=== PATIENT | female | born 1955 | race Caucasian/White ===

== ENCOUNTER 2023-01-20 08:21 | Outpatient (OUT) | payer BC, SELFPAY ==
[2023-01-20 08:48] LABS: Basophils Absolute Auto 0.1 10^3/uL (0.0-0.1); Basophils Percent Auto 0.9 % (0.2-2.0); Eosinophils Absolute Auto 0.3 10^3/uL (0.0-0.7); Eosinophils Percent Auto 3.5 % (0.9-7.0); Hematocrit 35.4 % (36.0-48.0); Hemoglobin 11.2 g/dL (12.0-16.0); Immature Granulocytes Abs Auto 0.05 10^3/uL (0.00-0.03); Immature Granulocytes Pct Auto 0.6 % (0.0-0.5); Lymphocytes Absolute Auto 3.1 10^3/uL (1.2-3.8); Lymphocytes Percent Auto 36.3 % (20.5-60.0); Mean Corpuscular HGB Conc 31.6 g/dL (29.9-35.2); Mean Corpuscular Hemoglobin 28.6 pg (26.7-34.0); Mean Corpuscular Volume 90.3 fL (81.0-99.0); Monocytes Absolute Auto 0.7 10^3/uL (0.3-0.8); Monocytes Percent Auto 8.5 % (1.7-12.0); Neutrophils Absolute Auto 4.3 10^3/uL (1.4-6.5); Neutrophils Percent Auto 50.2 % (43.0-75.0); Platelet Count 411 10^3/uL (150-450); Red Blood Count 3.92 10^6/uL (4.20-5.40); Red Cell Distribution Width 14.7 % (11.0-15.0); White Blood Count 8.6 10^3/uL (4.0-11.0)
[2023-01-20 09:03] LABS: Alanine Aminotransferase 27 U/L (14-59); Albumin Globulin Ratio 0.9; Albumin Level 3.4 g/dL (3.4-5.0); Alkaline Phosphatase 76 U/L (46-116); Anion Gap 11.5; Aspartate Amino Transferase 21 U/L (15-37); BUN Creatinine Ratio 16.3; Bilirubin Total 0.2 mg/dL (0.2-1.0); Calcium 8.7 mg/dL (8.5-10.1); Carbon Dioxide 29.7 mmol/L (21.0-32.0); Chloride 105 mmol/L (98-107); Chol HDL Ratio 3.4; Cholesterol 217 mg/dL (<=200); Estimated GFR (African America >60 (>=60); Estimated GFR (Non-African Ame >60 (>=60); Globulin 3.8 g/dL; Glucose 99 mg/dL (74-106); HDL Cholesterol 63 mg/dL (40-60); Potassium 4.2 mmol/L (3.5-5.1); Sodium 142 mmol/L (136-145); Total Protein 7.2 g/dL (6.4-8.2); Triglycerides 102 mg/dL (<=150); VLDL CHOLESTEROL 20.4 mg/dL
[2023-01-20 09:20] LABS: Estimated Average Glucose 114 mg/dL; Glycohemoglobin A1C 5.6 % (4.5-6.2)
== END 2023-01-20 08:22 ==
LOC: LAB 08:21
PROVIDERS: PCP Family Medicine; Visit Provider Family Medicine
DX: Z00.00 Encounter for general adult medical examination without abnormal findings (principal)
CPT/HCPCS: 36415; 80053; 80061; 83036; 84443; 85025

== ENCOUNTER 2023-06-17 07:01 | Outpatient (OUT) | payer BC, SELFPAY ==
--- NOTE | 2023-06-17 | MM_ITS ---
Patient: MIRYAM PATEL Exam Date: 06/17/2023 : 1955 Gender:F Ordering : DR Jermaine Russo . Admission #: [id number] Family : DR Tanvi Rocha M.D. Order #: [id number] CLICK HERE TO VIEW EXAM RADIOLOGY REPORT PROCEDURE: MM TOMOSYNTHESIS SCREENING BI COMPARISON: MG MAMM SCREEN 3D YOU CAD, 05/17/2021. MG MAMM SCREEN 3D YOU CAD, 06/11/2022. INDICATIONS: Screening Mammogram Calculator Name NCI Breast Cancer Risk Assessment Tool 5 Year Breast Cancer Risk 1.20% Lifetime Breast Cancer Risk 4.60% Personal Breast Cancer No Personal Ovarian Cancer No Treatments None Family Cancers Niece with larynx cancer at age ~70; Grandfather-maternal with skin cancer at age 63. LOCATION: [facility] BREAST COMPOSITION: Scattered areas fibroglandular density. FINDINGS: DIAGNOSTIC CATEGORY 1--NEGATIVE. NO CHANGE FROM COMPARISON ASSESSMENT. Scattered benign-appearing calcifications are present. Scattered benign-appearing lymph nodes are present. RIGHT BREAST: No significant suspicious finding. LEFT BREAST: No significant suspicious finding. RECOMMENDATIONS: ROUTINE MAMMOGRAM AND CLINICAL EVALUATION IN 12 MONTHS. PLEASE NOTE: A NORMAL MAMMOGRAM DOES NOT EXCLUDE THE POSSIBILITY OF BREAST CANCER. A CLINICALLY SUSPICIOUS PALPABLE LUMP SHOULD BE BIOPSIED. Dictated by: Rory Ford MD on 06/17/2023 at 09:55 Approved by: Rory Ford MD on 06/17/2023 at 09:57
== END 2023-06-17 07:02 | disposition home or self-care (01) ==
LOC: MAMMO 07:01
PROVIDERS: PCP Family Medicine; Visit Provider Obstetrics & Gynecology
DX: Z12.31 Encounter for screening mammogram for malignant neoplasm of breast (principal)
CPT/HCPCS: 77063; 77067

== ENCOUNTER 2023-07-02 19:09 | Outpatient (REF) | payer BC, SELFPAY ==
[2023-07-08 10:10] LABS: Age Gdln ACOG Testing Note (.); HPV Aptima Negative (Negative); IGP, Aptima HPV, rfx 16/18,45 Note (.)
== END 2023-07-02 19:10 | disposition home or self-care (01) ==
LOC: LAB 19:09
PROVIDERS: PCP Family Medicine; Visit Provider Obstetrics & Gynecology
DX: Z01.419 Encounter for gynecological examination (general) (routine) without abnormal findings (principal)
CPT/HCPCS: G0145

== ENCOUNTER 2023-09-10 13:58 | Outpatient (OUT) | payer BC, SELFPAY ==
--- OUTSIDE RECORDS SUMMARY | 2023-09-10 14:01 | XMS_ITS | CCD ---
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 Role Phone ALVINO, DR TANVI Perez Primary Care Unavailable MONIQUE, DR WILCOX Admitting Unavailable MONIQUE, DR WILCOX Attending Unavailable WEST, DR KATHIE Gaona Consulting Unavailable MONIQUE, DR WILCOX Consulting Unavailable MONIQUE, DR WILCOX Admitting Unavailable MONIQUE, DR WILCOX Attending Unavailable ROCHA, DR TANVI Perez Primary Care Unavailable WEST, DR KATHIE Gaona Consulting Unavailable MONIQUE, DR WILCOX Consulting Unavailable MONIQUE, DR WILCOX Admitting Unavailable MONIQUE, DR WILCOX Attending Unavailable ROCHA, DR TANIV Perez Primary Care Unavailable MONIQUE, DR WILCOX Consulting Unavailable ROCHA, DR TANVI Perez Primary Care Unavailable TOMI PANIAGUA Admitting Unavailable TOMI PANIAGUA Attending Unavailable TOMI PANIAGUA Consulting Unavailable KATHIE HOPKINS Consulting Unavailable JOHN JOHNSON Admitting Unavailable JOHN JOHNSON Attending Unavailable ALVINO, DR TANVI Perez Primary Care Unavailable ALVINO, DR TANVI Perez Consulting Unavailable ALVINO, DR TANVI Perez Admitting Unavailable ALVINO, DR TANVI Perez Attending Unavailable ALVINO, DR TANVI Perez Primary Care Unavailable ALVINO, DR TANVI Perez Consulting Unavailable Tanvi Rocha Unavailable JERI AMAYA Attending Unavailable Allergies Allergy Classification Reported Allergen(s) Allergy Type Date of Onset Reaction(s) Facility (1 source) Shellfish Drug allergy (disorder) 12-23-2013 [facility] (1 source) kiwi Drug allergy (disorder) 08-17-2001 [facility] Medications Current Medications Medication Drug Class(es) Dates Sig (Normalized) Sig (Original) alendronic acid 70 mg oral tablet (1 source) Bisphosphonate take 1 tablet by mouth once daily Fosamax 70 MG 1 tablet 30 minutes before the first food, beverage or medicine of the day with plain water Orally Active 24 hr buPROPion hydrochloride 150 mg extended release oral tablet (1 source) Aminoketone take 1 tablet by mouth every twenty-four hours Wellbutrin XL 150 MG 1 tablet in the morning Orally Once a day for 90 days Active cycloSPORINE 0.5 mg/ml ophthalmic suspension (1 source) Calcineurin Inhibitor Immunosuppressant take 1 drop(s) into the eye(s) twice daily Restasis 0.05 % 1 drop into affected eye Ophthalmic Twice a day Active levothyroxine sodium 0.1 mg oral tablet (1 source) l-Thyroxine take 1 tablet by mouth once daily in the morning Levothyroxine Sodium 100 MCG 1 tablet in the morning on an empty stomach Orally Once a day for 90 days Active Problems Active Problems Problem Classification Problem Date Documented Da te Episodic/Chronic Genitourinary symptoms and ill-defined conditions (1 source) Urinary tract infectious disease; Translations: [Unspecified symptoms and signs involving the genitourinary system] Episodic Headache; including migraine (1 source) Chronic tension-type headache; Translations: [Chronic tension-type headache, not intractable] Chronic Immunizations and screening for infectious disease (1 source) Encounter for screening for human papillomavirus (HPV); Translations: [ENC SCREENING HUMAN PAPILLOMAVIRUS] Onset: 07-04-2022 Episodic Influenza (1 source) Influenza due to other identified influenza virus with other respiratory manifestations; Translations: [FLU D/T OTH ID FLU VIR OTH RSP MANF] Onset: 07-17-2022 Episodic Menopausal disorders (1 source) Vaginal dryness; Translations: [Menopausal and female climacteric states] Chronic Mood disorders (1 source) Major depression, single episode; Translations: [Major depressive disorder, single episode, unspecified] Chronic Osteoarthritis (1 source) Localized, primary osteoarthritis of the pelvic region and thigh; Translations: [Unilateral primary osteoarthritis, right hip] Chronic Other aftercare (1 source) Other detention (current) drug therapy; Translations: [OT USP CURRENT DRUG THERAPY] Onset: 07-17-2022 Episodic Other bone disease and musculoskeletal deformities (1 source) Other specified disorders of bone density and structure, unspecified site; Translations: [OTH D/O BONE DEN STRUCT UNS SITE] Onset: 06-15-2022 Episodic Other bone disease and musculoskeletal deformities (1 source) Osteopenia; Translations: [Other specified disorders of bone density and structure, unspecified site] Episodic Other connective tissue disease (1 source) Trochanteric bursitis of right hip; Translations: [Trochanteric bursitis, right hip] Episodic Other non-traumatic joint disorders (1 source) Pain in right hip joint; Translations: [Pain in right hip] Episodic Other screening for suspected conditions (not mental disorders or infectious disease) (8 sources) Encounter for screening for malignant neoplasm of cervix; Translations: [Encounter for screening mammogram for malignant neoplasm of breast] Onset: 06-11-2022 Episodic Residual codes; unclassified (1 source) Family history of malignant neoplasm of other organs or systems; Translations: [FAM HX MALIG NEOPLASM OTH ORGN/SYS] Onset: 06-15-2022 Episodic Residual codes; unclassified (4 sources) Asymptomatic menopausal state; Translations: [ASYMPTOMATIC MENOPAUSAL STATE] Onset: 06-10-2022 Episodic Residual codes; unclassified (1 source) Postmenopausal state; Translations: [Asymptomatic menopausal state] Episodic Spondylosis; intervertebral disc disorders; other back problems (1 source) Lumbar radiculopathy; Translations: [Radiculopathy, lumbar region] Episodic Thyroid disorders (2 sources) Hypothyroidism, unspecified; Translations: [Hypothyroidism] Onset: 07-17-2022 Chronic Unclassified (2 sources) COUGH, UNSPECIFIED; Translations: [COUGH, UNSPECIFIED] Onset: 07-17-2022 Unclassified (3 sources) CONTACT W/AND (SUSP) EXPOS COVID-19; Translations: [CONTACT W/AND (SUSP) EXPOS COVID-19] Onset: 07-17-2022 Past or Other Problems Problem Classification Problem Date Documented Da te Episodic/Chronic Unclassified (1 source) COUGH, UNSPECIFIED; Translations: [COUGH, UNSPECIFIED] Onset: 07-14-2022 Unclassified (1 source) CONTACT W/AND (SUSP) EXPOS COVID-19; Translations: [CONTACT W/AND (SUSP) EXPOS COVID-19] Onset: 07-14-2022 Results Test Name Value Interpretation Reference Range [facility] SARS-CoV-2 (COVID-19) RNA LARA+probe Ql (Unsp spec) Not detected Normal NOT DETECTED [facility] Comment on above: Result Comment: When diagnostic testing is negative, the possibility of a false negative should be considered in the context of a patient's recent exposures and the presence of clinical signs and symptoms consistent with SARS-CoV-2. This test is not yet approved or cleared by the [place] FDA. When there are no FDA-approved or cleared tests available, and other criteria are met, FDA can make tests available under an emergency access mechanism called an Emergency Use Authorization (EUA). The EUA for this test is supported by the [place] of Health and Human Service's declaration that circumstances exist to justify the emergency use of in vitro diagnostics for the detection and/or diagnosis of the virus that causes COVID-19. This EUA will remain in effect for the duration of the COVID-19 declaration justifying emergency of IVDs, unless it is terminated or revoked by the FDA (after which the test may no longer be used). Performed By: #### C VDTB #### [facility] [address] [place] [address] Dr. Heather Aguirre INFLUENZA A AND B AGon 07-14 INFLUENZA A AG Positive Abnormal NEGATIVE SEE COMMENT [facility] Comment on above: Performed By: #### I NFLUAB #### [facility] [address] [place] [address] Dr. Heather Aguirre INFLUENZA B AG Negative Normal NEGATIVE SEE COMMENT [facility] Comment on above: Performed By: #### I NFLUAB #### [facility] [address] [place] [address] Dr. Heather Aguirre INTERNAL CONTROLS Within Normal Limits Normal Wi thin Normal Limits [facility] Comment on above: Performed By: #### I NFLUAB #### [facility] [address] [place] [address] Dr. Heather Aguirre XR CHEST 2 Von 07-14-2022 XR CHEST 2 V EXAM: XR CHEST 2 V HISTORY: Chills, fever and bodyaches COMPARISON: None. TECHNIQUE: PA and lateral chest x-rays FINDINGS: The lung parenchyma is free of consolidation or infiltrate. No pneumothorax or pleural effusion. The cardiac, mediastinal and hilar contours are normal. The visualized osseous structures exhibit no gross abnormality. IMPRESSION: No acute cardiopulmonary abnormality. Electronically authenticated by: KATHIE HOPKINS Date: 2022-07-14 21:21 Normal [facility] PAP ACOG PANEL 2: 30 to 65on 07-09-2022 . . Normal [facility] Comment on above: Result Comment: Perf ormed at: WB Performed By: #### [id number] #### [facility] [address] [address] [address] Heather Aguirre Age Gdln ACOG Testing 30-65 Normal [facility] Comment on above: Performed By: #### [id number] #### [facility] [address] [address] [address] Heather Aguirre DIAGNOSIS: Comment Normal [facility] Comment on above: Result Comment: NEGA TIVE FOR INTRAEPITHELIAL LESION OR MALIGNANCY. CELLULAR CHANGES ASSOCIATED WITH ATROPHY ARE PRESENT. Performed at: WB Performed By: #### [id number] #### [facility] [address] [address] [address] Heather Aguirre HPV Aptima Negative Normal Negative [facility] Comment on above: Result Comment: This nucleic acid amplification test detects fourteen high-risk HPV types (16,18,31,33,35,39,45,51,52,56,58,59,66,68) without differentiation. Performed at: =G Performed By: #### [id number] #### [facility] [address] [address] [address] Heather Aguirre HPV Genotype Reflex Comment Normal [facility] Comment on above: Result Comment: Crit eria not met, HPV Genotype not performed. Performed at: WB Performed By: #### [id number] #### [facility] [address] [address] [address] Heather Aguirre Methodology: CTIM [facility] Comment on above: Result Comment: The Thin Prep(R) Front Attendant was unable to read this specimen. Therefore a manual review was performed. Performed at: WB Performed By: #### [id number] #### [facility] [address] [place] [address] Dr. Heather Aguirre Note: Comment Normal [facility] Comment on above: Result Comment: The Pap smear is a screening test designed to aid in the detection of premalignant and malignant conditions of the uterine cervix. It is not a diagnostic procedure and should not be used as the sole means of detecting cervical cancer. Both false-positive and false-negative reports do occur. . Performed at: WB Performed By: #### [id number] #### [facility] [address] [address] [address] Heather Aguirre Performed by: Comment Normal [facility] Comment on above: Result Comment: Supriya Amador, Youth Probation Officer (ASCP) Performed at: WB Performed By: #### [id number] #### [facility] [address] [place], [place] [address] Dr. Heather Aguirre Specimen adequacy: Comment Normal [facility] Comment on above: Result Comment: Sati sfactory for evaluation. Endocervical component may not be distinguished in cases of atrophy. Performed at: WB Performed By: #### [id number] #### [facility] [address] [address] [address] Heather Aguirre MG MAMM SCREEN 3D YOU CADon 06-11-2022 MG MAMM SCREEN 3D YOU CAD Patient: MIRYAM PATEL Exam Date: 06/11/2022 : 1955 Gender:F Ordering : DR JERI AMAYA . Admission #: [id number] Family : Order #: [id number] CLICK HERE TO VIEW EXAM RADIOLOGY REPORT PROCEDURE: MAMMOGRAM SCREENING 3D BILATERAL CAD COMPARISON: MG MAMM SCREEN YOU W CAD, 05/16/2020. MG MAMM SCREEN 3D YOU CAD, 05/17/2021. INDICATIONS: Screening mammography Calculator Name NCI Breast Cancer Risk Assessment Tool 5 Year Breast Cancer Risk 1.20% Lifetime Breast Cancer Risk 4.70% Personal Breast Cancer No Personal Ovarian Cancer No Treatments None Family Cancers Niece with larynx cancer at age 70; Grandfather-maternal with skin cancer at age 63. LOCATION: [facility] BREAST COMPOSITION: Scattered areas fibroglandular density. FINDINGS: DIAGNOSTIC CATEGORY 1--NEGATIVE. NO CHANGE FROM COMPARISON ASSESSMENT. Scattered benign-appearing calcifications are present. Scattered benign-appearing lymph nodes are present. RIGHT BREAST: No significant suspicious finding. LEFT BREAST: No significant suspicious finding. RECOMMENDATIONS: ROUTINE MAMMOGRAM AND CLINICAL EVALUATION IN 12 MONTHS. PLEASE NOTE: A NORMAL MAMMOGRAM DOES NOT EXCLUDE THE POSSIBILITY OF BREAST CANCER. A CLINICALLY SUSPICIOUS PALPABLE LUMP SHOULD BE BIOPSIED. Dictated by: Kathie Olvera MD on 06/11/2022 at 08:03 Approved by: Kathie Olvera MD on 06/11/2022 at 08:04 Normal [facility] XR DEXA BONE DENSITYon 06-10 XR DEXA BONE DENSITY EXAMINATION: XR DEX A BONE DENSITY, 06/10/2022 7:59 AM EDT HISTORY: Screening mammography COMPARISON: 2019, 2017, 2009 TECHNIQUE: Dual-energy X-ray absorptiometry (DEXA) bone density study performed for the axial skeleton. FINDINGS: Bone mineral density of the AP spine L2-L4 measures 1.127 g/sq cm. T score -0.6. WHO classification: Normal Lowest bone mineral density is in the right femoral neck measuring 0.73 g/sq cm. T score -1.8. WHO classification: Osteopenia IMPRESSION: Osteopenia, moderate fracture risk Electronically authenticated by: KATHIE OLVERA Date: 2022-06-10 12:16 Normal [facility] CBC AUTO DIFFon 02-12-2022 BASO # 0.1 103/ul Normal 0.0-0.1 [facility] Comment on above: Performed By: #### L IPID, TSH, CMP #### [facility] [address] [place] [address] Dr. Heather Aguirre Basophils/100 WBC (Bld) 0.8 % Normal 0.2-2.0 [facility] Comment on above: Performed By: #### L IPID, TSH, CMP #### [facility] [address] [place] [address] Dr. Heather Aguirre EO # 0.3 103/ul Normal 0.0-0.7 [facility] Comment on above: Performed By: #### L IPID, TSH, CMP #### [facility] [address] [place] [address] Dr. Heather Aguirre Eosinophils/100 WBC (Bld) 2.9 % Normal 0.9-7.0 [facility] Comment on above: Performed By: #### L IPID, TSH, CMP #### [facility] [address] [place] [address] Dr. Heather Aguirre Erythrocyte distribution width (RBC) [Ratio] 13.2 % Normal 11.0-15.0 [facility] Comment on above: Performed By: #### L IPID, TSH, CMP #### [facility] [address] [place] [address] Dr. Heather Aguirre Hematocrit (Bld) [Volume fraction] 37.6 % Normal 36.0-48.0 [facility] Comment on above: Performed By: #### L IPID, TSH, CMP #### [facility] [address] [place] [address] Dr. Heather Aguirre Hemoglobin (Bld) [Mass/Vol] 12.1 g/dL Normal 12.0-16.0 [facility] Comment on above: Performed By: #### L IPID, TSH, CMP #### [facility] [address] [place] [address] Dr. Heather Aguirre IG # 0.03 10e3/ul Normal 0.00-0.03 [facility] Comment on above: Performed By: #### L IPID, TSH, CMP #### [facility] [address] [place] [address] Dr. Heather Aguirre IG % 0.3 % Normal 0.0-0.5 [facility] Comment on above: Performed By: #### L IPID, TSH, CMP #### [facility] [address] [place] [address] Dr. Heather Aguirre LYMPH # 2.9 103/ul Normal 1.2-3.8 [facility] Comment on above: Performed By: #### L IPID, TSH, CMP #### [facility] [address] [place] [address] Dr. Heather Aguirre Lymphocytes/100 WBC (Bld) 33.6 % Normal 20.5-60.0 [facility] Comment on above: Performed By: #### L IPID, TSH, CMP #### [facility] [address] [place] [address] Dr. Heather Aguirre MANUAL DIFF REQ NO Normal [facility] Comment on above: Performed By: #### L IPID, TSH, CMP #### [facility] [address] [place] [address] Dr. Heather Aguirre MCH (RBC) [Entitic mass] 30.0 pg Normal 26.7-34.0 [facility] Comment on above: Performed By: #### L IPID, TSH, CMP #### [facility] [address] [place] [address] Dr. Heather Aguirre MCHC (RBC) [Mass/Vol] 32.2 g/dL Normal 29.9-35.2 [facility] Comment on above: Performed By: #### L IPID, TSH, CMP #### [facility] [address] [place] [address] Dr. Heather Aguirre MCV (RBC) [Entitic vol] 93.1 fL Normal 81.0-99.0 [facility] Comment on above: Performed By: #### L IPID, TSH, CMP #### [facility] [address] [place] [address] Dr. Heather Aguirre MONO # 0.6 103/ul Normal 0.3-0.8 [facility] Comment on above: Performed By: #### L IPID, TSH, CMP #### [facility] [address] [place] [address] Dr. Heather Aguirre Monocytes/100 WBC (Bld) 7.1 % Normal 1.7-12.0 [facility] Comment on above: Performed By: #### L IPID, TSH, CMP #### [facility] [address] [place] [address] Dr. Heather Aguirre NEUT # 4.8 103/ul Normal 1.4-6.5 [facility] Comment on above: Performed By: #### L IPID, TSH, CMP #### [facility] [address] [place] [address] Dr. Heather Aguirre Neutrophils/100 WBC (Bld) 55.3 % Normal 43.0-75.0 [facility] Comment on above: Performed By: #### L IPID, TSH, CMP #### [facility] [address] [place] [address] Dr. Heather Aguirre Platelet mean volume (Bld) [Entitic vol] 10.2 fL Normal 9.5-13.5 [facility] Comment on above: Performed By: #### L IPID TSH, CMP #### [facility] [address] [address] [address] Heather Aguirre PLT 329 103/ul Normal 150-450 [facility] Comment on above: Performed By: #### L IPID, TSH, CMP #### [facility] [address] [address] [address] Heather Aguirre RBC 4.04 106/ul Critically low 4.20-5.40 [facility] Comment on above: Performed By: #### L IPID TSH, CMP #### [facility] [address] [address] [address] Heather Aguirre WBC 8.7 103/ul Normal 4.0-11.0 [facility] Comment on above: Performed By: #### L IPID TSH, CMP #### [facility] [address] [address] [address] Heather Aguirre GLYCOHEMOGLOBIN A1Con 2021 ADA RECOMMENDATION SEE BELOW Normal [facility] Comment on above: Result Comment: ADA RECOMMENDED LIMIT 4.0 - 6.0 ADA THERAPEUTIC TARGET < 7.0 ACTION SUGGESTED > 7.0 Performed By: #### A 1C #### [facility] [address] [place] [address] Dr. Heather Aguirre Glucose [Mass/Vol] 108 mg/dL Normal [facility] Comment on above: Performed By: #### A 1C #### [facility] [address] [address] [address] Heather Aguirre HbA1c (Bld) [Mass fraction] 5.4 % Normal 4.5-6.2 [facility] Comment on above: Performed By: #### A 1C #### [facility] [address] [place] [address] Dr. Heather Aguirre LIPID PROFILEon 02-12-2022 CHOL-HDL RATIO NORM SEE BELOW Normal [facility] Comment on above: Result Comment: 3.3 - 4.4 LOW RISK 4.4 - 7.1 AVERAGE RISK 7.1 - 11.0 MODERATE RISK >11.0 HIGH RISK Performed By: #### L IPID, TSH, CMP #### [facility] [address] [address] [address] Heather Aguirre Cholesterol [Mass/Vol] 215 mg/dL Critically high <=200 [facility] Comment on above: Performed By: #### L IPID, TSH, CMP #### [facility] [address] [address] [address] Heather Aguirre Cholesterol in HDL [Mass/Vol] 59 mg/dL Normal 40-60 [facility] Comment on above: Performed By: #### L IPID, TSH, CMP #### [facility] [address] [address] [address] Heather Aguirre Cholesterol in LDL [Mass/Vol] 133.0 mg/dL Normal [facility] Comment on above: Performed By: #### L IPID, TSH, CMP #### [facility] [address] [address] [address] Heather Aguirre Cholesterol.total/Cho lesterol in HDL [Mass ratio] 3.6 {ratio} Normal [facility] Comment on above: Performed By: #### L IPID, TSH, CMP #### [facility] [address] [place] [address] Dr. Heather Aguirre HDL NORMAL > or = 60 mg/dl - LO W CARDIOVASCULAR RISK <40 mg/dl - HIGH CARDIOVASCULAR RISK Normal [facility] Comment on above: Performed By: #### L IPID, TSH, CMP #### [facility] [address] [place] [address] Dr. Heather Aguirre LDL CALC NORMAL SEE BELOW Normal [facility] Comment on above: Result Comment: <100 mg/dl OPTIMAL 100 - 129 mg/dl NEAR OR ABOVE OPTIMAL 130 - 159 mg/dl BORDERLINE HIGH 160 - 189 mg/dl HIGH >190 mg/dl VERY HIGH Performed By: #### L IPID, TSH, CMP #### [facility] [address] [address] [address] Heather Aguirre Triglyceride [Mass/Vol] 115 mg/dL Normal <=150 [facility] Comment on above: Performed By: #### L IPID, TSH, CMP #### [facility] [address] [address] [address] Heather Aguirre VLDL CALC 23.0 mg/dL Normal [facility] Comment on above: Performed By: #### L IPID, TSH, CMP #### [facility] [address] [address] [address] Heather Aguirre PROF 14(COMP METB)on 022 Albumin [Mass/Vol] 3.5 g/dL Normal 3.4-5.0 [facility] Comment on above: Performed By: #### L IPID, TSH, CMP #### [facility] [address] [place] [address] Dr. Heather Aguirre Albumin/Globulin [Mass ratio] 1.1 {ratio} Normal [facility] Comment on above: Performed By: #### L IPID, TSH, CMP #### [facility] [address] [place] [address] Dr. Heather Aguirre ALP [Catalytic activity/Vol] 56 U/L Normal 46-116 [facility] Comment on above: Performed By: #### L IPID, TSH, CMP #### [facility] [address] [place] [address] Dr. Heather Aguirre ALT [Catalytic activity/Vol] 25 U/L Normal 14-59 [facility] Comment on above: Performed By: #### L IPID, TSH, CMP #### [facility] [address] [address] [address] Heather Aguirre Anion gap [Moles/Vol] 1 mmol/L Normal [facility] Comment on above: Performed By: #### L IPID, TSH, CMP #### [facility] [address] [place] [address] Dr. Heather Aguirre AST [Catalytic activity/Vol] 10 U/L Critically low 15-37 [facility] Comment on above: Performed By: #### L IPID, TSH, CMP #### [facility] [address] [place] [address] Dr. Heather Aguirre Bilirubin [Mass/Vol] 0.5 mg/dL Normal 0.2-1.0 [facility] Comment on above: Performed By: #### L IPID, TSH, CMP #### [facility] [address] [address] [address] Heather Aguirre Calcium [Mass/Vol] 8.5 mg/dL Normal 8.5-10.1 [facility] Comment on above: Performed By: #### L IPID, TSH, CMP #### [facility] [address] [place] [address] Dr. Heather Aguirre Chloride [Moles/Vol] 102 mmol/L Normal 98-107 [facility] Comment on above: Performed By: #### L IPID, TSH, CMP #### [facility] [facility] [address] [place] [address] Dr. Heather Aguirre CO2 [Moles/Vol] 30.0 mmol/L Normal 21.0-32.0 [facility] Comment on above: Performed By: #### L IPID, TSH, CMP #### [facility] [address] [address] [address] Heather Aguirre Creatinine [Mass/Vol] 1.07 mg/dL Critically high 0.55-1.02 [facility] Comment on above: Performed By: #### L IPID, TSH, CMP #### [facility] [address] [place] [address] Dr. Heather Aguirre EGFR-AF MOZAMBICAN >60 Normal >=60 [facility] Comment on above: Performed By: #### L IPID, TSH, CMP #### [facility] [address] [place] [address] Dr. Heather Aguirre EGFR-NON AF MOZAMBICAN 52 mL/min/1.73m2 Critically low >=60 [facility] Comment on above: Performed By: #### L IPID, TSH, CMP #### [facility] [address] [place] [address] Dr. Heather Aguirre Globulin (S) [Mass/Vol] 3.2 g/dL Normal [facility] Comment on above: Performed By: #### L IPID, TSH, CMP #### [facility] [address] [place] [address] Dr. Heather Aguirre Glucose [Mass/Vol] 96 mg/dL Normal 74-106 [facility] Comment on above: Performed By: #### L IPID, TSH, CMP #### [facility] [address] [place] [address] Dr. Heather Aguirre Potassium [Moles/Vol] 4.0 mmol/L Normal 3.5-5.1 [facility] Comment on above: Performed By: #### L IPID, TSH, CMP #### [facility] [address] [place] [address] Dr. Heather Aguirre Protein [Mass/Vol] 6.7 g/dL Normal 6.4-8.2 [facility] Comment on above: Performed By: #### L IPID, TSH, CMP #### [facility] [address] [place] [address] Dr. Heather Aguirre Sodium [Moles/Vol] 127 mmol/L Critically low 136-145 [facility] Comment on above: Performed By: #### L IPID, TSH, CMP #### [facility] [address] [place] [address] Dr. Heather Aguirre Urea nitrogen [Mass/Vol] 20.0 mg/dL Critically high 7.0-18.0 [facility] Comment on above: Performed By: #### L IPID, TSH, CMP #### [facility] [address] [place] [address] Dr. Heather Aguirre Urea nitrogen/Creatinine [Mass ratio] 18.7 mg/mg Normal [facility] Comment on above: Performed By: #### L IPID, TSH, CMP #### [facility] [address] [place] [address] Dr. Heather Aguirre TSHon 02-12-2022 TSH 1.693 uIU/mL Normal 0.358-3.740 [facility] Comment on above: Performed By: #### L IPID, TSH, CMP #### [facility] [address] [place] [address] Dr. Heather Aguirre Vital Signs Date Time Vital Sign Value Performing Clinician Facility 02-26-2023 08:30-0400 Body height 152.4 cm Tanvi Rocha Other [facility] Other 02-26-2023 08:30-0400 Body mass index (BMI) [Ratio] 35.93 kg/m2 Tanvi Rocha Other [facility] Other 02-26-2023 08:30-0400 Body weight 83.46 kg Tanvi Rocha Other [facility] Other 02-26-2023 08:30-0400 Diastolic blood pressure 84 mm[Hg] Tanvi Rocha Other [facility] Other 02-26-2023 08:30-0400 Systolic blood pressure 145 mm[Hg] Tanvi Rocha Other [facility] Other Encounters Encounter Date Encounter Type Care Provider Facility Start: 07-02-2023 End: 07-02-2023 ambulatory JERI AMAYA Not Available Start: 02-26-2023 End: 02-26-2023 ambulatory Tanvi Rocha Other [facility] Other Start: 02-26-2023 Encounter for genera l adult medical examination without abnormal findings Tanvi Rocha [facility] Start: 02-26-2023 Periodic preventive med est patient 65yrs& older Tanvi Rocha [facility] Start: 07-14-2022 End: 07-15-[address] TANVI ROCHA Facility:[facility] Start: 07-01-2022 End: 07-01-[address] JERI AMAYA Facility:[facility] Start: 06-11-2022 End: 06-12-[address] TANVI ROCHA Facility:[facility] Start: 06-10-2022 End: 06-11-[address] JERI AMAYA Facility:[facility] Start: 02-14-2022 Encounter for genera l adult medical examination without abnormal findings DR TANVI ROCHA [facility] Start: 02-12-2022 End: 02-13-[address] TANIV ROCHA Facility:[facility] Start: 02-12-2022 End: 02-13-2022 Encounter for general adult medical examination without abnormal findings DR TANVI ROCHA Facility:[facility] Payers Date Payer Category Payer [facility] [id number] 2019 Unknown [id number] 1955 Unknown [id number] 2.16.84 [id number] 1955 Unknown [id number] 2.16.84 [id number] 1957 Unknown [id number] 2.16.84 [id number] 1957 Unknown [id number] 2.16.84 [id number] 1957 Unknown [id number] 2.16.84 [id number] 1957 Unknown [id number] 2.16.84 [id number] 1957 Unknown [id number] Social History Date Type Detail Facility Sex Assigned At [facility] Other Evaluation note 02-26-2023 Note Date & Type Note Facility 02-26-2023 Evaluation note Encounter Date Diagnosis Assessment Notes Feb, Well adult exam (ICD-10 - Z00.00) We have discussed the necessity of following up with PCP regularly as well as specialists, as needed. Discussed F/U with dentistry and optometry at least yearly. Discussed all preventative measures/ cancer screenings as applicable to this patient. Emphasized the importance of a reduced fat, low carb diet to promote heart health and controlled blood sugars. Reviewed social history and ensured patient is safe within the home today. Pt denies any abuse of alcohol, nicotine, caffeine or recreational drugs. I have ensured patient is of stable mental and physical health today. We have discussed appropriate F/U schedule as well as blood work and vaccinations that apply. All questions answered and patient is sent home pleased, without concerns. Normal colonscopy in 2013 - repeat next year. [facility] Other History general Narrative - Reported Note Date & Type Note Facility History general Narrative - Reported Type Medical History Post-menopausal Medical History Hypothyroidism Medical History Chronic tension-type headache, not intractable Medical History Trochanteric bursitis of right h ip Medical History Osteoarthritis of right hip Medical History Osteopenia, unspecified location Medical History Lumbar radiculopathy, right Medical History Vaginal dryness, menopausal Medical History Right hip pain Medical History Depression, major Medical History UTI symptoms Surgical History CHOLECYSTECTOMY 1999 Surgical History HYSTERECTOMY, TOTAL 07/1998 Surgical History LAITH WITH BSO AND APPENDECTOMY 1 09/1997 Surgical History TONSILLECTOMY 1961 Surgical History HERNIA REPAIR 1970 Surgical History ENDOMETRIOSIS R CARPEL TUNNEL 0 01/2017 Surgical History CATARACTS 06/2018 Surgical History colonoscopy - 2013 - normal Dr. Mejia Hospitalization History SEE SURGICAL HX [facility] Other Summary Purpose Family History No Family History Records FoundNo Family History Records Found Advance Directives No Advanced Directives Records FoundNo Advanced Directives Records Found Additional Source Comments INFORMATION SOURCE (unrecogn ized section and content) DATE CREATED AUTHOR 07/17/2022 [facility] DATE CREATED AUTHOR AUTHOR'S ORGANIZ ATION 07/04/2023 [facility] EPIC REASON FOR VISIT (unrecogniz ed section and content) Wellness FOR RECORDS PERTAINING TO PATIENTS WHO ARE OR HAVE BEEN ENROLLED IN A CHEMICAL DEPENDENCY/SUBSTANCEABUSE PROGRAM, SOME INFORMATION MAY BE OMITTED. This clinical summary was aggregated from multiple sources. Caution should be exercised in using it in the provision of clinical care. This summary normalizes information from multiple sources, and as a consequence, information in this document may materially change the coding, format and clinical context of patient data. In addition, data may be omitted in some cases. CLINICAL DECISIONS SHOULD BE BASED ON THE PRIMARY CLINICAL RECORDS. [employer] provides no warranty or guarantee of the accuracy or completeness of information in this document.
[2023-09-10] MEDS: PNEUMOCOCCAL 23 VACCINE 25 MCG/0.5 ML SYRINGE IM (15:38)
== END 2023-09-10 16:24 | disposition home or self-care (01) ==
LOC: VACCLI 13:58
PROVIDERS: PCP Family Medicine
DX: Z23 Encounter for immunization (principal)
CPT/HCPCS: 90732

== ENCOUNTER 2023-10-13 08:31 | Outpatient (OUT) | payer BC, SELFPAY ==
--- NOTE | 2023-10-13 | ECG_ITS ---
[facility] Test Date: 2023-10-13 Pat Name: MIRYAM PATEL Department: Room: - Gender: Female Prime Minister: : 1955 Requested By: DANIEL DE OLIVEIRA Order Number: [id number] [place] MD: RAJ RAM Measurements Intervals [place] Rate: 78 P: 63 [place]: 185 QRS: 105 QRSD: 110 T: 75 QT: 394 QTc: 449 Interpretive Statements SINUS RHYTHM MARKED RIGHT AXIS DEVIATION [QRS AXIS > 100] MODERATE T-WAVE ABNORMALITY, CONSIDER ANTERIOLATERAL ISCHEMIA [-0.1+ mV T WAVE IN V3/V4] Electronically Signed On 10-13-2023 22:53:46 EST by RAJ RAM
--- OUTSIDE RECORDS SUMMARY | 2023-10-13 08:34 | XMS_ITS | CCD ---
Author Name Unknown Address [address] [facility] [address] [place] [id number] Organization [facility] Care Team Providers Care Geophysics Professor Name Role Phone ALVINO, DR TANVI Perez Primary Care Unavailable MONIQUE, DR WILCOX Admitting Unavailable MONIQUE, DR WILCOX Attending Unavailable WEST, DR KATHIE Gaona Consulting Unavailable MONIQUE, DR WILCOX Consulting Unavailable MONIQUE, DR WILCOX Admitting Unavailable MONIQUE, DR WILCOX Attending Unavailable ROCHA, DR TANVI Perez Primary Care Unavailable WADE, DR KATHIE Gaona Consulting Unavailable MONIQUE, DR WILCOX Consulting Unavailable MONIQUE, DR WILCOX Admitting Unavailable MONIQUE, DR WILCOX Attending Unavailable ROCHA, DR TANVI Perez Primary Care Unavailable MONIQUE, DR WILCOX Consulting Unavailable ALVINO, DR TANVI Perez Primary Care Unavailable TOMI [...] source) Shellfish Drug allergy (disorder) 12-23-2013 [facility] (1 source) kiwi Drug allergy (disorder) 08-17-2001 [facility] Medications Current Medications Medication Drug Class(es) [...] hip] Chronic Other aftercare (1 source) Other usp (current) drug therapy; Translations: [OT [facility] CURRENT DRUG THERAPY] Onset: 07-17-2022 Episodic Other [...] Value Interpretation Reference Range Facility Covid-19 PCR (CVDTB)on 06-18 SARS-CoV-2 (COVID-19) RNA LARA+probe Ql (Unsp spec) Not detected Normal NOT DETECTED [facility] Comment on above: Result Comment: When diagnostic [...] for this test is supported by the [place] of Health and Human Service's declaration that [...] used). Performed By: #### C VDTB #### [facility] [address] [place] [address] Dr. Heather Aguirre INFLUENZA A AND B AGon 07-14 INFLUENZA A AG Positive Abnormal NEGATIVE SEE COMMENT [facility] Comment on above: Performed By: #### I NFLUAB #### [facility] [address] [place] [address] Dr. Heather Aguirre INFLUENZA B AG Negative Normal NEGATIVE SEE COMMENT [facility] Comment on above: Performed By: #### I NFLUAB #### [facility] [address] [place] [address] Dr. Heather Aguirre INTERNAL CONTROLS Within Normal Limits Normal Wi thin Normal Limits [facility] Comment on above: Performed By: #### I NFLUAB #### [facility] [address] [place] [address] Dr. Heather Aguirre XR CHEST 2 Von [...] by: KATHIE HOPKINS Date: 2022-07-14 21:21 Normal [place] PAP ACOG PANEL 2: 30 to 65on 07-09-2022 . . Normal [facility] Comment on above: Result Comment: Perf ormed at: WB Performed By: #### [id number] #### [facility] [address] [address] [address] Heather Aguirre Age Gdln ACOG Testing 30-65 Normal [place] Comment on above: Performed By: #### [id number] #### [facility] [address] [address] [address] Heather Aguirre DIAGNOSIS: Comment Normal [place] Comment on above: Result Comment: NEGA TIVE FOR INTRAEPITHELIAL LESION OR MALIGNANCY. CELLULAR CHANGES ASSOCIATED WITH ATROPHY ARE PRESENT. Performed at: WB Performed By: #### [id number] #### [facility] [address] [place] [address] Dr. Heather Aguirre HPV Aptima Negative Normal Negative [place] Comment on above: Result Comment: This nucleic acid amplification test detects fourteen high-risk HPV types (16,18,31,33,35,39,45,51,52,56,58,59,66,68) without differentiation. Performed at: =G Performed By: #### [id number] #### [facility] [address] [address] [address] Heather Aguirre HPV Genotype Reflex Comment Normal [facility] Comment on above: Result Comment: Crit eria not met, HPV Genotype not performed. Performed at: WB Performed By: #### [id number] #### [facility] [address] [address] [address] Heather Aguirre Methodology: CTIM Normal [place] Comment on above: Result Comment: The Thin Prep(R) Supervisor Of Way was unable to read this specimen. Therefore a manual review was performed. Performed at: WB Performed By: #### [id number] #### [facility] [address] [place] [address] Dr. Heather Aguirre Note: Comment Normal [place] Comment on above: Result Comment: The Pap smear is a screening test designed to aid in the detection of premalignant and malignant conditions of the uterine cervix. It is not a diagnostic procedure and should not be used as the sole means of detecting cervical cancer. Both false-positive and false-negative reports do occur. . Performed at: WB Performed By: #### [id number] #### [facility] [address] [address] [address] Heather Aguirre Performed by: Comment Normal [facility] Comment on above: Result Comment: Supriya Amador, Subway Conductor (ASCP) Performed at: WB Performed By: #### [id number] #### [facility] [address] [address] [address] Heather Aguirre Specimen adequacy: Comment Normal [facility] Comment on above: Result Comment: Sati sfactory for evaluation. Endocervical component may not be distinguished in cases of atrophy. Performed at: WB Performed By: #### [id number] #### [facility] [address] [address] [address] Heather Aguirre MG MAMM SCREEN 3D YOU CADon 06-11-2022 MG MAMM SCREEN 3D YOU CAD Patient: MIRYAM PATEL Exam Date: 06/11/2022 : 1955 Gender:F Ordering : DR JERI AMAYA . Admission #: [id number] Family : Order #: [id number] CLICK HERE TO VIEW EXAM RADIOLOGY REPORT [...] skin cancer at age 65. LOCATION: [facility] BREAST COMPOSITION: Scattered areas fibroglandular density. FINDINGS: [...] Olvera MD on 06/11/2022 at 08:04 Normal [place] XR DEXA BONE DENSITYon 06-10 XR DEXA [...] by: KATHIE OLVERA Date: 2022-06-10 12:16 Normal [place] CBC AUTO DIFFon 02-12-2022 BASO # 0.1 103/ul Normal 0.0-0.1 [place] Comment on above: Performed By: #### L IPID, TSH, CMP #### [facility] [address] [place] [address] Dr. Heather Aguirre Basophils/100 WBC (Bld) 0.8 % Normal 0.2-2.0 [place] Comment on above: Performed By: #### L IPID, TSH, CMP #### [facility] [address] [place] [address] Dr. Heather Aguirre EO # 0.3 103/ul Normal 0.0-0.7 [place] Comment on above: Performed By: #### L IPID, TSH, CMP #### [facility] [address] [place] [address] Dr. Heather Aguirre Eosinophils/100 WBC (Bld) 2.9 % Normal 0.9-7.0 [place] Comment on above: Performed By: #### L IPID, TSH, CMP #### [facility] [address] [place] [address] Dr. Heather Aguirre Erythrocyte distribution width (RBC) [Ratio] 13.2 % Normal 11.0-15.0 [place] Comment on above: Performed By: #### L IPID, TSH, CMP #### [facility] [address] [place] [address] Dr. Heather Aguirre Hematocrit (Bld) [Volume fraction] 37.6 % Normal 36.0-48.0 [place] Comment on above: Performed By: #### L IPID, TSH, CMP #### [facility] [address] [place] [address] Dr. Heather Aguirre Hemoglobin (Bld) [Mass/Vol] 12.1 g/dL Normal 12.0-16.0 [place] Comment on above: Performed By: #### L IPID, TSH, CMP #### [facility] [address] [place] [address] Dr. Heather Aguirre IG # 0.03 10e3/ul Normal 0.00-0.03 [place] Comment on above: Performed By: #### L IPID, TSH, CMP #### [facility] [address] [place] [address] Dr. Heather Aguirre IG % 0.3 % Normal 0.0-0.5 [place] Comment on above: Performed By: #### L IPID, TSH, CMP #### [facility] [address] [place] [address] Dr. Heather Aguirre LYMPH # 2.9 103/ul Normal 1.2-3.8 [facility] Comment on above: Performed By: #### L IPID, TSH, CMP #### [facility] [address] [place] [address] Dr. Heather Aguirre Lymphocytes/100 WBC (Bld) 33.6 % Normal 20.5-60.0 [place] Comment on above: Performed By: #### L IPID, TSH, CMP #### [facility] [address] [place] [address] Dr. Heather Aguirre MANUAL DIFF REQ NO Normal [facility] Comment on above: Performed By: #### L IPID, TSH, CMP #### [facility] [address] [place] [address] Dr. Heather Aguirre MCH (RBC) [Entitic mass] 30.0 pg Normal 26.7-34.0 [place] Comment on above: Performed By: #### L IPID, TSH, CMP #### [facility] [address] [place] [address] Dr. Heather Aguirre MCHC (RBC) [Mass/Vol] 32.2 g/dL Normal 29.9-35.2 [place] Comment on above: Performed By: #### L IPID, TSH, CMP #### [facility] [address] [place] [address] Dr. Heather Aguirre MCV (RBC) [Entitic vol] 93.1 fL Normal 81.0-99.0 [place] Comment on above: Performed By: #### L IPID, TSH, CMP #### [facility] [address] [place] [address] Dr. Heather Aguirre MONO # 0.6 103/ul Normal 0.3-0.8 [facility] Comment on above: Performed By: #### L IPID, TSH, CMP #### [facility] [address] [place] [address] Dr. Heather Aguirre Monocytes/100 WBC (Bld) 7.1 % Normal 1.7-12.0 [place] Comment on above: Performed By: #### L IPID, TSH, CMP #### [facility] [address] [place] [address] Dr. Heather Aguirre NEUT # 4.8 103/ul Normal 1.4-6.5 [facility] Comment on above: Performed By: #### L IPID, TSH, CMP #### [facility] [address] [place] [address] Dr. Heather Aguirre Neutrophils/100 WBC (Bld) 55.3 % Normal 43.0-75.0 [place] Comment on above: Performed By: #### L IPID, TSH, CMP #### [facility] [address] [address] [address] Heather Aguirre Platelet mean volume (Bld) [Entitic vol] 10.2 fL Normal 9.5-13.5 [place] Comment on above: Performed By: #### L IPID TSH, CMP #### [facility] [address] [address] [address] Heather Aguirre PLT 329 103/ul Normal 150-450 [facility] Comment on above: Performed By: #### L IPID, TSH, CMP #### [facility] [address] [address] [address] Heather Aguirre RBC 4.04 106/ul Critically low 4.20-5.40 [facility] Comment on above: Performed By: #### L IPID TSH, CMP #### [facility] [address] [address] [address] Heather Aguirre WBC 8.7 103/ul Normal 4.0-11.0 [place] Comment on above: Performed By: #### L IPID TSH, CMP #### [facility] [address] [address] [address] Heather Aguirre GLYCOHEMOGLOBIN A1Con 2021 ADA RECOMMENDATION SEE BELOW Normal [facility] Comment on above: Result Comment: ADA RECOMMENDED LIMIT 4.0 - 6.0 ADA THERAPEUTIC TARGET < 7.0 ACTION SUGGESTED > 7.0 Performed By: #### A 1C #### [facility] [address] [place] [address] Dr. Heather Aguirre Glucose [Mass/Vol] 108 mg/dL Normal [facility] Comment on above: Performed By: #### A 1C #### [facility] [address] [address] [address] Heather Aguirre HbA1c (Bld) [Mass fraction] 5.4 % Normal 4.5-6.2 [place] Comment on above: Performed By: #### A 1C #### [facility] [address] [place] [address] Dr. Heather Aguirre LIPID PROFILEon 02-12-2022 CHOL-HDL RATIO NORM SEE BELOW Normal [facility] Comment on above: Result Comment: 3.3 - 4.4 LOW RISK 4.4 - 7.1 AVERAGE RISK 7.1 - 11.0 MODERATE RISK >11.0 HIGH RISK Performed By: #### L IPID, TSH, CMP #### [facility] [address] [address] [address] Heather Aguirre Cholesterol [Mass/Vol] 215 mg/dL Critically high <=200 [facility] Comment on above: Performed By: #### L IPID, TSH, CMP #### [facility] [address] [address] [address] Heather Aguirre Cholesterol in HDL [Mass/Vol] 59 mg/dL Normal 40-60 [place] Comment on above: Performed By: #### L IPID, TSH, CMP #### [facility] [address] [address] [address] Heather Aguirre Cholesterol in LDL [Mass/Vol] 133.0 mg/dL Normal [facility] Comment on above: Performed By: #### L IPID, TSH, CMP #### [facility] [address] [address] [address] Heather Aguirre Cholesterol.total/Cho lesterol in HDL [Mass ratio] 3.6 {ratio} Normal [place] Comment on above: Performed By: #### L IPID, TSH, CMP #### [facility] [address] [address] [address] Heather Aguirre HDL NORMAL > or = 60 mg/dl - LO W CARDIOVASCULAR RISK <40 mg/dl - HIGH CARDIOVASCULAR RISK Normal [place] Comment on above: Performed By: #### L IPID, TSH, CMP #### [facility] [address] [address] [address] Heather Aguirre LDL CALC NORMAL SEE BELOW Normal [facility] Comment on above: Result Comment: <100 mg/dl OPTIMAL 100 - 129 mg/dl NEAR OR ABOVE OPTIMAL 130 - 159 mg/dl BORDERLINE HIGH 160 - 189 mg/dl HIGH >190 mg/dl VERY HIGH Performed By: #### L IPID, TSH, CMP #### [facility] [address] [address] [address] Heather Aguirre Triglyceride [Mass/Vol] 115 mg/dL Normal <=150 [facility] Comment on above: Performed By: #### L IPID, TSH, CMP #### [facility] [address] [address] [address] Heather Aguirre VLDL CALC 23.0 mg/dL Normal [place] Comment on above: Performed By: #### L IPID, TSH, CMP #### [facility] [address] [address] [address] Heather Aguirre PROF 14(COMP METB)on 022 Albumin [Mass/Vol] 3.5 g/dL Normal 3.4-5.0 [facility] Comment on above: Performed By: #### L IPID, TSH, CMP #### [facility] [address] [address] [address] Heather Aguirre Albumin/Globulin [Mass ratio] 1.1 {ratio} Normal [place] Comment on above: Performed By: #### L IPID, TSH, CMP #### [facility] [address] [address] [address] Heather Aguirre ALP [Catalytic activity/Vol] 56 U/L Normal 46-116 [place] Comment on above: Performed By: #### L IPID, TSH, CMP #### [facility] [address] [address] [address] Heather Aguirre ALT [Catalytic activity/Vol] 25 U/L Normal 14-59 [facility] Comment on above: Performed By: #### L IPID, TSH, CMP #### [facility] [address] [address] [address] Heather Aguirre Anion gap [Moles/Vol] 1 mmol/L Normal [place] Comment on above: Performed By: #### L IPID, TSH, CMP #### [facility] [address] [place] [address] Dr. Heather Aguirre AST [Catalytic activity/Vol] 10 U/L Critically low 15-37 [place] Comment on above: Performed By: #### L IPID, TSH, CMP #### [facility] [address] [address] [address] Heather Aguirre Bilirubin [Mass/Vol] 0.5 mg/dL Normal 0.2-1.0 [place] Comment on above: Performed By: #### L IPID, TSH, CMP #### [facility] [address] [address] [address] Heather Agiurre Calcium [Mass/Vol] 8.5 mg/dL Normal 8.5-10.1 [facility] Comment on above: Performed By: #### L IPID, TSH, CMP #### [facility] [address] [address] [address] Heather Aguirre Chloride [Moles/Vol] 102 mmol/L Normal 98-107 [place] Comment on above: Performed By: #### L IPID, TSH, CMP #### [facility] [address] [place] [address] Dr. Heather Aguirre CO2 [Moles/Vol] 30.0 mmol/L Normal 21.0-32.0 [facility] Comment on above: Performed By: #### L IPID, TSH, CMP #### [facility] [address] [address] [address] Heather Aguirre Creatinine [Mass/Vol] 1.07 mg/dL Critically high 0.55-1.02 [place] Comment on above: Performed By: #### L IPID, TSH, CMP #### [facility] [address] [address] [address] Heather Aguirre EGFR-AF BENINESE >60 Normal >=60 [facility] Comment on above: Performed By: #### L IPID, TSH, CMP #### [facility] [address] [address] [address] Heather Aguirre EGFR-NON AF BENINESE 52 mL/min/1.73m2 Critically low >=60 [place] Comment on above: Performed By: #### L IPID, TSH, CMP #### [facility] [address] [address] [address] Heather Aguirre Globulin (S) [Mass/Vol] 3.2 g/dL Normal [place] Comment on above: Performed By: #### L IPID, TSH, CMP #### [facility] [address] [address] [address] Heather Aguirre Glucose [Mass/Vol] 96 mg/dL Normal 74-106 [facility] Comment on above: Performed By: #### L IPID, TSH, CMP #### [facility] [address] [place] [address] Dr. Heather Aguirre Potassium [Moles/Vol] 4.0 mmol/L Normal 3.5-5.1 [place] Comment on above: Performed By: #### L IPID, TSH, CMP #### [facility] [address] [place] [address] Dr. Heather Aguirre Protein [Mass/Vol] 6.7 g/dL Normal 6.4-8.2 [facility] Comment on above: Performed By: #### L IPID, TSH, CMP #### [facility] [address] [place] [address] Dr. Heather Aguirre Sodium [Moles/Vol] 127 mmol/L Critically low 136-145 [facility] Comment on above: Performed By: #### L IPID, TSH, CMP #### [facility] [address] [place] [address] Dr. Heather Aguirre Urea nitrogen [Mass/Vol] 20.0 mg/dL Critically high 7.0-18.0 [place] Comment on above: Performed By: #### L IPID, TSH, CMP #### [facility] [address] [place] [address] Dr. Heather Aguirre Urea nitrogen/Creatinine [Mass ratio] 18.7 mg/mg Normal [place] Comment on above: Performed By: #### L IPID, TSH, CMP #### [facility] [address] [place] [address] Dr. Heather Aguirre TSHon 02-12-2022 TSH 1.693 uIU/mL Normal 0.358-3.740 [facility] Comment on above: Performed By: #### L IPID, TSH, CMP #### [facility] [address] [address] [address] Heather Aguirre Vital Signs Date Time Vital Sign Value Performing Clinician Facility 02-26-2023 08:30-0400 Body height 152.4 cm Tanvi Rocha Other [facility] Other 02-26-2023 08:30-0400 Body mass index (BMI) [Ratio] 35.93 kg/m2 Tanvi Rocha Other [facility] Other 02-26-2023 08:30-0400 Body weight 83.46 kg Tanvi Rocha Other [facility] Other 02-26-2023 08:30-0400 Diastolic blood pressure 84 mm[Hg] Tanvi Rocha Other [facility] Other 02-26-2023 08:30-0400 Systolic blood pressure 145 mm[Hg] Tanvi Rocha Other [facility] Other Encounters Encounter Date Encounter Type Care Provider Facility Start: 07-02-2023 End: 07-02-2023 ambulatory JERI AMAYA Not Available Start: 02-26-2023 End: 02-26-2023 ambulatory Tanvi Rocha Other [facility] Other Start: 02-26-2023 Encounter for genera l adult medical examination without abnormal findings Tanvi Rocha [facility] Start: 02-26-2023 Periodic preventive med est patient 65yrs& older Tanvi Rocha [facility] Start: 07-14-2022 End: 07-15-[address] TANVI ROCHA Facility:[facility] Start: 07-01-2022 End: 07-01-[address] JERI AMAYA Facility:[facility] Start: 06-11-2022 End: 06-12-[address] TANVI ROCHA Facility:[facility] Start: 06-10-2022 End: 06-11-[address] JERI AMAYA Facility:[facility] Start: 02-14-2022 Encounter for genera l adult medical examination without abnormal findings DR TANVI ROCHA [place] Start: 02-12-2022 End: 02-13-[address] TANVI ROCHA Facility:[facility] Start: 02-12-2022 End: 02-13-2022 Encounter for general adult medical examination without abnormal findings DR TANVI ROCHA Facility:[facility] Payers Date Payer Category Payer [facility] [id number] 2019 Unknown [id number] 1955 Unknown [id number] 2.16.84 [id number] 1955 Unknown [id number] 2.16.84 [id number] 1955 Unknown [id number] 2.16.84 [id number] 1955 Unknown [id number] 2.16.84 [id number] 1955 Unknown [id number] 2.16.84 [id number] 1955 Unknown [id number] 2.16.84 [id number] 1955 Unknown [id number] Social History Date Type Detail Facility Sex Assigned At [facility] Other Evaluation note 02-26-2023 Note Date & [...] colonscopy in 2013 - repeat next year. [facility] Other History general Narrative - Reported Note [...] History CATARACTS 06/2018 Surgical History colonoscopy - 2014 - normal Dr. Mejia Hospitalization History SEE SURGICAL HX [facility] Other Summary Purpose Family History No Family History Records FoundNo Family History Records Found Advance Directives No Advanced Directives Records FoundNo Advanced Directives Records Found Additional Source Comments INFORMATION SOURCE (unrecogn ized section and content) DATE CREATED AUTHOR [facility]/17/2022 [facility] DATE CREATED AUTHOR AUTHOR'S ORGANIZ ATION 07/04/2023 [facility] EPIC REASON FOR VISIT (unrecogniz [...] BE BASED ON THE PRIMARY CLINICAL RECORDS. [employer] provides no warranty or guarantee of the accuracy or completeness of information in this document.
== END 2023-10-13 08:32 | disposition home or self-care (01) ==
LOC: CARD 08:31
PROVIDERS: PCP Family Medicine; Visit Provider Family Medicine
DX: R07.89 Other chest pain (principal)
CPT/HCPCS: 93005

== ENCOUNTER 2023-10-28 08:41 | Outpatient (OUT) | payer BC, SELFPAY ==
--- NOTE | 2023-10-28 07:45 | NM_ITS ---
Patient Name: MIRYAM PATEL MR#: [id number] : 1955 Exam Date: 10/28/2023 Ordering Doctor: DR Tanvi Rocha M.D. RADIOLOGY REPORT PROCEDURE: NM KARL PERF SPECT REST STR COMPARISON: None. INDICATIONS: CHEST PAIN TECHNIQUE: Exam Description: Stress/Rest one day protocol gated SPECT Rest Imagin.9 mCi Tc-99m Cardiolite IV on 10/28/2023 Stress Imaging 29.2 mCi Tc-99m Cardiolite IV on 10/28/2023 Exercise Protocol: 0.4 mg Lexiscan given IV Heart Rate (bpm): Rest: 90 Max: 101 PMHR: 65 Blood Pressure: Rest: 154/86 Max: 162/92 Symptoms: Rest and peak stress ECG findings were abnormal and the exercise portion of the study was abnormal per attending physician Dr. Henderson due to EKG changes. For more details please see separate cardiac stress test report. FINDINGS: QUALITY OF STUDY: Excellent. PERFUSION DEFECT: LOCATION: Inferior lateral wall at apex. SIZE: Small (1-2 segments). SEVERITY: TYPE: Persistent. WALL MOTION: Normal. LV SIZE: Normal. 77 mL. TID / TCD: None; 0.7 LVEF: Normal. Calculated EF 69%. SUMMARY: Myocardial perfusion imaging study has ABNORMAL findings. CONCLUSION: 1. No acute or reversible ischemia. 2. Small fixed defect involving inferior lateral wall at the apex versus attenuation artifact. 3. Normal wall motion, left ventricle volume, and ejection fraction. Dictated by: Zaid Wolfe M.D. on 10/29/2023 at 09:22 Approved by: Zaid Wolfe M.D. on 10/29/2023 at 09:28
--- OUTSIDE RECORDS SUMMARY | 2023-10-28 09:02 | XMS_ITS | CCD ---
Author Name Unknown Address [address] [place] [address] Organization [facility] Care Team Providers Care Scientologist Name Role Phone ALVINO, DR TANVI Perez Primary Care Unavailable MONIQUE, DR WILCOX Admitting Unavailable MONIQUE, DR WILCOX Attending Unavailable WEST, DR KATHIE Gaona Consulting Unavailable MONIQUE, DR WILOCX Consulting Unavailable MONIQUE, DR WILCOX Admitting Unavailable MONIQUE, DR WILCOX Attending Unavailable DE OLIVEIRA, DR TANVI Perez Primary Care Unavailable WEST, DR KATHIE Gaona Consulting Unavailable MONIQUE, DR WILCOX Consulting Unavailable MONIQUE, DR WILCOX Admitting Unavailable MONIQUE, DR WILCOX Attending Unavailable DE OLIVEIRA, DR TANVI Perez Primary Care Unavailable MONIQUE, DR WILCOX Consulting Unavailable DE OLIVEIRA, DR TANVI Perez Primary Care Unavailable TOMI PANIAGUA Admitting Unavailable TOMI PANIAGUA Attending Unavailable TOMI PANIAGUA Consulting Unavailable KATHIE HOPKINS Consulting Unavailable JOHN JOHNSON Admitting Unavailable JOHN JOHNSON Attending Unavailable ALVINO, DR TANVI Perez Primary Care Unavailable ALVINO, DR TANVI Perez Consulting Unavailable ALVINO, DR TANVI Perez Admitting Unavailable DE OLIVEIRA, DR TANVI Perez Attending Unavailable ALVINO, DR TANVI Perez Primary Care Unavailable ALVINO, DR TANVI Perez Consulting Unavailable Tanvi De Oliveira Unavailable JERI AMAYA Attending Unavailable JAS OLEARY Attending Unavailable Allergies Allergy Classification Reported Allergen(s) Allergy Type Date of Onset Reaction(s) Facility (1 source) Shellfish Drug allergy (disorder) 4 [facility] Repository (1 source) kiwi Drug allergy (disorder) 2 [facility] (1 source) Shellfish; Translations: [SHELLFISH DERIVED] Propensity to adverse reactions to drug (disorder) 4 [facility] Repository Medications Current Medications Medication Drug Class(es) Dates Sig (Normalized) Sig (Original) alendronic acid 70 mg oral tablet (2 sources) Bisphosphonate Start: 10-07-2023 take 1 tablet by mouth once daily Alendronate Active 1 TAB PO Daily October 07, 2023 12:00am FreeTextSi tablet 30 minutes before the first food, beverage or medicine of the day with plain water Orally; Note: Source Status: Taking; Provider: Alvino Tinajero ( ) take 1 tablet by mouth once jonh y Fosamax 70 MG 1 tablet 30 minutes before the first food, beverage or medicine of the day with plain water Orally Active 24 hr buPROPion hydrochloride 150 mg extended release oral tablet (2 sources) Aminoketone Start: 10-07-2023 take 1 tablet by mouth once daily in the morning Bupropion Hcl (Wellbutrin Xl) 150 mg tablet extended release 24 hr Active 1 TAB PO Daily October 07, 2023 12:00am FreeTextSi tablet in the morning Orally Once a day; Note: Source Status: Taking; Refills: 3; Qty: 90 Tablet; Provider: Alvino Perez take 1 tablet by rayo th every twenty-four hours Wellbutrin XL 150 MG 1 tablet in the morning Orally Once a day for 90 days Active cycloSPORINE 0.5 mg/ml ophthalmic suspension (1 source) Calcineurin Inhibitor Immunosuppressant take 1 drop(s) into the eye(s) twice daily Restasis 0.05 % 1 drop into affected eye Ophthalmic Twice a day Active Cyclosporine (Restasis) 0.05 % dropperette (1 source) Start: take 1 drop(s) into the eye(s) every twelve hours Cyclosporine (Restasis) 0.05 % dropperette Active 1 DROPS EYE-BOTH Every 12 hours October 07, 2023 12:00am levothyroxine sodium 0.1 mg oral tablet (2 sources) l-Thyroxine Start: take 100 ug by mouth once daily Levothyroxine Active 100 MCG PO Daily October 07, 2023 12:00am take 1 tablet by rayo th once daily in the morning Levothyroxine Sodium 100 MCG 1 tablet in the morning on an empty stomach Orally Once a day for 90 days Active omeprazole 40 mg delayed release oral capsule (1 source) Proton Pump Inhibitor Start: 02-22-2024 take 40 mg by mouth once daily Omeprazole Active 40 MG PO Daily October 08, 2023 12:00am Problems Active Problems Problem Classification Problem Date Documented Da te Episodic/Chronic Abdominal pain (2 sources) Epigastric pain; Translations: [Epigastric pain] 10-08-2023 Episodic Genitourinary symptoms and ill-defined conditions (1 source) Urinary tract infectious disease; Translations: [Unspecified symptoms and signs involving the genitourinary system] Episodic Headache; including migraine (2 sources) Chronic tension-type headache; Translations: [Chronic tension-type headache, not intractable] 10-07-2023 Chronic Immunizations and screening for infectious disease [...] and female climacteric states] Chronic Mood disorders (2 sources) Major depression, single episode; Translations: [Major depressive disorder, single episode, unspecified] 10-07-2023 Chronic Nonspecific chest pain (2 sources) Chest wall pain; Translations: [Other chest pain] 10-08-2023 Episodic Osteoarthritis (2 sources) Localized, primary osteoarthritis of the pelvic region and thigh; Translations: [Unilateral primary osteoarthritis, right hip] 10-07-2023 Chronic Other aftercare (1 source) Other retirement (current) drug therapy; Translations: [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] Onset: 07-17-2022 Episodic Other bone disease and musculoskeletal deformities (1 source) Other specified disorders of bone density and structure, unspecified site; Translations: [OTH D/O BONE DEN STRUCT UNS SITE] Onset: 06-15-2022 Episodic Other bone disease and musculoskeletal deformities (2 sources) Osteopenia; Translations: [Other specified disorders of bone density and structure, unspecified site] 10-07-2023 Episodic Other connective tissue disease (1 source) Trochanteric bursitis of right hip; Translations: [Trochanteric bursitis, right hip] Episodic Other lower respiratory disease (1 source) Dyspnea on exertion; Translations: [Other forms of dyspnea] 10-08-2023 Episodic Other lower respiratory disease (1 source) Other forms of dyspnea; Translations: [Other respiratory abnormalities] 10-08-2023 Episodic Other non-traumatic joint disorders (1 source) [...] STATE] Onset: 06-10-2022 Episodic Residual codes; unclassified (2 sources) Postmenopausal state; Translations: [Asymptomatic menopausal state] 10-07-2023 Episodic Spondylosis; intervertebral disc disorders; other back problems (2 sources) Lumbar radiculopathy; Translations: [Radiculopathy, lumbar region] 10-07-2023 Episodic Thyroid disorders (3 sources) Hypothyroidism, unspecified; Translations: [Hypothyroidism] Onset: 07-17-2022 10-07-2023 Chronic Unclassified (2 sources) COUGH, UNSPECIFIED; Translations: [...] Test Name Value Interpretation Reference Range Facility Office Visiton 10-23-2023 Follow-up visit [id number] Mackenzie Patel 1955 F Date Provider Department Center 10/23/2023 384MELANIA ZHENGD CARD [facility] Family History Problem Relation Age of Onset Coronary artery disease Mother Other Mother Heart attack Father 90 Family Status - Relation Status Age at Mother Father Level of Service:89785 MD OFFICE/OUTPATIENT NEW MODERATE MDM 45 MINUTES Normal [facility] SARS-CoV-2 (COVID-19) RNA LARA+probe Ql (Unsp spec) Not detected Normal NOT DETECTED [facility] Comment on above: Result Comment: When [...] for this test is supported by the Manager Export of Health and Human Service's declaration that [...] used). Performed By: #### C VDTB #### [facility] [address] [place] [address] Dr. Heather Aguirre INFLUENZA A AND B AGon 07-14 INFLUENZA A AG Positive Abnormal NEGATIVE SEE COMMENT [facility] Comment on above: Performed By: #### I NFLUAB #### [facility] [address] [place] [address] Dr. Heather Aguirre INFLUENZA B AG Negative Normal NEGATIVE SEE COMMENT [facility] Comment on above: Performed By: #### I NFLUAB #### [facility] [address] [place] [address] Dr. Heathre Aguirre INTERNAL CONTROLS Within Normal Limits Normal Wi thin Normal Limits [facility] Comment on above: Performed By: #### I NFLUAB #### [facility] [address] [address] [address] Heather Aguirre XR CHEST 2 Von [...] by: KATHIE HOPKINS Date: 2022-07-14 21:21 Normal [facility] PAP ACOG PANEL 2: 30 to 65on 07-09-2022 . . Normal [facility] Comment on above: Result Comment: Perf ormed at: WB Performed By: #### [id number] #### [facility] [address] [address] [address] Heather Aguirre Age Gdln ACOG Testing 30-65 Normal [facility] Comment on above: Performed By: #### [id number] #### [facility] [address] [address] [address] Heather Aguirre DIAGNOSIS: Comment Normal [facility] Comment on above: Result Comment: NEGA TIVE FOR INTRAEPITHELIAL LESION OR MALIGNANCY. CELLULAR CHANGES ASSOCIATED WITH ATROPHY ARE PRESENT. Performed at: WB Performed By: #### [id number] #### [facility] [address] [address] [address] Heather Aguirre HPV Aptima Negative Normal Negative [facility] Comment on above: Result Comment: This nucleic acid amplification test detects fourteen high-risk HPV types (16,18,31,33,35,39,45,51,52,56,58,59,66,68) without differentiation. Performed at: =G Performed By: #### [id number] #### [facility] [address] [address] [address] Heather Aguirre HPV Genotype Reflex Comment Normal [facility] Comment on above: Result Comment: Crit eria not met, HPV Genotype not performed. Performed at: WB Performed By: #### [id number] #### [facility] [address] [address] [address] Heather Aguirre Methodology: CTIM Normal [facility] Comment on above: Result Comment: The Thin Prep(R) Youth Leader was unable to read this specimen. Therefore a manual review was performed. Performed at: WB Performed By: #### [id number] #### [facility] [address] [place] [address] Dr. Heather Aguirre Note: Comment Normal [facility] Comment on above: Result Comment: The Pap smear is a screening test designed to aid in the detection of premalignant and malignant conditions of the uterine cervix. It is not a diagnostic procedure and should not be used as the sole means of detecting cervical cancer. Both false-positive and false-negative reports do occur. . Performed at: WB Performed By: #### [id number] #### [facility] [address] [place] [address] Dr. Heather Aguirre Performed by: Comment Normal [facility] Comment on above: Result Comment: Supriya Amador, Program Director Scouting (ASCP) Performed at: WB Performed By: #### [id number] #### [facility] [address] [place] [address] Dr. Heather Aguirre Specimen adequacy: Comment Normal [facility] Comment on above: Result Comment: Sati sfactory for evaluation. Endocervical component may not be distinguished in cases of atrophy. Performed at: WB Performed By: #### [id number] #### [facility] [address] [place] [address] Dr. Heather Aguirre MG MAMM SCREEN 3D YOU CADon 06-11-2022 MG MAMM SCREEN 3D YOU CAD Patient: MACKENZIE PATEL Exam Date: 06/11/2022 : 1955 Gender:F Ordering : DR JERI AMAYA . Admission #: [id number] Family : Order #: [id number] CLICK HERE TO VIEW EXAM RADIOLOGY REPORT [...] skin cancer at age 65. LOCATION: [facility] BREAST COMPOSITION: Scattered areas fibroglandular density. [...] Olvera MD on 06/11/2022 at 08:04 Normal [facility] XR DEXA BONE DENSITYon 06-10 XR DEXA [...] by: KATHIE OLVERA Date: 2022-06-10 12:16 Normal [facility] CBC AUTO DIFFon 02-12-2022 BASO # 0.1 103/ul Normal 0.0-0.1 [facility] Comment on above: Performed By: #### L IPID, TSH, CMP #### [facility] [address] [address] [address] Heather Aguirre Basophils/100 WBC (Bld) 0.8 % Normal 0.2-2.0 [facility] Comment on above: Performed By: #### L IPID, TSH, CMP #### [facility] [address] [address] [address] Heather Aguirre EO # 0.3 103/ul Normal 0.0-0.7 [facility] Comment on above: Performed By: #### L IPID, TSH, CMP #### [facility] [address] [place] [address] Dr. Heather Aguirre Eosinophils/100 WBC (Bld) 2.9 % Normal 0.9-7.0 [facility] Comment on above: Performed By: #### L IPID, TSH, CMP #### [facility] [address] [place] [address] Dr. Heather Aguirre Erythrocyte distribution width (RBC) [Ratio] 13.2 % Normal 11.0-15.0 [facility] Comment on above: Performed By: #### L IPID, TSH, CMP #### [facility] [address] [place] [address] Dr. Heather Aguirre Hematocrit (Bld) [Volume fraction] 37.6 % Normal 36.0-48.0 [facility] Comment on above: Performed By: #### L IPID, TSH, CMP #### [facility] [address] [place] [address] Dr. Heather Aguirre Hemoglobin (Bld) [Mass/Vol] 12.1 g/dL Normal 12.0-16.0 [facility] Comment on above: Performed By: #### L IPID, TSH, CMP #### [facility] [address] [place] [address] Dr. Heather Aguirre IG # 0.03 10e3/ul Normal 0.00-0.03 [facility] Comment on above: Performed By: #### L IPID, TSH, CMP #### [facility] [address] [place] [address] Dr. Heather Aguirre IG % 0.3 % Normal 0.0-0.5 [facility] Comment on above: Performed By: #### L IPID, TSH, CMP #### [facility] [address] [place] [address] Dr. Heather Aguirre LYMPH # 2.9 103/ul Normal 1.2-3.8 [facility] Comment on above: Performed By: #### L IPID, TSH, CMP #### [facility] [address] [place] [address] Dr. Heather Aguirre Lymphocytes/100 WBC (Bld) 33.6 % Normal 20.5-60.0 [facility] Comment on above: Performed By: #### L IPID, TSH, CMP #### [facility] [address] [place] [address] Dr. Heather Aguirre MANUAL DIFF REQ NO Normal [facility] Comment on above: Performed By: #### L IPID, TSH, CMP #### [facility] [address] [place] [address] Dr. Heather Aguirre MCH (RBC) [Entitic mass] 30.0 pg Normal 26.7-34.0 [facility] Comment on above: Performed By: #### L IPID, TSH, CMP #### [facility] [address] [place] [address] Dr. Heather Aguirre MCHC (RBC) [Mass/Vol] 32.2 g/dL Normal 29.9-35.2 [facility] Comment on above: Performed By: #### L IPID, TSH, CMP #### [facility] [address] [place] [address] Dr. Heather Aguirre MCV (RBC) [Entitic vol] 93.1 fL Normal 81.0-99.0 [facility] Comment on above: Performed By: #### L IPID, TSH, CMP #### [facility] [address] [place] [address] Dr. Heather Aguirre MONO # 0.6 103/ul Normal 0.3-0.8 [facility] Comment on above: Performed By: #### L IPID, TSH, CMP #### [facility] [address] [place] [address] Dr. Heather Aguirre Monocytes/100 WBC (Bld) 7.1 % Normal 1.7-12.0 [facility] Comment on above: Performed By: #### L IPID, TSH, CMP #### [facility] [address] [place] [address] Dr. Heather Aguirre NEUT # 4.8 103/ul Normal 1.4-6.5 [facility] Comment on above: Performed By: #### L IPID, TSH, CMP #### [facility] [address] [place] [address] Dr. Heather Aguirre Neutrophils/100 WBC (Bld) 55.3 % Normal 43.0-75.0 [facility] Comment on above: Performed By: #### L IPID, TSH, CMP #### [facility] [address] [place] [address] Dr. Heather Aguirre Platelet mean volume (Bld) [Entitic vol] 10.2 fL Normal 9.5-13.5 [facility] Comment on above: Performed By: #### L IPID, TSH, CMP #### [facility] [address] [place] [address] Dr. Heather Aguirre PLT 329 103/ul Normal 150-450 [facility] Comment on above: Performed By: #### L IPID, TSH, CMP #### [facility] [address] [place] [address] Dr. Heather Aguirre RBC 4.04 106/ul Critically low 4.20-5.40 [facility] Comment on above: Performed By: #### L IPID, TSH, CMP #### [facility] [address] [place] [address] Dr. Heather Aguirre WBC 8.7 103/ul Normal 4.0-11.0 [facility] Comment on above: Performed By: #### L IPID, TSH, CMP #### [facility] [address] [place] [address] Dr. Heather Aguirre GLYCOHEMOGLOBIN A1Con 2021 ADA RECOMMENDATION SEE BELOW Normal [facility] Comment on above: Result Comment: ADA RECOMMENDED LIMIT 4.0 - 6.0 ADA THERAPEUTIC TARGET < 7.0 ACTION SUGGESTED > 7.0 Performed By: #### A 1C #### [facility] [address] [place] [address] Dr. Heather Aguirre Glucose [Mass/Vol] 108 mg/dL Normal [facility] Comment on above: Performed By: #### A 1C #### [facility] [address] [address] [address] Heather Aguirre HbA1c (Bld) [Mass fraction] 5.4 % Normal 4.5-6.2 [facility] Comment on above: Performed By: #### A 1C #### [facility] [address] [address] [address] Heather Aguirre LIPID PROFILEon 02-12-2022 CHOL-HDL RATIO NORM SEE BELOW Normal [facility] Comment on above: Result Comment: 3.3 - 4.4 LOW RISK 4.4 - 7.1 AVERAGE RISK 7.1 - 11.0 MODERATE RISK >11.0 HIGH RISK Performed By: #### L IPID, TSH, CMP #### [facility] [address] [place] [address] Dr. Hetaher Aguirre Cholesterol [Mass/Vol] 215 mg/dL Critically high <=200 [facility] Comment on above: Performed By: #### L IPID, TSH, CMP #### [facility] [address] [address] [address] Heather Aguirre Cholesterol in HDL [Mass/Vol] 59 mg/dL Normal 40-60 [facility] Comment on above: Performed By: #### L IPID, TSH, CMP #### [facility] [address] [address] [address] Heather Aguirre Cholesterol in LDL [Mass/Vol] 133.0 mg/dL Normal [facility] Comment on above: Performed By: #### L IPID, TSH, CMP #### [facility] [address] [address] [address] Heather Aguirre Cholesterol.total/Ch olesterol in HDL [Mass ratio] 3.6 {ratio} Normal [facility] Comment on above: Performed By: #### L IPID, TSH, CMP #### [facility] [address] [place] [address] Dr. Heather Aguirre HDL NORMAL > or = 60 mg/dl - LO W CARDIOVASCULAR RISK <40 mg/dl - HIGH CARDIOVASCULAR RISK Normal [facility] Comment on above: Performed By: #### L IPID, TSH, CMP #### [facility] [address] [address] [address] Heather Aguirre LDL CALC NORMAL SEE BELOW Normal [facility] Comment on above: Result Comment: <100 mg/dl OPTIMAL 100 - 129 mg/dl NEAR OR ABOVE OPTIMAL 130 - 159 mg/dl BORDERLINE HIGH 160 - 189 mg/dl HIGH >190 mg/dl VERY HIGH Performed By: #### L IPID, TSH, CMP #### [facility] [address] [address] [address] Heather Aguirre Triglyceride [Mass/Vol] 115 mg/dL Normal <=150 [facility] Comment on above: Performed By: #### L IPID, TSH, CMP #### [facility] [address] [address] [address] Heather Aguirre VLDL CALC 23.0 mg/dL Normal [facility] Comment on above: Performed By: #### L IPID, TSH, CMP #### [facility] [address] [place] [address] Dr. Heather Aguirre PROF 14(COMP METB)on 022 Albumin [Mass/Vol] 3.5 g/dL Normal 3.4-5.0 [facility] Comment on above: Performed By: #### L IPID, TSH, CMP #### [facility] [address] [place] [address] Dr. Heather Aguirre Albumin/Globulin [Mass ratio] 1.1 {ratio} Normal [facility] Comment on above: Performed By: #### L IPID, TSH, CMP #### [facility] [address] [address] [address] Heather Aguirre ALP [Catalytic activity/Vol] 56 U/L Normal 46-116 [facility] Comment on above: Performed By: #### L IPID, TSH, CMP #### [facility] [address] [place] [address] Dr. Heather Aguirre ALT [Catalytic activity/Vol] 25 U/L Normal 14-59 [facility] Comment on above: Performed By: #### L IPID, TSH, CMP #### [facility] [address] [place] [address] Dr. Heather Aguirre Anion gap [Moles/Vol] 1 mmol/L Normal [facility] Comment on above: Performed By: #### L IPID, TSH, CMP #### [facility] [address] [address] [address] Heather Aguirre AST [Catalytic activity/Vol] 10 U/L Critically low 15-37 [facility] Comment on above: Performed By: #### L IPID, TSH, CMP #### [facility] [address] [address] [address] Heather Aguirer Bilirubin [Mass/Vol] 0.5 mg/dL Normal 0.2-1.0 [facility] Comment on above: Performed By: #### L IPID, TSH, CMP #### [facility] [address] [place] [address] Dr. Heather Aguirre Calcium [Mass/Vol] 8.5 mg/dL Normal 8.5-10.1 [facility] Comment on above: Performed By: #### L IPID, TSH, CMP #### [facility] [address] [place] [address] Dr. Heather Aguirre Chloride [Moles/Vol] 102 mmol/L Normal 98-107 [facility] Comment on above: Performed By: #### L IPID, TSH, CMP #### [facility] [address] [place] [address] Dr. Heather Aguirre CO2 [Moles/Vol] 30.0 mmol/L Normal 21.0-32.0 [facility] Comment on above: Performed By: #### L IPID, TSH, CMP #### [facility] [address] [place] [address] Dr. Heather Aguirre Creatinine [Mass/Vol] 1.07 mg/dL Critically high 0.55-1.02 [facility] Comment on above: Performed By: #### L IPID, TSH, CMP #### [facility] [address] [place] [address] Dr. Heather Aguirre EGFR-AF IRANIAN >60 Normal >=60 [facility] Comment on above: Performed By: #### L IPID, TSH, CMP #### [facility] [address] [address] [address] Heather Aguirre EGFR-NON AF IRANIAN 52 mL/min/1.73m2 Critically low >=60 [facility] Comment on above: Performed By: #### L IPID, TSH, CMP #### [facility] [address] [address] [address] Heather Aguirre Globulin (S) [Mass/Vol] 3.2 g/dL Normal [facility] Comment on above: Performed By: #### L IPID, TSH, CMP #### [facility] [address] [address] [address] Heather Aguirre Glucose [Mass/Vol] 96 mg/dL Normal 74-106 [facility] Comment on above: Performed By: #### L IPID, TSH, CMP #### [facility] [address] [place] [address] Dr. Heather Aguirre Potassium [Moles/Vol] 4.0 mmol/L Normal 3.5-5.1 [facility] Comment on above: Performed By: #### L IPID, TSH, CMP #### [facility] [address] [address] [address] Heather Aguirre Protein [Mass/Vol] 6.7 g/dL Normal 6.4-8.2 [facility] Comment on above: Performed By: #### L IPID, TSH, CMP #### [facility] [address] [address] [address] Heather Aguirre Sodium [Moles/Vol] 127 mmol/L Critically low 136-145 [facility] [place] Comment on above: Performed By: #### L IPID, TSH, CMP #### [facility] [address] [address] [address] Heather Aguirre Urea nitrogen [Mass/Vol] 20.0 mg/dL Critically high 7.0-18.0 [facility] Comment on above: Performed By: #### L IPID, TSH, CMP #### [facility] [address] [address] [address] Heather Aguirre Urea nitrogen/Creatinine [Mass ratio] 18.7 mg/mg Normal [facility] Comment on above: Performed By: #### L IPID, TSH, CMP #### [facility] [address] [place], [place] [address] Dr. Heather Aguirre TSHon 02-12-2022 TSH 1.693 uIU/mL Normal 0.358-3.740 [facility] Comment on above: Performed By: #### L IPID, TSH, CMP #### [facility] [address] [place], [place] [address] Dr. Heather Aguirre Vital Signs Date Time Vital Sign Value Performing Clinician Facility 10-08-2023 10:14-0500 Body height 152.4 cm [facility] 10-08-2023 10:14-0500 Body mass index (BMI) [Ratio] 35.8 kg/m2 [facility] 10-08-2023 10:14-0500 Body weight 83.12 kg [facility] 10-08-2023 10:14-0500 Diastolic blood pressure 80 mm[Hg] [facility] 10-08-2023 10:14-0500 Heart rate 83 /min [facility] 10-08-2023 10:14-0500 Systolic blood pressure 132 mm[Hg] [facility] 02-26-2023 08:30-0400 Body height 152.4 cm Tanvi De Oliveira Other [employer] Other 02-26-2023 08:30-0400 Body mass index (BMI) [Ratio] 35.93 kg/m2 Tanvi De Oliveira Other [employer] [facility] [employer] Other 02-26-2023 08:30-0400 Body weight 83.46 kg Tanvi De Oliveira Other [employer] Other 02-26-2023 08:30-0400 Diastolic blood pressure 84 mm[Hg] Tanvi De Oliveira Other [employer] Other 02-26-2023 08:30-0400 Systolic blood pressure 145 mm[Hg] Tanvi De Oliveira Other [employer] Other Encounters Encounter Date Encounter Type Care Provider Facility Start: 10-23-2023 End: 10-23-2023 ambulatory JAS PENNOSCAR [facility] Start: 10-08-2023 End: 10-08-2023 ambulatory [facility] Work Phone: Start: 10-08-2023 End: 10-08-2023 Patient encounter procedure [facility] Work Phone: Start: 07-02-2023 End: 07-02-2023 ambulatory JERI AMAYA Not Available Start: 02-26-2023 End: 02-26-2023 ambulatory Tanvi De Oliveira Other [employer] Other Start: 02-26-2023 Encounter for genera l adult medical examination without abnormal findings Tanvi De Oliveira [facility] Start: 02-26-2023 Periodic preventive med est patient 65yrs& older Tanvi De Oliveira [facility] Start: 07-14-2022 End: 07-15-[address] TANVI DE OLIVEIRA Facility:[facility] Start: 07-01-2022 End: 07-01-[address] JERI AMAYA Facility:[facility] Start: 06-11-2022 End: 06-12-[address] TANVI DE OLIVEIRA Facility:[facility] Start: 06-10-2022 End: 06-11-[address] JERI AMAYA Facility:[facility] Start: 02-14-2022 Encounter for genera l adult medical examination without abnormal findings DR TANVI DE OLIVEIRA [facility] Start: 02-12-2022 End: 02-13-[address] TANVI DE OLIVEIRA Facility:[facility] Start: 02-12-2022 End: 02-13-2022 Encounter for general adult medical examination without abnormal findings DR TANVI DE OLIVEIRA Facility:[facility] Plan of Treatment Date Care Activity Detail Author EKG 12 channel panel [facility] Payers Date Payer Category Payer [id number] 2019 Unknown [id number] 1955 Unknown [id number] 1955 Unknown [id number] 2.16.84 [id number] 1955 Unknown [id number] 2.16.84 [id number] 1955 Unknown [id number] 2.16.84 [id number] 1955 Unknown [id number] 2.16.84 [id number] 1955 Unknown [id number] 2.16.84 [id number] 1955 Unknown [id number] Social History Date Type Detail Facility Sex Assigned At [employer] Other Start: [facility]06-[facility]23 [facility] Start: 1955 Sex Assigned At Female [facility] Progress note 10-23-2023 Note Date & Type Note Facility 10-23-2023 Note New patient here to establish care. Ref from Dr. De Oliveira for chest pain. She says the pain sometimes goes through to her back, but not down her arm or up the jaw. She used to walk on her lunch break but hasn't recently due to stress. C/o SUTTON recently but never used to have it when she was walking regularly. Scheduled for stress test next week at [facility]. Review of Systems Cardiovascular: Positive for chest pain and dyspnea on exertion. Musculoskeletal: Positive for muscle cramps. All other systems reviewed and are negative. [facility] Progress note 10-23-2023 Note Date & Type Note Facility 10-23-2023 Note Cardiology Clinic No te Chief Complaint: Chest pain HPI: Mackenzie A Geovanna is a 68 y.o. female With a remote history of tobacco abuse who is referred to referred to Cardiology clinic for evaluation of Chest pain. Patient states that for the past several weeks, she has been experiencing left-sided chest pain. This occurs both at rest and with exertion, and does not always increase with exertion. She reports some dyspnea on exertion. She does not have any dyspnea at rest. She denies any nausea or vomiting. She denies any diaphoresis. She denies any lower extremity edema, orthopnea, or paroxysmal nocturnal dyspnea. 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 No family history of premature CAD. Stress test was ordered by patient's PCP. This has not been completed yet Cardiology ROS: GENERAL: Denies fever, chills, night sweats, weight loss. HEENT: Denies changes in vision, photophobia, changes in hearing, epistaxis, oral bleeding. CARDIOVASCULAR: As per HPI RESPIRATORY: Denies SOB, coughing, wheezing GI: Denies abdominal pain, nausea/vomiting, heartburn, melena/hematochezia. RENAL: Denies dysuria, hematuria, flank pain. MSK: Denies muscle weakness/pain, arthralgias/joint pain. NEUROLOGIC: Denies LOC, weakness, numbness, headaches. SKIN: Denies abnormal rashes or bleeding. PSYCH: Denies significant anxiety, depression, sleep disturbances. Past Medical History She has a past medical history of Abnormal ECG. Surgical History She has a past surgical history that includes Hysterectomy; Appendectomy; Cholecystectomy; and Cataract extraction. Social History She reports that she quit smoking about 34 years ago. Her smoking use included cigarettes. She has never used smokeless tobacco. She reports current alcohol use. No history on file for drug use. Family History Family History Problem Relation Name Age of Onset Coronary artery disease Mother Other (CABG) Mother Heart attack Father 90 Medications Current Outpatient Medications on File Prior to Visit Medication Sig Dispense Refill alendronate (Fosamax) 70 mg tablet Take 70 mg by mouth. buPROPion XL (Wellbutrin XL) 150 mg 24 hr tablet Take 150 mg by mouth in the morning. levothyroxine (Synthroid, Levoxyl) 100 mcg tablet TAKE ONE TABLET BY MOUTH EVERY MORNING ON an EMPTY stomach ONCE DAILY omeprazole (PriLOSEC) [address] capsule Take by mouth in the morning. No current facility-administered medications on file prior to visit. Allergies Shellfish derived Physical Exam VITAL SIGNS: BP (!) 150/100 (BP Location: Left arm, Patient Position: Sitting) Pulse 77 Ht 1.524 m (5') Wt 83 kg (183 lb) SpO2 99% BMI 35.74 kg/m??? Constitutional: Well developed, Well nourished, No acute distress, Non-toxic appearance. HENT: Normocephalic, Atraumatic, Bilateral external ears have normal appearance, Nose appears normal, nares are patent. Eyes: PERRLA, EOMI, Conjunctiva normal, No discharge. Neck: Normal range of motion, No tenderness, Supple, No stridor. No cervical lymphadenopathy noted. Cardiovascular: Normal heart rate, Normal rhythm, No murmurs, No rubs, No gallops. Thorax & Lungs: Normal breath sounds, No respiratory distress, No wheezing, No chest tenderness to palpation. Abdomen: Bowel sounds normal, Soft, Nontender, No masses, No pulsatile masses. Skin: Warm, Dry, No erythema, No rash. Back: No tenderness, No CVA tenderness. Extremities: Intact distal pulses, No edema, No tenderness, No cyanosis, No clubbing. Musculoskeletal: Grossly normal strength in extremities Neurologic: Alert & oriented x 3, no gross focal neurological deficits Psychiatric: Affect normal, Judgment normal, Mood normal. Impression: -Chest pain, atypical in nature -Dyspnea on exertion -Hypertension -Previous tobacco abuse -Abnormal EKG Plan: -Given patient's symptoms, agree with ischemic evaluation. Stress test has been ordered and will be completed in near future -Follow-up stress test result -Will obtain echocardiogram to assess LVEF, regional wall motion, and valvular function -Will start patient on Coreg 6.25 twice daily for hypertension and for presumed CAD -Will add Crestor 20 mg daily and aspirin 81 mg daily for presumed CAD -Optimize medical management -Aggressive risk factor modification -Plan of care discussed with patient. All questions were answered. Patient voices understanding and is agreeable with current plan. -Patient was educated on red flag symptoms. Strict return precautions were provided. Patient verbalizes understanding -Follow-up in cardiology clinic in 6 Weeks, or sooner as needed Thank you for allowing us to participate in the care of your patient. Please do not hesitate to contact cardiology with any questions or concerns. Patrick (more content not included)... [facility] Evaluation note 02-26-2023 Note Date & Type [...] colonscopy in 2013 - repeat next year. [employer] Other Evaluation note Note Date & Type Note Facility Evaluation note Diagnosis Onset Date Dyspnea on exertion acute Epigastric abdominal pain ac [place] Left-sided chest wall pain a [facility] [place] Work Phone: History general Narrative - Reported Note Date [...] Dr. Mejia Hospitalization History SEE SURGICAL HX [employer] Other Summary Purpose Family History No Family History Records Found Relationship Condition Age at Onset Recorded Date/T joaquin brother Hypertension Unknown Heart disease Unknown father Diabetes mellitus Unknown Hypertension Unknown Not Specified Hypertension Unknown Family history of mental disorder Unknown sister Hypertension Unknown Family history of thyroid disease Unknown Advance Directives No Advanced Directives Records Found Advance Directive Response Recorded Date/ Time Advance Directives No September 14, 2023 2:02pm Chief Complaint and Reason for Visit Chief Complaint Shoulder/ Headaches Reason for Visit Dyspnea on exertion Epigastric abdominal pain Left-sided chest wall pain Additional Source Comments INFORMATION SOURCE (unrecogn ized section and content) DATE CREATED AUTHOR 07/17/2022 [facility] DATE CREATED AUTHOR AUTHOR'S ORGANIZ ATION 07/04/2023 [facility] EPIC DATE CREATED AUTHOR AUTHOR'S ORGANIZ ATION 10/24/2023 [facility] REASON FOR VISIT (unrecogniz ed section and content) Wellness Care Teams (unrecognized sec tion and content) Team Status: Active Member Role Status Dates Tanvi De Oliveira MD Primary Care Provider Active Team Status: Inactive Member Role Status Dates Tanvi De Oliveira MD Primary Care Provide r, Attending Provider Active Start: October 08, 2023 End: October 08, 2023 Goals (unrecognized section and content) Goals may be documented in a n alternate section FOR RECORDS PERTAINING TO PATIENTS WHO ARE [...] BE BASED ON THE PRIMARY CLINICAL RECORDS. [employer] provides no warranty or guarantee of the accuracy or completeness of information in this document.
[2023-10-28] MEDS: REGADENOSON 0.4 MG/5 ML SYRINGE 0.400000000000000022 MG IV (09:56)
--- NOTE | 2023-10-29 06:54 | P.STRESS_ITS ---
Stress Test Stress Test Requesting physician: Tanvi Rocha Procedure: Lexiscan Cardiolite stress test General Information: Reason for Stress Test: Chest pain Cardiac History and Risk Factors: No personal history listed. Family history of HTN. Resting 12 - Lead Electrocardiogram: Rate & rhythm: Normal sinus at a rate of 65. [place]aman: Trend towards right axis deviation T-waves: Generally low voltage with flattening in I, avL, and V3-5 ST-segments: Normal orientation 1st degree AV block Stress Test: Protocol: Anthony protocol was initiated, but due to inability to ambulate, the exercise component was therefore canceled.? Testing was changed to Lexiscan protocol, with injection of 0.4mg Lexiscan IV push followed by Cardiolite. Blood pressure: Initial and maximum: 154/86 Rate & rhythm: Patient remained in sinus rhythm during the exercise and recovery portions of the study.? The maximum heart rate was 101, which was 65% of the maximum predicted heart rate of 154. PVCs were noted. ST-segments & T-waves: After injection of Lexiscan, ST segment downsloping with T-wave inversions were noted in leads II, III, & aVF, and V3-6, with T-wave inversions in I & aVL. Patient response/symptoms: There were no symptoms similar to the chief complaint. Interpretation: This is an abnormal Lexiscan test with ST-segment downsloping in the inferolateral leads and T-wave inversions in the anterior leads. No reproducible chest pain. Cardiolite imaging interpretation will be reported separately. Clini stephanie correlation required.?
== END 2023-10-28 08:42 | disposition home or self-care (01) ==
LOC: NM 08:42
PROVIDERS: PCP Family Medicine; Visit Provider Family Medicine
DX: R06.09 Other forms of dyspnea (principal); R07.89 Other chest pain; R10.13 Epigastric pain
CPT/HCPCS: 78452; 93017; A9500; J2785

== ENCOUNTER 2023-11-02 13:58 | Outpatient (OUT) | payer BC, SELFPAY ==
--- NOTE | 2023-11-02 14:00 | CA_ITS ---
Patient Name: IMRYAM PATEL MR#: [id number] : 1955 Exam Date: 11/02/2023 Ordering Doctor: JAS OLEARY M.D. ECHOCARDIOGRAM REPORT PROCEDURE: CA ECHO DOPPLER COMPLETE INDICATIONS: Dyspnea on exertion, hypertension COMPARISON: None. DESCRIPTION: COMPLETE ECHOCARDIOGRAM Real-time transthoracic echocardiography with 2D, M-mode, spectral and color flow Doppler performed. QUALITY: Technical quality was good. 60 , 182#, BSA 1.79 m2, BP 158/86 LEFT VENTRICLE: Normal chamber size. Moderate concentric left ventricular hypertrophy. LV EF: Global left ventricular systolic function is low normal limits; visually estimated ejection fraction is 50%. Unable to assess regional wall motion abnormalities. DIASTOLIC: Normal diastolic function. ATRIAL SEPTUM: Visually appears intact. LEFT ATRIUM: Normal chamber size. RIGHT ATRIUM: Normal chamber size. RIGHT VENTRICLE: Normal chamber size. Normal right ventricular systolic function. TRICUSPID VALVE: Normal mobility and thickness. No stenosis with trivial regurgitation. No evidence of pulmonary hypertension. RVSP 26 mmHg MITRAL VALVE: Normal mobility and thickness. No evidence of mitral valve stenosis. There is no mitral annular calcification. Trivial mitral regurgitation. AORTIC VALVE: Normal trileaflet appearance. No visible sclerosis. Normal leaflet mobility. No evidence of aortic valve stenosis. No aortic regurgitation. AORTIC ROOT: Normal diameter and appearance. PULMONIC VALVE: Normal thickness and mobility. No stenosis. Trivial regurgitation. PERICARDIUM: No evidence of pericardial effusion. IVC: Collapses with inspirations. IVC is normal in size. CONCLUSION: 1. Global left ventricular systolic function is lower normal limits; ejection fraction is estimated to be 50% 2. Normal right ventricular size and systolic function 3. Moderately increased left ventricular wall thickness 4. Normal diastolic function 5. No significant valvular abnormalities Adult Echocardiography Procedure Report Left Ventricle LVEDD (3.7 - 5.6 cm): 4.74 cm LVESD (2.2 - 4.0 cm): 3.46 cm LVIVS thickness (0.6 - 1.2 cm): 1.36 cm LVPW thickness (0.5 - 1.0 cm): 1.36 cm e': 0.07 m/s E - e': 6.36 LVOT Max Gradient: 2.38 mm[Hg] LVOT Area (cm2): 0.77 m/s Peak Velocity (LVOT): 0.77 m/s Mean Velocity (LVOT): 0.51 m/s LVOT Diameter 2.35 cm Left Ventricular Ejection Fraction: Left Atrium LA Volume Index (2D A2C): 28.68 ml/m2 Left Atrium Systolic Dimension: 4.13 cm Mitral Valve MV E to A Ratio: 0.68 MV Max Gradient: MV Mean Gradient: Mitral Valve A-Wave Peak Velocity: 0.67 m/s Mitral Valve E-Wave Peak Velocity: 0.46 m/s Cardiovascular Orifice Area: Right Ventricle RV Internal Diastolic Dimension: Aorta AO Root Diam: 3.25 cm Ascending Ao Diam: 3.26 cm Aortic Valve AoV Area (Peak Max): 3.30 cm2, 3.30 cm2 AoV Area (VTI): 3.74 cm2, 3.74 cm2 Deceleration [place]: Pressure Half-Time: Peak Velocity(Antegrade Flow): 1.02 m/s Peak Gradient(Antegrade Flow): 4.13 mm[Hg] Mean Velocity(Antegrade Flow): 0.66 m/s Mean Gradient(Antegrade Flow): 2.02 mm[Hg] Velocity Time Integral: 20.29 cm Tricuspid Valve Peak Velocity (Regurgitant Flow): 2.40 m/s Peak Velocity: Pulmonic Valve Mean Gradient: Mean Velocity: Peak Velocity: 0.75 m/s Peak Gradient: 2.44 mm[Hg], 2.11 mm[Hg] Right Atrium Right Atrium Systolic Pressure: Dictated by: Tomy Lemus M.D. on 11/03/2023 at 12:24 Approved by: Tomy Lemus M.D. on 11/03/2023 at 12:28
--- OUTSIDE RECORDS SUMMARY | 2023-11-02 14:19 | XMS_ITS | CCD ---
Author Name Unknown Address [address] [place] [address] Organization [facility] Care Team Providers Care Parts And Service Manager Name Role Phone ALVINO, DR TANVI Perez [...] source) Shellfish Drug allergy (disorder) 4 [facility] Repository (1 source) kiwi Drug allergy (disorder) 2 [facility] Repository (1 source) Shellfish; Translations: [SHELLFISH DERIVED] Propensity to adverse reactions to drug (disorder) 4 [facility] Repository Medications Current Medications Medication Drug Class(es) [...] 10-07-2023 Chronic Other aftercare (1 source) Other chcf (current) drug therapy; Translations: [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] Onset: 07-17-2022 Episodic Other [...] Range Facility Office Visiton 10-23-2023 Follow-up visit [id number] Mackenzie Patel 1955 F Date Provider Department Center 10/23/2023 384MELANIA ZHENGD CARD [facility] Family History Problem Relation Age of Onset Coronary artery disease Mother Other Mother Heart attack Father 90 Family Status - Relation Status Age at Mother Father Level of Service:72685 DE OFFICE/OUTPATIENT NEW MODERATE MDM 45 MINUTES Normal [facility]18 SARS-CoV-2 (COVID-19) RNA LARA+probe Ql (Unsp spec) Not detected Normal NOT DETECTED [facility] Comment on above: Result Comment: When diagnostic [...] for this test is supported by the Shotgun Shell Loading Machine Operator of Health and Human Service's declaration that [...] used). Performed By: #### C VDTB #### [facility] [address] [place] [address] Dr. Heather Aguirre INFLUENZA A AND B AGon 07-14 INFLUENZA A AG Positive Abnormal NEGATIVE SEE COMMENT [facility] Comment on above: Performed By: #### I NFLUAB #### [facility] [address] [place] [address] Dr. Heather Aguirre INFLUENZA B AG Negative Normal NEGATIVE SEE COMMENT [facility] Comment on above: Performed By: #### I NFLUAB #### [facility] [address] [place] [address] Dr. Heather Aguirre INTERNAL CONTROLS Within Normal Limits Normal Wi thin Normal Limits [facility] Comment on above: Performed By: #### I NFLUAB #### [facility] [address] [address] [address] Heather Aguirre XR CHEST 2 Von [...] by: KATHIE HOPKINS Date: 2022-07-14 21:21 Normal [facility] PAP ACOG PANEL 2: 30 to 65on 07-09-2022 . . Normal [facility] Comment on above: Result Comment: Perf ormed at: WB Performed By: #### [id number] #### [facility] [address] [address] [address] Heather Aguirre Age Gdln ACOG Testing 30-65 Normal [facility] Comment on above: Performed By: #### [id number] #### [facility] [address] [address] [address] Heather Aguirre DIAGNOSIS: Comment Normal [facility] Comment on above: Result Comment: NEGA TIVE FOR INTRAEPITHELIAL LESION OR MALIGNANCY. CELLULAR CHANGES ASSOCIATED WITH ATROPHY ARE PRESENT. Performed at: WB Performed By: #### [id number] #### [facility] [address] [address] [address] Heather Aguirre HPV Aptima Negative Normal Negative [facility] Comment on above: Result Comment: This nucleic acid amplification test detects fourteen high-risk HPV types (16,18,31,33,35,39,45,51,52,56,58,59,66,68) without differentiation. Performed at: =G Performed By: #### [id number] #### [facility] [address] [address] [address] Heather Aguirre HPV Genotype Reflex Comment Normal [facility] Comment on above: Result Comment: Crit eria not met, HPV Genotype not performed. Performed at: WB Performed By: #### 4 [id number] #### [facility] [address] [address] [address] Heather Aguirre Methodology: CTIM Normal [facility] Comment on above: Result Comment: The Thin Prep(R) [employer] was unable to read this specimen. Therefore a manual review was performed. Performed at: WB Performed By: #### [id number] #### [facility] [address] [place] [address] Dr. Heather Aguirre Note: Comment Normal [facility] Comment on above: Result Comment: The Pap smear is a screening test designed to aid in the detection of premalignant and malignant conditions of the uterine cervix. It is not a diagnostic procedure and should not be used as the sole means of detecting cervical cancer. Both false-positive and false-negative reports do occur. . Performed at: WB Performed By: #### [id number] #### [facility] [address] [place] [address] Dr. Heather Aguirre Performed by: Comment Normal [facility] Comment on above: Result Comment: Supriya Amador, Medical Record Retrieval Specialist (ASCP) Performed at: WB Performed By: #### [id number] #### [facility] [address] [place] [address] Dr. Heather Aguirre Specimen adequacy: Comment Normal [facility] Comment on above: Result Comment: Sati sfactory for evaluation. Endocervical component may not be distinguished in cases of atrophy. Performed at: WB Performed By: #### [id number] #### [facility] [address] [place] [address] Dr. Heather Aguirre MG MAMM SCREEN 3D YOU CADon 06-11-2022 MG MAMM SCREEN 3D YOU CAD Patient: MACKENZIE PATEL Exam Date: 06/11/2022 : 1955 Gender:F Ordering : DR JERI AMAYA . Admission #: [id number] Family : Order #: [id number] CLICK HERE TO VIEW EXAM RADIOLOGY REPORT [...] skin cancer at age 65. LOCATION: [facility] BREAST COMPOSITION: Scattered areas fibroglandular density. FINDINGS: [...] Olvera MD on 06/11/2022 at 08:04 Normal [facility] XR DEXA BONE DENSITYon 06-10 XR DEXA [...] by: KATHIE OLVERA Date: 2022-06-10 12:16 Normal [facility] CBC AUTO DIFFon 02-12-2022 BASO # 0.1 103/ul Normal 0.0-0.1 [facility] Comment on above: Performed By: #### L IPID, TSH, CMP #### [facility] [address] [address] [address] Heather Aguirre Basophils/100 WBC (Bld) 0.8 % Normal 0.2-2.0 [facility] Comment on above: Performed By: #### L IPID, TSH, CMP #### [facility] [address] [address] [address] Heather Aguirre EO # 0.3 103/ul Normal 0.0-0.7 [facility] Comment on above: Performed By: #### L IPID, TSH, CMP #### [facility] [address] [place] [address] Dr. Heather Aguirre Eosinophils/100 WBC (Bld) 2.9 % Normal 0.9-7.0 [facility] Comment on above: Performed By: #### L IPID, TSH, CMP #### [facility] [address] [place] [address] Dr. Heather Aguirre Erythrocyte distribution width (RBC) [Ratio] 13.2 % Normal 11.0-15.0 [facility] Comment on above: Performed By: #### L IPID, TSH, CMP #### [facility] [address] [place] [address] Dr. Heather Aguirre Hematocrit (Bld) [Volume fraction] 37.6 % Normal 36.0-48.0 [facility] Comment on above: Performed By: #### L IPID, TSH, CMP #### [facility] [address] [place] [address] Dr. Heather Aguirre Hemoglobin (Bld) [Mass/Vol] 12.1 g/dL Normal 12.0-16.0 [facility] Comment on above: Performed By: #### L IPID, TSH, CMP #### [facility] [address] [place] [address] Dr. Heather Aguirre IG # 0.03 10e3/ul Normal 0.00-0.03 [facility] Comment on above: Performed By: #### L IPID, TSH, CMP #### [facility] [address] [place] [address] Dr. Heather Aguirre IG % 0.3 % Normal 0.0-0.5 [facility] Comment on above: Performed By: #### L IPID, TSH, CMP #### [facility] [address] [place] [address] Dr. Heather Aguirre LYMPH # 2.9 103/ul Normal 1.2-3.8 [facility] Comment on above: Performed By: #### L IPID, TSH, CMP #### [facility] [address] [place] [address] Dr. Heather Aguirre Lymphocytes/100 WBC (Bld) 33.6 % Normal 20.5-60.0 [facility] Comment on above: Performed By: #### L IPID, TSH, CMP #### [facility] [address] [place] [address] Dr. Heather Aguirre MANUAL DIFF REQ NO Normal [facility] Comment on above: Performed By: #### L IPID, TSH, CMP #### [facility] [address] [place] [address] Dr. Heather Aguirre MCH (RBC) [Entitic mass] 30.0 pg Normal 26.7-34.0 [facility] Comment on above: Performed By: #### L IPID, TSH, CMP #### [facility] [address] [place] [address] Dr. Heather Aguirre MCHC (RBC) [Mass/Vol] 32.2 g/dL Normal 29.9-35.2 [facility] Comment on above: Performed By: #### L IPID, TSH, CMP #### [facility] [address] [place] [address] Dr. Heather Aguirre MCV (RBC) [Entitic vol] 93.1 fL Normal 81.0-99.0 [facility] Comment on above: Performed By: #### L IPID, TSH, CMP #### [facility] [address] [place] [address] Dr. Heather Aguirre MONO # 0.6 103/ul Normal 0.3-0.8 [facility] Comment on above: Performed By: #### L IPID, TSH, CMP #### [facility] [address] [place] [address] Dr. Heather Aguirre Monocytes/100 WBC (Bld) 7.1 % Normal 1.7-12.0 [facility] Comment on above: Performed By: #### L IPID, TSH, CMP #### [facility] [address] [place] [address] Dr. Heather Aguirre NEUT # 4.8 103/ul Normal 1.4-6.5 [facility] Comment on above: Performed By: #### L IPID, TSH, CMP #### [facility] [address] [place] [address] Dr. Heather Aguirre Neutrophils/100 WBC (Bld) 55.3 % Normal 43.0-75.0 [facility] Comment on above: Performed By: #### L IPID, TSH, CMP #### [facility] [address] [place] [address] Dr. Heather Aguirre Platelet mean volume (Bld) [Entitic vol] 10.2 fL Normal 9.5-13.5 [facility] Comment on above: Performed By: #### L IPID, TSH, CMP #### [facility] [address] [place] [address] Dr. Heather Aguirre PLT 329 103/ul Normal 150-450 [facility] Comment on above: Performed By: #### L IPID, TSH, CMP #### [facility] [address] [place] [address] Dr. Heather Aguirre RBC 4.04 106/ul Critically low 4.20-5.40 [facility] Comment on above: Performed By: #### L IPID, TSH, CMP #### [facility] [address] [place] [address] Dr. Heather Aguirre WBC 8.7 103/ul Normal 4.0-11.0 [facility] Comment on above: Performed By: #### L IPID, TSH, CMP #### [facility] [address] [place] [address] Dr. Heather Aguirre GLYCOHEMOGLOBIN A1Con 2021 ADA RECOMMENDATION SEE BELOW Normal [facility] Comment on above: Result Comment: ADA RECOMMENDED LIMIT 4.0 - 6.0 ADA THERAPEUTIC TARGET < 7.0 ACTION SUGGESTED > 7.0 Performed By: #### A 1C #### [facility] [address] [place] [address] Dr. Heather Aguirre Glucose [Mass/Vol] 108 mg/dL Normal [facility] Comment on above: Performed By: #### A 1C #### [facility] [address] [address] [address] Heather Aguirre HbA1c (Bld) [Mass fraction] 5.4 % Normal 4.5-6.2 [facility] Comment on above: Performed By: #### A 1C #### [facility] [address] [address] [address] Heather Aguirre LIPID PROFILEon 02-12-2022 CHOL-HDL RATIO NORM SEE BELOW Normal [facility] Comment on above: Result Comment: 3.3 - 4.4 LOW RISK 4.4 - 7.1 AVERAGE RISK 7.1 - 11.0 MODERATE RISK >11.0 HIGH RISK Performed By: #### L IPID, TSH, CMP #### [facility] [address] [place] [address] Dr. Heather Aguirre Cholesterol [Mass/Vol] 215 mg/dL Critically high <=200 [facility] Comment on above: Performed By: #### L IPID, TSH, CMP #### [facility] [address] [address] [address] Heather Aguirre Cholesterol in HDL [Mass/Vol] 59 mg/dL Normal 40-60 [facility] Comment on above: Performed By: #### L IPID, TSH, CMP #### [facility] [address] [address] [address] Heather Aguirre Cholesterol in LDL [Mass/Vol] 133.0 mg/dL Normal [facility] Comment on above: Performed By: #### L IPID, TSH, CMP #### [facility] [address] [address] [address] Heather Aguirre Cholesterol.total/Ch olesterol in HDL [Mass ratio] 3.6 {ratio} Normal [facility] Comment on above: Performed By: #### L IPID, TSH, CMP #### [facility] [address] [place] [address] Dr. Heather Aguirre HDL NORMAL > or = 60 mg/dl - LO W CARDIOVASCULAR RISK <40 mg/dl - HIGH CARDIOVASCULAR RISK Normal [facility] Comment on above: Performed By: #### L IPID, TSH, CMP #### [facility] [address] [address] [address] Heather Aguirre LDL CALC NORMAL SEE BELOW Normal [facility] Comment on above: Result Comment: <100 mg/dl OPTIMAL 100 - 129 mg/dl NEAR OR ABOVE OPTIMAL 130 - 159 mg/dl BORDERLINE HIGH 160 - 189 mg/dl HIGH >190 mg/dl VERY HIGH Performed By: #### L IPID, TSH, CMP #### [facility] [address] [address] [address] Heather Aguirre Triglyceride [Mass/Vol] 115 mg/dL Normal <=150 [facility] Comment on above: Performed By: #### L IPID, TSH, CMP #### [facility] [address] [address] [address] Heather Aguirre VLDL CALC 23.0 mg/dL Normal [facility] Comment on above: Performed By: #### L IPID, TSH, CMP #### [facility] [address] [place] [address] Dr. Heather Aguirre PROF 14(COMP METB)on 022 Albumin [Mass/Vol] 3.5 g/dL Normal 3.4-5.0 [facility] Comment on above: Performed By: #### L IPID, TSH, CMP #### [facility] [address] [place] [address] Dr. Heather Aguirre Albumin/Globulin [Mass ratio] 1.1 {ratio} Normal [facility] Comment on above: Performed By: #### L IPID, TSH, CMP #### [facility] [address] [address] [address] Heather Aguirre ALP [Catalytic activity/Vol] 56 U/L Normal 46-116 [facility] Comment on above: Performed By: #### L IPID, TSH, CMP #### [facility] [address] [place] [address] Dr. Heather Aguirre ALT [Catalytic activity/Vol] 25 U/L Normal 14-59 [facility] Comment on above: Performed By: #### L IPID, TSH, CMP #### [facility] [address] [place] [address] Dr. Heather Aguirre Anion gap [Moles/Vol] 1 mmol/L Normal [facility] Comment on above: Performed By: #### L IPID, TSH, CMP #### [facility] [address] [address] [address] Heather Aguirre AST [Catalytic activity/Vol] 10 U/L Critically low 15-37 [facility] Comment on above: Performed By: #### L IPID, TSH, CMP #### [facility] [address] [address] [address] Heather Aguirre Bilirubin [Mass/Vol] 0.5 mg/dL Normal 0.2-1.0 [facility] Comment on above: Performed By: #### L IPID, TSH, CMP #### [facility] [address] [place] [address] Dr. Heather Aguirre Calcium [Mass/Vol] 8.5 mg/dL Normal 8.5-10.1 [facility] Comment on above: Performed By: #### L IPID, TSH, CMP #### [facility] [address] [place] [address] Dr. Heather Aguirre Chloride [Moles/Vol] 102 mmol/L Normal 98-107 [facility] Comment on above: Performed By: #### L IPID, TSH, CMP #### [facility] [address] [place] [address] Dr. Heather Aguirre CO2 [Moles/Vol] 30.0 mmol/L Normal 21.0-32.0 [facility] Comment on above: Performed By: #### L IPID, TSH, CMP #### [facility] [address] [place] [address] Dr. Heather Aguirre Creatinine [Mass/Vol] 1.07 mg/dL Critically high 0.55-1.02 [facility] Comment on above: Performed By: #### L IPID, TSH, CMP #### [facility] [address] [place] [address] Dr. Heather Aguirre EGFR-AF NIGERIAN >60 Normal >=60 [facility] Comment on above: Performed By: #### L IPID, TSH, CMP #### [facility] [address] [address] [address] Heather Aguirre EGFR-NON AF NIGERIAN 52 mL/min/1.73m2 Critically low >=60 [facility] Comment on above: Performed By: #### L IPID, TSH, CMP #### [facility] [address] [address] [address] Heather Aguirre Globulin (S) [Mass/Vol] 3.2 g/dL Normal [facility] Comment on above: Performed By: #### L IPID, TSH, CMP #### [facility] [address] [address] [address] Heather Aguirre Glucose [Mass/Vol] 96 mg/dL Normal 74-106 [facility] Comment on above: Performed By: #### L IPID, TSH, CMP #### [facility] [address] [place] [address] Dr. Heather Aguirre Potassium [Moles/Vol] 4.0 mmol/L Normal 3.5-5.1 [facility] Comment on above: Performed By: #### L IPID, TSH, CMP #### [facility] [address] [address] [address] Heather Aguirre Protein [Mass/Vol] 6.7 g/dL Normal 6.4-8.2 [facility] Comment on above: Performed By: #### L IPID, TSH, CMP #### [facility] [address] [address] [address] Heather Aguirre Sodium [Moles/Vol] 127 mmol/L Critically low 136-145 [facility] Comment on above: Performed By: #### L IPID, TSH, CMP #### [facility] [address] [address] [address] Heather Aguirre Urea nitrogen [Mass/Vol] 20.0 mg/dL Critically high 7.0-18.0 [facility] Comment on above: Performed By: #### L IPID, TSH, CMP #### [facility] [address] [address] [address] Heather Aguirre Urea nitrogen/Creatinine [Mass ratio] 18.7 mg/mg Normal [facility] Comment on above: Performed By: #### L IPID, TSH, CMP #### [facility] [address] [place], [place] [address] Dr. Heather Aguirre TSHon 02-12-2022 TSH 1.693 uIU/mL Normal 0.358-3.740 [facility] Comment on above: Performed By: #### L IPID, TSH, CMP #### [facility] [address] [place], [place] [address] Dr. Heather Aguirre Vital Signs Date Time Vital Sign Value Performing Clinician Facility 10-08-2023 10:14-0500 Body height 152.[address] [facility] 10-08-2023 10:14-0500 Body mass index (BMI) [Ratio] 35.8 kg/m2 [facility] 10-08-2023 10:14-0500 Body weight 83.[address] [facility] 10-08-2023 10:14-0500 Diastolic blood pressure 80 mm[Hg] [facility] 10-08-2023 10:14-0500 Heart rate 83 /min [facility] 10-08-2023 10:14-0500 Systolic blood pressure 132 mm[Hg] [facility] 02-26-2023 08:30-0400 Body height 152.4 cm Tanvi De Oliveira Other [facility] Other 02-26-2023 08:30-0400 Body mass index (BMI) [Ratio] 35.93 kg/m2 Tanvi De Oliveira Other [facility] [employer] Other 02-26-2023 08:30-0400 Body weight 83.46 kg Tanvi De Oliveira Other [facility] Other 02-26-2023 08:30-0400 Diastolic blood pressure 84 mm[Hg] Tanvi De Oliveira Other [facility] Other 02-26-2023 08:30-0400 Systolic blood pressure 145 mm[Hg] Tanvi De Oliveira Other [facility] Other Encounters Encounter Date Encounter Type Care Provider Facility Start: 10-23-2023 End: 10-23-2023 ambulatory JAS PENNOSCAR [facility] Start: 10-08-2023 End: 10-08-2023 ambulatory [facility] Work Phone: Start: 10-08-2023 End: 10-08-2023 Patient encounter procedure [facility] Work Phone: Start: 07-02-2023 End: 07-02-2023 ambulatory JERI AMAYA Not Available Start: 02-26-2023 End: 02-26-2023 ambulatory Tanvi De Oliveira Other [facility] Other Start: 02-26-2023 Encounter for genera l adult medical examination without abnormal findings Tanvi De Oliveira [facility] Start: 02-26-2023 Periodic preventive med est patient 65yrs& older Tanvi De Oliveira [facility] Start: 07-14-2022 End: 07-15-[address] TANVI DE OLIVEIRA Facility:[facility] Start: 07-01-2022 End: 07-01-[address] JERI AMAYA Facility:[facility] Start: 06-11-2022 End: 06-12-[address] TANVI DE OLIVEIRA Facility:[facility] Start: 06-10-2022 End: 06-11-[address] JERI AMAYA Facility:[facility] Start: 02-14-2022 Encounter for genera l adult medical examination without abnormal findings DR TANVI DE OLIVEIRA [facility] Start: 02-12-2022 End: 02-13-[address] TANVI DE OLIVEIRA Facility:[facility] Start: 02-12-2022 End: 02-13-2022 Encounter for general adult medical examination without abnormal findings DR TANVI DE OLIVEIRA Facility:[facility] Plan of Treatment Date Care Activity Detail Author EKG 12 channel panel [facility] Payers Date Payer Category [id number] 2019 Unknown [id number] 1955 Unknown [id number] 2.16.84 [id number] 1955 Unknown [id number] 2.16.84 [id number] 1955 Unknown [id number] 2.16.84 [id number] 1955 Unknown [id number] 2.16.84 [id number] 1955 Unknown [id number] 2.16.84 [id number] 1955 Unknown [id number] 2.16.84 [id number] 1955 Unknown [id number] Social History Date Type Detail Facility Sex Assigned At [facility] Other [facility]: [facility] Start: 1955 Sex Assigned At Female F [facility] Progress note 10-23-2023 Note Date & [...] Scheduled for stress test next week at [facility]. Review of Systems Cardiovascular: Positive for chest pain and dyspnea on exertion. Musculoskeletal: Positive for muscle cramps. All other systems reviewed and are negative. [facility] Progress note 10-23-2023 Note Date & Type [...] or concerns. Patrick (more content not included)... [facility] Evaluation note 02-26-2023 Note Date & Type [...] colonscopy in 2013 - repeat next year. [facility] Other Evaluation note Note Date & Type Note Facility Evaluation note Diagnosis Onset Date Dyspnea on exertion acute Epigastric abdominal pain ac minto Left-sided chest wall pain a [facility] Work Phone: History general Narrative - Reported [...] Dr. Mejia Hospitalization History SEE SURGICAL HX Hopela Other Summary Purpose Family History No Family [...] DATE CREATED AUTHOR AUTHOR'S ORGANIZ ATION 07/04/2023 [facility] EPIC DATE CREATED AUTHOR AUTHOR'S ORGANIZ ATION 10/24/2023 [facility] REASON FOR VISIT (unrecogniz ed section [...] BE BASED ON THE PRIMARY CLINICAL RECORDS. [employer] provides no warranty or guarantee of the accuracy or completeness of information in this document.
== END 2023-11-02 13:59 | disposition home or self-care (01) ==
LOC: CARD 13:58
PROVIDERS: PCP Family Medicine; Visit Provider Internal Medicine Cardiovascular Disease
DX: R06.09 Other forms of dyspnea (principal)
CPT/HCPCS: 93306; 93356

== ENCOUNTER 2023-11-12 08:48 | Outpatient (OUT) | payer BC, SELFPAY ==
--- OUTSIDE RECORDS SUMMARY | 2023-11-12 09:07 | XMS_ITS | CCD ---
Author Organization [facility] Care Team Providers Care Entertainment Lawyer Name Role Phone ALVINO, DR TANVI Perez [...] Primary Care Unavailable TOMI PANIAGUA Admitting Unavailable SIVA, TOMI Attending Unavailable TOMI PANIAGUA Consulting Unavailable KATHIE HOPKINS Consulting Unavailable ELIZABETH, JOHN Admitting Unavailable JOHN JOHNSON Attending Unavailable ALVINO, DR TANVI Perez Primary Care Unavailable ALVINO, DR TANVI Perez Consulting Unavailable ALVINO, DR TANVI Perez Admitting Unavailable DE OLIVEIRA, DR TANVI Perez Attending Unavailable DE OLIVEIRA, DR TANVI Perez Primary Care Unavailable ALVINO, DR TANVI Perez Consulting Unavailable Tanvi De Oliveira Unavailable JERI AMAYA Attending Unavailable JAS OLEARY Attending Unavailable JAS OLEARY Attending Unavailable Allergies Allergy Classification Reported Allergen(s) Allergy Type Date of Onset Reaction(s) Facility (1 source) Shellfish Drug allergy (disorder) 4 [facility] (1 source) kiwi Drug allergy (disorder) 2 [facility] (1 source) Shellfish; Translations: [SHELLFISH DERIVED] Propensity to adverse reactions to drug (disorder) 4 [facility] Medications Current Medications Medication Drug [...] capsule (1 source) Proton Pump Inhibitor Start: 10-08-2023 take 40 mg by mouth once daily [...] 10-07-2023 Chronic Other aftercare (1 source) Other snf (current) drug therapy; Translations: [[facility] CURRENT DRUG THERAPY] Onset: 07-17-2022 Episodic Other [...] Value Interpretation Reference Range Facility Office Visiton 11-06-2023 Follow-up visit [id number] Mackenzie Patel 1955 F Date Provider Department Center 11/06/2023 [id number], MOHAMAD BH CARD [facility] Family History Problem Relation Age of Onset Coronary artery disease Mother Other Mother Heart attack Father 90 Family Status - Relation Status Age at Mother Father Level of Service:[id number] MD OFFICE/OUTPATIENT ESTABLISHED LOW MDM 20 MIN Normal [facility] Orders Onlyon 11-06-2023 Orders Only [id number] Saad Patelly A 1955 F Date Provider Department Center 11/06/2023 [id number] LEONG JEY [facility] Family History Problem Relation Age of Onset Coronary artery disease Mother Other Mother Heart attack Father 90 Family Status - Relation Status Age at Mother Father Normal [facility] Office Visiton 10-23-2023 Follow-up visit [id number] Mackenzie Patel A 1955 F Date Provider Department Center 10/23/2023 SamanthaKaley-JAS OLEARY JEY [facility] Family History Problem Relation Age of Onset Coronary artery disease Mother Other Mother Heart attack Father 90 Family Status - Relation Status Age at Mother Father Level of Service:[id number] MD OFFICE/OUTPATIENT NEW MODERATE MDM 45 MINUTES Normal [facility] Covid-19 PCR ([facility])on 06-18 SARS-CoV-2 (COVID-19) RNA LARA+probe Ql (Unsp spec) Not detected Normal NOT DETECTED [facility] Comment on above: Result Comment: When [...] for this test is supported by the Central of Health and Human Service's declaration that [...] longer be used). Performed By: #### C [facility] #### [facility] [address] [address] [address] Heather Aguirre INFLUENZA A AND B AGon 07-14 INFLUENZA A AG Positive Abnormal NEGATIVE SEE COMMENT [facility] Comment on above: Performed By: #### I NFLUAB #### [facility] [address] [address] [address] Heather Aguirre INFLUENZA B AG Negative Normal NEGATIVE SEE COMMENT [facility] Comment on above: Performed By: #### I NFLUAB #### [facility] [address] [place] [address] Dr. Heather Aguirre INTERNAL CONTROLS Within Normal Limits Normal Wi thin Normal Limits [facility] Comment on above: Performed By: #### I NFLUAB #### [facility] [address] [place] [address] Dr. Heather Aguirre XR CHEST 2 Von [...] by: KATHIE HOPKINS Date: 2022-07-14 21:21 Normal [facility] PAP ACOG PANEL 2: 30 to 65on 07-09-2022 . . Normal [facility] Comment on above: Result Comment: Perf ormed at: WB Performed By: #### [id number] #### [facility] [address] [place] [address] Dr. Heather Aguirre Age Gdln ACOG Testing 30-65 Normal [facility] Comment on above: Performed By: #### [id number] #### [facility] [address] [place] [address] Dr. Heather Aguirre DIAGNOSIS: Comment Normal [facility] Comment on above: Result Comment: NEGA TIVE FOR INTRAEPITHELIAL LESION OR MALIGNANCY. CELLULAR CHANGES ASSOCIATED WITH ATROPHY ARE PRESENT. Performed at: WB Performed By: #### [id number] #### [facility] [address] [place] [address] Dr. Heather Aguirre HPV Aptima Negative Normal Negative [facility] Comment on above: Result Comment: This nucleic acid amplification test detects fourteen high-risk HPV types (16,18,31,33,35,39,45,51,52,56,58,59,66,68) without differentiation. Performed at: =G Performed By: #### [id number] #### [facility] [address] [place] [address] Dr. Heather Aguirre HPV Genotype Reflex Comment Normal [facility] Comment on above: Result Comment: Crit eria not met, HPV Genotype not performed. Performed at: WB Performed By: #### [id number] #### [facility] [address] [place] [address] Dr. Heather Aguirre Methodology: CTIM Normal [facility] Comment on above: Result Comment: The [employer] Commerce Developer was unable to read this specimen. Therefore a manual review was performed. Performed at: WB Performed By: #### [id number] #### [facility] [address] [place] [address] Dr. Heather Aguirre Note: Comment Normal [facility] Comment on above: Result Comment: The Pap smear is a screening test designed to aid in the detection of premalignant and malignant conditions of the uterine cervix. It is not a diagnostic procedure and should not be used as the sole means of detecting cervical cancer. Both false-positive and false-negative reports do occur. . Performed at: WB Performed By: #### [id number] #### [facility] [address] [place] [address] Dr. Heather Aguirre Performed by: Comment Normal [facility] Comment on above: Result Comment: Supriya Amador, Manager Home Healthcare (ASCP) Performed at: WB Performed By: #### [id number] #### [facility] [address] [place] [address] Dr. Heather Aguirre Specimen adequacy: Comment Normal [facility] Comment on above: Result Comment: Sati sfactory for evaluation. Endocervical component may not be distinguished in cases of atrophy. Performed at: WB Performed By: #### [id number] #### [facility] [address] [address] [address] Heather Aguirre MG MAMM SCREEN 3D YUO CADon 06-11-2022 MG MAMM SCREEN 3D YOU CAD Patient: MACKENZIE PATEL Exam Date: 06/11/2022 : 1955 Gender:F Ordering : DR JERI AMAYA . Admission #: [id number] Family : Order #: [id number] CLICK HERE TO VIEW EXAM RADIOLOGY REPORT [...] skin cancer at age 65. LOCATION: [facility] BREAST COMPOSITION: Scattered areas fibroglandular density. [...] Olvera MD on 06/11/2022 at 08:04 Normal [facility] XR DEXA BONE DENSITYon 06-10 XR DEXA BONE DENSITY EXAMINATION: XR DEX A BONE DENSITY, 06/10/2022 7:59 AM EDT HISTORY: Screening mammography COMPARISON: 2017, 2009 TECHNIQUE: Dual-energy X-ray absorptiometry (DEXA) [...] by: KATHIE OLVERA Date: 2022-06-10 12:16 Normal [facility] CBC AUTO DIFFon 02-12-2022 BASO # 0.1 103/ul Normal 0.0-0.1 [facility] Comment on above: Performed By: #### L IPID, TSH, CMP #### [facility] [address] [place] [address] Dr. Heather Aguirre Basophils/100 WBC (Bld) 0.8 % Normal 0.2-2.0 [facility] Comment on above: Performed By: #### L IPID, TSH, CMP #### [facility] [address] [place] [address] Dr. Heather Aguirre EO # 0.3 103/ul Normal 0.0-0.7 [facility] Comment on above: Performed By: #### L IPID, TSH, CMP #### [facility] [address] [place] [address] Dr. Heather Aguirre Eosinophils/100 WBC (Bld) 2.9 % Normal 0.9-7.0 [facility] Comment on above: Performed By: #### L IPID, TSH, CMP #### [facility] [address] [place] [address] Dr. Heather Aguirre Erythrocyte distribution width (RBC) [Ratio] 13.2 % Normal 11.0-15.0 [facility] Comment on above: Performed By: #### L IPID, TSH, CMP #### [facility] [address] [place] [address] Dr. Heather Aguirre Hematocrit (Bld) [Volume fraction] 37.6 % Normal 36.0-48.0 [facility] Comment on above: Performed By: #### L IPID, TSH, CMP #### [facility] [address] [place] [address] Dr. Heather Aguirre Hemoglobin (Bld) [Mass/Vol] 12.1 g/dL Normal 12.0-16.0 [facility] Comment on above: Performed By: #### L IPID, TSH, CMP #### [facility] [address] [place] [address] Dr. Heather Aguirre IG # 0.03 10e3/ul Normal 0.00-0.03 [facility] Comment on above: Performed By: #### L IPID, TSH, CMP #### [facility] [address] [place] [address] Dr. Heather Aguirre IG % 0.3 % Normal 0.0-0.5 [facility] Comment on above: Performed By: #### L IPID, TSH, CMP #### [facility] [address] [place] [address] Dr. Heather Aguirre LYMPH # 2.9 103/ul Normal 1.2-3.8 [facility] Comment on above: Performed By: #### L IPID, TSH, CMP #### [facility] [address] [place] [address] Dr. Heather Aguirre Lymphocytes/100 WBC (Bld) 33.6 % Normal 20.5-60.0 [facility] Comment on above: Performed By: #### L IPID, TSH, CMP #### [facility] [address] [place] [address] Dr. Heather Aguirre MANUAL DIFF REQ NO Normal [facility] Comment on above: Performed By: #### L IPID, TSH, CMP #### [facility] [address] [place] [address] Dr. Heather Aguirre MCH (RBC) [Entitic mass] 30.0 pg Normal 26.7-34.0 [facility] Comment on above: Performed By: #### L IPID, TSH, CMP #### [facility] [address] [place] [address] Dr. Heather Aguirre MCHC (RBC) [Mass/Vol] 32.2 g/dL Normal 29.9-35.2 [facility] Comment on above: Performed By: #### L IPID, TSH, CMP #### [facility] [address] [place] [address] Dr. Heather Aguirre MCV (RBC) [Entitic vol] 93.1 fL Normal 81.0-99.0 [facility] Comment on above: Performed By: #### L IPID, TSH, CMP #### [facility] [address] [place] [address] Dr. Heather Aguirre MONO # 0.6 103/ul Normal 0.3-0.8 [facility] Comment on above: Performed By: #### L IPID, TSH, CMP #### [facility] [address] [place] [address] Dr. Heather Aguirre Monocytes/100 WBC (Bld) 7.1 % Normal 1.7-12.0 [facility] Comment on above: Performed By: #### L IPID, TSH, CMP #### [facility] [address] [place] [address] Dr. Heather Aguirre NEUT # 4.8 103/ul Normal 1.4-6.5 [facility] Comment on above: Performed By: #### L IPID, TSH, CMP #### [facility] [address] [place] [address] Dr. Heather Aguirre Neutrophils/100 WBC (Bld) 55.3 % Normal 43.0-75.0 [facility] Comment on above: Performed By: #### L IPID, TSH, CMP #### [facility] [address] [place] [address] Dr. Heather Aguirre Platelet mean volume (Bld) [Entitic vol] 10.2 fL Normal 9.5-13.5 [facility] Comment on above: Performed By: #### L IPID, TSH, CMP #### [facility] [address] [place] [address] Dr. Heather Aguirre PLT 329 103/ul Normal 150-450 [facility] Comment on above: Performed By: #### L IPID, TSH, CMP #### [facility] [address] [place] [address] Dr. Heather Aguirre RBC 4.04 106/ul Critically low 4.20-5.40 [facility] Comment on above: Performed By: #### L IPID, TSH, CMP #### [facility] [address] [place] [address] Dr. Heather Aguirre WBC 8.7 103/ul Normal 4.0-11.0 [facility] Comment on above: Performed By: #### L IPID, TSH, CMP #### [facility] [address] [address] [address] Heather Aguirre GLYCOHEMOGLOBIN A1Con 2021 ADA RECOMMENDATION SEE BELOW Normal [facility] Comment on above: Result Comment: ADA RECOMMENDED LIMIT 4.0 - 6.0 ADA THERAPEUTIC TARGET < 7.0 ACTION SUGGESTED > 7.0 Performed By: #### A 1C #### [facility] [address] [address] [address] Heather Aguirre Glucose [Mass/Vol] 108 mg/dL Normal [facility] Comment on above: Performed By: #### A 1C #### [facility] [address] [place] [address] Dr. Heather Aguirre HbA1c (Bld) [Mass fraction] 5.4 % Normal 4.5-6.2 [facility] Comment on above: Performed By: #### A 1C #### [facility] [address] [place] [address] Dr. Heather Aguirre LIPID PROFILEon 02-12-2022 CHOL-HDL RATIO NORM SEE BELOW Normal [facility] Comment on above: Result Comment: 3.3 - 4.4 LOW RISK 4.4 - 7.1 AVERAGE RISK 7.1 - 11.0 MODERATE RISK >11.0 HIGH RISK Performed By: #### L IPID, TSH, CMP #### [facility] [address] [place] [address] Dr. Heather Aguirre Cholesterol [Mass/Vol] 215 mg/dL Critically high <=200 [facility] Comment on above: Performed By: #### L IPID, TSH, CMP #### [facility] [address] [place] [address] Dr. Heather Aguirre Cholesterol in HDL [Mass/Vol] 59 mg/dL Normal 40-60 [facility] Comment on above: Performed By: #### L IPID, TSH, CMP #### [facility] [address] [address] [address] Heather Aguirre Cholesterol in LDL [Mass/Vol] 133.0 mg/dL Normal [facility] Comment on above: Performed By: #### L IPID, TSH, CMP #### [facility] [address] [address] [address] eHather Aguirre Cholesterol.total/Ch olesterol in HDL [Mass ratio] 3.6 {ratio} Normal [facility] Comment on above: Performed By: #### L IPID, TSH, CMP #### [facility] [address] [address] [address] Heather Aguirre HDL NORMAL > or = 60 mg/dl - LO W CARDIOVASCULAR RISK <40 mg/dl - HIGH CARDIOVASCULAR RISK Normal [facility] Comment on above: Performed By: #### L IPID, TSH, CMP #### [facility] [address] [place] [address] Dr. Heather Aguirre LDL CALC NORMAL SEE BELOW Normal [facility] Comment on above: Result Comment: <100 mg/dl OPTIMAL 100 - 129 mg/dl NEAR OR ABOVE OPTIMAL 130 - 159 mg/dl BORDERLINE HIGH 160 - 189 mg/dl HIGH >190 mg/dl VERY HIGH Performed By: #### L IPID, TSH, CMP #### [facility] [address] [address] [address] Heather Aguirre Triglyceride [Mass/Vol] 115 mg/dL Normal <=150 [facility] Comment on above: Performed By: #### L IPID, TSH, CMP #### [facility] [address] [place] [address] Dr. Heather Aguirre VLDL CALC 23.0 mg/dL Normal [facility] Comment on above: Performed By: #### L IPID, TSH, CMP #### [facility] [address] [address] [address] Heather Aguirre PROF 14(COMP METB)on 022 Albumin [Mass/Vol] 3.5 g/dL Normal 3.4-5.0 [facility] Comment on above: Performed By: #### L IPID, TSH, CMP #### [facility] [address] [place] [address] Dr. Heather Aguirre Albumin/Globulin [Mass ratio] 1.1 {ratio} Normal [facility] Comment on above: Performed By: #### L IPID, TSH, CMP #### [facility] [address] [address] [address] Heather Aguirre ALP [Catalytic activity/Vol] 56 U/L Normal 46-116 [facility] Comment on above: Performed By: #### L IPID, TSH, CMP #### [facility] [address] [address] [address] Heather Aguirre ALT [Catalytic activity/Vol] 25 U/L Normal 14-59 [facility] Comment on above: Performed By: #### L IPID, TSH, CMP #### [facility] [address] [place] [address] Dr. Heather Aguirre Anion gap [Moles/Vol] 1 mmol/L Normal [facility] Comment on above: Performed By: #### L IPID, TSH, CMP #### [facility] [address] [place] [address] Dr. Heather Aguirre AST [Catalytic activity/Vol] 10 U/L Critically low 15-37 [facility] Comment on above: Performed By: #### L IPID, TSH, CMP #### [facility] [address] [place] [address] Dr. Heather Aguirre Bilirubin [Mass/Vol] 0.5 mg/dL Normal 0.2-1.0 [facility] Comment on above: Performed By: #### L IPID, TSH, CMP #### [facility] [address] [address] [address] Heather Aguirre Calcium [Mass/Vol] 8.5 mg/dL Normal 8.5-10.1 [facility] Comment on above: Performed By: #### L IPID, TSH, CMP #### [facility] [address] [place] [address] Dr. Heather Aguirre Chloride [Moles/Vol] 102 mmol/L Normal 98-107 [facility] Comment on above: Performed By: #### L IPID, TSH, CMP #### [facility] [address] [place] [address] Dr. Heather Aguirre CO2 [Moles/Vol] 30.0 mmol/L Normal 21.0-32.0 [facility] Comment on above: Performed By: #### L IPID, TSH, CMP #### [facility] [address] [address] [address] Heather Aguirre Creatinine [Mass/Vol] 1.07 mg/dL Critically high 0.55-1.02 [facility] Comment on above: Performed By: #### L IPID, TSH, CMP #### [facility] [address] [address] [address] Heather Aguirre EGFR-AF [facility] LUCIAN >60 Normal >=60 [facility] Comment on above: Performed By: #### L IPID, TSH, CMP #### [facility] [address] [place] [address] Dr. Heather Aguirre EGFR-NON AF [facility] LUCI[facility] 52 mL/min/1.73m2 Critically low >=60 [facility] Comment on above: Performed By: #### L IPID, TSH, CMP #### [facility] [address] [address] [address] Heather Aguirre Globulin (S) [Mass/Vol] 3.2 g/dL Normal [facility] Comment on above: Performed By: #### L IPID, TSH, CMP #### [facility] [address] [address] [address] Heather Aguirre Glucose [Mass/Vol] 96 mg/dL Normal 74-106 [facility] Comment on above: Performed By: #### L IPID, TSH, CMP #### [facility] [address] [address] [address] Heather Aguirre Potassium [Moles/Vol] 4.0 mmol/L Normal 3.5-5.1 [facility] Comment on above: Performed By: #### L IPID, TSH, CMP #### [facility] [address] [address] [address] Heather Aguirre Protein [Mass/Vol] 6.7 g/dL Normal 6.4-8.2 [facility] Comment on above: Performed By: #### L IPID, TSH, CMP #### [facility] [address] [address] [address] Heather Aguirre Sodium [Moles/Vol] 127 mmol/L Critically low 136-145 [facility] Comment on above: Performed By: #### L IPID, TSH, CMP #### [facility] [address] [place] [address] Dr. Heather Aguirre Urea nitrogen [Mass/Vol] 20.0 mg/dL Critically high 7.0-18.0 [facility] Comment on above: Performed By: #### L IPID, TSH, CMP #### [facility] [address] [place] [address] Dr. Heather Aguirre Urea nitrogen/Creatinine [Mass ratio] 18.7 mg/mg Normal [facility] Comment on above: Performed By: #### L IPID, TSH, CMP #### [facility] [address] [place] [address] Dr. Heather Aguirre TSHon 02-12-2022 TSH 1.693 uIU/mL Normal 0.358-3.740 [facility] Comment on above: Performed By: #### L IPID, TSH, CMP #### [facility] [address] [place] [address] Dr. Heather Aguirre Vital Signs Date Time Vital Sign Value Performing Clinician Facility 10-08-2023 10:140500 Body height 152.4 cm [facility] 10-08-2023 10:14-0500 Body mass index (BMI) [Ratio] 35.8 kg/m2 [facility] 10-08-2023 10:14-0500 Body weight 83.12 kg [facility] 10-08-2023 10:14-0500 Diastolic blood pressure 80 mm[Hg] [facility] 10-08-2023 10:14-0500 Heart rate 83 /min [facility] 10-08-2023 10:14-0500 Systolic blood pressure 132 mm[Hg] [facility] 02-26-2023 08:30-0400 Body height 152.4 cm Tanvi De Oliveira Other [facility] 02-26-2023 08:30-0400 Body mass index (BMI) [Ratio] 35.93 kg/m2 Tanvi De Oliveira Other [facility] 02-26-2023 08:30-0400 Body weight 83.46 kg Tanvi De Oliveira Other [facility] Other 02-26-2023 08:30-0400 Diastolic blood pressure 84 mm[Hg] Tanvi De Oliveira Other [facility] Other 02-26-2023 08:30-0400 Systolic blood pressure 145 mm[Hg] Tanvi De Oliveira Other [facility] Other Encounters Encounter Date Encounter Type Care Provider Facility Start: 11-06-2023 End: 11-06-2023 ambulatory [facility] Start: 10-23-2023 End: 10-23-2023 ambulatory [facility] Start: 10-08-2023 End: 10-08-2023 ambulatory [facility] Work Phone: Start: 10-08-2023 End: 10-08-2023 Patient encounter procedure [facility] Work Phone: Start: 07-02-2023 End: 07-02-2023 ambulatory JERI AMAYA Not Available Start: 02-26-2023 End: 02-26-2023 ambulatory Tanvi De Oliveira Other [facility] Other Start: 02-26-2023 Encounter for genera l adult medical examination without abnormal findings Tanvi De Oliveira [facility] Start: 02-26-2023 Periodic preventive med est patient 65yrs& older Tanvi De Oliveira [facility] Start: 07-14-2022 End: 07-15-[address] TANVI DE OLIVEIRA Facility:[facility] Start: 07-01-2022 End: 07-01-[address] JERI AMAYA Facility:[facility] Start: 06-11-2022 End: 06-12-[address] TANVI DE OLIVEIRA Facility:[facility] Start: 06-10-2022 End: 06-11-[address] JERI AMAYA Facility:[facility] Start: 02-14-2022 Encounter for genera l adult medical examination without abnormal findings DR TANVI DE OLIVEIRA [facility] Start: 02-12-2022 End: 02-13-[address] TANVI DE OLIVEIRA Facility:[facility] Start: 02-12-2022 End: 02-13-2022 Encounter for general adult medical examination without abnormal findings DR TANVI DE OLIVEIRA Facility:[facility] Plan of Treatment Date Care Activity Detail Author EKG 12 channel panel [facility] Payers Date Payer Category Payer [employer] [id number] 2019 Unknown [id number] 1955 Unknown [id number] 2.16.84 [id number] 1955 Unknown [id number] 2.16.84 [id number] 1955 Unknown [id number] 2.16.84 [id number] 1955 Unknown [id number] 2.16.84 [id number] 1955 Unknown [id number] 2.16.84 [id number] 1955 Unknown [id number] 2.16.84 [id number] 1955 Unknown [id number] Social History Date Type Detail Facility Sex Assigned At [facility] Start: [facility]06[facility]23 [facility] Start: 1955 Sex Assigned At Female F [facility] Progress note 11-06-2023 Note Date & Type Note Facility 11-06-2023 Note Patient here for fol low up echo and stress test. She was started on carvedilol and rosuvastatin at last apt, and is tolerating them well so far. Review of Systems Cardiovascular: Positive for chest pain and dyspnea on exertion. Musculoskeletal: Positive for muscle cramps. All other systems reviewed and are negative. [facility] Progress note 11-06-2023 Note Date & Type Note Facility 11-06-2023 Note [facility] No te Chief Complaint: Chest pain HPI: Mackenzie Patel is a 68 y.o. female With a remote history of tobacco abuse who is referred to referred to Cardiology clinic for evaluation of Chest pain. Patient stated that for the past several weeks, she has been experiencing left-sided chest pain. Echocardiogram were performed. Stress test does not demonstrate reversible ischemia. However, a small fixed defect is seen, attenuation artifact versus previous infarct. Additionally, patient had ST depression and T wave inversion with Lexiscan infusion. Echocardiogram without acute abnormalities Today, patient states that she continues to have chest pain. Her chest pain is worsening. It is substernal and left-sided, with some radiation into her back. Is becoming more frequent. Denies any additional complaints or concerns. Patient denies any shortness of breath. Patient denies any lower extremity edema, orthopnea, or proximal nocturnal dyspnea. No near-syncope or syncope. No dizziness or lightheadedness. Cardiology ROS: GENERAL: Denies fever, chills, night [...] 150 mg by mouth in the morning. carvedilol (Coreg) 6.25 mg tablet Take 1 tablet (6.25 mg) by mouth with breakfast and with evening meal. 180 tablet 3 levothyroxine (Synthroid, Levoxyl) 100 mcg tablet TAKE ONE TABLET BY MOUTH EVERY MORNING ON an EMPTY stomach ONCE DAILY omeprazole (PriLOSEC) [address] capsule Take by mouth in the morning. rosuvastatin (Crestor) 20 mg tablet Take 1 tablet (20 mg) by mouth in the morning. 90 tablet 3 No current facility-administered medications on file prior to visit. Allergies Shellfish derived Physical Exam VITAL SIGNS: BP 142/86 (BP Location: Left arm, Patient Position: Sitting) Pulse 62 Ht 1.524 m (5') Wt 83.5 kg (184 lb) SpO2 98% BMI 35.94 kg/m??? Constitutional: Well developed, Well nourished, No [...] Affect normal, Judgment normal, Mood normal. Impression: -Unstable angina -Dyspnea on exertion -Hypertension -Previous tobacco abuse -Abnormal EKG -Abnormal stress test Plan: -Given patient's symptoms, in addition to defect on myocardial perfusion imaging and ST/T wave changes with Lexiscan scan infusion, I dicussed different options with patient including invasive angiography with possible PCI -Procedure was explained to patient at length and in detail. Risks, benefits, and alternatives were discussed. -Patient is informed that risks of this invasive procedure include, but are not limited to, bleeding, hematoma, kidney injury, CVA, arrythmia requiring defibrillation, need for emergent open heart surgery, and . Patient understands these risks and wishes to proceed. -Continue Coreg 6.2 (more content not included)... [facility] Progress note 10-23-2023 Note Date & [...] Scheduled for stress test next week at [facility]. Review of Systems Cardiovascular: Positive for chest pain and dyspnea on exertion. Musculoskeletal: Positive for muscle cramps. All other systems reviewed and are negative. [facility] Progress note 10-23-2023 Note Date & Type Note Facility 10-23-2023 Note Cardiology Clinic No te Chief Complaint: Chest pain HPI: Mackenzie Patel is a 68 y.o. female With a [...] change in billing system. 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 Patrick (more content not included)... [facility] Evaluation note 02-26-2023 Note Date & [...] colonscopy in 2013 - repeat next year. [facility] Other Evaluation note Note Date & Type Note Facility Evaluation note Diagnosis Onset Date Dyspnea on exertion acute Epigastric abdominal pain [place] Left-sided chest wall pain a [facility] Work Phone: History general Narrative - [...] Dr. Mejia Hospitalization History SEE SURGICAL HX [facility] Other Summary Purpose Family History No Family [...] and content) DATE CREATED AUTHOR 07/17/2022 [facility] DATE CREATED AUTHOR AUTHOR'S ORGANIZ ATION 07/04/2023 [facility] EPIC DATE CREATED AUTHOR AUTHOR'S ORGANIZ ATION 11/07/2023 [facility] REASON FOR VISIT (unrecogniz ed section [...] BASED ON THE PRIMARY CLINICAL RECORDS. [facility]. provides no warranty or guarantee of the accuracy or completeness of information in this document.
[2023-11-12 09:11] LABS: Basophils Absolute Auto 0.1 10^3/uL (0.0-0.1); Basophils Percent Auto 1.2 % (0.2-2.0); Eosinophils Absolute Auto 0.4 10^3/uL (0.0-0.7); Eosinophils Percent Auto 4.2 % (0.9-7.0); Hematocrit 35.3 % (36.0-48.0); Hemoglobin 10.8 g/dL (12.0-16.0); Immature Granulocytes Abs Auto 0.04 10^3/uL (0.00-0.03); Immature Granulocytes Pct Auto 0.4 % (0.0-0.5); Lymphocytes Absolute Auto 2.5 10^3/uL (1.2-3.8); Lymphocytes Percent Auto 27.7 % (20.5-60.0); Mean Corpuscular HGB Conc 30.6 g/dL (29.9-35.2); Mean Corpuscular Hemoglobin 25.7 pg (26.7-34.0); Mean Platelet Volume 10.6 fL (9.5-13.5); Monocytes Absolute Auto 0.8 10^3/uL (0.3-0.8); Monocytes Percent Auto 8.5 % (1.7-12.0); Neutrophils Absolute Auto 5.2 10^3/uL (1.4-6.5); Platelet Count 360 10^3/uL (150-450); Red Cell Distribution Width 14.8 % (11.0-15.0); White Blood Count 9.1 10^3/uL (4.0-11.0)
[2023-11-12 10:16] LABS: BUN Creatinine Ratio 13.3; Calcium 8.8 mg/dL (8.5-10.1); Carbon Dioxide 29.4 mmol/L (21.0-32.0); Estimated GFR (African America >60 (>=60); Estimated GFR (Non-African Ame 57 (>=60); Glucose 92 mg/dL (74-106)
[2023-11-12 10:43] LABS: Anion Gap 12.1; Chloride 104 mmol/L (98-107); Potassium 4.5 mmol/L (3.5-5.1); Sodium 141 mmol/L (136-145)
== END 2023-11-12 08:49 | disposition home or self-care (01) ==
LOC: LAB 08:49
PROVIDERS: PCP Family Medicine; Visit Provider Internal Medicine Cardiovascular Disease
DX: R94.39 Abnormal result of other cardiovascular function study (principal)
CPT/HCPCS: 36415; 80048; 85025

== ENCOUNTER 2024-03-08 07:15 | Outpatient (OUT) | payer BC, SELFPAY ==
[2024-03-08 07:32] LABS: Basophils Absolute Auto 0.1 10^3/uL (0.0-0.1); Eosinophils Absolute Auto 0.2 10^3/uL (0.0-0.7); Eosinophils Percent Auto 2.3 % (0.9-7.0); Hematocrit 35.9 % (36.0-48.0); Immature Granulocytes Abs Auto 0.01 10^3/uL (0.00-0.03); Immature Granulocytes Pct Auto 0.1 % (0.0-0.5); Lymphocytes Absolute Auto 2.4 10^3/uL (1.2-3.8); Lymphocytes Percent Auto 29.7 % (20.5-60.0); Mean Corpuscular HGB Conc 30.6 g/dL (29.9-35.2); Mean Corpuscular Hemoglobin 25.3 pg (26.7-34.0); Mean Corpuscular Volume 82.7 fL (81.0-99.0); Mean Platelet Volume 10.3 fL (9.5-13.5); Monocytes Absolute Auto 0.5 10^3/uL (0.3-0.8); Monocytes Percent Auto 6.7 % (1.7-12.0); Neutrophils Absolute Auto 4.8 10^3/uL (1.4-6.5); Neutrophils Percent Auto 60.2 % (43.0-75.0); Platelet Count 306 10^3/uL (150-450); Red Blood Count 4.34 10^6/uL (4.20-5.40); Red Cell Distribution Width 16.7 % (11.0-15.0); White Blood Count 7.9 10^3/uL (4.0-11.0)
[2024-03-08 08:25] LABS: Alanine Aminotransferase 23 U/L (14-59); Albumin Level 3.4 g/dL (3.4-5.0); Alkaline Phosphatase 71 U/L (46-116); Anion Gap 8.3; Aspartate Amino Transferase 24 U/L (15-37); Bilirubin Total 0.6 mg/dL (0.2-1.0); Calcium 8.6 mg/dL (8.5-10.1); Carbon Dioxide 31.8 mmol/L (21.0-32.0); Chloride 104 mmol/L (98-107); Cholesterol 144 mg/dL (<=200); Estimated GFR (African America >60 (>=60); Estimated GFR (Non-African Ame >60 (>=60); Globulin 3.3 g/dL; Glucose 93 mg/dL (74-106); HDL Cholesterol 73 mg/dL (40-60); Potassium 4.1 mmol/L (3.5-5.1); Sodium 140 mmol/L (136-145); Thyroid Stimulating Hormone 3.661 uIU/mL (0.358-3.740); Total Protein 6.7 g/dL (6.4-8.2); Triglycerides 119 mg/dL (<=150); VLDL CHOLESTEROL 23.8 mg/dL
== END 2024-03-08 07:16 | disposition home or self-care (01) ==
LOC: LAB 07:15
PROVIDERS: PCP Family Medicine; Visit Provider Family Medicine
DX: Z00.00 Encounter for general adult medical examination without abnormal findings (principal)
CPT/HCPCS: 36415; 80053; 80061; 84443; 85025

== ENCOUNTER 2024-04-26 11:23 | Outpatient (OUT) | payer BC, SELFPAY ==
--- OUTSIDE RECORDS SUMMARY | 2024-04-26 11:32 | XMS_ITS | CCD ---
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 Name Role Phone DR TANVI DE OLIVEIRA Primary Care Unavailable MONIQUE, DR WILCOX Admitting [...] De Oliveira Unavailable JERI AMAYA Attending Unavailable DWAYNE RICHMOND Attending Unavailable ROMAHODWAYNE GUSTAFSON Attending Unavailable ROMAHOJANAY MOHAMAD Admitting Unavailable DWAYNE RICHMOND Attending Unavailable DWAYNE RICHMOND Referring Unavailable DWAYNE RICHMOND Attending Unavailable TANVI DE OLIVEIRA Primary Care Physician TANVI DE OLIVEIRA Referring Unavailable Price AVILA Attending Unavailable Allergies Allergy Classification Reported Allergen(s) Allergy Type Date of Onset Reaction(s) Facility (2 sources) Shellfish; Translations: [shellfish] Drug allergy (disorder) 4 Eruption of skin (disorder) [facility] (1 source) kiwi Drug allergy (disorder) 2 [facility] (1 source) Shellfish; Translations: [SHELLFISH DERIVED] Propensity to adverse reactions to drug (disorder) 4 [facility] Rep[facility] (1 source) No Known Medication Allergies; Translations: [No Known Medication Allergies] Propensity to adverse reactions (disorder) [facility] Repository NEGATED: Highlighted row has been ruled out! (1 source) Drug allergy [facility] Medications Current Medications Medication Drug Class(es) Dates Sig (Normalized) Sig (Original) alendronic acid 70 mg oral tablet (4 sources) Bisphosphonate Start: 03-09-2024 take 1 tablet by mouth every week Fosamax 70 mg Tab 70 mg = 1 tab(s), Oral, qWeek, Refills(s) 0 Start Date: 03/09/24 Status: Ordered Start: 10-07-2023 take 1 tablet by rayo th once daily Alendronate Active 1 TAB PO Daily October 07, 2023 1:00am FreeTextSi tablet 30 minutes before the first food, beverage or medicine of the day with plain water Orally; Note: Source Status: Taking; Provider: Alvino Tinajero ( ) take 1 tablet by rayo th once daily Fosamax 70 MG 1 tablet 30 minutes before the first food, beverage or medicine of the day with plain water Orally Active aspirin 81 mg delayed release oral tablet (1 source) Platelet Aggregation Inhibitor, Nonsteroidal Anti-inflammatory Drug Start: 03-09-2024 take 1 tablet by mouth once daily aspirin 81 mg Oral EC Tab 81 mg = 1 tab(s), Oral, Daily, Refills(s) 0 Start Date: 03/09/24 Status: Ordered buPROPion (4 sources) Aminoketone Start: 03-09-2024 Wellbutrin XL Refills(s) 0 Start Date: 03/09/24 Status: Ordered Start: 10-07-2023 take 1 tablet by rayo th once daily in the morning Bupropion Hcl (Wellbutrin Xl) 150 mg tablet extended release 24 hr Active 1 TAB PO Daily October 07, 2023 1:00am FreeTextSi tablet in the morning Orally Once a day; Note: Source Status: Taking; Refills: 3; Qty: 90 Tablet; Provider: Alvino Perez take 1 tablet by rayo th every twenty-four hours Wellbutrin XL 150 MG 1 tablet in the morning Orally Once a day for 90 days Active carvedilol 6.25 mg oral tablet (1 source) alpha-Adrenergic Sp, beta-Adrenergic Sp Start: 03-09-2024 take 1 tablet by mouth twice daily Coreg 6.25 mg Tab 6.25 mg = 1 tab(s), Oral, BID, Refills(s) 0 Start Date: 03/09/24 Status: Ordered Restasis (2 sources) Calcineurin Inhibitor Immunosuppressant Start: 03-09-2024 take 1 drop(s) into the eye(s) every twelve hours Restasis 1 drop(s), Eye-Both, q12hr, Refill(s) 0 Start Date: 03/09/24 Status: Ordered take 1 drop(s) into the eye(s) twice daily Restasis 0.05 % 1 drop into affected eye Ophthalmic Twice a day Active Cyclosporine (Restasis) 0.05 % dropperette (2 sources) Start: 10-07-2023 take 1 drop(s) into the eye(s) every twelve hours Cyclosporine (Restasis) 0.05 % dropperette Active 1 DROPS EYE-BOTH Every 12 hours October 07, 2023 1:00am Start: 10-07-2023 take 1 drop(s) into the eye(s) every twelve hours Cyclosporine (Restasis) 0.05 % dropperette Active 1 DROPS EYE-BOTH Every 12 hours October 07, 2023 12:00am levothyroxine sodium 0.1 mg oral tablet (4 sources) l-Thyroxine Start: 03-09-2024 take 1 tablet by mouth once daily levothyroxine 100 mcg (0.1 mg) Tab 100 mcg = 1 tab(s), Oral, Daily, Refills(s) 0 Start Date: 03/09/24 Status: Ordered Start: 10-07-2023 take 100 ug by mouth once jonh y Levothyroxine Active 100 MCG PO Daily October 07, 2023 1:00am take 1 tablet by rayo th once daily in the morning Levothyroxine Sodium 100 MCG 1 tablet in the morning on an empty stomach Orally Once a day for 90 days Active omeprazole 20 mg delayed release oral capsule (5 sources) Proton Pump Inhibitor Start: 03-09-2024 take 1 capsule by mouth once daily omeprazole 20 mg Cap-DR 20 mg = 1 cap(s), Oral, Daily, Refills(s) 0 Start Date: 03/09/24 Status: Ordered Start: 02-02-2024 take 1 capsule by mo uth once daily Omeprazole Active 0 .ROUTE .COMPLEX February 02, 2024 2:18pm TAKE 1 CAPSULE BY MOUTH EVERY DAY Start: 10-08-2023 End: 02-02-2024 take 40 mg by mouth once daily Omeprazole Discontinued 40 MG PO Daily November 03, 2023 3:39pm February 02, 2024 2:18pm rosuvastatin calcium 5 mg oral tablet (1 source) HMG-CoA Reductase Inhibitor Start: 03-09-2024 take 1 tablet by mouth once daily rosuvastatin 5 mg Tab 5 mg = 1 tab(s), Oral, Daily, Refills(s) 0 Start Date: 03/09/24 Status: Ordered Problems Active Problems Problem Classification Problem Date Documented Da te Episodic/Chronic Abdominal pain (3 sources) Epigastric pain; Translations: [Epigastric pain] 10-08-2023 Episodic Coronary atherosclerosis and other heart disease (3 sources) Unstable angina; Translations: [Coronary arteriosclerosis] Onset: 11-06-2023 Chronic Disorders of lipid metabolism (1 source) Hyperlipidemia 03-09-2024 Chronic Diverticulosis and diverticulitis (1 source) Diverticular disease 03-09-2024 Chronic Genitourinary symptoms and ill-defined conditions (1 source) Urinary tract infectious disease; Translations: [Unspecified symptoms and signs involving the genitourinary system] Episodic Headache; including migraine (4 sources) Chronic tension-type headache; Translations: [Chronic tension-type [...] and female climacteric states] Chronic Mood disorders (4 sources) Major depression, single episode; Translations: [Major depressive disorder, single episode, unspecified] 10-07-2023 Chronic Nonspecific chest pain (3 sources) Chest wall pain; Translations: [Other chest pain] 10-08-2023 Episodic Osteoarthritis (3 sources) Localized, primary osteoarthritis of the pelvic region and thigh; Translations: [Unilateral primary osteoarthritis, right hip] 10-07-2023 Chronic Other aftercare (1 source) Other care home (current) drug therapy; Translations: [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 CURRENT DRUG THERAPY] Onset: 07-17-2022 Episodic Other bone disease and musculoskeletal deformities (1 source) Other specified disorders of bone density and structure, unspecified site; Translations: [[facility] D/O BONE DEN STRUCT UNS SITE] Onset: 06-15-2022 Episodic Other bone disease and musculoskeletal deformities (4 sources) Osteopenia; Translations: [Other specified disorders of bone density and structure, unspecified site] 10-07-2023 Episodic Other connective tissue disease (1 source) Trochanteric bursitis of right hip; Translations: [Trochanteric bursitis, right hip] Episodic Other lower respiratory disease (2 sources) Dyspnea on exertion; Translations: [Other forms of dyspnea] 10-08-2023 Episodic Other lower respiratory disease (1 source) Other forms of dyspnea; Translations: [Other respiratory abnormalities] 10-08-2023 Episodic Other non-traumatic joint disorders (1 source) Pain in right hip joint; Translations: [Pain in right hip] Episodic Other nutritional; endocrine; and metabolic disorders (1 source) Body mass index 30+ - obesity 04-12-2024 Chronic Other nutritional; endocrine; and metabolic disorders (1 source) Obesity caused by energy imbalance 03-09-2024 Chronic Other screening for suspected conditions (not mental disorders or infectious disease) (12 sources) Encounter for screening for malignant neoplasm of cervix; Translations: [Encounter for screening mammogram for malignant neoplasm of breast] Onset: 06-11-2022 Episodic Residual codes; unclassified (1 source) Family history of malignant neoplasm of other organs or systems; Translations: [FAM HX MALIG NEOPLASM OT ORGN/SYS] Onset: 06-15-2022 Episodic Residual codes; unclassified (4 sources) Asymptomatic menopausal state; Translations: [ASYMPTOMATIC MENOPAUSAL STATE] Onset: 06-10-2022 Episodic Residual codes; unclassified (3 sources) Postmenopausal state; Translations: [Asymptomatic menopausal state] 10-07-2023 Episodic Spondylosis; intervertebral disc disorders; other back problems (4 sources) Lumbar radiculopathy; Translations: [Radiculopathy, lumbar region] 10-07-2023 Episodic Thyroid disorders (5 sources) Hypothyroidism, unspecified; Translations: [Hypothyroidism] Onset: 07-17-2022 10-07-2023 Chronic Unclassified (2 sources) COUGH, UNSPECIFIED; Translations: [COUGH, UNSPECIFIED] Onset: 07-17-2022 Unclassified (3 sources) CONTACT W/AND (SUSP) EXPOS COVID-19; Translations: [CONTACT W/AND (SUSP) EXPOS COVID-19] Onset: 07-17-2022 Unclassified (1 source) Patient encounter status 04-12-2024 Past or Other Problems Problem Classification Problem Date Documented Da te Episodic/Chronic Unclassified (1 source) COUGH, UNSPECIFIED; Translations: [COUGH, UNSPECIFIED] Onset: 07-14-2022 Unclassified (1 source) CONTACT W/AND (SUSP) EXPOS COVID-19; Translations: [CONTACT W/AND (SUSP) EXPOS COVID-19] Onset: 07-14-2022 Results Test Name Value Interpretation Reference Range Facility Ambulatory Visit Summaryon 0 04-12-2024 Ambulatory Visit Summary Ambulatory Visit Summary MACKENZIE PATEL :1955 Visit Date:04/12/2024 Ambulatory Visit Instructions Your Diagnosis Screening for malignant neoplasm of colon Your Care Team Attending Physician - AUSTIN RUBALCAVA, Price Rogers Primary Care Physician - TANVI DE OLIVEIRA MD Referring Physician - TANVI DE OLIVEIRA MD This Is Your Medications List Contact prescribing physician if questions or concerns alendronate (Fosamax 70 mg Tab) aspirin (aspirin 81 mg Oral EC Tab) buPROPion (Wellbutrin XL) carvedilol (Coreg 6.25 mg Tab) cycloSPORINE ophthalmic (Restasis) levothyroxine (levothyroxine 100 mcg (0.1 mg) Tab) omeprazole (omeprazole 20 mg Cap-DR) rosuvastatin (rosuvastatin 5 mg Tab) Procedures Performed Colonoscopy (12/09/2013), Appendectomy, Cardiac catheterization, Carpal tunnel release, Cataract extraction, Cholecystectomy, Repair of right inguinal hernia, LAITH BSO - Total abdominal hysterectomy and bilateral salpingo-oophorectomy , Tonsillectomy. Discharge Vitals Heart Rate (Peripheral) 76 Respiratory Rate 16 Blood Pressure 118/82 Height 152.4 cm Height 60 in Weight 84 kg Weight 184.8 lb BMI 36.17 Medications What How Much When Instructions Unchanged alendronate (Fosamax 70 mg Tab) 1 Tablets By Mouth Every week Contact prescribing physician if questions or concerns Unchanged aspirin (aspirin 81 mg Oral EC Tab) 1 Tablets By Mouth Every day Contact prescribing physician if questions or concerns Unchanged buPROPion (Wellbutrin XL) Contact prescribing physician if questions or concerns Unchanged carvedilol (Coreg 6.25 mg Tab) 1 Tablets By Mouth 2 times a day Contact prescribing physician if questions or concerns Unchanged cycloSPORINE ophthalmic (Restasis) 1 Drops Both eyes Every 12 hours Contact prescribing physician if questions or concerns Unchanged levothyroxine (levothyroxine 100 mcg (0.1 mg) Tab) 1 Tablets By Mouth Every day Contact prescribing physician if questions or concerns Unchanged omeprazole (omeprazole 20 mg Cap-DR) 1 Capsules By Mouth Every day Contact prescribing physician if questions or concerns Unchanged rosuvastatin (rosuvastatin 5 mg Tab) 1 Tablets By Mouth Every day Contact prescribing physician if questions or concerns Allergies No Known Medication Allergies shellfish (Rash) Problems Ongoing - Any problem that you are currently receiving treatment for. BMI 36.0-36.9,adult CAD (coronary artery disease) Chronic tension type headache Depression Diverticulosis Hyperlipidemia Hypothyroidism Lumbar radiculopathy Obesity due to excess calories Osteopenia Screening for malignant neoplasm of colon Patient Survey You may receive a survey via text or e-mail asking about your office visit. Please share your experience with us by completing your survey. We appreciate your feedback and thank you for choosing us for your care. Normal [facility] Office Visiton 01-01-2024 Follow-up visit [id number] Mackenzie Patel 1955 F Date Provider Department Center 01/01/2024 3848-DWAYNE RICHMOND [facility] Family History Problem Relation Age of Onset Coronary artery disease Mother Other Mother Heart attack Father 90 Family Status - Relation Status Age at Mother Father Level of Service:79975 OK OFFICE/OUTPATIENT ESTABLISHED LOW MDM 20 MIN Normal [facility] Letter (Out)on 12-10-2023 Letter (Out) [id number] Mackenzie Patel 1955 F Date Provider Department Center 12/10/2023 None-None [facility] AUTH [facility] Family History Problem Relation Age of Onset Coronary artery disease Mother Other Mother Heart attack Father 90 Family Status - Relation Status Age at Mother Father Normal [facility] HPon 11-26-2023 HP - Attestation signed by Dwayne Richmond MD at 11/26/2023 10:09 AM H and P reviewed. No significant changes. Patient presenting with chest pain, abnormal stress. Plan to proceed with cath. Procedure was explained to patient at length and in detail. Risks, benefits, and alternatives were discussed. Patient is informed that risks of this invasive procedure include, but are not limited to, bleeding, hematoma, kidney injury, CVA, arrythmia requiring defibrillation, need for emergent open heart surgery, and . Patient understands these risks and wishes to proceed. Dwayne Richmond MD H&P reviewed. The patient was examined and there are no changes to the H&P. 68 y.o. female With a remote history of tobacco abuse who is referred to referred to Cardiology clinic for evaluation of Chest pain, given patient's symptoms, in addition to defect on [...] understands these risks and wishes to proceed. [facility] NURSNOTEon 11-26-2023 NURSNOTE RN educated pt on d/ c instructions. RN encouraged pt to voice any questions or concerns. Pt verbalizes no questions or concerns at this time. Pt was wheeled off of unit with all of belongings. [facility] Letter (Out)on 11-18-2023 Letter (Out) [id number] Mackenzie Patel 1955 F [facility] Provider Department Center 11/18/2023 None-None [facility] AUTH [place] [facility] Family History Problem Relation Age of Onset Coronary artery disease Mother Other Mother Heart attack Father 90 Family Status - Relation Status Age at Mother Father [facility] Orders Onlyon 11-11-2023 Orders Only [id number] Mackenzie Patel 1955 F Date Provider Department Center 11/11/2023 JOSLYN LOPEZ [facility] VASC LAB [place] [facility]AS Family History Problem Relation Age of Onset Coronary artery disease Mother Other Mother Heart attack Father 90 Family Status - Relation Status Age at Mother Father [facility] HPon 11-06-2023 Cardiology Clinic Note Chief Complaint: Chest pain HPI: Mackenzie Patel [...] -Continue Coreg 6.2 (more content not included)... Normal [facility] Office Visiton 11-06-2023 Follow-up visit [id number] Mackenzie Patel 1955 F Date Provider Department Center 11/06/2023 7508-DWAYNE RICHMOND JEY Reynoso Family History Problem Relation Age of Onset Coronary artery disease Mother Other Mother Heart attack Father 90 Family Status - Relation Status Age at Mother Father Level of Service:38026 OK OFFICE/OUTPATIENT ESTABLISHED LOW MDM 20 MIN Normal [facility] Orders Onlyon 11-06-2023 Orders Only [id number] Mackenzie Patel 1955 F Date Provider Department Center 11/06/2023 Wicho5-MYRON LORENZO [facility] Family History Problem Relation Age of Onset Coronary artery disease Mother Other Mother Heart attack Father 90 Family Status - Relation Status Age at Mother Father Normal [facility] Office Visiton 10-23-2023 Follow-up visit [id number] Mackenzie Patel 1955 F Date Provider Department Center 10/23/2023 Samantha8-MELANIA RICHMONDBrannon CARD [facility] Family History Problem Relation Age of Onset Coronary artery disease Mother Other Mother Heart attack Father 90 Family Status - Relation Status Age at Mother Father Level of Service:09292 [place] OFFICE/OUTPATIENT NEW MODERATE MDM 45 MINUTES Normal [facility] Covid-19 PCR ([facility])on 06-18 SARS-CoV-2 (COVID-19) RNA LARA+probe Ql (Unsp spec) Not detected Normal NOT DETECTED [facility] Comment on above: Result Comment: When diagnostic [...] for this test is supported by the [employer] and Human Service's declaration that [...] used). Performed By: #### C VDTB #### [facility] [address] [place] [address] Dr. Heather Aguirre INFLUENZA A AND B AGon 07-14 INFLUENZA A AG Positive Abnormal NEGATIVE SEE COMMENT [facility] Comment on above: Performed By: #### I NFLUAB #### [facility] [address] [address] [address] Heather Aguirre INFLUENZA B AG Negative Normal NEGATIVE SEE COMMENT [facility] Comment on above: Performed By: #### I NFLUAB #### [facility] [address] [place] [address] Dr. Heather Aguirre INTERNAL CONTROLS Within Normal Limits Normal Wi thin Normal Limits [facility] Comment on above: Performed By: #### I NFLUAB #### [facility] [address] [address] [address] Heather Aguirre XR CHEST 2 Von [...] by: KATHIE HOPKINS Date: 2022-07-14 21:21 Normal [facility] PAP ACOG PANEL 2: 30 to 65on 07-09-2022 . . Normal [facility] Comment on above: Result Comment: Perf ormed at: WB Performed By: #### [id number] #### [facility] [address] [place] [address] Dr. Heather Aguirre Age Gdln ACOG Testing 30-65 Normal [facility] Comment on above: Performed By: #### [id number] #### [facility] [address] [place] [address] Dr. Heather Aguirre DIAGNOSIS: Comment Normal [facility] Comment on above: Result Comment: NEGA TIVE FOR INTRAEPITHELIAL LESION OR MALIGNANCY. CELLULAR CHANGES ASSOCIATED WITH ATROPHY ARE PRESENT. Performed at: WB Performed By: #### [id number] #### [facility] [address] [place] [address] Dr. Heather Aguirre HPV Aptima Negative Normal Negative [facility] Comment on above: Result Comment: This nucleic acid amplification test detects fourteen high-risk HPV types (16,18,31,33,35,39,45,51,52,56,58,59,66,68) without differentiation. Performed at: =G Performed By: #### [id number] #### [facility] [address] [place] [address] Dr. Heather Aguirre HPV Genotype Reflex Comment Normal [facility] Comment on above: Result Comment: Crit eria not met, HPV Genotype not performed. Performed at: WB Performed By: #### [id number] #### [facility] [address] [place] [address] Dr. Heather Aguirre Methodology: CTIM Normal [facility] Comment on above: Result Comment: The Thin Prep(R) Plate Fitter was unable to read this specimen. Therefore a manual review was performed. Performed at: WB Performed By: #### [id number] #### [facility] [address] [place] [address] Dr. Heather Aguirre Note: Comment Normal [facility] Comment on above: Result Comment: The Pap smear is a screening test designed to aid in the detection of premalignant and malignant conditions of the uterine cervix. It is not a diagnostic procedure and should not be used as the sole means of detecting cervical cancer. Both false-positive and false-negative reports do occur. . Performed at: WB Performed By: #### [id number] #### [facility] [address] [place] [address] Dr. Heather Aguirre Performed by: Comment Normal [facility] Comment on above: Result Comment: Supriya Amador, Acquisition Marketing Manager (ASCP) Performed at: WB Performed By: #### [id number] #### [facility] [address] [place] [address] Dr. Heather Aguirre Specimen adequacy: Comment Normal [facility] Comment on above: Result Comment: Sati sfactory for evaluation. Endocervical component may not be distinguished in cases of atrophy. Performed at: WB Performed By: #### [id number] #### [facility] [address] [place] [address] Dr. Heather Aguirre MG MAMM SCREEN 3D YOU CADon 06-11-2022 MG MAMM SCREEN 3D YOU CAD Patient: MACKENZIE PATEL Exam Date: 06/11/2022 : 1955 Gender:F Ordering : DR JERI AMAYA . Admission #: [id number] Family : Order #: [id number] CLICK HERE TO VIEW EXAM RADIOLOGY REPORT [...] skin cancer at age 65. LOCATION: [facility] BREAST COMPOSITION: Scattered areas fibroglandular density. FINDINGS: [...] MD on 06/11/2022 at 08:04 Normal [facility] XR DEXA BONE DENSITYon 06-10 XR DEXA [...] by: KATHIE OLVERA Date: 2022-06-10 12:16 Normal [facility] CBC AUTO DIFFon 02-12-2022 BASO # 0.1 103/ul Normal 0.0-0.1 [facility] Comment on above: Performed By: #### L IPID, TSH, CMP #### [facility] [address] [place] [address] Dr. Heather Aguirre Basophils/100 WBC (Bld) 0.8 % Normal 0.2-2.0 [facility] Comment on above: Performed By: #### L IPID, TSH, CMP #### [facility] [address] [place] [address] Dr. Heather Aguirre EO # 0.3 103/ul Normal 0.0-0.7 [facility] Comment on above: Performed By: #### L IPID, TSH, CMP #### [facility] [address] [place] [address] Dr. Heather Aguirre Eosinophils/100 WBC (Bld) 2.9 % Normal 0.9-7.0 [facility] Comment on above: Performed By: #### L IPID, TSH, CMP #### [facility] [address] [place] [address] Dr. Heather Aguirre Erythrocyte distribution width (RBC) [Ratio] 13.2 % Normal 11.0-15.0 [facility] Comment on above: Performed By: #### L IPID, TSH, CMP #### [facility] [address] [place] [address] Dr. Heather Aguirre Hematocrit (Bld) [Volume fraction] 37.6 % Normal 36.0-48.0 [facility] Comment on above: Performed By: #### L IPID, TSH, CMP #### [facility] [address] [place] [address] Dr. Heather Aguirre Hemoglobin (Bld) [Mass/Vol] 12.1 g/dL Normal 12.0-16.0 [facility] Comment on above: Performed By: #### L IPID, TSH, CMP #### [facility] [address] [place] [address] Dr. Heather Aguirre IG # 0.03 10e3/ul Normal 0.00-0.03 [facility] Comment on above: Performed By: #### L IPID, TSH, CMP #### [facility] [address] [place] [address] Dr. Heather Aguirre IG % 0.3 % Normal 0.0-0.5 [facility] Comment on above: Performed By: #### L IPID, TSH, CMP #### [facility] [address] [place] [address] Dr. Heather Aguirre LYMPH # 2.9 103/ul Normal 1.2-3.8 [facility] Comment on above: Performed By: #### L IPID, TSH, CMP #### [facility] [address] [place] [address] Dr. Heather Aguirre Lymphocytes/100 WBC (Bld) 33.6 % Normal 20.5-60.0 [facility] Comment on above: Performed By: #### L IPID, TSH, CMP #### [facility] [address] [place] [address] Dr. Heather Aguirre MANUAL DIFF REQ NO Normal [facility] Comment on above: Performed By: #### L IPID, TSH, CMP #### [facility] [address] [place] [address] Dr. Heather Aguirre MCH (RBC) [Entitic mass] 30.0 pg Normal 26.7-34.0 [facility] Comment on above: Performed By: #### L IPID, TSH, CMP #### [facility] [address] [place] [address] Dr. Heather Aguirre MCHC (RBC) [Mass/Vol] 32.2 g/dL Normal 29.9-35.2 [facility] Comment on above: Performed By: #### L IPID, TSH, CMP #### [facility] [address] [place] [address] Dr. Heather Aguirre MCV (RBC) [Entitic vol] 93.1 fL Normal 81.0-99.0 [facility] Comment on above: Performed By: #### L IPID, TSH, CMP #### [facility] [address] [place] [address] Dr. Heather Aguirre MONO # 0.6 103/ul Normal 0.3-0.8 [facility] Comment on above: Performed By: #### L IPID, TSH, CMP #### [facility] [address] [address] [address] Heather Aguirre Monocytes/100 WBC (Bld) 7.1 % Normal 1.7-12.0 [facility] Comment on above: Performed By: #### L IPID, TSH, CMP #### [facility] [address] [place] [address] Dr. Heather Aguirre NEUT # 4.8 103/ul Normal 1.4-6.5 [facility] Comment on above: Performed By: #### L IPID, TSH, CMP #### [facility] [address] [place] [address] Dr. Heather Aguirre Neutrophils/100 WBC (Bld) 55.3 % Normal 43.0-75.0 [facility] Comment on above: Performed By: #### L IPID, TSH, CMP #### [facility] [address] [place] [address] Dr. Heather Aguirre Platelet mean volume (Bld) [Entitic vol] 10.2 fL Normal 9.5-13.5 [facility] Comment on above: Performed By: #### L IPID, TSH, CMP #### [facility] [address] [place] [address] Dr. Heather Aguirre PLT 329 103/ul Normal 150-450 [facility] Comment on above: Performed By: #### L IPID, TSH, CMP #### [facility] [address] [place] [address] Dr. Heather Aguirre RBC 4.04 106/ul Critically low 4.20-5.40 [facility] Comment on above: Performed By: #### L IPID, TSH, CMP #### [facility] [address] [place] [address] Dr. Heather Aguirre WBC 8.7 103/ul Normal 4.0-11.0 [facility] Comment on above: Performed By: #### L IPID, TSH, CMP #### [facility] [address] [place] [address] Dr. Heather Aguirre GLYCOHEMOGLOBIN A1Con 2021 ADA RECOMMENDATION SEE BELOW Normal [facility] Comment on above: Result Comment: ADA RECOMMENDED LIMIT 4.0 - 6.0 ADA THERAPEUTIC TARGET < 7.0 ACTION SUGGESTED > 7.0 Performed By: #### A 1C #### [facility] [address] [address] [address] Heather Aguirre Glucose [Mass/Vol] 108 mg/dL Normal [facility] Comment on above: Performed By: #### A 1C #### [facility] [address] [address] [address] Heather Aguirre HbA1c (Bld) [Mass fraction] 5.4 % Normal 4.5-6.2 [facility] Comment on above: Performed By: #### A 1C #### [facility] [address] [place] [address] Dr. Heather Aguirre LIPID PROFILEon 02-12-2022 CHOL-HDL RATIO NORM SEE BELOW Normal [facility] Comment on above: Result Comment: 3.3 - 4.4 LOW RISK 4.4 - 7.1 AVERAGE RISK 7.1 - 11.0 MODERATE RISK >11.0 HIGH RISK Performed By: #### L IPID, TSH, CMP #### [facility] [address] [place] [address] Dr. Heather Aguirre Cholesterol [Mass/Vol] 215 mg/dL Critically high <=200 [facility] Comment on above: Performed By: #### L IPID, TSH, CMP #### [facility] [address] [address] [address] Heather Aguirre Cholesterol in HDL [Mass/Vol] 59 mg/dL Normal 40-60 [facility] Comment on above: Performed By: #### L IPID, TSH, CMP #### [facility] [address] [place] [address] Dr. Heather Aguirre Cholesterol in LDL [Mass/Vol] 133.0 mg/dL Normal [facility] Comment on above: Performed By: #### L IPID, TSH, CMP #### [facility] [address] [place] [address] Dr. Heather Aguirre Cholesterol.total/Ch olesterol in HDL [Mass ratio] 3.6 {ratio} Normal [facility] Comment on above: Performed By: #### L IPID, TSH, CMP #### [facility] [address] [address] [address] Heather Aguirre HDL NORMAL > or = 60 mg/dl - LO W CARDIOVASCULAR RISK <40 mg/dl - HIGH CARDIOVASCULAR RISK Normal [facility] Comment on above: Performed By: #### L IPID, TSH, CMP #### [facility] [address] [place] [address] Dr. Heather Aguirre LDL CALC NORMAL SEE BELOW Normal [facility] Comment on above: Result Comment: <100 mg/dl OPTIMAL 100 - 129 mg/dl NEAR OR ABOVE OPTIMAL 130 - 159 mg/dl BORDERLINE HIGH 160 - 189 mg/dl HIGH >190 mg/dl VERY HIGH Performed By: #### L IPID, TSH, CMP #### [facility] [address] [place] [address] Dr. Heather Aguirre Triglyceride [Mass/Vol] 115 mg/dL Normal <=150 [facility] Comment on above: Performed By: #### L IPID, TSH, CMP #### [facility] [address] [place] [address] Dr. Heather Aguirre VLDL CALC 23.0 mg/dL Normal [facility] Comment on above: Performed By: #### L IPID, TSH, CMP #### [facility] [address] [place] [address] Dr. Heather Aguirre PROF 14(COMP METB)on 022 Albumin [Mass/Vol] 3.5 g/dL Normal 3.4-5.0 [facility] Comment on above: Performed By: #### L IPID, TSH, CMP #### [facility] [address] [place] [address] Dr. Heather Aguirre Albumin/Globulin [Mass ratio] 1.1 {ratio} Normal [facility] Comment on above: Performed By: #### L IPID, TSH, CMP #### [facility] [address] [place] [address] Dr. Heather Aguirre ALP [Catalytic activity/Vol] 56 U/L Normal 46-116 [facility] Comment on above: Performed By: #### L IPID, TSH, CMP #### [facility] [address] [address] [address] Heather Aguirre ALT [Catalytic activity/Vol] 25 U/L Normal 14-59 [facility] Comment on above: Performed By: #### L IPID, TSH, CMP #### [facility] [address] [address] [address] Heather Aguirre Anion gap [Moles/Vol] 1 mmol/L Normal [facility] Comment on above: Performed By: #### L IPID, TSH, CMP #### [facility] [address] [place] [address] Dr. Heather Aguirre AST [Catalytic activity/Vol] 10 U/L Critically low 15-37 [facility] Comment on above: Performed By: #### L IPID, TSH, CMP #### [facility] [address] [place] [address] Dr. Heather Aguirre Bilirubin [Mass/Vol] 0.5 mg/dL Normal 0.2-1.0 [facility] Comment on above: Performed By: #### L IPID, TSH, CMP #### [facility] [address] [place] [address] Dr. Heather Aguirre Calcium [Mass/Vol] 8.5 mg/dL Normal 8.5-10.1 [facility] Comment on above: Performed By: #### L IPID, TSH, CMP #### [facility] [address] [place] [address] Dr. Heather Aguirre Chloride [Moles/Vol] 102 mmol/L Normal 98-107 [facility] Comment on above: Performed By: #### L IPID, TSH, CMP #### [facility] [address] [place] [address] Dr. Heather Aguirre CO2 [Moles/Vol] 30.0 mmol/L Normal 21.0-32.0 [facility] Comment on above: Performed By: #### L IPID, TSH, CMP #### [facility] [address] [address] [address] Heather Aguirre Creatinine [Mass/Vol] 1.07 mg/dL Critically high 0.55-1.02 [facility] Comment on above: Performed By: #### L IPID, TSH, CMP #### [facility] [address] [address] [address] Heather Aguirre EGFR-AF GEORGIAN >60 Normal >=60 [facility] Comment on above: Performed By: #### L IPID, TSH, CMP #### [facility] [address] [address] [address] Heather Aguirre EGFR-NON AF GEORGIAN 52 mL/min/1.73m2 Critically low >=60 [facility] Comment on above: Performed By: #### L IPID, TSH, CMP #### [facility] [address] [place] [address] Dr. Heather Aguirre Globulin (S) [Mass/Vol] 3.2 g/dL Normal [facility] Comment on above: Performed By: #### L IPID, TSH, CMP #### [facility] [address] [address] [address] Heather Aguirre Glucose [Mass/Vol] 96 mg/dL Normal 74-106 [facility] Comment on above: Performed By: #### L IPID, TSH, CMP #### [facility] [address] [place] [address] Dr. Heather Aguirre Potassium [Moles/Vol] 4.0 mmol/L Normal 3.5-5.1 [facility] Comment on above: Performed By: #### L IPID, TSH, CMP #### [facility] [address] [address] [address] Heather Aguirre Protein [Mass/Vol] 6.7 g/dL Normal 6.4-8.2 [facility] Comment on above: Performed By: #### L IPID, TSH, CMP #### [facility] [address] [address] [address] Heather Aguirre Sodium [Moles/Vol] 127 mmol/L Critically low 136-145 Th [facility] Comment on above: Performed By: #### L IPID, TSH, CMP #### [facility] [address] [address] [address] Heather Aguirre Urea nitrogen [Mass/Vol] 20.0 mg/dL Critically high 7.0-18.0 [facility] Comment on above: Performed By: #### L IPID, TSH, CMP #### [facility] [address] [address] [address] Heather Aguirre Urea nitrogen/Creatinine [Mass ratio] 18.7 mg/mg Normal [facility] Comment on above: Performed By: #### L IPID, TSH, CMP #### [facility] [address] [place] [address] Dr. Heather Aguirre [facility] 02-12-2022 TSH 1.693 uIU/mL Normal 0.358-3.740 [facility] Comment on above: Performed By: #### L IPID, TSH, CMP #### [facility] [address] [place] [address] Dr. Heather Aguirre Vital Signs Date Time Vital Sign Value Performing Clinician Facility 04-12-2024 14:19-0400 Blood Pressure Location Price DAVONTEL [facility] 04-12-2024 14:19-0400 Diastolic blood pressure 82 mm[Hg] Price ARAUZL [facility] 04-12-2024 14:19-0400 Heart rate 76 /min Price NILL [facility] 04-12-2024 14:19-0400 Respiratory rate 16 /min Price NILL [facility] 04-12-2024 14:19-0400 Systolic blood pressure 118 mm[Hg] Price NILL [facility] 03-07-2024 08:31-0400 Body height 152.4 cm [facility] 03-07-2024 08:31-0400 Body mass index (BMI) [Ratio] 36.1 kg/m2 [facility] 03-07-2024 08:31-0400 Body weight 83.91 kg [facility] 03-07-2024 08:31-0400 Diastolic blood pressure 101 mm[Hg] [facility] 03-07-2024 08:31-0400 Heart rate 69 /min [facility] 03-07-2024 08:31-0400 Systolic blood pressure 159 mm[Hg] [facility] 10-08-2023 10:14-0500 Body height 152.4 cm [facility] 10-08-2023 10:14-0500 Body mass index (BMI) [Ratio] 35.8 kg/m2 [facility] 10-08-2023 10:14-0500 Body weight 83.12 kg [facility] 10-08-2023 10:14-0500 Diastolic blood pressure 80 mm[Hg] [facility] 10-08-2023 10:14-0500 Heart rate 83 /min [facility] 10-08-2023 10:14-0500 Systolic blood pressure 132 mm[Hg] [facility] 02-26-2023 08:30-0400 Body height 152.4 cm Tanvi De Oliveira Other [facility] 02-26-2023 08:30-0400 Body mass index (BMI) [Ratio] 35.93 kg/m2 Tanvi De Oliveira Other [facility] Other 02-26-2023 08:30-0400 Body weight 83.46 kg Tanvi De Oliveira Other [facility] Other 02-26-2023 08:30-0400 Diastolic blood pressure 84 mm[Hg] Tanvi De Oliveira Other [facility] Other 02-26-2023 08:30-0400 Systolic blood pressure 145 mm[Hg] Tanvi De Oilveira Other [employer] Other Encounters Encounter Date Encounter Type Care Provider Facility Start: 04-12-2024 End: 04-12-2024 ambulatory TANVI DE OLIVEIRA Facility:[facility] Start: 04-12-2024 End: 04-12-2024 Patient encounter procedure Price Rogers [facility] Start: 03-08-2024 ambulatory TANVI DE OLIVEIRA Facility:[facility] Start: 03-07-2024 Physical examination [facility] Start: 03-07-2024 End: 03-07-2024 ambulatory [facility] Work Phone: Start: 03-07-2024 End: 03-07-2024 Encounter for general adult medical examination without abnormal findings [facility] Start: 03-07-2024 End: 03-07-2024 Patient encounter procedure [facility] Work Phone: Start: 01-01-2024 End: 01-01-2024 ambulatory [facility] Start: 11-26-2023 End: 11-26-2023 ambulatory [facility] Start: 11-06-2023 End: 11-06-2023 ambulatory [facility] Start: 10-23-2023 End: 10-23-2023 ambulatory [facility] Start: 10-08-2023 End: 10-08-2023 ambulatory [facility] Work Phone: Start: 10-08-2023 End: 10-08-2023 Patient encounter procedure [facility] Work Phone: Start: 07-02-2023 End: 07-02-2023 ambulatory JERI AMAYA Not Available Start: 02-26-2023 End: 02-26-2023 ambulatory Tanvi De Oliveira Other [employer] Other Start: 02-26-2023 Encounter for genera l adult medical examination without abnormal findings Tanvi De Oliveira [facility] Start: 02-26-2023 Periodic preventive med est patient 65yrs& older Tanvi De Oliveira [facility] Start: 07-14-2022 End: 07-15-[address] TANVI DE OLIVEIRA Facility:[facility] Start: 07-01-2022 End: 07-01-[address] JERI AMAYA Facility:[facility] Start: 06-11-2022 End: 06-12-[address] TANVI DE OLIVEIRA Facility:[facility] Start: 06-10-2022 End: 06-11-[address] JERI AMAYA Facility:[facility] Start: 02-14-2022 Encounter for genera l adult medical examination without abnormal findings DR TANVI DE OLIVEIRA [facility] Start: 02-12-2022 End: 02-13-[address] TANVI DE OLIVEIRA Facility:[facility] Start: 02-12-2022 End: 02-13-2022 Encounter for general adult medical examination without abnormal findings DR TANVI DE OLIVEIRA Facility:[facility] Procedures Date Procedure Procedure Detail Performing Clinician Start: 12-09-2013 Colonoscopy Price NI LL Appendectomy Price NILL Cardiac catheterization Robel ael NILL Cholecystectomy Price NILL Decompression of med francisco j nerve Price NILL Extraction of cataract Abundio el NILL Repair of right ingu inal hernia Price NILL Tonsillectomy Price NILL Total abdominal hyst erectomy with bilateral salpingo-oophorectomy Price NILL Plan of Treatment Date Care Activity Detail Author Comprehensive metabo lic 2000 panel - Serum or Plasma [facility] enter EKG 12 channel panel [facility] Immunizations Immunization Date Immunization Notes Care Provider Fa cility 06-07-2021 SARS-CoV-2 (COVID-19 ) mRNA-1273 vaccine Price AVILA [facility] 09-19-2020 SARS-CoV-2 (COVID-19 ) mRNA-1273 vaccine Price AVILA [facility] 08-23-2020 SARS-CoV-2 (COVID-19 ) mRNA-1273 vaccine Price AVILA [facility] Payers Date Payer Category Payer [facility] [id number] 2019 Unknown [id number] 1955 Unknown [id number] [id number] [id number] 1955 Unknown [id number] 2.16.84 [id number] 1957 Unknown [id number] 2.16.84 [id number] 1957 Unknown [id number] 2.16.84 [id number] 1957 Unknown [id number] 2.16.84 [id number] 1957 Unknown [id number] 2.16.84 [id number] 1957 Unknown [id number] 1957 Unknown [id number] 2.16.8 [id number] Social History Date Type Detail Facility Sex Assigned At [facility] Start: 10-06-2023 End: 04-12-2024 Tobacco smoking status NHIS Ex-smoker (finding) [facility] Start: 1955 Sex Assigned At Female F [facility] Tobacco smoking status Never Deisi O[facility] [place] Functional Status Date Assessment Result Facility 04-12-2024 Functional Status N/A [facility] Clinical Notes 02-26-2023 to 04-12-2024 Note Date & Type Note Facility 04-12-2024 Note General Surgery Offi ce/Clinic Note Chief Complaint consultation for colonoscopy HPI Staff 68 year old female presents on consultation from Dr. De Oliveira for screening colonoscopy. Denies abdominal or rectal pain. No rectal bleeding or change in bowel habits. Denies nausea or vomiting. No unexplained weight loss. Last colonoscopy completed 11/2013 with diverticulosis and internal hemorrhoids. No known family history of colon cancer. History of Present Illness 68 yo female with h/o CAD, hyperlipidemia, hypothyroidism, lumbar radiculopathy, referred for colorectal screening; denies change in bms or blood in stools, no abd complaints; abdominal operations significant for cholecystectomy, appendectomy, LAITH with BSO, and right inguinal hernia repair; last colonoscopy in [address] Mejia with mild sigmoid diverticulosis; on baby asa daily, no NSAID use; no tobacco use; no fmhx of GI malignancy or IBD. Review of Systems PHQ Score Initial Depression Screen Score: 0 SCORE ROS - Provider Constitutional: no fever, no sweats, no weight loss. Eyes: no glasses, no blurred vision, no visual loss. ENMT: no dentures, no hoarseness, no swallowing difficulties, no hearing loss, no ear infection(s), no nose bleeds. Cardiovascular: normal blood pressure, no chest pain, regular heartbeat, no heart murmur. Respiratory: no shortness of breath, no cough, no asthma, no wheezing. Gastrointestinal: no nausea, no vomiting, no diarrhea, no constipation, no blood in stool, no change in bowel habits, no abdominal pain, no hepatitis. Genitourinary: no kidney stones, no urine infection, no dysuria. Musculoskeletal: no pain, no weakness. Skin: no changing moles, no rash, no skin lumps. Neurologic: no seizures, no epilepsy, no headache. Psychiatric: no emotional or psychiatric problem. Heme/Lymph: no bleeding problems, no anemia, no blood clots, no transfusions. Allergy/Immunologic: no swollen lymph nodes/glands, no IV drug abuse. Other: Additional ROS info: Except as noted in the above Review of Systems and in the History of Present Illness, all other systems have been reviewed and are negative or noncontributory. Physical Exam Vitals & Measurements HR: 76(Peripheral) RR: 16 BP: 118/82 HT: 60 in HT: 152.4 cm WT: 84 kg WT: 184.8 lb BMI: 36.17 HEENT: normal conjunctiva, sclera clear, no scleral icterus, EOM intact, PERRLA, oral mucosa moist without lesions. Neck: trachea midline, no mass, symmetric, no thyromegaly or nodules, no adenopathy Respiratory: lungs CTA, respirations non labored. Cardiovascular: regular rate and rhythm, no murmur, no pedal edema or varicosities. Gastrointestinal: soft, non distended, no tenderness, no masses, no palpable hernias, diastasis recti no, no hepatosplenomegaly; normal bs Lymphatic: no cervical adenopathy, no supraclavicular adenopathy. Musculoskeletal: normal gait, digits and nails without infection, nodes, cyanosis, clubbing. Skin: no rashes, no lesions, no ulcers, no subcutaneous nodules, induration. Psychiatric/Neuro: oriented to time, place, person, judgement normal, affect appropriate for age, insight intact, no focal deficits. Tests: , review of old records completed , Discussed surgical options, risks, and possible complications with patient. Assessment/Plan 1. Screening for malignant neoplasm of colon (Z12.11: Encounter for screening for malignant neoplasm of colon) plan colonoscopy under anesthesia, informed consent obtained. Follow-up No qualifying data available Problem List/Past Medical History Ongoing BMI 36.0-36.9,adult CAD (coronary artery disease) Chronic tension type headache Depression Diverticulosis Hyperlipidemia Hypothyroidism Lumbar radiculopathy Obesity due to excess calories Osteopenia Screening for malignant neoplasm of colon Historical No qualifying data Procedure/Surgical History Colonoscopy (12/09/2013), Appendectomy, Cardiac catheterization, Carpal tunnel release, Cataract extraction, Cholecystectomy, Repair of right inguinal hernia, LAITH BSO - Total abdominal hysterectomy and bilateral salpingo-oophorectomy, Tonsillectomy. Medications aspirin 81 mg Oral EC Tab, 81 mg= 1 tab(s), Oral, Daily Coreg 6.25 mg Tab, 6.25 mg= 1 tab(s), Oral, BID Fosamax 70 mg Tab, 70 mg= 1 tab(s), Oral, qWeek levothyroxine 100 mcg (0.1 mg) Tab, 100 mcg= 1 tab(s), Oral, Daily omeprazole 20 mg Cap-DR, 20 mg= 1 cap(s), Oral, Daily Restasis, 1 drop(s), Eye-Both, q12hr rosuvastatin 5 mg Tab, 5 mg= 1 tab(s), Oral, Daily Wellbutrin XL Allergies No Known Medication Allergies shellfish (Rash) Social History Alcohol - Denies Alcohol Use, 04/12/2024 Substance Abuse - Denies Substance Abuse, 04/12/2024 Tobacco Former smoker, quit more than 30 days ago Tobacco Use:. Never Smokeless Tobacco Use:. Cigarettes, Started age 24.0 Years. Stopped age 32 Years., 04/12/2024 Family History Dementia: Mother. Diabetes mellitus type 2: Father. Heart disease: Mother and Br (more content not included)... [facility] Comment on above: Result Comment: Elec tronically Signed By: AUSTIN RUBALCAVA, Price Rogers\.br\Date and Time Signed: 04/12/24 14:47 EDT 01-01-2024 Note [facility] Note HPI: Mackenzie Patel is a 68 y.o. female With a remote history of tobacco abuse who is referred to referred to Cardiology clinic for evaluation of Chest pain. She had cardiac cath done which demonstrated moderate non onbstructive CAD. She presents today for follow up. Patient adamantly denies any cardiac complaints or concerns. Patient denies any chest pain or shortness of breath. Patient denies any lower extremity edema, orthopnea, or proximal nocturnal dyspnea. No near-syncope or syncope. No dizziness or lightheadedness. She states that all of her chest pain has resolved since initiation of imdur. Cardiology ROS: 10 point ROS is performed and is negative unless otherwise specified in HPI. Past Medical History She has a past [...] mg tablet Take 70 mg by mouth. aspirin 81 mg EC tablet Take 81 mg by mouth in the morning. buPROPion XL (Wellbutrin XL) 150 mg 24 hr tablet Take 150 mg by mouth in the morning. carvedilol (Coreg) 6.25 mg tablet Take 1 tablet (6.25 mg) by mouth with breakfast and with evening meal. 180 tablet 3 isosorbide mononitrate ER (Imdur) 30 mg 24 hr tablet Take 1 tablet (30 mg) by mouth in the morning. Do not crush or chew. 90 tablet 3 levothyroxine (Synthroid, Levoxyl) 100 mcg [...] Shellfish derived Physical Exam VITAL SIGNS: BP 130/84 (BP Location: Left arm, Patient Position: Sitting) Pulse 76 Ht 1.524 m (5') Wt 84.8 kg (187 lb) SpO2 98% BMI 36.52 kg/m??? Constitutional: Well developed, Well nourished, No [...] Affect normal, Judgment normal, Mood normal. Impression: -Non obstructive CAD -Chest pain, resolved -Dyspnea on exertion -Hypertension -Previous tobacco abuse Plan: -Continue Coreg 6.25 twice daily for hypertension and for CAD -Continue Crestor 20 mg daily and aspirin 81 mg daily for CAD, in addition to Imdur 30 mg daily -Optimize medical management -Aggressive risk factor modification -Plan of care discussed with patient. All questions were answered. Patient voices understanding and is agreeable with current plan. -Patient was educated on red flag symptoms. Strict return precautions were provided. Patient verbalizes understanding -Follow-up in cardiology clinic after testing, or sooner as needed Dwayne Richmond MD Interventional Cardiology [facility] 11-26-2023 Note Patient: Mackenzie muhammad Procedure Information Date/Time: 11/26/23 1030 Procedure: Coronary angiography (Left) Location: [facility] / [facility] (Cath) Providers: Dwayne Richmond MD Clinical information reviewed: Allergies Meds OB Status Physical Exam Airway Mallampati: III Cardiovascular Rhythm: regular Rate: normal Dental Pulmonary - normal exam Abdominal - normal exam Anesthesia Plan ASA 3 other (Conscious sedation) intravenous induction Anesthetic plan and risks discussed with patient. Use of blood products discussed with patient who consented to blood products. Plan discussed with attending. Additional Equipment Requests [facility] 11-06-2023 Note Cardiology Clinic No te Chief [...] -Continue Coreg 6.2 (more content not included)... [facility] 11-06-2023 Note Patient here for fol low up echo and stress test. She was started on carvedilol and rosuvastatin at last apt, and is tolerating them well so far. Review of Systems Cardiovascular: Positive for chest pain and dyspnea on exertion. Musculoskeletal: Positive for muscle cramps. All other systems reviewed and are negative. [facility] 10-23-2023 Note Cardiology Clinic No te Chief [...] change in billing system. 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 Patrick (more content not included)... [facility] 10-23-2023 Note New patient here to establish [...] Scheduled for stress test next week at [facility]. Review of Systems Cardiovascular: Positive for chest pain and dyspnea on exertion. Musculoskeletal: Positive for muscle cramps. All other systems reviewed and are negative. [facility] 02-26-2023 Evaluation note Encounter Date Diagnosis Assessment [...] colonscopy in 2013 - repeat next year. [employer] Other Evaluation + Plan note No data available for this section [facility] [place] Evaluation note* Diagnosis Onset Date Resolution Status Dyspnea on exertion acute Epigastric abdominal pain ac knik Left-sided chest wall pain a cute [facility] Work Phone: Evaluation note* Diagnosis Onset Date Resolution Status Well adult exam acute [facility] Work Phone: History general Narrative - Reported* Type Description Date Medical History Post-menopausal Medical History Hypothyroidism Medical History Chronic tension-type headache, n ot intractable Medical History Trochanteric bursitis of right [...] History TONSILLECTOMY 1961 Surgical History HERNIA REPAIR 1971 Surgical History ENDOMETRIOSIS R CARPEL TUNNEL 0 01/2017 Surgical History CATARACTS 06/2018 Surgical History colonoscopy - 2014 - normal Dr. Mejia Hospitalization History SEE SURGICAL HX [facility] [employer] Other Hospital Discharge instructions No data available for this section [facility] [employer] Progress note No data available for this section [facility] Surgery Dental Fix RX Summary Purpose Family History No Family History Records Found Relationship Condition Age at Onset Recorded Date/T joaquin brother Hypertension Unknown Heart disease Unknown father Diabetes mellitus Unknown Hypertension Unknown Not Specified Hypertension Unknown Family history of mental disorder Unknown sister Hypertension Unknown Family history of thyroid disease Unknown Relationship Condition Age at Onset Recorded Date/T joaquin brother Hypertension Unknown Heart disease Unknown father Diabetes mellitus Unknown Hypertension Unknown mother Hypertension Unknown Family history of mental disorder Unknown sister Hypertension Unknown Family history of thyroid disease Unknown Advance Directives No Advanced Directives Records Found Advance Directive Response Recorded Date/ Time Advance Directives No September 14, 2023 2:02pm Advance Directive Response Recorded Date/ Time Advance Directives No September 14, 2023 3:02pm Chief Complaint and Reason for Visit Chief Complaint Shoulder/ Headaches Reason for Visit Dyspnea on exertion Epigastric abdominal pain Left-sided chest wall pain Chief Complaint Wellness Reason for Visit Well adult exam Additional Source Comments INFORMATION SOURCE (unrecogn ized section and content) DATE CREATED AUTHOR [facility]20[facility] DATE CREATED AUTHOR AUTHOR'S ORGANIZ ATION 07/04/2023 [facility] EPIC DATE CREATED AUTHOR AUTHOR'S ORGANIZ ATION 02/15/2024 [facility] DATE CREATED AUTHOR AUTHOR'S ORGANIZ ATION 04/14/2024 [facility] REASON FOR VISIT (unrecogniz ed section and content) Wellness Care Teams (unrecognized sec tion and content) Team Status: Active Member Role Status Dates Tanvi De Oliveira MD Primary Care Provider Active Team Status: Inactive Member Role Status Dates Tanvi De Oliveira MD Primary Care Provide r, Attending Provider Active Start: October 08, 2023 End: October 08, 2023 Team Status: Inactive Member Role Status Dates Tanvi De Oliveira MD Primary Care Provide r, Attending Provider Active Start: March 07, 2024 End: March 07, 2024 Goals (unrecognized section and content) Goals may [...] BE BASED ON THE PRIMARY CLINICAL RECORDS. [facility] [employer] provides no warranty or guarantee of the accuracy or completeness of information in this document.
== END 2024-04-26 11:24 | disposition home or self-care (01) ==
LOC: PST 11:23
PROVIDERS: PCP Family Medicine; Visit Provider Surgery
DX: Z01.818 Encounter for other preprocedural examination (principal); Z12.11 Encounter for screening for malignant neoplasm of colon

== ENCOUNTER 2024-05-04 07:44 | Day surgery (SDC) | payer BC, SELFPAY ==
--- NOTE | 2024-05-04 | OP_ITS ---
OPERATION DATE: 05/04/2024 PREOPERATIVE DIAGNOSIS: Colorectal screening. POSTOPERATIVE DIAGNOSIS: Severe sigmoid diverticulosis. PROCEDURE: Colonoscopy to cecum. SURGEON: Price Millan M.D. ANESTHESIA: Monitored anesthesia care. ESTIMATED BLOOD LOSS: Zero. INDICATIONS AND CONSENT: Patient is a 68-year-old female presents for colorectal screening. Indications, risks, benefits, alternatives of proceeding with colonoscopy were explained extensively to the patient, including the risks of bleeding, colon perforation or anesthetic complications. All of her questions were answered. Informed consent was obtained. PROCEDURE: Patient brought to the operating room, placed in the left lateral decubitus position. Monitored anesthesia care was provided. Rectal exam was performed which showed no masses or blood. The scope was inserted into the anal canal. Under direct visualization was advanced. With the aid of abdominal compression, it was advanced to the cecum where cecal markings were clearly identified. There was noted to be a good prep. There was redundancy of the colon with spasm. Upon withdrawal of the scope, mucosal surfaces were carefully examined. There were no mass lesions or polyps. No inflammatory changes or ulcerations. There was severe sigmoid diverticulosis without inflammatory changes or scarring. The scope was retroflexed in the anal canal. There was no significant hemorrhoidal disease. Scope was then withdrawn. Patient tolerated procedure well, was sent to recovery room in good condition. Follow up colonoscopy should be in 10 years. CC: Tanvi Rocha M.D. SUSAN
[2024-05-04 07:50] VITALS: BP 137/85; PULSE 87; TEMP 35.2; O2SAT 97; BMI 35.7
--- OUTSIDE RECORDS SUMMARY | 2024-05-04 07:55 | XMS_ITS | CCD ---
Author Organization [facility] Care Team Providers Care Rehabilitation Manager Name Role Phone DR TANVI DE OLIVEIRA Primary Care Unavailable MONIQUE, DR WILCOX Admitting Unavailable MONIQUE, DR WILCOX Attending Unavailable WEST, DR KATHIE Gaona Consulting Unavailable MONIQUE, DR WILCOX Consulting Unavailable MONIQUE, DR WILCOX Admitting Unavailable MONIQUE, DR WILCOX Attending Unavailable DE OLIVEIRA, DR TANVI Perez Primary Care Unavailable WEST, DR KATHIE Gaona Consulting Unavailable MONIQUE, DR WILCOX Consulting Unavailable MOINQUE, DR WILCOX Admitting Unavailable MONIQUE, DR WILCOX [...] (disorder) 4 Eruption of skin (disorder) [facility] Repository (1 source) kiwi Drug allergy (disorder) 2 [facility] Repository (1 source) Shellfish; Translations: [SHELLFISH DERIVED] Propensity to adverse reactions to drug (disorder) 4 [facility] Repository (1 source) No Known Medication Allergies; Translations: [No Known Medication Allergies] Propensity to adverse reactions (disorder) [facility] Repository NEGATED: Highlighted row has been ruled out! 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 Normal [facility] Office Visiton 01-01-2024 Follow-up visit [id number] Mackenzie Patel 1955 F Date Provider Department Center 01/01/2024 3848-DWAYNE RICHMOND [facility] Family History Problem Relation Age of Onset Coronary artery disease Mother Other Mother Heart attack Father 90 Family Status - Relation Status Age at Mother Father Level of Service:57358 ND OFFICE/OUTPATIENT ESTABLISHED LOW MDM 20 MIN Normal [facility] Letter (Out)on 12-10-2023 Letter (Out) [id number] Mackenzie Patel 1955 F Date Provider Department Center 12/10/2023 None-None [facility] Family History Problem Relation Age of Onset Coronary artery disease Mother Other Mother Heart attack Father 90 Family Status - Relation Status Age at Mother Father Normal [facility] HPon 11-26-2023 HP - Attestation signed by [...] understands these risks and wishes to proceed. [facility] NURSNOTEon 11-26-2023 NURSNOTE RN educated pt on d/ c instructions. RN encouraged pt to voice any questions or concerns. Pt verbalizes no questions or concerns at this time. Pt was wheeled off of unit with all of belongings. [facility] Letter (Out)on 11-18-2023 Letter (Out) [id number] Mackenzie Patel 1955 F [facility] Provider Department Center 11/18/2023 None-None [facility] Family History Problem Relation Age of Onset Coronary artery disease Mother Other Mother Heart attack Father 90 Family Status - Relation Status Age at Mother Father [facility] Orders Onlyon 11-11-2023 Orders Only [id number] Mackenzie Patel 1955 F Date Provider Department Center 11/11/2023 JOSLYN LOPEZ [facility] [place] [facility] Family History Problem Relation Age of Onset Coronary artery disease Mother Other Mother Heart attack Father 90 Family Status - Relation Status Age at Mother Father [facility] HPon 11-06-2023 Cardiology Clinic Note Chief [...] Coreg 6.2 (more content not included)... Normal [facility] Office Visiton 11-06-2023 Follow-up visit [id number] Mackenzie Patel 1955 F Date Provider Department Center 11/06/2023 0598-DWAYNE RICHMOND JEY Reynoso Family History Problem Relation Age of Onset Coronary artery disease Mother Other Mother Heart attack Father 90 Family Status - Relation Status Age at Mother Father Level of Service:33017 ND OFFICE/OUTPATIENT ESTABLISHED LOW MDM 20 MIN Normal [facility] Orders Onlyon 11-06-2023 Orders Only [id number] Mackenzie Patel 1955 F Date Provider Department Center 11/06/2023 Wicho5-MYRON LORENZO [facility] Family History Problem Relation Age of Onset Coronary artery disease Mother Other Mother Heart attack Father 90 Family Status - Relation Status Age at Mother Father Normal [facility] Office Visiton 10-23-2023 Follow-up visit [id number] Mackenzie Patel 1955 F Date Provider Department Center 10/23/2023 Samantha8-MELANIA RICHMONDBrannon [facility] Family History Problem Relation Age of Onset Coronary artery disease Mother Other Mother Heart attack Father 90 Family Status - Relation Status Age at Mother Father Level of Service:15251 ND OFFICE/OUTPATIENT NEW MODERATE MDM 45 MINUTES Normal [facility] Covid-19 PCR ([facility])on 06-18 SARS-CoV-2 (COVID-19) RNA LARA+probe Ql (Unsp spec) Not detected Normal NOT DETECTED [facility] Comment on above: Result [...] for this test is supported by the [place] of Health and Human Service's declaration that [...] used). Performed By: #### C VDTB #### [facility] [address] [place] [address] Dr. Heather Aguirre INFLUENZA A AND B AGon 07-14 INFLUENZA A AG Positive Abnormal NEGATIVE SEE COMMENT [facility] Comment on above: Performed By: #### I NFLUAB #### [facility] [address] [address] [address] Heather Aguirre INFLUENZA B AG Negative Normal NEGATIVE SEE COMMENT [facility] Comment on above: Performed By: #### I NFLUAB #### [facility] [address] [place] [address] Dr. Heather Aguirre INTERNAL CONTROLS Within Normal Limits Normal Wi thin Normal Limits [facility] Comment on above: Performed By: #### I NFLUAB #### [facility] [address] [address] [address] Heather Aguirre XR CHEST 2 Von [...] Date: 2022-07-14 21:21 Normal [facility] PAP ACOG PANEL 2: 30 to 65on 07-09-2022 . . Normal [facility] Comment on above: Result Comment: Perf ormed at: WB Performed By: #### [id number] #### [facility] [address] [place] [address] Dr. Heather Aguirre Age Gdln ACOG Testing 30-65 Normal [facility] Comment on above: Performed By: #### [id number] #### [facility] [address] [place] [address] Dr. Heather Aguirre DIAGNOSIS: Comment Normal [facility] Comment on above: Result Comment: NEGA TIVE FOR INTRAEPITHELIAL LESION OR MALIGNANCY. CELLULAR CHANGES ASSOCIATED WITH ATROPHY ARE PRESENT. Performed at: WB Performed By: #### [id number] #### [facility] [address] [place] [address] Dr. Heather Aguirre HPV Aptima Negative Normal Negative [facility] Comment on above: Result Comment: This nucleic acid amplification test detects fourteen high-risk HPV types (16,18,31,33,35,39,45,51,52,56,58,59,66,68) without differentiation. Performed at: =G Performed By: #### [id number] #### [facility] [address] [place] [address] Dr. Heather Aguirre HPV Genotype Reflex Comment Normal [facility] Comment on above: Result Comment: Crit eria not met, HPV Genotype not performed. Performed at: WB Performed By: #### [id number] #### [facility] [address] [place] [address] Dr. Heather Aguirre Methodology: CTIM Normal [facility] Comment on above: Result Comment: The [employer]in [employer](R) Human Capital Manager was unable to read this specimen. Therefore a manual review was performed. Performed at: WB Performed By: #### [id number] #### [facility] [address] [place] [address] Dr. Heather Aguirre Note: Comment Normal [facility] Comment on above: Result Comment: The Pap smear is a screening test designed to aid in the detection of premalignant and malignant conditions of the uterine cervix. It is not a diagnostic procedure and should not be used as the sole means of detecting cervical cancer. Both false-positive and false-negative reports do occur. . Performed at: WB Performed By: #### [id number] #### [facility] [address] [place] [address] Dr. Heather Aguirre Performed by: Comment Normal [facility] Comment on above: Result Comment: Supriya Amador, Operating Systems Specialist (ASCP) Performed at: WB Performed By: #### [id number] #### [facility] [address] [place] [address] Dr. Heather Aguirre Specimen adequacy: Comment Normal [facility] Comment on above: Result Comment: Sati sfactory for evaluation. Endocervical component may not be distinguished in cases of atrophy. Performed at: WB Performed By: #### [id number] #### [facility] [address] [place] [address] Dr. Heather Aguirre MG MAMM SCREEN 3D YOU CADon 06-11-2022 MG MAMM SCREEN 3D YOU CAD Patient: MACKENZIE PATEL Exam Date: 06/11/2022 : 1955 Gender:F Ordering : DR JERI AMAYA . Admission #: [id number] Family : Order #: [id number] CLICK HERE TO VIEW EXAM RADIOLOGY REPORT [...] skin cancer at age 65. LOCATION: [facility] BREAST COMPOSITION: Scattered areas fibroglandular [...] MD on 06/11/2022 at 08:04 Normal [facility] XR DEXA BONE DENSITYon 06-10 [...] Date: 2022-06-10 12:16 Normal [facility] CBC AUTO DIFFon 02-12-2022 BASO # 0.1 103/ul Normal 0.0-0.1 [facility] Comment on above: Performed By: #### L IPID, TSH, CMP #### [facility] [address] [place] [address] Dr. Heather Aguirre Basophils/100 WBC (Bld) 0.8 % Normal 0.2-2.0 [facility] Comment on above: Performed By: #### L IPID, TSH, CMP #### [facility] [address] [place] [address] Dr. eHather Aguirre EO # 0.3 103/ul Normal 0.0-0.7 [facility] Comment on above: Performed By: #### L IPID, TSH, CMP #### [facility] [address] [place] [address] Dr. Heather Aguirre Eosinophils/100 WBC (Bld) 2.9 % Normal 0.9-7.0 [facility] Comment on above: Performed By: #### L IPID, TSH, CMP #### [facility] [address] [place] [address] Dr. Heather Aguirre Erythrocyte distribution width (RBC) [Ratio] 13.2 % Normal 11.0-15.0 [facility] Comment on above: Performed By: #### L IPID, TSH, CMP #### [facility] [address] [place] [address] Dr. Heather Aguirre Hematocrit (Bld) [Volume fraction] 37.6 % Normal 36.0-48.0 [facility] Comment on above: Performed By: #### L IPID, TSH, CMP #### [facility] [address] [place] [address] Dr. Heather Aguirre Hemoglobin (Bld) [Mass/Vol] 12.1 g/dL Normal 12.0-16.0 [facility] Comment on above: Performed By: #### L IPID, TSH, CMP #### [facility] [address] [place] [address] Dr. Heather Aguirre IG # 0.03 10e3/ul Normal 0.00-0.03 [facility] Comment on above: Performed By: #### L IPID, TSH, CMP #### [facility] [address] [place] [address] Dr. Heather Aguirre IG % 0.3 % Normal 0.0-0.5 [facility] Comment on above: Performed By: #### L IPID, TSH, CMP #### [facility] [address] [place] [address] Dr. Heather Aguirre LYMPH # 2.9 103/ul Normal 1.2-3.8 [facility] Comment on above: Performed By: #### L IPID, TSH, CMP #### [facility] [address] [place] [address] Dr. Heather Aguirre Lymphocytes/100 WBC (Bld) 33.6 % Normal 20.5-60.0 [facility] Comment on above: Performed By: #### L IPID, TSH, CMP #### [facility] [address] [place] [address] Dr. Heather Aguirre MANUAL DIFF REQ NO Normal [facility] Comment on above: Performed By: #### L IPID, TSH, CMP #### [facility] [address] [place] [address] Dr. Heather Aguirre MCH (RBC) [Entitic mass] 30.0 pg Normal 26.7-34.0 [facility] Comment on above: Performed By: #### L IPID, TSH, CMP #### [facility] [address] [place] [address] Dr. Heather Aguirre MCHC (RBC) [Mass/Vol] 32.2 g/dL Normal 29.9-35.2 [facility] Comment on above: Performed By: #### L IPID, TSH, CMP #### [facility] [address] [place] [address] Dr. Heather Aguirre MCV (RBC) [Entitic vol] 93.1 fL Normal 81.0-99.0 [facility] Comment on above: Performed By: #### L IPID, TSH, CMP #### [facility] [address] [place] [address] Dr. Heather Aguirre MONO # 0.6 103/ul Normal 0.3-0.8 [facility] Comment on above: Performed By: #### L IPID, TSH, CMP #### [facility] [address] [address] [address] Heather Aguirre Monocytes/100 WBC (Bld) 7.1 % Normal 1.7-12.0 [facility] Comment on above: Performed By: #### L IPID, TSH, CMP #### [facility] [address] [place] [address] Dr. Heather Aguirre NEUT # 4.8 103/ul Normal 1.4-6.5 [facility] Comment on above: Performed By: #### L IPID, TSH, CMP #### [facility] [address] [place] [address] Dr. Heather Aguirre Neutrophils/100 WBC (Bld) 55.3 % Normal 43.0-75.0 [facility] Comment on above: Performed By: #### L IPID, TSH, CMP #### [facility] [address] [place] [address] Dr. Heather Aguirre Platelet mean volume (Bld) [Entitic vol] 10.2 fL Normal 9.5-13.5 [facility] Comment on above: Performed By: #### L IPID, TSH, CMP #### [facility] [address] [place] [address] Dr. Heather Aguirre PLT 329 103/ul Normal 150-450 [facility] Comment on above: Performed By: #### L IPID, TSH, CMP #### [facility] [address] [place] [address] Dr. Heather Aguirre RBC 4.04 106/ul Critically low 4.20-5.40 [facility] Comment on above: Performed By: #### L IPID, TSH, CMP #### [facility] [address] [place] [address] Dr. Heather Aguirre WBC 8.7 103/ul Normal 4.0-11.0 [facility] Comment on above: Performed By: #### L IPID, TSH, CMP #### [facility] [address] [place] [address] Dr. Heather Aguirre GLYCOHEMOGLOBIN A1Con 2021 ADA RECOMMENDATION SEE BELOW Normal [facility] Comment on above: Result Comment: ADA RECOMMENDED LIMIT 4.0 - 6.0 ADA THERAPEUTIC TARGET < 7.0 ACTION SUGGESTED > 7.0 Performed By: #### A 1C #### [facility] [address] [address] [address] Heather Aguirre Glucose [Mass/Vol] 108 mg/dL Normal [facility] Comment on above: Performed By: #### A 1C #### [facility] [address] [address] [address] Heather Aguirre HbA1c (Bld) [Mass fraction] 5.4 % Normal 4.5-6.2 [facility] Comment on above: Performed By: #### A 1C #### [facility] [address] [place] [address] Dr. Heather Aguirre LIPID PROFILEon 02-12-2022 CHOL-HDL RATIO NORM SEE BELOW Normal [facility] Comment on above: Result Comment: 3.3 - 4.4 LOW RISK 4.4 - 7.1 AVERAGE RISK 7.1 - 11.0 MODERATE RISK >11.0 HIGH RISK Performed By: #### L IPID, TSH, CMP #### [facility] [address] [place] [address] Dr. Heather Aguirre Cholesterol [Mass/Vol] 215 mg/dL Critically high <=200 [facility] Comment on above: Performed By: #### L IPID, TSH, CMP #### [facility] [address] [address] [address] Heather Aguirre Cholesterol in HDL [Mass/Vol] 59 mg/dL Normal 40-60 [facility] Comment on above: Performed By: #### L IPID, TSH, CMP #### [facility] [address] [place] [address] Dr. Heather Aguirre Cholesterol in LDL [Mass/Vol] 133.0 mg/dL Normal [facility] Comment on above: Performed By: #### L IPID, TSH, CMP #### [facility] [address] [place] [address] Dr. Heather Aguirre Cholesterol.total/Ch olesterol in HDL [Mass ratio] 3.6 {ratio} Normal [facility] Comment on above: Performed By: #### L IPID, TSH, CMP #### [facility] [address] [address] [address] Heather Aguirre HDL NORMAL > or = 60 mg/dl - LO W CARDIOVASCULAR RISK <40 mg/dl - HIGH CARDIOVASCULAR RISK Normal [facility] Comment on above: Performed By: #### L IPID, TSH, CMP #### [facility] [address] [place] [address] Dr. Heather Aguirre LDL CALC NORMAL SEE BELOW Normal [facility] Comment on above: Result Comment: <100 mg/dl OPTIMAL 100 - 129 mg/dl NEAR OR ABOVE OPTIMAL 130 - 159 mg/dl BORDERLINE HIGH 160 - 189 mg/dl HIGH >190 mg/dl VERY HIGH Performed By: #### L IPID, TSH, CMP #### [facility] [address] [place] [address] Dr. Heather Aguirre Triglyceride [Mass/Vol] 115 mg/dL Normal <=150 [facility] Comment on above: Performed By: #### L IPID, TSH, CMP #### [facility] [address] [place] [address] Dr. Heather Aguirre VLDL CALC 23.0 mg/dL Normal [facility] Comment on above: Performed By: #### L IPID, TSH, CMP #### [facility] [address] [place] [address] Dr. Heather Aguirre PROF 14(COMP METB)on 022 Albumin [Mass/Vol] 3.5 g/dL Normal 3.4-5.0 [facility] Comment on above: Performed By: #### L IPID, TSH, CMP #### [facility] [address] [place] [address] Dr. Heather Aguirre Albumin/Globulin [Mass ratio] 1.1 {ratio} Normal [facility] Comment on above: Performed By: #### L IPID, TSH, CMP #### [facility] [address] [place] [address] Dr. Heather Aguirre ALP [Catalytic activity/Vol] 56 U/L Normal 46-116 [facility] Comment on above: Performed By: #### L IPID, TSH, CMP #### [facility] [address] [address] [address] Heather Aguirre ALT [Catalytic activity/Vol] 25 U/L Normal 14-59 [facility] Comment on above: Performed By: #### L IPID, TSH, CMP #### [facility] [address] [address] [address] Heather Aguirre Anion gap [Moles/Vol] 1 mmol/L Normal [facility] Comment on above: Performed By: #### L IPID, TSH, CMP #### [facility] [address] [place] [address] Dr. Heather Aguirre AST [Catalytic activity/Vol] 10 U/L Critically low 15-37 [facility] Comment on above: Performed By: #### L IPID, TSH, CMP #### [facility] [address] [place] [address] Dr. Heather Aguirre Bilirubin [Mass/Vol] 0.5 mg/dL Normal 0.2-1.0 [facility] Comment on above: Performed By: #### L IPID, TSH, CMP #### [facility] [address] [place] [address] Dr. Heather Aguirre Calcium [Mass/Vol] 8.5 mg/dL Normal 8.5-10.1 [facility] Comment on above: Performed By: #### L IPID, TSH, CMP #### [facility] [address] [place] [address] Dr. Heather Aguirre Chloride [Moles/Vol] 102 mmol/L Normal 98-107 [facility] Comment on above: Performed By: #### L IPID, TSH, CMP #### [facility] [address] [place] [address] Dr. Heather Aguirre CO2 [Moles/Vol] 30.0 mmol/L Normal 21.0-32.0 [facility] Comment on above: Performed By: #### L IPID, TSH, CMP #### [facility] [address] [address] [address] Heather Aguirre Creatinine [Mass/Vol] 1.07 mg/dL Critically high 0.55-1.02 [facility] Comment on above: Performed By: #### L IPID, TSH, CMP #### [facility] [address] [address] [address] Heather Aguirre EGFR-AF RWANDAN >60 Normal >=60 [facility] Comment on above: Performed By: #### L IPID, TSH, CMP #### [facility] [address] [address] [address] Heather Aguirre EGFR-NON AF RWANDAN 52 mL/min/1.73m2 Critically low >=60 [facility] Comment on above: Performed By: #### L IPID, TSH, CMP #### [facility] [address] [place] [address] Dr. Heather Aguirre Globulin (S) [Mass/Vol] 3.2 g/dL Normal [facility] Comment on above: Performed By: #### L IPID, TSH, CMP #### [facility] [address] [address] [address] Heather Aguirre Glucose [Mass/Vol] 96 mg/dL Normal 74-106 [facility] Comment on above: Performed By: #### L IPID, TSH, CMP #### [facility] [address] [place] [address] Dr. Heather Aguirre Potassium [Moles/Vol] 4.0 mmol/L Normal 3.5-5.1 [facility] Comment on above: Performed By: #### L IPID, TSH, CMP #### [facility] [address] [address] [address] Heather Aguirre Protein [Mass/Vol] 6.7 g/dL Normal 6.4-8.2 [facility] Comment on above: Performed By: #### L IPID, TSH, CMP #### [facility] [address] [address] [address] Heather Aguirre Sodium [Moles/Vol] 127 mmol/L Critically low 136-145 [facility] Comment on above: Performed By: #### L IPID, TSH, CMP #### [facility] [address] [address] [address] Heather Aguirre Urea nitrogen [Mass/Vol] 20.0 mg/dL Critically high 7.0-18.0 [facility] Comment on above: Performed By: #### L IPID, TSH, CMP #### [facility] [address] [address] [address] Heather Aguirre Urea nitrogen/Creatinine [Mass ratio] 18.7 mg/mg Normal [facility] Comment on above: Performed By: #### L IPID, TSH, CMP #### [facility] [address] [place] [address] Dr. Heather Aguirre [facility] 02-12-2022 TSH 1.693 uIU/mL Normal 0.358-3.740 [facility] Comment on above: Performed By: #### L IPID, TSH, CMP #### [facility] [address] [place] [address] Dr. Heather Aguirre Vital Signs Date Time Vital Sign Value Performing Clinician Facility 04-12-2024 14:19-0400 Blood Pressure Location [facility] 04-12-2024 14:19-0400 Diastolic blood pressure 82 mm[Hg] [facility] 04-12-2024 14:19-0400 Heart rate 76 /min [facility] N[facility] 04-12-2024 14:19-0400 Respiratory rate 16 /min [facility] 04-12-2024 14:19-0400 Systolic blood pressure 118 mm[Hg] [facility] 03-07-2024 08:31-0400 Body height 152.4 cm [facility] 03-07-2024 08:31-0400 Body mass index (BMI) [Ratio] 36.1 kg/m2 [place] 03-07-2024 08:31-0400 Body weight 83.91 kg [facility] 03-07-2024 08:31-0400 Diastolic blood pressure 101 mm[Hg] [place] 03-07-2024 08:31-0400 Heart rate 69 /min [facility] 03-07-2024 08:31-0400 Systolic blood pressure 159 mm[Hg] [place] 10-08-2023 10:14-0500 Body height 152.4 cm [facility] 10-08-2023 10:14-0500 Body mass index (BMI) [Ratio] 35.8 kg/m2 [place] 10-08-2023 10:14-0500 Body weight 83.12 kg [facility] 10-08-2023 10:14-0500 Diastolic blood pressure 80 mm[Hg] [place] 10-08-2023 10:14-0500 Heart rate 83 /min [facility] 10-08-2023 10:14-0500 Systolic blood pressure 132 mm[Hg] [place] 02-26-2023 08:30-0400 Body height 152.4 cm Tanvi De Oliveira Other [facility] 02-26-2023 08:30-0400 Body mass index (BMI) [Ratio] 35.93 kg/m2 Tanvi De Oliveira Other [facility] 02-26-2023 08:30-0400 Body weight 83.46 kg Tanvi De Oliveira Other [facility] 02-26-2023 08:30-0400 Diastolic blood pressure 84 mm[Hg] Tanvi De Oliveira Other [facility] 02-26-2023 08:30-0400 Systolic blood pressure 145 mm[Hg] Tanvi De Oliveira Other [facility] Other Encounters Encounter Date Encounter Type Care Provider Facility Start: 04-12-2024 End: 04-12-2024 ambulatory TANVI DE OLIVEIRA Facility:[facility] Start: 04-12-2024 End: 04-12-2024 Patient encounter procedure Price [facility] Start: 03-08-2024 ambulatory TANVI DE OLIVEIRA Facility:[facility] Start: 03-07-2024 Physical examination [facility] Start: 03-07-2024 End: 03-07-2024 ambulatory [facility] Work Phone: Start: 03-07-2024 End: 03-07-2024 Encounter for general adult medical examination without abnormal findings [place] Start: 03-07-2024 End: 03-07-2024 Patient encounter procedure [facility] Work Phone: Start: 01-01-2024 End: 01-01-2024 ambulatory [facility] Start: 11-26-2023 End: 11-26-2023 ambulatory [facility] Start: 11-06-2023 End: 11-06-2023 ambulatory [facility] Start: 10-23-2023 End: 10-23-2023 ambulatory [facility] Start: 10-08-2023 End: 10-08-2023 ambulatory [facility] Work Phone: Start: 10-08-2023 End: 10-08-2023 Patient encounter procedure [facility] Work Phone: Start: 07-02-2023 End: 07-02-2023 ambulatory JERI AMAYA Not Available Start: 02-26-2023 End: 02-26-2023 ambulatory Tanvi De Oliveira Other [facility] Other Start: 02-26-2023 Encounter for genera l adult medical examination without abnormal findings Tanvi De Oliveira [facility] Start: 02-26-2023 Periodic preventive med est patient 65yrs& older Tanvi De Oliveira [facility] Start: 07-14-2022 End: 07-15-[address] TANVI DE OLIVEIRA Facility:[facility] Start: 07-01-2022 End: 07-01-[address] JERI AMAYA Facility:[facility] Start: 06-11-2022 End: 06-12-[address] TANVI DE OLIVEIRA Facility:[facility] Start: 06-10-2022 End: 06-11-[address] JERI AMAYA Facility:[facility] Start: 02-14-2022 Encounter for genera l adult medical examination without abnormal findings DR TANVI DE OLIVEIRA [facility] Start: 02-12-2022 End: 02-13-[address] TANVI [...] lic 2000 panel - Serum or Plasma [facility] enter EKG [address] [facility] Immunizations Immunization Date Immunization Notes Care Provider Fa cility 06-07-2021 SARS-CoV-2 (COVID-19 ) mRNA-1273 vaccine [facility] 09-19-2020 SARS-CoV-2 (COVID-19 ) mRNA-1273 vaccine Price [facility] 08-23-2020 SARS-CoV-2 (COVID-19 ) mRNA-1273 vaccine [facility] Payers Date Payer Category Payer [facility] [id number] 2019 Unknown [id number] 1955 Unknown [id number] 2.16.84 [id number] 1955 Unknown [id number] 2.16.84 [id number] 1955 Unknown [id number] 2.16.84 [id number] 1957 Unknown [id number] 2.16.84 [id number] 1955 Unknown [id number] 2.16.84 [id number] 1957 Unknown [id number] 2.16.84 [id number] 1957 Unknown [id number] 1955 Unknown [id number] 2.16.8 [id number] Social History Date Type Detail Facility Sex Assigned At [facility] Start: 10-06-2023 End: 04-12-2024 Tobacco smoking status NHIS Ex-smoker (finding) [place] Start: 1955 Sex Assigned At Female F [facility] Tobacco smoking status Never [facility] Functional Status Date Assessment Result Facility 04-12-2024 Functional Status N/A [facility] Clinical Notes 02-26-2023 to 04-12-2024 Note Date [...] Mother and Br (more content not included)... [facility] Comment on above: Result Comment: Elec tronically Signed By: AUSTIN RUBALCAVA, Price Rogers\.br\Date and Time Signed: 04/12/24 14:47 EDT 01-01-2024 [facility] Note HPI: Mackenzie Patel is [...] as needed Dwayne Richmond MD Interventional Cardiology [facility] 11-26-2023 Note Patient: Mackenzie muhammad Procedure Information Date/Time: 11/26/23 1030 Procedure: Coronary angiography (Left) Location: [facility] / [facility] (Cath) Providers: Dwayne Richmond MD [...] Plan discussed with attending. Additional Equipment Requests [facility] 11-06-2023 Note Cardiology Clinic No te Chief [...] -Continue Coreg 6.2 (more content not included)... [facility] 11-06-2023 Note Patient here for fol low up echo and stress test. She was started on carvedilol and rosuvastatin at last apt, and is tolerating them well so far. Review of Systems Cardiovascular: Positive for chest pain and dyspnea on exertion. Musculoskeletal: Positive for muscle cramps. All other systems reviewed and are negative. [facility] 10-23-2023 Note Cardiology Clinic No te Chief [...] change in billing system. 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 [facility] 10-23-2023 Note New patient here to establish [...] Scheduled for stress test next week at [facility]. Review of Systems Cardiovascular: Positive for chest pain and dyspnea on exertion. Musculoskeletal: Positive for muscle cramps. All other systems reviewed and are negative. [facility] 02-26-2023 Evaluation note Encounter Date Diagnosis Assessment [...] colonscopy in 2013 - repeat next year. [facility] Other Evaluation + Plan note No data available for this section [facility] Evaluation note* Diagnosis Onset Date Resolution Status Dyspnea on exertion acute Epigastric abdominal pain [facility] [place] Left-sided chest wall pain a cute [facility] Work Phone: Evaluation note* Diagnosis Onset Date Resolution Status Well adult exam acute [facility] Work Phone: History general Narrative - [...] Dr. Mejia Hospitalization History SEE SURGICAL HX [facility] [employer] Other Hospital Discharge instructions No data available for this section [facility] [employer] Progress note No data available for this section [facility] [employer] Summary Purpose Family History No Family History [...] and content) DATE CREATED AUTHOR [facility]/17/2022 [facility] DATE CREATED AUTHOR AUTHOR'S ORGANIZ ATION 07/04/2023 [facility] EPIC DATE CREATED AUTHOR AUTHOR'S ORGANIZ ATION 02/15/2024 [facility] DATE CREATED AUTHOR AUTHOR'S ORGANIZ ATION [...] BE BASED ON THE PRIMARY CLINICAL RECORDS. [employer] provides no warranty or guarantee of the accuracy or completeness of information in this document.
[2024-05-04] MEDS: LACTATED RINGER'S SOLUTION 1,000 ML 50 ML IV (08:18)
[2024-05-04 09:53] VITALS: BP 115/60; PULSE 55; TEMP 36.3; O2SAT 98
[2024-05-04 10:08] VITALS: BP 110/67; PULSE 62; O2SAT 99
[2024-05-04 10:23] VITALS: BP 135/83; PULSE 63; O2SAT 97
== END 2024-05-04 10:23 | disposition home or self-care (01) ==
PROVIDERS: PCP Family Medicine; Visit Provider Surgery
PROC: (CPT 812; principal; 2024-05-04 08:45)
DX: Z12.11 Encounter for screening for malignant neoplasm of colon (principal); K57.30 Diverticulosis of large intestine without perforation or abscess without bleeding; I25.10 Atherosclerotic heart disease of native coronary artery without angina pectoris; E78.5 Hyperlipidemia, unspecified; E03.9 Hypothyroidism, unspecified; M54.16 Radiculopathy, lumbar region; Z90.49 Acquired absence of other specified parts of digestive tract; Z90.710 Acquired absence of both cervix and uterus; Z79.82 Long term (current) use of aspirin; Z87.891 Personal history of nicotine dependence; I10 Essential (primary) hypertension
CPT/HCPCS: 45378; J2704

== ENCOUNTER 2024-07-04 07:59 | Outpatient (OUT) | payer BC, SELFPAY ==
--- NOTE | 2024-07-04 08:01 | MM_ITS ---
Patient Name: MIRYAM PATEL MR#: [id number] : 1955 Exam Date: 07/04/2024 Ordering Doctor: DR Jermaine Russo . RADIOLOGY REPORT PROCEDURE: MM TOMOSYNTHESIS SCREENING BI COMPARISON: MM TOMOSYNTHESIS SCREENING BI, 06/17/2023. MG MAMM SCREEN 3D YOU CAD, 06/11/2022. MG MAMM SCREEN 3D YOU CAD, 05/17/2021. MG MAMM YOU SCRN W CAD DIG, 07/04/2013. INDICATIONS: Screening Calculator Name NCI Breast Cancer Risk Assessment Tool 5 Year Breast Cancer Risk 1.20% Lifetime Breast Cancer Risk 4.40% Personal Breast Cancer No Personal Ovarian Cancer No Treatments None Family Cancers Niece with larynx cancer at age ~70; Grandfather-maternal with skin cancer at age 63. LOCATION: [facility] BREAST COMPOSITION: There are scattered areas of fibroglandular density. FINDINGS: DIAGNOSTIC CATEGORY 1--NEGATIVE. NO CHANGE FROM COMPARISON ASSESSMENT. RIGHT BREAST: No significant suspicious finding. No significant change has occurred. LEFT BREAST: No significant suspicious finding. No significant change has occurred. RECOMMENDATIONS: ROUTINE MAMMOGRAM AND CLINICAL EVALUATION IN 12 MONTHS. PLEASE NOTE: A NORMAL MAMMOGRAM DOES NOT EXCLUDE THE POSSIBILITY OF BREAST CANCER. A CLINICALLY SUSPICIOUS PALPABLE LUMP SHOULD BE BIOPSIED. Dictated by: Zaid Wolfe M.D. on 07/04/2024 at 12:09 Approved by: Zaid Wolfe M.D. on 07/04/2024 at 12:46
== END 2024-07-04 08:00 | disposition home or self-care (01) ==
LOC: MAMMO 07:59
PROVIDERS: PCP Family Medicine; Visit Provider Obstetrics & Gynecology
DX: Z01.419 Encounter for gynecological examination (general) (routine) without abnormal findings (principal); Z12.31 Encounter for screening mammogram for malignant neoplasm of breast; Z80.8 Family history of malignant neoplasm of other organs or systems
CPT/HCPCS: 77063; 77067; 88175

== ENCOUNTER 2024-07-04 21:36 | Outpatient (REF) | payer BC, SELFPAY ==
--- OUTSIDE RECORDS SUMMARY | 2024-07-04 21:41 | XMS_ITS | CCD ---
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 Name Role Phone ALVINO, DR TANVI Perez [...] Unavailable TOMI PANIAGUA Consulting Unavailable KATHIE HOPKINS Unavailable JOHN JOHNSON Admitting Unavailable JOHN JOHNSON Attending Unavailable ALVINO, DR TANVI Perez Primary Care Unavailable ALVINO, DR TANVI Perez Consulting Unavailable ALVINO, DR TANVI Perez Admitting Unavailable ALVINO, DR TANVI Perez Attending Unavailable ALVINO, DR TANVI Perez Primary Care Unavailable ALVINO, DR TANVI Perez Consulting Unavailable Tanvi De Oliveira Unavailable JERI RUSSO Attending Unavailable TANVI DE OLIVEIRA Primary Care Physician [phone] Price AVILA Attending Unavailable TANVI DE OLIVEIRA Referring Unavailable Price AVILA Attending Unavailable DWAYNE RICHMOND Admitting Unavailable DWAYNE RICHMOND Attending Unavailable DWAYNE RICHMOND Referring Unavailable DWAYNE RICHMOND Attending Unavailable DWAYNE RICHMOND Attending Unavailable DWAYNE RICHMOND Attending Unavailable DWAYNE RICHMOND Attending Unavailable Tanvi De Oliveira MD Primary Care Provider Allergies Allergy Classification Reported Allergen(s) Allergy Type Date of Onset Reaction(s) Facility (3 sources) Shellfish; Translations: [shellfish] Drug allergy (disorder) 4 Eruption of skin (disorder) [facility] Repository (1 source) kiwi Drug allergy (disorder) 2 [facility] (1 source) No Known Medication Allergies; Translations: [No Known Medication Allergies] Propensity to adverse reactions (disorder) [facility] Repository (1 source) Shellfish; Translations: [SHELLFISH DERIVED] Propensity to adverse reactions to drug (disorder) 4 [facility] Repository (2 sources) Fish Oils Drug Allergy 3 Unknown [facility] Work Phone: (2 sources) Kiwi fruit Propensity to adverse reactions 3 Anaphylaxis, Swelling [facility] (2 sources) Shellfish Allergy to substance 4 Rash [facility] (2 sources) Shellfish-Deriv ed Products Drug Intolerance 3 Hives, Itching, Rash, Shortness of breath [facility] NEGATED: Highlighted row has been ruled out! (1 source) Drug allergy [facility] Medications Current Medications Medication Drug Class(es) Dates Sig (Normalized) Sig (Original) alendronic acid 70 mg oral tablet (8 sources) Bisphosphonate Start: 10-07-2023 take 1 tablet by mouth once daily Alendronate Active 1 TAB PO Daily October 07, 2023 1:00am FreeTextSi tablet 30 minutes before the first food, beverage or medicine of the day with plain water Orally; Note: Source Status: Taking; Provider: Alvino Tinajero ( ) Start: 07-02-2023 take 1 tablet by rayo th every week Fosamax 70 mg Tab 70 mg = 1 tab(s), Oral, qWeek, Refills(s) 0 Start Date: 03/09/24 Status: Ordered End: 07-04-2024 alendronate (Fosamax) 70 MG tablet Take 70 mg by mouth every 7 (seven) days. 07/04/2024 Discontinued (Therapy completed) take 1 tablet by rayo th once [...] 0 Start Date: 03/09/24 Status: Ordered buPROPion (6 sources) Aminoketone Start: 03-09-2024 Wellbutrin XL Refills(s) [...] 3; Qty: 90 Tablet; Provider: Alvino Perez End: 07-04-2024 take 1 tablet by mouth every twenty-four hours in the morning buPROPion XL (Wellbutrin XL) 150 MG 24 hr tablet Take 150 mg by mouth in the morning. 07/04/2024 Discontinued (Therapy completed) take 1 tablet by rayo th every [...] 0 Start Date: 03/09/24 Status: Ordered Restasis (4 sources) Calcineurin Inhibitor Immunosuppressant Start: 03-09-2024 take 1 drop(s) into the eye(s) every twelve hours Restasis 1 drop(s), Eye-Both, q12hr, Refill(s) 0 Start Date: 03/09/24 Status: Ordered take 1 drop(s) into the eye(s) every twelve hours cycloSPORINE (Restasis) 0.05 % ophthalmi c emulsion Administer 1 drop into both eyes every 12 (twelve) hours. Active take 1 drop(s) into the eye(s) twice [...] 12:00am levothyroxine sodium 0.1 mg oral tablet (6 sources) l-Thyroxine Start: 03-09-2024 take 1 tablet by mouth once daily levothyroxine 100 mcg (0.1 mg) Tab 100 mcg = 1 tab(s), Oral, Daily, Refills(s) 0 Start Date: 03/09/24 Status: Ordered Start: 10-07-2023 take 100 ug by mouth once jonh y Levothyroxine Active 100 MCG PO Daily October 07, 2023 1:00am take 1 tablet by rayo once daily in the morning Levothyroxine Sodium [...] Start: 02-02-2024 take 1 capsule by mo [facility] once daily Omeprazole Active 0 .ROUTE .COMPLEX [...] atherosclerosis and other heart disease (3 sources) Coronary arteriosclerosis; Translations: [Unstable angina] Onset: 11-06-2023 03-09-2024 Chronic Disorders of lipid metabolism (1 source) [...] [Unilateral primary osteoarthritis, right hip] 10-07-2023 Chronic Osteoporosis (2 sources) Postmenopausal osteoporosis; 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-related osteoporosis without current pathological fracture] 07-04-2024 Chronic Other aftercare (1 source) 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; Translations: [OTH SNF CURRENT DRUG THERAPY] Onset: 07-17-2022 Episodic Other [...] conditions (not mental disorders or infectious disease) (14 sources) Encounter for screening for malignant neoplasm [...] Value Interpretation Reference Range Facility Office Visiton 05-27-2024 Follow-up visit [id number] Geovanna,Mackenzie Lopez 1955 F Date Provider Department Center 05/27/2024 [facility]8-DWAYNE RICHMOND JEY Reynoso Family History Problem Relation Age of Onset Coronary artery disease Mother Other Mother Heart attack Father 90 Family Status - Relation Status Age at Mother Father Level of Service:[address]376 [place] OFFICE/OUTPATIENT ESTABLISHED MOD MDM 30 MIN Normal [facility] Reminderson 05-05-2024 Reminders Reminders From: Luann Huerta LPN To: GSN - Clinical; Sent: 05/05/2024 09:35:27 EDT Show up: 04/03/2034 07:00:00 EDT Subject: colonoscopy recall Due Date/Time: 05/04/2034 07:00:00 EDT Reminder/Recall Patient due for screening colonoscopy 05/04/2034. Normal [facility] Ambulatory Visit Summaryon 0 04-12-2024 Ambulatory Visit Summary Ambulatory Visit Summary MACKENZIE PATEL :1955 Visit Date:04/12/2024 Ambulatory Visit Instructions Your Diagnosis Screening for malignant neoplasm of colon Your Care Team Attending Physician - AUSTIN RUBALCAVA, Price Rogers Primary Care Physician - ALVINO RUBALCAVA, TANVI Referring Physician - TANVI DE OLIVEIRA MD [...] you for choosing us for your care. Chris [facility] Office Visiton 01-01-2024 Follow-up visit [id number] Mackenzie Patel 1955 F [facility] Provider Department Center 01/01/2024 3848-DWAYNE RICHMOND [facility] Family History Problem Relation Age of Onset Coronary artery disease Mother Other Mother Heart attack Father 90 Family Status - Relation Status Age at Mother Father Level of Service:[id number] [place] OFFICE/OUTPATIENT ESTABLISHED LOW MDM 20 MIN Normal [facility] Letter (Out)on 12-10-2023 Letter (Out) [id number] Mackenzie Patel 1955 F Date Provider Department Center 12/10/2023 None-None [facility] Family History Problem Relation Age of Onset Coronary artery disease Mother Other Mother Heart attack Father 90 Family Status - Relation Status Age at Mother Father Normal [facility] HPon 11-26-2023 HP - Attestation signed by [...] understands these risks and wishes to proceed. [facility] NURSNOTEon 11-26-2023 NURSNOTE RN educated pt on d/ c instructions. RN encouraged pt to voice any questions or concerns. Pt verbalizes no questions or concerns at this time. Pt was wheeled off of unit with all of belongings. [facility] Letter (Out)on 11-18-2023 Letter (Out) [id number] Mackenzie Patel 1955 F Date Provider Department Center 11/18/2023 None-None [facility] Family History Problem Relation Age of Onset Coronary artery disease Mother Other Mother Heart attack Father 90 Family Status - Relation Status Age at Mother Father [facility] Orders Onlyon 11-11-2023 Orders Only [id number] Mackenzie Patel 1955 F Date Provider Department Center 11/11/2023 JOSLYN LOPEZ [facility] Family History Problem Relation Age of Onset Coronary artery disease Mother Other Mother Heart attack Father 90 Family Status - Relation Status Age at Mother Father [facility] HPon 11-06-2023 Cardiology Clinic Note [...] Coreg 6.2 (more content not included)... Normal [facility] Office Visiton 11-06-2023 Follow-up visit [id number] Mackenzie Patel 1955 F Date Provider Department Center 11/06/2023 3848-DWAYNE RICHMOND JEY Reynoso Family History Problem Relation Age of Onset Coronary artery disease Mother Other Mother Heart attack Father 90 Family Status - Relation Status Age at Mother Father Level of Service:40444 [place] OFFICE/OUTPATIENT ESTABLISHED LOW MDM 20 MIN Normal [facility] Orders Onlyon 11-06-2023 Orders Only [id number] Mackenzie Patel 1955 F Date Provider Department Center 11/06/2023 MYRON HUANG CARD [facility] Family History Problem Relation Age of Onset Coronary artery disease Mother Other Mother Heart attack Father 90 Family Status - Relation Status Age at Mother Father Normal [facility] Office Visiton 10-23-2023 Follow-up visit [id number] Mackenzie Patel 1955 F Date Provider Department Center 10/23/2023 DWAYNE CHRISTIANSEN JEY [facility] Family History Problem Relation Age of Onset Coronary artery disease Mother Other Mother Heart attack Father 90 Family Status - Relation Status Age at Mother Father Level of Service:[address]11 [place] OFFICE/OUTPATIENT NEW MODERATE MDM 45 MINUTES Normal [facility] Cytology Cervical or vaginal smear or scraping studyon 07-02-2023 [facility] Covid-19 PCR (CVDTBH)on 06-18 SARS-CoV-2 (COVID-19) RNA LARA+probe Ql (Unsp spec) Not detected Normal NOT DETECTED [facility] Comment on above: Result Comment: When diagnostic [...] for this test is supported by the [place] of Health and Human Service's declaration that [...] used). Performed By: #### C VDTB #### [facility] [address] [address] [address] Heather Aguirre INFLUENZA A AND B AGon 07-14 INFLUENZA A AG Positive Abnormal NEGATIVE SEE COMMENT [facility] Comment on above: Performed By: #### I NFLUAB #### [facility] [address] [address] [address] Heather Aguirre INFLUENZA B AG Negative Normal NEGATIVE SEE COMMENT [facility] Comment on above: Performed By: #### I NFLUAB #### [facility] [address] [address] [address] Heather Aguirre INTERNAL CONTROLS Within Normal Limits Normal Wi thin Normal Limits [facility] Comment on above: Performed By: #### I NFLUAB #### [facility] [address] [address] [address] Heather Aguirre XR CHEST 2 Von [...] by: KATHIE HOPKINS Date: 2022-07-14 21:21 Normal [facility] PAP ACOG PANEL 2: 30 to 65on 07-09-2022 . . Normal [facility] Comment on above: Result Comment: Perf ormed at: WB Performed By: #### [id number] #### [facility] [address] [place] [address] Dr. Heather Aguirre Age Gdln ACOG Testing 30-65 Normal [facility] Comment on above: Performed By: #### [id number] #### [facility] [address] [place] [address] Dr. Heather Aguirre DIAGNOSIS: Comment Normal [facility] Comment on above: Result Comment: NEGA TIVE FOR INTRAEPITHELIAL LESION OR MALIGNANCY. CELLULAR CHANGES ASSOCIATED WITH ATROPHY ARE PRESENT. Performed at: WB Performed By: #### [id number] #### [facility] [address] [place] [address] Dr. Heather Aguirre HPV Aptima Negative Normal Negative [facility] Comment on above: Result Comment: This nucleic acid amplification test detects fourteen high-risk HPV types (16,18,31,33,35,39,45,51,52,56,58,59,66,68) without differentiation. Performed at: =G Performed By: #### [id number] #### [facility] [address] [place] [address] Dr. Heather Aguirre HPV Genotype Reflex Comment Normal [facility] Comment on above: Result Comment: Crit eria not met, HPV Genotype not performed. Performed at: WB Performed By: #### [id number] #### [facility] [address] [place] [address] Dr. Heather Aguirre Methodology: CTIM Normal [facility] Comment on above: Result Comment: The Thin Prep(R) Clocksmith was unable to read this specimen. Therefore a manual review was performed. Performed at: WB Performed By: #### [id number] #### [facility] [address] [place] [address] Dr. Heather Aguirre Note: Comment Normal [facility] Comment on above: Result Comment: The Pap smear is a screening test designed to aid in the detection of premalignant and malignant conditions of the uterine cervix. It is not a diagnostic procedure and should not be used as the sole means of detecting cervical cancer. Both false-positive and false-negative reports do occur. . Performed at: WB Performed By: #### [id number] #### [facility] [address] [place] [address] Dr. Heather Aguirre Performed by: Comment Normal [facility] Comment on above: Result Comment: Supriya Amador, Drier Take Off Tender (ASCP) Performed at: WB Performed By: #### 4 [id number] #### [facility] [address] [place] [address] Dr. Heather Aguirre Specimen adequacy: Comment Normal [facility] Comment on above: Result Comment: Sati sfactory for evaluation. Endocervical component may not be distinguished in cases of atrophy. Performed at: WB Performed By: #### [id number] #### [facility] [address] [address] [address] Heather Aguirre MG MAMM SCREEN 3D YOU CADon 06-11-2022 MG MAMM SCREEN 3D YOU CAD Patient: MACKENZIE PATEL Exam Date: 06/11/2022 : 1955 Gender:F Ordering : DR JERI RUSSO . Admission #: [id number] Family : Order #: [id number] CLICK HERE TO VIEW EXAM RADIOLOGY REPORT [...] skin cancer at age 65. LOCATION: [facility] BREAST COMPOSITION: Scattered areas fibroglandular density. FINDINGS: [...] MD on 06/11/2022 at 08:04 Normal [facility] XR DEXA BONE DENSITYon 06-10 XR DEXA [...] KATHIE OLVERA Date: 2022-06-10 12:16 Normal [facility] CBC AUTO DIFFon 02-12-2022 BASO # 0.1 103/ul Normal 0.0-0.1 [facility] Comment on above: Performed By: #### L IPID, TSH, CMP #### [facility] [address] [place] [address] Dr. Heather Aguirre Basophils/100 WBC (Bld) 0.8 % Normal 0.2-2.0 [facility] Comment on above: Performed By: #### L IPID, TSH, CMP #### [facility] [address] [place] [address] Dr. Heather Aguirre EO # 0.3 103/ul Normal 0.0-0.7 [facility] Comment on above: Performed By: #### L IPID, TSH, CMP #### [facility] [address] [place] [address] Dr. Heather Aguirre Eosinophils/100 WBC (Bld) 2.9 % Normal 0.9-7.0 [facility] Comment on above: Performed By: #### L IPID, TSH, CMP #### [facility] [address] [place] [address] Dr. Heather Aguirre Erythrocyte distribution width (RBC) [Ratio] 13.2 % Normal 11.0-15.0 [facility] Comment on above: Performed By: #### L IPID, TSH, CMP #### [facility] [address] [place] [address] Dr. Heather Aguirre Hematocrit (Bld) [Volume fraction] 37.6 % Normal 36.0-48.0 [facility] Comment on above: Performed By: #### L IPID, TSH, CMP #### [facility] [address] [place] [address] Dr. Heather Aguirre Hemoglobin (Bld) [Mass/Vol] 12.1 g/dL Normal 12.0-16.0 [facility] Comment on above: Performed By: #### L IPID, TSH, CMP #### [facility] [address] [address] [address] Heather Aguirre IG # 0.03 10e3/ul Normal 0.00-0.03 [facility] Comment on above: Performed By: #### L IPID, TSH, CMP #### [facility] [address] [address] [address] Heather Aguirre IG % 0.3 % Normal 0.0-0.5 [facility] Comment on above: Performed By: #### L IPID, TSH, CMP #### [facility] [address] [place] [address] Dr. Heather Aguirre LYMPH # 2.9 103/ul Normal 1.2-3.8 [facility] Comment on above: Performed By: #### L IPID, TSH, CMP #### [facility] [address] [place] [address] Dr. Heather Aguirre Lymphocytes/100 WBC (Bld) 33.6 % Normal 20.5-60.0 [facility] Comment on above: Performed By: #### L IPID, TSH, CMP #### [facility] [address] [place] [address] Dr. Heather Aguirre MANUAL DIFF REQ NO Normal [facility] Comment on above: Performed By: #### L IPID, TSH, CMP #### [facility] [address] [place] [address] Dr. Heather Aguirre MCH (RBC) [Entitic mass] 30.0 pg Normal 26.7-34.0 [facility] Comment on above: Performed By: #### L IPID, TSH, CMP #### [facility] [address] [place] [address] Dr. Heather Aguirre MCHC (RBC) [Mass/Vol] 32.2 g/dL Normal 29.9-35.2 [facility] Comment on above: Performed By: #### L IPID, TSH, CMP #### [facility] [address] [place] [address] Dr. Heather Aguirre MCV (RBC) [Entitic vol] 93.1 fL Normal 81.0-99.0 [facility] Comment on above: Performed By: #### L IPID, TSH, CMP #### [facility] [address] [address] [address] Heather Aguirre MONO # 0.6 103/ul Normal 0.3-0.8 [facility] Comment on above: Performed By: #### L IPID, TSH, CMP #### [facility] [address] [place] [address] Dr. Heather Aguirre Monocytes/100 WBC (Bld) 7.1 % Normal 1.7-12.0 [facility] Comment on above: Performed By: #### L IPID, TSH, CMP #### [facility] [address] [place] [address] Dr. Heather Aguirre NEUT # 4.8 103/ul Normal 1.4-6.5 [facility] Comment on above: Performed By: #### L IPID, TSH, CMP #### [facility] [address] [place] [address] Dr. Heather Aguirre Neutrophils/100 WBC (Bld) 55.3 % Normal 43.0-75.0 [facility] Comment on above: Performed By: #### L IPID, TSH, CMP #### [facility] [address] [place] [address] Dr. Heather Aguirre Platelet mean volume (Bld) [Entitic vol] 10.2 fL Normal 9.5-13.5 [facility] Comment on above: Performed By: #### L IPID, TSH, CMP #### [facility] [address] [place] [address] Dr. Heather Aguirre PLT 329 103/ul Normal 150-450 [facility] Comment on above: Performed By: #### L IPID, TSH, CMP #### [facility] [address] [place] [address] Dr. Heather Aguirre RBC 4.04 106/ul Critically low 4.20-5.40 [facility] Comment on above: Performed By: #### L IPID, TSH, CMP #### [facility] [address] [place] [address] Dr. Heather Aguirre WBC 8.7 103/ul Normal 4.0-11.0 [facility] Comment on above: Performed By: #### L IPID, TSH, CMP #### [facility] [address] [address] [address] Heather Aguirre GLYCOHEMOGLOBIN A1Con 2021 ADA RECOMMENDATION SEE BELOW Normal [facility] Comment on above: Result Comment: ADA RECOMMENDED LIMIT 4.0 - 6.0 ADA THERAPEUTIC TARGET < 7.0 ACTION SUGGESTED > 7.0 Performed By: #### A 1C #### [facility] [address] [address] [address] Heather Aguirre Glucose [Mass/Vol] 108 mg/dL Normal [facility] Comment on above: Performed By: #### A 1C #### [facility] [address] [place] [address] Dr. Heather Aguirre HbA1c (Bld) [Mass fraction] 5.4 % Normal 4.5-6.2 [facility] Comment on above: Performed By: #### A 1C #### [facility] [address] [address] [address] Heatehr Aguirre LIPID PROFILEon 02-12-2022 CHOL-HDL RATIO NORM SEE BELOW Normal [facility] Comment on above: Result Comment: 3.3 - 4.4 LOW RISK 4.4 - 7.1 AVERAGE RISK 7.1 - 11.0 MODERATE RISK >11.0 HIGH RISK Performed By: #### L IPID, TSH, CMP #### [facility] [address] [address] [address] Heather Aguirre Cholesterol [Mass/Vol] 215 mg/dL Critically high <=200 [facility] Comment on above: Performed By: #### L IPID, TSH, CMP #### [facility] [address] [address] [address] Heather Aguirre Cholesterol in HDL [Mass/Vol] 59 mg/dL Normal 40-60 [facility] Comment on above: Performed By: #### L IPID, TSH, CMP #### [facility] [address] [address] [address] Heather Aguirre Cholesterol in LDL [Mass/Vol] 133.0 mg/dL Normal [facility] Comment on above: Performed By: #### L IPID, TSH, CMP #### [facility] [address] [address] [address] Heather Aguirre Cholesterol.total/Ch olesterol in HDL [Mass ratio] 3.6 {ratio} Normal [facility] Comment on above: Performed By: #### L IPID, TSH, CMP #### [facility] [address] [address] [address] Heather Aguirre HDL NORMAL > or = 60 mg/dl - LO W CARDIOVASCULAR RISK <40 mg/dl - HIGH CARDIOVASCULAR RISK Normal [facility] Comment on above: Performed By: #### L IPID, TSH, CMP #### [facility] [address] [address] [address] Heather Aguirre LDL CALC NORMAL SEE BELOW Normal [facility] Comment on above: Result Comment: <100 mg/dl OPTIMAL 100 - 129 mg/dl NEAR OR ABOVE OPTIMAL 130 - 159 mg/dl BORDERLINE HIGH 160 - 189 mg/dl HIGH >190 mg/dl VERY HIGH Performed By: #### L IPID, TSH, CMP #### [facility] [address] [address] [address] Heather Aguirre Triglyceride [Mass/Vol] 115 mg/dL Normal <=150 [facility] Comment on above: Performed By: #### L IPID, TSH, CMP #### [facility] [address] [address] [address] Heather Aguirre VLDL CALC 23.0 mg/dL Normal [facility] Comment on above: Performed By: #### L IPID, TSH, CMP #### [facility] [address] [address] [address] Heather Aguirre PROF 14(COMP METB)on 022 Albumin [Mass/Vol] 3.5 g/dL Normal 3.4-5.0 [facility] Comment on above: Performed By: #### L IPID, TSH, CMP #### [facility] [address] [place] [address] Dr. Heather Aguirre Albumin/Globulin [Mass ratio] 1.1 {ratio} Normal [facility] Comment on above: Performed By: #### L IPID, TSH, CMP #### [facility] [address] [address] [address] Heather Aguirre ALP [Catalytic activity/Vol] 56 U/L Normal 46-116 [facility] Comment on above: Performed By: #### L IPID, TSH, CMP #### [facility] [address] [address] [address] Heather Aguirre ALT [Catalytic activity/Vol] 25 U/L Normal 14-59 [facility] Comment on above: Performed By: #### L IPID, TSH, CMP #### [facility] [address] [place] [address] Dr. Heather Aguirre Anion gap [Moles/Vol] 1 mmol/L Normal [facility] Comment on above: Performed By: #### L IPID, TSH, CMP #### [facility] [address] [place] [address] Dr. Heather Aguirre AST [Catalytic activity/Vol] 10 U/L Critically low 15-37 [facility] Comment on above: Performed By: #### L IPID, TSH, CMP #### [facility] [address] [place] [address] Dr. Heather Aguirre Bilirubin [Mass/Vol] 0.5 mg/dL Normal 0.2-1.0 [facility] Comment on above: Performed By: #### L IPID, TSH, CMP #### [facility] [address] [place] [address] Dr. Heather Aguirre Calcium [Mass/Vol] 8.5 mg/dL Normal 8.5-10.1 [facility] Comment on above: Performed By: #### L IPID, TSH, CMP #### [facility] [address] [place] [address] Dr. Heather Aguirre Chloride [Moles/Vol] 102 mmol/L Normal 98-107 [facility] Comment on above: Performed By: #### L IPID, TSH, CMP #### [facility] [address] [address] [address] Heather Aguirre CO2 [Moles/Vol] 30.0 mmol/L Normal 21.0-32.0 [facility] Comment on above: Performed By: #### L IPID, TSH, CMP #### [facility] [address] [address] [address] Heather Aguirre Creatinine [Mass/Vol] 1.07 mg/dL Critically high 0.55-1.02 [facility] Comment on above: Performed By: #### L IPID, TSH, CMP #### [facility] [address] [address] [address] Heather Aguirre EGFR-AF GHANAIAN >60 Normal >=60 [facility] Comment on above: Performed By: #### L IPID, TSH, CMP #### [facility] [address] [place] [address] Dr. Heather Aguirre EGFR-NON AF GHANAIAN 52 mL/min/1.73m2 Critically low >=60 [facility] Comment on above: Performed By: #### L IPID, TSH, CMP #### [facility] [address] [address] [address] Heather Aguirre Globulin (S) [Mass/Vol] 3.2 g/dL Normal [facility] Comment on above: Performed By: #### L IPID, TSH, CMP #### [facility] [address] [address] [address] Heather Aguirre Glucose [Mass/Vol] 96 mg/dL Normal 74-106 [facility] Comment on above: Performed By: #### L IPID, TSH, CMP #### [facility] [address] [address] [address] Heather Aguirre Potassium [Moles/Vol] 4.0 mmol/L Normal 3.5-5.1 [facility] Comment on above: Performed By: #### L IPID, TSH, CMP #### [facility] [address] [address] [address] Heather Aguirre Protein [Mass/Vol] 6.7 g/dL Normal 6.4-8.2 [facility] Comment on above: Performed By: #### L IPID, TSH, CMP #### [facility] [address] [address] [address] Heather Aguirre Sodium [Moles/Vol] 127 mmol/L Critically low 136-145 [facility] Comment on above: Performed By: #### L IPID, TSH, CMP #### [facility] [address] [place] [address] Dr. Heather Aguirre Urea nitrogen [Mass/Vol] 20.0 mg/dL Critically high 7.0-18.0 [facility] Comment on above: Performed By: #### L IPID, TSH, CMP #### [facility] [address] [place] [address] Dr. Heather Aguirre Urea nitrogen/Creatinine [Mass ratio] 18.7 mg/mg Normal [facility] Comment on above: Performed By: #### L IPID, TSH, CMP #### [facility] [address] [place] [address] Dr. Heather Aguirre TSHon 02-12-2022 TSH 1.693 uIU/mL Normal 0.358-3.740 [facility] Comment on above: Performed By: #### L IPID, TSH, CMP #### [facility] [address] [place] [address] Dr. Heather Aguirre Vital Signs Date Time Vital Sign Value Performing Clinician Facility 07-04-2024 09:18-0500 Body mass index (BMI) [Ratio] 36.72 kg/m2 [employer] [facility] Work Phone: [facility] 07-04-2024 09:18-0500 Body weight 85.28 kg [facility] Work Phone: [facility] 07-04-2024 09:18-0500 Diastolic blood pressure 78 mm[Hg] [facility] Work Phone: [facility] 07-04-2024 09:18-0500 Systolic blood pressure 124 mm[Hg] [facility] Work Phone: [facility] 04-12-2024 14:19-0400 Blood Pressure Location Price N[facility] [place] 04-12-2024 14:19-0400 Diastolic blood pressure 82 mm[Hg] [facility] 04-12-2024 14:19-0400 Heart rate 76 /min Price [facility] 04-12-2024 14:19-0400 Respiratory rate 16 /min Price N[facility] 04-12-2024 14:19-0400 Systolic blood pressure 118 mm[Hg] Price NILL [facility] 03-07-2024 08:31-0400 Body height 152.4 cm [facility] 03-07-2024 08:31-0400 Body mass index (BMI) [Ratio] 36.1 kg/m2 [facility] 03-07-2024 08:31-0400 Body weight 83.91 kg [facility] 03-07-2024 08:31-0400 Diastolic blood pressure 101 mm[Hg] [facility] 03-07-2024 08:31-0400 Heart rate 69 /min [facility] 03-07-2024 08:31-0400 Systolic blood pressure 159 mm[Hg] [facility] 10-08-2023 10:14-0500 Body height 152.4 cm [facility] 10-08-2023 10:14-0500 Body mass index (BMI) [Ratio] 35.8 kg/m2 [facility] 10-08-2023 10:14-0500 Body weight 83.12 kg [facility] 10-08-2023 10:14-0500 Diastolic blood pressure 80 mm[Hg] [facility] 10-08-2023 10:14-0500 Heart rate 83 /min [facility] 10-08-2023 10:14-0500 Systolic blood pressure 132 mm[Hg] [facility] 02-26-2023 08:30-0400 Body height 152.4 cm Tanvi De Oliveira Other [facility] Other 02-26-2023 08:30-0400 Body mass index (BMI) [Ratio] 35.93 kg/m2 Tanvi De Oliveira Other [facility] Other 02-26-2023 08:30-0400 Body weight 83.46 kg Tanvi De Oliveira Other [facility] Other 02-26-2023 08:30-0400 Diastolic blood pressure 84 mm[Hg] Tanvi De Oliveira Other [facility] Other 02-26-2023 08:30-0400 Systolic blood pressure 145 mm[Hg] Tanvi De Oliveira Other [facility] Other Encounters Encounter Date Encounter Type Care Provider Facility Start: 07-04-2024 End: 07-04-2024 Patient encounter procedure Jrei Russo [employer] Work Phone: [facility] Start: 07-04-2024 End: 07-04-2024 Periodic preventive med est patient 65yrs& older Jeri Russo [employer] Phone: [facility] Comment on above: Well woman exam with routine gynecological exam; Breast cancer screening by mammogram; Osteoporosis, post-menopausal ([facility]/HCC) Start: 05-27-2024 End: 05-27-2024 [facility] Start: 05-04-2024 End: 05-04-2024 ambulatory Price AVILA Facility:CD:[id number] Start: 04-12-2024 End: 04-12-2024 ambulatory Price AVILA Facility: [place] Start: 04-12-2024 End: 04-12-2024 Patient encounter procedure Price AVILA [facility] Start: 03-08-2024 ambulatory Price AVILA Facility:[facility] Start: 03-07-2024 Physical examination [facility] Start: 03-07-2024 End: 03-07-2024 ambulatory [facility] Work Phone: Start: 03-07-2024 End: 03-07-2024 Encounter for general adult medical examination without abnormal findings [facility] Start: 03-07-2024 End: 03-07-2024 Patient encounter procedure [facility] Physician [facility] Work Phone: Start: 01-01-2024 End: 01-01-2024 ambulatory [facility] Start: 11-26-2023 End: 11-26-2023 ambulatory [facility] Start: 11-06-2023 End: 11-06-2023 ambulatory [facility] Start: 10-23-2023 End: 10-23-2023 ambulatory [facility] Start: 10-08-2023 End: 10-08-2023 ambulatory [facility] Work Phone: Start: 10-08-2023 End: 10-08-2023 Patient encounter procedure [facility] Physician [facility] Work Phone: Start: 07-02-2023 End: 07-02-2023 ambulatory JERI RUSSO Not Available Start: 02-26-2023 End: 02-26-2023 ambulatory Tanvi De Oliveira Other [facility] Other Start: 02-26-2023 Encounter for genera l adult medical examination without abnormal findings Tanvi De Oliveira [facility] Start: 02-26-2023 Periodic preventive med est patient 65yrs& older Tanvi De Oliveira [facility] Start: 07-14-2022 End: 07-15-[address] TANVI DE OLIVEIRA Facility: Start: 07-01-2022 End: 07-01-[address] JERI RUSSO Facility:[facility] Start: 06-11-2022 End: 06-12-[address] TANVI DE OLIVEIRA Facility:[facility] Start: 06-10-2022 End: 06-11-[address] JERI RUSSO Facility:[facility] Start: 02-14-2022 Encounter for genera l adult medical examination without abnormal findings DR TANVI DE OLIVEIRA [facility] Start: 02-12-2022 End: 02-13-[address] TANVI DE OLIVEIRA Facility:[facility] Start: 02-12-2022 End: 02-13-2022 Encounter for general adult medical examination without abnormal findings DR TANVI DE OLIVEIRA Facility:[facility] Procedures Date Procedure Procedure Detail Performing Clinician Start: 07-04-2024 Mammography Jeri urban DO Work Phone: Start: 07-02-2023 Cytp cerv/vag auto t hin layer prep mnl screen Jeri Russo DO Work Phone: Start: 12-09-2013 Colonoscopy Jeri urban DO Work Phone: Start: 12-09-2013 Colonoscopy Price NI LL Appendectomy Price NILL Cardiac catheterization Robel ael NILL Cholecystectomy Price NILL Decompression of med francisco j nerve Price NILL Extraction of cataract Abundio el NILL Repair of right ingu inal hernia Price NILL Tonsillectomy Price NILL Total abdominal hyst erectomy with bilateral salpingo-oophorectomy Price NILL Plan of Treatment Date Care Activity Detail Author Start: 07-10-2025 End: 07-10-2025 Patient encounter procedure 07/10/2025 8:30 AM EST Office Visit [facility] [address] [place] [address] [place] [address] Jeri Russo DO [address] [place] [address] [facility] Start: 07-04-2025 Screening for malign ant neoplasm of breast Mammogram [facility] Start: 07-04-2024 End: 07-04-2025 DXA Skeletal system Views for bone density DEXA bone density Imaging Routine Osteoporosis, post-menopausal (CMS/HCC) Expected: 07/04/2024 (Approximate), Expires: 07/04/2025 [facility] Work Phone: Comment on above: Expected: 07/04/2024 (Approximate), Expires: 07/04/2025 Start: 12-10-2023 Screening for malign ant neoplasm of colon [facility] Start: 2022 Pneumococcal Vaccine : 65+ Years (1 of 1 - PCV) Pneumococcal Vaccine: 65+ Years (1 of 1 - PCV) [facility] Start: 1955 Screening for malign ant neoplasm of colon [facility] Comprehensive metabo lic 2000 panel - Serum or Plasma [facility] EKG 12 channel panel [facility] THIN PREP TIS PAP AN D HR HPV DNA THIN PREP TIS PAP AND HR HPV DNA Pathology and Cytology Routine Well woman exam with routine gynecological exam Ordered: 07/04/2024 [facility] Comment on above: Ordered: 07/04/[address] [facility] Immunizations Immunization Date Immunization Notes Care Provider Fa ulices 06-07-2021 SARS-CoV-2 (COVID-19 ) mRNA-1273 vaccine Price AVILA [facility] 09-19-2020 SARS-CoV-2 (COVID-19 ) mRNA-1273 vaccine Price NILL [facility] 08-23-2020 SARS-CoV-2 (COVID-19 ) mRNA-1273 vaccine Price NILL [facility] Payers Date Payer Category [id number] 08-17-2022 Blue Cross Blue Shield BCBS [id number] 08-17-2019 Unknown [id number] 1955 Unknown [id number] 1957 Unknown [id number] 1957 Unknown [id number] 1957 Unknown [id number] 1957 Unknown [id number] 1957 Unknown [id number] 1957 Unknown [id number] 1957 Unknown [id number] 1957 Unknown [id number] Social History Date Type Detail Facility Start: 07-04-2024 Sex Assigned At F [facility] Start: 06-19-2023 End: 10-06-2023 Tobacco smoking status NHIS Ex-smoker (finding) [facility] Start: 1955 Sex Assigned At Female F [facility] of tobacco use Current smoker [facility] History of tobacco use Cigarette Smoker N [facility] Start: 07-04-2024 Alcoholic beverage intake Ex-drinker (finding) [facility] Start: 07-04-2024 History of Social function [facility] Start: 06-19-2023 Alcohol Comment Ocasional alcohol us e [facility] Start: 1955 Sex assigned at Not on file N [facility] Start: 06-27-2023 Gender identity Identifies as female gender (finding) [facility] Functional Status Date Assessment Result Facility 04-12-2024 Functional Status N/A [facility] Clinical Notes 02-26-2023 to 07-04-2024 Trudy Clarke LPN - 07/04/2024 9:00 AM EST Note Date & Type Note Facility 07-04-2024 History of Present illness Narrative Reason for Appointment: Patient ID: Mackenzie Patel is a 68 y.o. female who presents for Gynecologic Exam Patient presents today for Annual Exam. MEDICATIONS Current Outpatient Medications Medication Instructions alendronate (FOSAMAX) 70 mg, Oral, Weekly, Take in the morning with a full glass of water, on an empty stomach, and do not take anything else by mouth or lie down for the next 30 min. cycloSPORINE (Restasis) 0.05 % ophthalmic emulsion 1 drop, Both Eyes, Every 12 hours levothyroxine (SYNTHROID, LEVOXYL) 100 mcg, Oral, Daily before breakfast ALLERGIES Allergies Allergen Reactions Kiwi Extract Anaphylaxis and Swelling Shellfish-Derived Products Hives, Itching, Rash and Shortness of breath Fish Oil Unknown Shellfish Allergy Rash PROBLEMS Active Ambulatory Problems Diagnosis Date Noted No Active Ambulatory Problems Resolved Ambulatory Problems Diagnosis Date Noted No Resolved Ambulatory Problems Past Medical History: Diagnosis Date BMI 34.0-34.9,adult Chronic tension-type headache, not intractable Depression screening Depression, major (CMS/HCC) Hip pain, right Hypothyroidism (CMS/HCC) Lumbar radiculopathy, right Osteoarthritis of right hip Osteopenia, unspecified location Postmenopausal Trochanteric bursitis of right hip UTI symptoms Vaginal dryness, menopausal Well woman exam HISTORY PAST MEDICAL HISTORY SOCIAL HISTORY Past Medical History: Diagnosis Date BMI 34.0-34.9,adult Chronic tension-type headache, not intractable Depression screening Depression, major (CMS/HCC) Hip pain, right Hypothyroidism (CMS/HCC) Lumbar radiculopathy, right Osteoarthritis of right hip Osteopenia, unspecified location Postmenopausal Trochanteric bursitis of right hip UTI symptoms Vaginal dryness, menopausal Well woman exam Social History Tobacco Use Smoking status: Former Types: Cigarettes Smokeless tobacco: Not on file Substance Use Topics Alcohol use: Not Currently Comment: Ocasional alcohol use Drug use: Never FAMILY HISTORY Family History Problem Relation Name Age of Onset Hypertension Mother Dementia Mother Heart disease Mother Alzheimer's disease Mother Thyroid disease Mother Diabetes Father Hypertension Father Thyroid disease Sister Hypertension Maternal Grandmother Diabetes Maternal Grandmother Cancer Maternal Grandfather Heart disease Sibling Hypertension Sibling Diabetes Daughter SURGICAL HISTORY Past Surgical History: Procedure Laterality Date CARPAL TUNNEL RELEASE Right 02/02/2017 Dr. Taylor CHOLECYSTECTOMY 1999 COLONOSCOPY 2013 HERNIA REPAIR 1971 TONSILLECTOMY 1961 TOTAL ABDOMINAL HYSTERECTOMY 08/03/1998 REVIEW OF SYSTEMS Review of Systems: Review of Systems All other systems reviewed and are negative. OBJECTIVE Objective: Physical Exam Constitutional: Appearance: Normal appearance. She is well-developed. Genitourinary: Vulva normal. Vaginal cuff intact. Cervix is absent. Uterus is absent. Breasts: Breasts are soft. Right: Normal. Left: Normal. Cardiovascular: Rate and Rhythm: Normal rate and regular rhythm. Abdominal: General: Bowel sounds are normal. There is no distension. Palpations: Abdomen is soft. Tenderness: There is no abdominal tenderness. There is no guarding or rebound. Musculoskeletal: General: No swelling. Normal range of motion. Right lower leg: No edema. Left lower leg: No edema. Neurological: Mental Status: She is alert and oriented to person, place, and time. Skin: General: Skin is warm and dry. Psychiatric: Mood and Affect: Mood normal. Behavior: Behavior normal. Vitals and nursing note reviewed. Exam conducted with a transit police officer present. Vitals: Estimated body mass index is 36.72 kg/m as calculated from the following: Height as of 07/02/23: 5'. Weight as of this encounter: 188 lb. BP: 124/78 No LMP recorded. Patient has had a hysterectomy. ASSESSMENT & PLAN ICD-10-CM 1. Well woman exam with routine gynecological exam Z01.419 THIN PREP TIS PAP AND HR HPV DNA 2. Breast cancer screening by mammogram Z12.31 CANCELED: Bilateral screening mammogram CANCELED: Bilateral screening mammogram 3. Osteoporosis, post-menopausal ([facility]) M81.0 DEXA bone density Annual: Patient presents today for an annual exam. Patient states she is doing well and has no complaints. Pap was obtained without difficulty and patient given mammogram order to have scheduled/obtained. Orders Placed This Encounter Procedures DEXA bone density Follow Up: Patient is to return in one year for annual unless needed otherwise. Documented by Trudy Clarke LPN on behalf of: Jeri Russo DO documented in this encounter [facility] 05-27-2024 Note [facility] Note HPI: Mackenzie Patel is a 68 y.o. female With a remote history of tobacco abuse who is referred to referred to Cardiology clinic for evaluation of Chest pain. She had cardiac cath done which demonstrated moderate non onbstructive CAD. She presents today for follow up. Patient is doing well. She denies any cardiac complaints or concerns. She denies any chest pain. She denies any shortness of breath. She denies any lower extremity edema, orthopnea, or paroxysmal nocturnal dyspnea. She is very pleased with how she is doing. Cardiology ROS: 10 point ROS is performed [...] 81 mg by mouth in the morning. carvedilol [...] mouth in the morning. 90 tablet 3 buPROPion XL (Wellbutrin XL) 150 mg 24 hr tablet Take 150 mg by mouth in the morning. No current facility-administered medications on file prior to visit. Allergies Shellfish derived Physical Exam VITAL SIGNS: BP (!) 139/93 Pulse 63 Ht 1.524 m (5') Wt 85.7 kg (189 lb) SpO2 99% BMI 36.91 kg/m??? Constitutional: Well developed, Well nourished, No [...] CAD -Chest pain, resolved -Dyspnea on exertion -Hypertension, suboptimally controlled -Previous tobacco abuse Plan: -Continue Coreg 6.25 twice daily for hypertension and for CAD -Continue Crestor 20 mg daily and aspirin 81 mg daily for CAD, in addition to Imdur 30 mg daily -Lipid panel reviewed. LDL at goal. Continue current management -Given suboptimally controlled blood pressure, will add amlodipine 5 mg daily. Patient instructed to check daily blood pressure at home 2 hours after taking medication. Patient is instructed to maintain daily blood pressure log. Patient is to contact cardiology if blood pressures above discuss target range. Patient voices understanding. -Optimize medical management -Aggressive risk factor modification -Plan of care discussed with patient. All questions were answered. Patient voices understanding and is agreeable with current plan. -Patient was educated on red flag symptoms. Strict return precautions were provided. Patient verbalizes understanding -Follow-up in cardiology clinic after testing, or sooner as needed Dwayne Richmond MD Interventional Cardiology [facility] 04-12-2024 Note General Surgery Offi ce/Clinic Note [...] Mother and Br (more content not included)... [facility] Comment on above: Result Comment: Elec tronically Signed By: AUSTIN RUBALCAVA, Price Rogers\.br\Date and Time Signed: 04/12/24 14:47 EDT 01-01-2024 Note [facility] Note HPI: Mackenzie Patel is [...] Dwayne Richmond MD Interventional Cardiology [facility] 11-26-2023 Note Patient: Mackenzie muhammad Procedure Information Date/Time: 11/26/23 1030 Procedure: Coronary angiography (Left) Location: [facility]INER[facility] OPER[facility] 3 / [facility] (Cath) Providers: Dwayne Richmond MD [...] Plan discussed with attending. Additional Equipment Requests [facility] 11-06-2023 Note Cardiology Clinic No te Chief [...] -Continue Coreg 6.2 (more content not included)... [facility] 11-06-2023 Note Patient here for fol low up echo and stress test. She was started on carvedilol and rosuvastatin at last apt, and is tolerating them well so far. Review of Systems Cardiovascular: Positive for chest pain and dyspnea on exertion. Musculoskeletal: Positive for muscle cramps. All other systems reviewed and are negative. [facility] 10-23-2023 Note Cardiology Clinic No te Chief [...] Patrick (more content not included)... [facility] 10-23-2023 Note New patient here to establish [...] Scheduled for stress test next week at [facility]. Review of Systems Cardiovascular: Positive for chest pain and dyspnea on exertion. Musculoskeletal: Positive for muscle cramps. All other systems reviewed and are negative. [facility] 02-26-2023 Evaluation note Encounter Date Diagnosis Assessment [...] colonscopy in 2013 - repeat next year. [facility] Other Evaluation + Plan note No data available for this section [facility] [place] Evaluation note* Diagnosis Onset Date Resolution Status Dyspnea on exertion acute Epigastric abdominal pain ac [place] Left-sided chest wall pain a cute [facility] Work Phone: Evaluation note* Diagnosis Onset Date Resolution Status Well adult exam acute [facility] Work Phone: Evaluation note* Diagnosis Well woman exam with routine gynecological exam Routine gynecological examination Breast cancer screening by mammogram Osteoporosis, post-menopausal (CMS/HCC) Senile osteoporosis documented [facility] - Reported* Type Description Date [...] Dr. Mejia Hospitalization History SEE SURGICAL HX [facility] Other Hospital Discharge instructions No data available for this section [facility] Progress note No data available for this section [facility] Summary Purpose Family History Relationship Condition Age at Onset Recorded Date/T [...] history of thyroid disease Unknown Advance Directives Advance Directive Response Recorded Date/ Time Advance [...] DATE CREATED AUTHOR AUTHOR'S ORGANIZ ATION 07/04/[address] [facility] EPIC DATE CREATED AUTHOR AUTHOR'S ORGANIZ ATION 05/12/2024 [facility] DATE CREATED AUTHOR AUTHOR'S ORGANIZ ATION 05/29/2024 [facility] REASON FOR VISIT (unrecogniz ed section and content) Reason Comments Gynecologic Exam Care Teams (unrecognized sec tion and content) [...] March 07, 2024 End: March 07, 2024 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 [employer] provides no warranty or guarantee of the accuracy or completeness of information in this document.
== END 2024-07-04 21:37 | disposition home or self-care (01) ==
LOC: LAB 21:36
PROVIDERS: PCP Family Medicine; Visit Provider Obstetrics & Gynecology
DX: Z01.419 Encounter for gynecological examination (general) (routine) without abnormal findings (principal)
CPT/HCPCS: 88175

== ENCOUNTER 2024-08-08 08:00 | Outpatient (OUT) | payer BC, SELFPAY ==
--- NOTE | 2024-08-08 08:02 | XR_ITS ---
The [address] [address] Patient Name: MIRYAM PATEL MRN: [id number] date: 1955 Sex: F Assigned Patient Location: [facility] Current Patient Location: [facility] Accession/Order Number: [id number] Exam Date: 08/08/2024 08:05 Report Date: 08/08/2024 22:59 At the request of: JERI AMAYA Procedure: XR DEXA axial skeleton EXAMINATION: XR DEXA axial skeleton HISTORY: Osteoporosis COMPARISON: DEXA bone densitometry 10/18/2009 spine, 06/10/2022 femurs TECHNIQUE: Dual-energy X-ray absorptiometry (DXA) was performed. FINDINGS: SPINE ANALYSIS: Average bone mineral density is 1.097 g/cm2. T-score (standard deviation relative to young adult mean): -0.7 . +10.4% change since prior study. HIP ANALYSIS: Lowest bone mineral density is within the right femoral neck, 0.737 g/cm2. T-score (standard deviation relative to young adult mean): -2.2 . -6.0% change since prior study. XR/XR DEXA axial skeleton IMPRESSION: World Health Organization Classification: Osteopenia - Moderate Fracture Risk FRAX: Cannot be calculated. Pharmacologic treatment recommendations * No uniform recommendation applies to all patients. Management plans must be individualized. * Consider initiating pharmacologic treatment in postmenopausal women and men >= 50 years of age who have the following: Primary fracture prevention: * T-score <= - 2.5 at the femoral neck, total hip, lumbar spine, 33% radius (some uncertainty with existing data) by DXA. * Low bone mass (osteopenia: T-score between - 1.0 and - 2.5) at the femoral neck or total hip by DXA with a 10-year hip fracture risk >= 3% or a 10-year major osteoporosis-related fracture risk >= 20% (i.e., clinical vertebral, hip, forearm, or proximal humerus) based on the [place]-adapted FRAXregistered model. Secondary fracture prevention: * Fracture of the hip or vertebra regardless of BMD [4, 5]. * Fracture of proximal humerus, pelvis, or distal forearm in persons with low bone mass (osteopenia: T-score between - 1.0 and - 2.5). The decision to treat should be individualized in persons with a fracture of the proximal humerus, pelvis, or distal forearm who do not have osteopenia or low BMD [12, 13]. Kim MS, Jie SL, Max KL, Safia EM, Asmita KG, AJ, Hunter ES. The clinician's guide to prevention and treatment of osteoporosis. Osteoporos Int. 2021;33(10):9726-9198. doi: 10.1007/x01128-701-33077-j. Epub 2021Dec 12. Erratum in: Osteoporos Int. 2021Mar 13;: PMID: [id number]; PMCID: [id number]. Electronically authenticated by: IZABELLA MUHAMMAD Date: 08/08/2024 22:59
--- OUTSIDE RECORDS SUMMARY | 2024-08-08 08:21 | XMS_ITS | CCD ---
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 Name Role Phone ALVINO, DR TANVI Perez Primary Care Unavailable RAFAELA, DR WILCOX Admitting Unavailable RAFAELA, DR WILCOX Attending Unavailable WEST, DR KATHIE Ganoa Consulting Unavailable RAFAELA, DR WILCOX Consulting Unavailable RAFAELA, DR WILCOX Admitting Unavailable RAFAELA, DR WILCOX Attending Unavailable DEO LIVEIRA, DR TANVI Perez Primary Care Unavailable WEST, DR KATHIE Gaona Consulting Unavailable RAFAELA, DR WILCOX Consulting Unavailable RAFAELA, DR WILCOX Admitting Unavailable RAFAELA, DR WILCOX Attending Unavailable DE OLIVEIRA, DR TANVI Perez Primary Care Unavailable RAFAELA, DR WILCOX Consulting Unavailable DE OLIVEIRA, DR [...] Perez Consulting Unavailable Tanvi De Oliveira Unavailable TANVI DE OLIVEIRA Primary Care Physician [phone] Price AVILA Attending Unavailable TANVI DE OLIVEIRA Referring Unavailable Price AVILA Attending Unavailable DWAYNE RICHMOND Admitting Unavailable DWAYNE RICHMOND Attending Unavailable DWAYNE RICHMOND Referring Unavailable DWAYNE RICHMOND Attending Unavailable DWAYNE RICHMOND Attending Unavailable DWAYNE RICHMOND Attending Unavailable DWAYNE RICHMOND Attending Unavailable Tanvi De Oliveira MD Primary Care Provider JERI RUSSO Attending Unavailable Allergies Allergy Classification Reported Allergen(s) Allergy Type Date of Onset Reaction(s) Facility (3 sources) Shellfish; Translations: [shellfish] Drug allergy (disorder) 4 Eruption of skin (disorder) [facility] Repository (1 source) kiwi Drug allergy (disorder) 2 [facility] Repository (1 source) No Known Medication Allergies; Translations: [No Known Medication Allergies] Propensity to adverse reactions (disorder) [facility] Repository (1 source) Shellfish; Translations: [SHELLFISH DERIVED] Propensity to adverse reactions to drug (disorder) 4 [facility] Repository (3 sources) Fish Oils Drug Allergy 3 Unknown [facility] Work Phone: (3 sources) Kiwi fruit Propensity to adverse reactions 3 Anaphylaxis, Swelling [facility] (2 sources) Shellfish Allergy to substance 4 Rash [facility] (3 sources) Shellfish-Deriv ed Products Drug Intolerance 3 Hives, Itching, Rash, Shortness of breath [facility] NEGATED: Highlighted row has been ruled out! (1 source) Drug allergy [facility] Medications Current Medications Medication Drug Class(es) Dates Sig (Normalized) Sig (Original) alendronic acid 70 mg oral tablet (10 sources) Bisphosphonate Start: 10-07-2023 take 1 tablet by mouth once daily Alendronate Active 1 TAB PO Daily October 07, 2023 1:00am FreeTextSi tablet 30 minutes before the first food, beverage or medicine of the day with plain water Orally; Note: Source Status: Taking; Provider: Alvino Tinajero ( ) Start: 07-02-2023 take 1 tablet by rayo th every week in the morning alendronate (Fosamax) 70 MG tablet Indications: Other osteoporosis, unspecified pathological fracture presence (CMS/HCC) Take 1 tablet (70 mg) by mouth 1 (one) time per week. Take in the morning with a full glass of water, on an empty stomach, and do not take anything else by mouth or lie down for the next 30 min. 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; Translations: [[employer] CURRENT DRUG THERAPY] Onset: 07-17-2022 Episodic Other bone disease and musculoskeletal deformities (1 source) Other specified disorders of bone density and structure, unspecified site; Translations: [[facility] D/O BONE DEN STRUCT UNS SITE] [...] Range Facility Office Visiton 05-27-2024 Follow-up visit [id number] Mackenzie Patel 1955 F Date Provider [facility] Family History Problem Relation Age of Onset Coronary artery disease Mother Other Mother Heart attack Father 90 Family Status - Relation Status Age at Mother Father Level of Service:56699 MT OFFICE/OUTPATIENT ESTABLISHED MOD MDM 30 MIN Normal [facility] Reminderson 05-05-2024 Reminders Reminders From: Luann Huerta LPN To: N - Clinical; Sent: 05/05/2024 09:35:27 EDT Show up: 04/03/2034 07:00:00 EDT Subject: colonoscopy recall Due Date/Time: 05/04/2034 07:00:00 EDT Reminder/Recall Patient due for screening colonoscopy 05/04/2034. Normal [facility] Ambulatory Visit Summaryon 0 04-12-2024 Ambulatory Visit Summary Ambulatory Visit Summary AMANDA, MACKENZIE Lopez :1955 Visit Date:04/12/2024 Ambulatory Visit Instructions Your [...] you for choosing us for your care. [facility] Office Visiton 01-01-2024 Follow-up visit [id number] Mackenzie Patle 1955 Date Provider Department Center 01/01/2024 3848-DWAYNE RICHMOND JEY [facility] Family History Problem Relation Age of Onset Coronary artery disease Mother Other Mother Heart attack Father 90 Family Status - Relation Status Age at Mother Father Level of Service:29287 MT OFFICE/OUTPATIENT ESTABLISHED LOW MDM 20 MIN Normal [facility] Letter (Out)on 12-10-2023 Letter (Out) [id number] Mackenzie Patel 1955 Date Provider Department Center 12/10/2023 None-None [email or web address] AUTH [facility] Family History Problem Relation Age of Onset Coronary artery disease Mother Other Mother Heart attack Father 90 Family Status - Relation Status Age at Mother Father Normal [facility] HPon 11-26-2023 HP - Attestation signed by [...] understands these risks and wishes to proceed. [facility] NURSNOTEon 11-26-2023 NURSNOTE RN educated pt on d/ c instructions. RN encouraged pt to voice any questions or concerns. Pt verbalizes no questions or concerns at this time. Pt was wheeled off of unit with all of belongings. [facility] Letter (Out)on 11-18-2023 Letter (Out) [id number] Mackenzie Patel 1955 F Date Provider Department Center 11/18/2023 None-None [facility] [[email or web address] Family History Problem Relation Age of Onset Coronary artery disease Mother Other Mother Heart attack Father 90 Family Status - Relation Status Age at Mother Father [facility] Orders Onlyon 11-11-2023 Orders Only [id number] Mackenzie Patel 1955 F Date Provider Department Center 11/11/2023 JOSLYN LOPEZ [facility] Family History Problem Relation Age of Onset Coronary artery disease Mother Other Mother Heart attack Father 90 Family Status - Relation Status Age at Mother Father [facility] HPon 11-06-2023 Cardiology Clinic Note Chief [...] Coreg 6.2 (more content not included)... Normal [facility] Office Visiton 11-06-2023 Follow-up visit [id number] Mackenzie Patel 1955 F Date Provider Department Center 11/06/2023 DWAYNE CHRISTIANSEN Family History Problem Relation Age of Onset Coronary artery disease Mother Other Mother Heart attack Father 90 Family Status - Relation Status Age at Mother Father Level of Service:17309 MT OFFICE/OUTPATIENT ESTABLISHED LOW MDM 20 MIN Normal [facility] Orders Onlyon 11-06-2023 Orders Only [id number] Mackenzie Patel 1955 F Date Provider Department Center 11/06/2023 [facility] Family History Problem Relation Age of Onset Coronary artery disease Mother Other Mother Heart attack Father 90 Family Status - Relation Status Age at Mother Father Normal [facility] Office Visiton 10-23-2023 Follow-up visit [id number] Mackenzie Patel 1955 F Date Provider Department Center 10/23/2023 DWAYNE CHRISTIANSEN Family History Problem Relation Age of Onset Coronary artery disease Mother Other Mother Heart attack Father 90 Family Status - Relation Status Age at Mother Father Level of Service:53164 MT OFFICE/OUTPATIENT NEW MODERATE MDM 45 MINUTES Normal [facility] Cytology Cervical or vaginal smear or scraping studyon 07-02-2023 [facility] Cov[facility] 06-18 SARS-CoV-2 (COVID-19) RNA LARA+probe Ql (Unsp spec) Not detected Normal NOT DETECTED [facility] Comment on above: Result Comment: When [...] for this test is supported by the Supervisor [employer] and Human Service's declaration that [...] used). Performed By: #### C VDTB #### [facility] [address] [place] [address] Dr. Heather Aguirre INFLUENZA A AND B AGon 07-14 INFLUENZA A AG Positive Abnormal NEGATIVE SEE COMMENT [facility] Comment on above: Performed By: #### I NFLUAB #### [facility] [address] [place] [address] Dr. Heather Aguirre INFLUENZA B AG Negative Normal NEGATIVE SEE COMMENT [facility] Comment on above: Performed By: #### I NFLUAB #### [facility] [address] [place] [address] Dr. Heather Aguirre INTERNAL CONTROLS Within Normal Limits Normal Wi thin Normal Limits [facility] Comment on above: Performed By: #### I NFLUAB #### [facility] [address] [place] [address] Dr. Heather Aguirre XR CHEST 2 Von [...] by: KATHIE HOPKINS Date: 2022-07-14 21:21 Normal [facility] PAP ACOG PANEL 2: 30 to 65on 07-09-2022 . . Normal [facility] Comment on above: Result Comment: Perf ormed at: WB Performed By: #### [id number] #### [facility] [address] [place] [address] Dr. Heather Aguirre Age Gdln ACOG Testing 30-65 Normal [facility] Comment on above: Performed By: #### 4 [id number] #### [facility] [address] [place] [address] Dr. Heather Aguirre DIAGNOSIS: Comment Normal [facility] Comment on above: Result Comment: NEGA TIVE FOR INTRAEPITHELIAL LESION OR MALIGNANCY. CELLULAR CHANGES ASSOCIATED WITH ATROPHY ARE PRESENT. Performed at: WB Performed By: #### [id number] #### [facility] [address] [place] [address] Dr. Heather Aguirre HPV Aptima Negative Normal Negative [facility] Comment on above: Result Comment: This nucleic acid amplification test detects fourteen high-risk HPV types (16,18,31,33,35,39,45,51,52,56,58,59,66,68) without differentiation. Performed at: =G Performed By: #### 4 [id number] #### [facility] [address] [place] [address] Dr. Heather Aguirre HPV Genotype Reflex Comment Normal [facility] Comment on above: Result Comment: Crit eria not met, HPV Genotype not performed. Performed at: WB Performed By: #### 4 [id number] #### [facility] [address] [place] [address] Dr. Heather Aguirre Methodology: CTIM Normal [facility] Comment on above: Result Comment: The Thin Prep(R) [employer]ris[employer] Attorney was unable to read this specimen. Therefore a manual review was performed. Performed at: WB Performed By: #### 4 [id number] #### [facility] [address] [place] [address] Dr. Heather Aguirre Note: Comment Normal [facility] Comment on above: Result Comment: The Pap smear is a screening test designed to aid in the detection of premalignant and malignant conditions of the uterine cervix. It is not a diagnostic procedure and should not be used as the sole means of detecting cervical cancer. Both false-positive and false-negative reports do occur. . Performed at: WB Performed By: #### [id number] #### [facility] [address] [place] [address] Dr. Heather Aguirre Performed by: Comment Normal [facility] Comment on above: Result Comment: Supriya Amador, Supervisor [employer] (ASCP) Performed at: WB Performed By: #### 4 [id number] #### [facility] [address] [place] [address] Dr. Heather Aguirre Specimen adequacy: Comment Normal [facility] Comment on above: Result Comment: Sati sfactory for evaluation. Endocervical component may not be distinguished in cases of atrophy. Performed at: WB Performed By: #### 4 [id number] #### [facility] [address] [address] [address] Heather Aguirre MG MAMM SCREEN 3D YOU CADon 06-11-2022 MG MAMM SCREEN 3D YOU CAD Patient: MACKENZIE PATEL Exam Date: 06/11/2022 : 1955 Gender:F Ordering : DR JERI RUSSO . Admission #: [id number] Family : Order #: [id number] CLICK HERE TO VIEW EXAM RADIOLOGY REPORT [...] skin cancer at age 65. LOCATION: [facility] BREAST COMPOSITION: Scattered areas fibroglandular density. [...] Olvera MD on 06/11/2022 at 08:04 Normal [facility] XR DEXA BONE DENSITYon 06-10 [...] KATHIE OLVERA Date: 2022-06-10 12:16 Normal [facility] CBC AUTO DIFFon 02-12-2022 BASO # 0.1 103/ul Normal 0.0-0.1 [facility] Comment on above: Performed By: #### L IPID, TSH, CMP #### [facility] [address] [place] [address] Dr. Heather Aguirre Basophils/100 WBC (Bld) 0.8 % Normal 0.2-2.0 [facility] Comment on above: Performed By: #### L IPID, TSH, CMP #### [facility] [address] [place] [address] Dr. Heather Aguirre EO # 0.3 103/ul Normal 0.0-0.7 [facility] Comment on above: Performed By: #### L IPID, TSH, CMP #### [facility] [address] [place] [address] Dr. Heather Aguirre Eosinophils/100 WBC (Bld) 2.9 % Normal 0.9-7.0 [facility] Comment on above: Performed By: #### L IPID, TSH, CMP #### [facility] [address] [place] [address] Dr. Heather Aguirre Erythrocyte distribution width (RBC) [Ratio] 13.2 % Normal 11.0-15.0 [facility] Comment on above: Performed By: #### L IPID, TSH, CMP #### [facility] [address] [place] [address] Dr. Heather Aguirre Hematocrit (Bld) [Volume fraction] 37.6 % Normal 36.0-48.0 [facility] Comment on above: Performed By: #### L IPID, TSH, CMP #### [facility] [address] [place] [address] Dr. Heather Aguirre Hemoglobin (Bld) [Mass/Vol] 12.1 g/dL Normal 12.0-16.0 [facility] Comment on above: Performed By: #### L IPID, TSH, CMP #### [facility] [address] [place] [address] Dr. Heather Aguirre IG # 0.03 10e3/ul Normal 0.00-0.03 [facility] Comment on above: Performed By: #### L IPID, TSH, CMP #### [facility] [address] [place] [address] Dr. Heather Aguirre IG % 0.3 % Normal 0.0-0.5 [facility] Comment on above: Performed By: #### L IPID, TSH, CMP #### [facility] [address] [place] [address] Dr. Heather Aguirre LYMPH # 2.9 103/ul Normal 1.2-3.8 [facility] Comment on above: Performed By: #### L IPID, TSH, CMP #### [facility] [address] [place] [address] Dr. Heather Aguirre Lymphocytes/100 WBC (Bld) 33.6 % Normal 20.5-60.0 [facility] Comment on above: Performed By: #### L IPID, TSH, CMP #### [facility] [address] [place] [address] Dr. Heather Aguirre MANUAL DIFF REQ NO Normal [facility] Comment on above: Performed By: #### L IPID, TSH, CMP #### [facility] [address] [place] [address] Dr. Heather Aguirre MCH (RBC) [Entitic mass] 30.0 pg Normal 26.7-34.0 [facility] Comment on above: Performed By: #### L IPID, TSH, CMP #### [facility] [address] [place] [address] Dr. Heather Aguirre MCHC (RBC) [Mass/Vol] 32.2 g/dL Normal 29.9-35.2 [facility] Comment on above: Performed By: #### L IPID, TSH, CMP #### [facility] [address] [place] [address] Dr. Heather Aguirre MCV (RBC) [Entitic vol] 93.1 fL Normal 81.0-99.0 [facility] Comment on above: Performed By: #### L IPID, TSH, CMP #### [facility] [address] [place] [address] Dr. Heather Aguirre MONO # 0.6 103/ul Normal 0.3-0.8 [facility] Comment on above: Performed By: #### L IPID, TSH, CMP #### [facility] [address] [place] [address] Dr. Heather Aguirre Monocytes/100 WBC (Bld) 7.1 % Normal 1.7-12.0 [facility] Comment on above: Performed By: #### L IPID, TSH, CMP #### [facility] [address] [place] [address] Dr. Heather Aguirre NEUT # 4.8 103/ul Normal 1.4-6.5 [facility] Comment on above: Performed By: #### L IPID, TSH, CMP #### [facility] [address] [place] [address] Dr. Heather Aguirre Neutrophils/100 WBC (Bld) 55.3 % Normal 43.0-75.0 [facility] Comment on above: Performed By: #### L IPID, TSH, CMP #### [facility] [address] [place] [address] Dr. Heather Aguirre Platelet mean volume (Bld) [Entitic vol] 10.2 fL Normal 9.5-13.5 [facility] Comment on above: Performed By: #### L IPID, TSH, CMP #### [facility] [address] [place] [address] Dr. Heather Aguirre PLT 329 103/ul Normal 150-450 [facility] Comment on above: Performed By: #### L IPID, TSH, CMP #### [facility] [address] [place] [address] Dr. Heather Aguirre RBC 4.04 106/ul Critically low 4.20-5.40 [facility] Comment on above: Performed By: #### L IPID, TSH, CMP #### [facility] [address] [address] [address] Heather Aguirre WBC 8.7 103/ul Normal 4.0-11.0 [facility] Comment on above: Performed By: #### L IPID, TSH, CMP #### [facility] [address] [address] [address] Haether Aguirre GLYCOHEMOGLOBIN A1Con 2021 ADA RECOMMENDATION SEE BELOW Normal [facility] Comment on above: Result Comment: ADA RECOMMENDED LIMIT 4.0 - 6.0 ADA THERAPEUTIC TARGET < 7.0 ACTION SUGGESTED > 7.0 Performed By: #### A 1C #### [facility] [address] [place] [address] Dr. Heather Aguirre Glucose [Mass/Vol] 108 mg/dL Normal [facility] Comment on above: Performed By: #### A 1C #### [facility] [address] [place] [address] Dr. Heather Aguirre HbA1c (Bld) [Mass fraction] 5.4 % Normal 4.5-6.2 [facility] Comment on above: Performed By: #### A 1C #### [facility] [address] [place] [address] Dr. Heather Aguirre LIPID PROFILEon 02-12-2022 CHOL-HDL RATIO NORM SEE BELOW Normal [facility] Comment on above: Result Comment: 3.3 - 4.4 LOW RISK 4.4 - 7.1 AVERAGE RISK 7.1 - 11.0 MODERATE RISK >11.0 HIGH RISK Performed By: #### L IPID, TSH, CMP #### [facility] [address] [address] [address] Heather Aguirre Cholesterol [Mass/Vol] 215 mg/dL Critically high <=200 [facility] Comment on above: Performed By: #### L IPID, TSH, CMP #### [facility] [address] [address] [address] Heather Aguirre Cholesterol in HDL [Mass/Vol] 59 mg/dL Normal 40-60 [facility] Comment on above: Performed By: #### L IPID, TSH, CMP #### [facility] [address] [address] [address] Heather Aguirre Cholesterol in LDL [Mass/Vol] 133.0 mg/dL Normal [facility] Comment on above: Performed By: #### L IPID, TSH, CMP #### [facility] [address] [address] [address] Heather Aguirre Cholesterol.total/Ch olesterol in HDL [Mass ratio] 3.6 {ratio} Normal [facility] Comment on above: Performed By: #### L IPID, TSH, CMP #### [facility] [address] [address] [address] Heather Aguirre HDL NORMAL > or = 60 mg/dl - LO W CARDIOVASCULAR RISK <40 mg/dl - HIGH CARDIOVASCULAR RISK Normal [facility] Comment on above: Performed By: #### L IPID, TSH, CMP #### [facility] [address] [place] [address] Dr. Heather Aguirre LDL CALC NORMAL SEE BELOW Normal [facility] Comment on above: Result Comment: <100 mg/dl OPTIMAL 100 - 129 mg/dl NEAR OR ABOVE OPTIMAL 130 - 159 mg/dl BORDERLINE HIGH 160 - 189 mg/dl HIGH >190 mg/dl VERY HIGH Performed By: #### L IPID, TSH, CMP #### [facility] [address] [address] [address] Heather Aguirre Triglyceride [Mass/Vol] 115 mg/dL Normal <=150 [facility] Comment on above: Performed By: #### L IPID, TSH, CMP #### [facility] [address] [address] [address] Heather Aguirre VLDL CALC 23.0 mg/dL Normal [facility] Comment on above: Performed By: #### L IPID, TSH, CMP #### [facility] [address] [address] [address] Heather Aguirre PROF 14(COMP METB)on 022 Albumin [Mass/Vol] 3.5 g/dL Normal 3.4-5.0 [facility] Comment on above: Performed By: #### L IPID, TSH, CMP #### [facility] [address] [address] [address] Heather Aguirre Albumin/Globulin [Mass ratio] 1.1 {ratio} Normal [facility] Comment on above: Performed By: #### L IPID, TSH, CMP #### [facility] [address] [address] [address] Heather Aguirre ALP [Catalytic activity/Vol] 56 U/L Normal 46-116 [facility] Comment on above: Performed By: #### L IPID, TSH, CMP #### [facility] [address] [place] [address] Dr. Heather Aguirre ALT [Catalytic activity/Vol] 25 U/L Normal 14-59 [facility] Comment on above: Performed By: #### L IPID, TSH, CMP #### [facility] [facility] [address] [address] [address] Heather Aguirre Anion gap [Moles/Vol] 1 mmol/L Normal [facility] Comment on above: Performed By: #### L IPID, TSH, CMP #### [facility] [address] [place] [address] Dr. Heather Aguirre AST [Catalytic activity/Vol] 10 U/L Critically low 15-37 [facility] Comment on above: Performed By: #### L IPID, TSH, CMP #### [facility] [address] [address] [address] Heather Aguirre Bilirubin [Mass/Vol] 0.5 mg/dL Normal 0.2-1.0 [facility] Comment on above: Performed By: #### L IPID, TSH, CMP #### [facility] [address] [place] [address] Dr. Heathre Aguirre Calcium [Mass/Vol] 8.5 mg/dL Normal 8.5-10.1 [facility] Comment on above: Performed By: #### L IPID, TSH, CMP #### [facility] [address] [place] [address] Dr. Heather Aguirre Chloride [Moles/Vol] 102 mmol/L Normal 98-107 [facility] Comment on above: Performed By: #### L IPID, TSH, CMP #### [facility] [address] [address] [address] Heather Aguirre CO2 [Moles/Vol] 30.0 mmol/L Normal 21.0-32.0 [facility] Comment on above: Performed By: #### L IPID, TSH, CMP #### [facility] [address] [address] [address] Heather Aguirre Creatinine [Mass/Vol] 1.07 mg/dL Critically high 0.55-1.02 [facility] Comment on above: Performed By: #### L IPID, TSH, CMP #### [facility] [address] [place] [address] Dr. Heather Aguirre EGFR-AF KENYAN >60 Normal >=[address] [facility] Comment on above: Performed By: #### L IPID, TSH, CMP #### [facility] [address] [place] [address] Dr. Heather Aguirre EGFR-NON AF KENYAN 52 mL/min/1.73m2 Critically low >=60 [facility] Comment on above: Performed By: #### L IPID, TSH, CMP #### [facility] [address] [place] [address] Dr. Heather Aguirre Globulin (S) [Mass/Vol] 3.2 g/dL Normal [facility] Comment on above: Performed By: #### L IPID, TSH, CMP #### [facility] [address] [address] [address] Heather Aguirre Glucose [Mass/Vol] 96 mg/dL Normal 74-106 [facility] Comment on above: Performed By: #### L IPID, TSH, CMP #### [facility] [address] [address] [address] Heather Aguirre Potassium [Moles/Vol] 4.0 mmol/L Normal 3.5-5.1 [facility] Comment on above: Performed By: #### L IPID, TSH, CMP #### [facility] [address] [place] [address] Dr. Heather Aguirre Protein [Mass/Vol] 6.7 g/dL Normal 6.4-8.2 [facility] Comment on above: Performed By: #### L IPID, TSH, CMP #### [facility] [address] [place] [address] Dr. Heather Aguirre Sodium [Moles/Vol] 127 mmol/L Critically low 136-145 [facility] Comment on above: Performed By: #### L IPID, TSH, CMP #### [facility] [address] [place] [address] Dr. Heather Aguirre Urea nitrogen [Mass/Vol] 20.0 mg/dL Critically high 7.0-18.0 [facility] Comment on above: Performed By: #### L IPID, TSH, CMP #### [facility] [address] [place] [address] Dr. Heather Aguirre Urea nitrogen/Creatinine [Mass ratio] 18.7 mg/mg Normal [facility] Comment on above: Performed By: #### L IPID, TSH, CMP #### [facility] [address] [place] [address] Dr. Heather Aguirre TSHon 02-12-2022 TSH 1.693 uIU/mL Normal 0.358-3.740 [facility] Comment on above: Performed By: #### L IPID, TSH, CMP #### [facility] [address] [place] [address] Dr. Heather Aguirre Vital Signs Date Time Vital Sign Value Performing Clinician Facility 07-04-2024 09:18-0500 Body mass index (BMI) [Ratio] 36.72 kg/m2 JeriKlique Work Phone: [facility] 07-04-2024 09:18-0500 Body weight 85.28 kg Jeri Oco Work Phone: [facility] 07-04-2024 09:18-0500 Diastolic blood pressure 78 mm[Hg] Jeri Oco Work Phone: [facility] 07-04-2024 09:18-0500 Systolic blood pressure 124 mm[Hg] Jeri Russo DO Work Phone: [facility] 04-12-2024 14:19-0400 Blood Pressure Location Price ARAUZL [facility] 04-12-2024 14:19-0400 Diastolic blood pressure 82 mm[Hg] Price ARAUZL [facility] 04-12-2024 14:19-0400 Heart rate 76 /min Price ARAUZL [facility] 04-12-2024 14:19-0400 Respiratory rate 16 /min Price ARAUZL [facility] 04-12-2024 14:19-0400 Systolic blood pressure 118 mm[Hg] Price ARAUZL [facility] 03-07-2024 08:31-0400 Body height 152.4 cm [facility] 03-07-2024 08:31-0400 Body mass index (BMI) [Ratio] 36.1 kg/m2 [facility] 03-07-2024 08:31-0400 Body weight 83.91 kg [facility] 03-07-2024 08:31-0400 Diastolic blood pressure 101 mm[Hg] [facility] 03-07-2024 08:31-0400 Heart rate 69 /min [facility] 03-07-2024 08:31-0400 Systolic blood pressure 159 mm[Hg] [facility] 10-08-2023 10:14-0500 Body height 152.4 cm [facility] 10-08-2023 10:14-0500 Body mass index (BMI) [Ratio] 35.8 kg/m2 [facility] 10-08-2023 10:14-0500 Body weight 83.12 kg [facility] 10-08-2023 10:14-0500 Diastolic blood pressure 80 mm[Hg] [facility] 10-08-2023 10:14-0500 Heart rate 83 /min [facility] 10-08-2023 10:14-0500 Systolic blood pressure 132 mm[Hg] [facility] 02-26-2023 08:30-0400 Body height 152.4 cm Tanvi De Oliveira Other [facility] Other 02-26-2023 08:30-0400 Body mass index (BMI) [Ratio] 35.93 kg/m2 Tanvi De Oliveira Other [facility] Other 02-26-2023 08:30-0400 Body weight 83.46 kg Tanvi De Oliveira Other [facility] Other 02-26-2023 08:30-0400 Diastolic blood pressure 84 mm[Hg] Tanvi De Oliveira Other [facility] Other 02-26-2023 08:30-0400 Systolic blood pressure 145 mm[Hg] Tanvi De Oliveira Other [facility] Other Encounters Encounter Date Encounter Type Care Provider Facility Start: 07-04-2024 End: 07-04-2024 Bamboo flowsheet Jeri Rafaela DO Work Phone: [facility] Start: 07-04-2024 End: 07-04-2024 Bamboo flowsheet Jeri Rafaela DO Work Phone: [facility] Start: 07-04-2024 End: 07-04-2024 Patient encounter procedure Jeri Rafaela DO Work Phone: [facility] Start: 07-04-2024 End: 07-04-2024 Periodic preventive med est patient 65yrs& older Jeri Rafaela Celles Work Phone: [facility] Comment on above: Well woman exam with routine gynecological exam; Breast cancer screening by mammogram; Osteoporosis, post-menopausal ([facility]/HCC) Start: 07-04-2024 End: 07-04-2024 ambulatory JERI RUSSO Not Available Start: 05-27-2024 End: 05-27-2024 ambulatory [facility] Start: 05-04-2024 End: 05-04-2024 ambulatory Price ARAUZL Facility:CD:[id number] Start: 04-12-2024 End: 04-12-2024 ambulatory Price R NILL Facility:[facility] [place] Start: 04-12-2024 End: 04-12-2024 Patient encounter procedure Price R NILL [facility] [place] Start: 03-08-2024 ambulatory Price NILL Facility:[facility] [place] Start: 03-07-2024 Physical examination [facility] Start: 03-07-2024 End: 03-07-2024 ambulatory [facility] Work Phone: Start: 03-07-2024 End: 03-07-2024 Encounter for general adult medical examination without abnormal findings [facility] Start: 03-07-2024 End: 03-07-2024 Patient encounter procedure [facility] Work Phone: Start: 01-01-2024 End: 01-01-2024 ambulatory [facility] Start: 11-26-2023 End: 11-26-2023 ambulatory [facility] Start: 11-06-2023 End: 11-06-2023 ambulatory [facility] Start: 10-23-2023 End: 10-23-2023 ambulatory [facility] Start: 10-08-2023 End: 10-08-2023 ambulatory [facility] Work Phone: Start: 10-08-2023 End: 10-08-2023 Patient encounter procedure [facility] Work Phone: Start: 02-26-2023 End: 02-26-2023 ambulatory Tanvi De Oliveira Other [facility] Other Start: 02-26-2023 Encounter for genera l adult medical examination without abnormal findings Tanvi De Oliveira [facility] Start: 02-26-2023 Periodic preventive med est patient 65yrs& older Tanvi De Oliveira [facility] Start: 07-14-2022 End: 07-15-[address] TANVI DE OLIVEIRA Facility:[facility] Start: 07-01-2022 End: 07-01-[address] JERI RUSSO Facility:[facility] Start: 06-11-2022 End: 06-12-[address] TANVI DE OLIVEIRA Facility:[facility] Start: 06-10-2022 End: 06-11-[address] JERI RUSSO Facility:[facility] Start: 02-14-2022 Encounter for genera l adult medical examination without abnormal findings DR TANVI DE OLIVEIRA [facility] Start: 02-12-2022 End: 02-13-[address] TANVI DE OLIVEIRA Facility:[facility] Start: 02-12-2022 End: 02-13-2022 Encounter for general adult medical examination without abnormal findings DR TANVI DE OLIVEIRA Facility:[facility] Procedures Date Procedure Procedure Detail Performing Clinician Start: 07-04-2024 Mammography Jeri Fazi o DO Work Phone: Start: 07-02-2023 Cytp cerv/vag auto t hin layer prep mnl screen Jeri Rafaela DO Work Phone: Start: 12-09-2013 Colonoscopy Jeri Fazi o DO Work Phone: Start: 12-09-2013 Colonoscopy Price NI LL Appendectomy Price NILL Cardiac catheterization Robel ael NILL Cholecystectomy Price NILL Decompression of med francisco j nerve Price NILL Extraction of cataract Abundio el NILL Repair of right ingu inal hernia Price NILL Tonsillectomy Price ARAUZChandu Total abdominal hyst erectomy with bilateral salpingo-oophorectomy Price AUSTIN Plan of Treatment Date Care Activity Detail Author Start: 07-10-2025 End: 07-10-2025 Patient encounter procedure 07/10/2025 8:30 AM EST Office Visit [facility] [address] [place] [address] Jeri Russo, DO [address] [place] [address] [facility] Start: 07-04-2025 Screening for malign ant neoplasm of breast Mammogram [facility] Start: 07-04-2024 End: 07-04-2025 DXA Skeletal system Views for bone density DEXA bone density Imaging Routine Osteoporosis, post-menopausal (CMS/HCC) Expected: 07/04/2024 (Approximate), Expires: 07/04/2025 [facility] Work Phone: Comment on above: Expected: 07/04/2024 (Approximate), Expires: 07/04/2025 Start: 12-10-2023 Screening for malign ant neoplasm of colon [facility] Start: 2022 Pneumococcal Vaccine : 65+ Years (1 of 1 - PCV) Pneumococcal Vaccine: 65+ Years (1 of 1 - PCV) [facility] Start: 1955 Screening for malign ant neoplasm of colon [facility] Comprehensive metabo lic 1999 panel - Serum or Plasma [facility] EKG [address] [facility] THIN PREP TIS PAP AN D HR HPV DNA THIN PREP TIS PAP AND HR HPV DNA Pathology and Cytology Routine Well woman exam with routine gynecological exam Ordered: 07/04/2024 [facility] Comment on above: Ordered: 07/04/2024 [facility] Immunizations Immunization Date Immunization Notes Care Provider Fa cility 06-07-2021 SARS-CoV-2 (COVID-19 ) mRNA-1273 vaccine Price AVIL[facility] 09-19-2020 SARS-CoV-2 (COVID-19 ) mRNA-1273 vaccine Price AVILA [facility] 08-23-2020 SARS-CoV-2 (COVID-19 ) mRNA-1273 vaccine Price AVILA [facility] Payers Date Payer Category Payer [employer] BCBS [id number] 2022 [employer] Blue [employer] [id number] 2019 Unknown [id number] 1957 Unknown [id number] 1957 Unknown [id number] 1957 Unknown [id number] 1957 Unknown [id number] 1957 Unknown [id number] 1957 Unknown [id number] [id number] 1957 Unknown [id number] 1957 Unknown [id number] 1957 Unknown [id number] Social History Date Type Detail Facility Start: 07-04-2024 Sex Assigned At F [facility] Start: 06-19-2023 End: 10-06-2023 Tobacco smoking status NHIS Ex-smoker (finding) [facility] Start: 1955 Sex Assigned At Female F [facility] Tobacco smoking status Never [facility] History of tobacco use Current smoker [facility] History of tobacco use Cigarette Smoker [facility] Start: 07-04-2024 Alcoholic beverage intake Ex-drinker (finding) [facility] Start: 07-04-2024 History of Social function [facility] Start: 06-19-2023 Alcohol Comment Ocasional alcohol us e [facility] Start: 1955 Sex assigned at Not on file [facility] Start: 06-27-2023 Gender identity Identifies as female gender (finding) [facility] Functional Status Date Assessment Result Facility 04-12-2024 Functional Status N/A [facility] Clinical Notes 02-26-2023 to 07-04-2024 Trudy [...] Right 02/02/2017 Dr. Taylor CHOLECYSTECTOMY 1999 COLONOSCOPY 2014 HERNIA REPAIR 1971 TONSILLECTOMY 196 TOTAL ABDOMINAL HYSTERECTOMY 08/03/1998 REVIEW OF SYSTEMS [...] nursing note reviewed. Exam conducted with a value advisor present. Vitals: Estimated body mass index is [...] CANCELED: Bilateral screening mammogram 3. Osteoporosis, post-menopausal (CMS/HCC) M81.0 DEXA bone density Annual: Patient presents [...] Jeri Russo DO documented in this encounter [facility] 05-27-2024 Note [facility] Note HPI: Mackenzie Patel is [...] as needed Dwayne Richmond MD Interventional Cardiology [facility] 04-12-2024 Note General Surgery Offi ce/Clinic Note [...] Mother and Br (more content not included)... [facility] Comment on above: Result Comment: Elec tronically Signed By: AUSTIN RUBALCAVA, Price Nathanbr\Date and Time Signed: 04/12/24 14:47 EDT 01-01-2024 Note [facility] Note HPI: Mackenzie Patel is [...] as needed Dwayne Richmond MD Interventional Cardiology [facility] 11-26-2023 Note Patient: Mackenzie muhammad Procedure Information Date/Time: 11/26/23 1030 Procedure: Coronary angiography (Left) Location: [email or web address] MALTER OPERATOR 3 / [facility] (Cath) Providers: Dwayne Richmond MD [...] Plan discussed with attending. Additional Equipment Requests [facility] 11-06-2023 Note Cardiology Clinic No te Chief [...] -Continue Coreg 6.2 (more content not included)... [facility] 11-06-2023 Note Patient here for fol low up echo and stress test. She was started on carvedilol and rosuvastatin at last apt, and is tolerating them well so far. Review of Systems Cardiovascular: Positive for chest pain and dyspnea on exertion. Musculoskeletal: Positive for muscle cramps. All other systems reviewed and are negative. [facility] 10-23-2023 Note Cardiology Clinic No te Chief [...] change in billing system. 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 Patrick (more content not included)... [facility] 10-23-2023 Note New patient here to establish [...] Scheduled for stress test next week at [facility]. Review of Systems Cardiovascular: Positive for chest pain and dyspnea on exertion. Musculoskeletal: Positive for muscle cramps. All other systems reviewed and are negative. [facility] 02-26-2023 Evaluation note Encounter Date Diagnosis Assessment [...] colonscopy in 2013 - repeat next year. [facility] Other Evaluation + Plan note No data available for this section [facility] [employer] Evaluation note* Diagnosis Onset Date Resolution Status Dyspnea on exertion acute Epigastric abdominal pain ac [facility] Left-sided chest wall pain a cute [facility] Work Phone: Evaluation note* Diagnosis Onset Date Resolution Status Well adult exam acute [facility] Work Phone: Evaluation note* Diagnosis Well woman [...] Dr. Mejia Hospitalization History SEE SURGICAL HX [facility] Other Hospital Discharge instructions No data available for this section [facility] [employer] Progress note No data available for this section [facility] [employer] Summary Purpose Family History Relationship Condition Age [...] pital DATE CREATED AUTHOR AUTHOR'S ORGANIZ ATION 05/12/2024 [facility] DATE CREATED AUTHOR AUTHOR'S ORGANIZ ATION 05/29/2024 [facility] DATE CREATED AUTHOR AUTHOR'S ORGANIZ ATION 07/05/2024 [facility] EPIC REASON FOR VISIT (unrecogniz [...] March 07, 2024 End: March 07, 2024 [employer] Operator Relationship Specialty Start Date End Date Tanvi De Oliveira MD [address] [place] [address] PCP - General Family Medicine 07/02/23 [employer]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 [facility]. provides no warranty or guarantee of the accuracy or completeness of information in this document.
== END 2024-08-08 08:01 | disposition home or self-care (01) ==
LOC: RAD 08:00
PROVIDERS: PCP Family Medicine; Visit Provider Obstetrics & Gynecology
DX: M81.0 Age-related osteoporosis without current pathological fracture (principal); M85.80 Other specified disorders of bone density and structure, unspecified site
CPT/HCPCS: 77080

== ENCOUNTER 2024-11-02 07:40 | Outpatient (RCR) | payer BC, SELFPAY ==
[2024-11-02 09:18] VITALS: BP 147/81; PULSE 67; TEMP 36.4; O2SAT 97
[2024-11-02 09:23] LABS: Estimated GFR (African America >60 (>=60 mL/min/1.73m^2); Estimated GFR (Non-African Ame >60 (>=60 mL/min/1.73m^2)
[2024-11-02] MEDS: ZOLEDRONIC ACID/MANNITOL-WATER 5 MG/100 ML BOTTLE 400 MG IV (09:38)
--- NOTE | 2024-11-02 09:41 | PC.NURSE ---
0938: IV Reclast initiated at this time. Pt. denies needs or c/o.
== END 2024-11-07 10:24 | disposition home or self-care (01) ==
LOC: LAB 07:40
PROVIDERS: PCP Family Medicine; Visit Provider Obstetrics & Gynecology
DX: Z51.81 Encounter for therapeutic drug level monitoring (principal); M81.0 Age-related osteoporosis without current pathological fracture; M85.851 Other specified disorders of bone density and structure, right thigh; M81.8 Other osteoporosis without current pathological fracture
CPT/HCPCS: 36415; 82310; 82565; 96365; J3489

== ENCOUNTER 2025-02-15 07:06 | Outpatient (OUT) | payer BC, SELFPAY ==
--- OUTSIDE RECORDS SUMMARY | 2025-02-15 07:26 | XMS_ITS | CCD ---
Author Organization [facility] Care Team Providers Care Wood Pole Treater Name Role Phone ALVINO, DR TANVI Perez [...] HOPKINS Consulting Unavailable JOHN JOHNSON Admitting Unavailable OJHN JOHNSON Attending Unavailable ALVINO, DR TANVI Perez Primary Care Unavailable ALVINO, DR TANVI Perez Consulting Unavailable ALVINO, DR TANVI Perez Admitting Unavailable ALVINO, DR TANVI Perez Attending Unavailable ALVINO, DR TANVI Perez Primary Care Unavailable ALVINO, DR TANVI Perez Consulting Unavailable Tanvi De Oliveira Unavailable TANVI DE OLIVEIRA Primary Care Physician [phone] Prcie AVILA Attending Unavailable TANVI DE OLIVEIRA Referring Unavailable Price AVILA Attending Unavailable aTnvi De Oliveira MD Primary Care Provider Tanvi De Oliveira Attending Unavailable Tanvi De Oliveira Admitting Unavailable NO FAMILY, PHYSICIAN Primary Care Unavailable Tanvi De Oliveira MD Attending Provider [phone] NO FAMILY, PHYSICIAN Primary Care Provider Unava ilJERI Daniels Attending Unavailable JERI RUSSO Attending Unavailable DWAYNE RICHMOND Attending Unavailable TOMY LEMUS Attending Unavailable DWAYNE RICHMOND Admitting Unavailable DWAYNE RICHMOND Attending Unavailable DWAYNE RICHMOND Referring Unavailable DWAYNE RICHMOND Attending Unavailable Allergies Allergy Classification Reported Allergen(s) Allergy Type Date of Onset Reaction(s) Facility (3 sources) Shellfish; Translations: [shellfish] Drug allergy (disorder) 4 Eruption of skin (disorder) [facility] Repository (2 sources) kiwi; Translations: [KIWI] Drug allergy (disorder) 2 [facility] Repository (1 source) No Known Medication Allergies; Translations: [No Known Medication Allergies] Propensity to adverse reactions (disorder) [facility] Repository (7 sources) Fish Oils; Translations: [FISH OIL] Drug Allergy 3 Unknown [facility] Work Phone: (6 sources) Kiwi fruit Propensity to adverse reactions 3 Anaphylaxis, Swelling [facility] (5 sources) Shellfish Allergy to substance 4 Rash [facility] (6 sources) Shellfish-Deriv ed Products Drug Intolerance 3 Hives, Itching, Rash, Shortness of breath [facility] (1 source) Shellfish; Translations: [SHELLFISH DERIVED] Propensity to adverse reactions to drug (disorder) 4 [facility] Repository NEGATED: Highlighted row has been ruled out! (1 source) Drug allergy [facility] Medications Current Medications Medication Drug Class(es) Dates Sig (Normalized) Sig (Original) alendronic acid 70 mg oral tablet (14 sources) Bisphosphonate Start: 10-07-2023 alendronate (Fosamax) 70 MG tablet Indications: Other osteoporosis, unspecified pathological fracture presence (CMS/HCC) TAKE 1 TAB BY MOUTH ONCE A WEEK.TAKE IN MORNING WITH FULL GLASS OF WATER ON EMPTY STOMACH.DO NOT TAKE ANYTHING ELSE BY MOUTH OR LIE DOWN FOR NEXT 30 MINUTES. 12 tablet 2 08/24/2024 Active Start: 07-02-2023 take 1 tablet by rayo [...] aspirin 81 mg delayed release oral tablet (3 sources) Platelet Aggregation Inhibitor, Nonsteroidal Anti-inflammatory Drug Start: 03-07-2024 End: 03-09-2024 take 1 tablet by mouth once daily aspirin 81 mg Oral EC Tab 81 mg = 1 tab(s), Oral, Daily, Refills(s) 0 Start Date: 03/09/24 Status: Ordered carvedilol 6.25 mg oral tablet (2 sources) alpha-Adrenergic Sp, beta-Adrenergic Sp Start: 03-07-2024 take 1 tablet by mouth twice daily Coreg 6.25 mg Tab 6.25 mg = 1 tab(s), Oral, BID, Refills(s) 0 Start Date: 03/09/24 Status: Ordered cefdinir 300 mg oral capsule (1 source) Cephalosporin Antibacterial Start: 08-25-2024 take 1 capsule by mouth twice daily Cefdinir 300 mg capsule Active 300 MG PO Twice daily August 25, 2024 12:00am Restasis (8 sources) Calcineurin Inhibitor Immunosuppressant Start: 03-09-2024 take [...] day Active Cyclosporine (Restasis) 0.05 % dropperette (3 sources) Start: 10-07-2023 take 1 drop(s) into the eye(s) every twelve hours Cyclosporine (Restasis) 0.05 % dropperette Active 1 DROPS EYE-BOTH Every 12 hours October 07, 2023 1:00am Start: 10-07-2023 take 1 drop(s) into the eye(s) every twelve hours Cyclosporine (Restasis) 0.05 % dropperette Active 1 DROPS EYE-BOTH Every 12 hours October 07, 2023 12:00am levothyroxine sodium 0.1 mg oral tablet (13 sources) l-Thyroxine Start: 08-23-2024 take 1 tablet by mouth once daily Levothyroxine 100 mcg tablet Active 0 .ROUTE .COMPLEX August 23, 2024 12:11pm TAKE 1 TABLET BY MOUTH EVERY DAY Start: 03-09-2024 take 1 tablet by rayo th once daily levothyroxine 100 mcg (0.1 mg) Tab 100 mcg = 1 tab(s), Oral, Daily, Refills(s) 0 Start Date: 03/09/24 Status: Ordered Start: 10-07-2023 End: 08-23-2024 take 1 tablet by mouth once daily Levothyroxine 100 mcg tablet Discontinued 100 MCG PO Daily March 29, 2024 8:51am August 23, 2024 12:11pm take 1 tablet by rayo th once daily in the morning Levothyroxine Sodium 100 MCG 1 tablet in the morning on an empty stomach Orally Once a day for 90 days Active omeprazole 40 mg delayed release oral capsule (10 sources) Proton Pump Inhibitor Start: 03-09-2024 take 1 capsule by mouth once daily omeprazole 20 mg Cap-DR 20 mg = 1 cap(s), Oral, Daily, Refills(s) 0 Start Date: 03/09/24 Status: Ordered Start: 02-02-2024 End: 07-30-2024 take 1 capsule by mouth once daily Omeprazole 40 mg capsule,delayed release(DR/EC) Active 0 .ROUTE .COMPLEX July 30, 2024 7:11am TAKE 1 CAPSULE BY MOUTH EVERY DAY Start: 10-08-2023 End: 02-02-2024 take 1 capsule by mouth once daily Omeprazole 40 mg capsule,delayed release(DR/EC) Discontinued 40 MG PO Daily November 03, 2023 2:39pm February 02, 2024 1:18pm rosuvastatin calcium 5 mg oral tablet (3 sources) HMG-CoA Reductase Inhibitor Start: 03-07-2024 End: 08-25-2024 take 1 tablet by mouth once daily rosuvastatin 5 mg Tab 5 mg = 1 tab(s), Oral, Daily, Refills(s) 0 Start Date: 03/09/24 Status: Ordered Start: 03-07-2024 take 1 tablet by rayo th once daily Rosuvastatin 20 mg tablet Active 20 MG PO Daily March 06, 2024 11:00pm Completed/Discontinued Medications Medication Drug Class(es) Dates Sig (Normalized) Sig (Original) buPROPion (9 sources) Aminoketone Start: 06-22-2024 End: 08-25-2024 take 1 tablet by mouth once daily in the morning Bupropion Hcl 150 mg tablet extended release 24 hr Discontinued 0 .ROUTE .COMPLEX 90 June 22, 2024 1:58pm August 25, 2024 9:36am TAKE 1 TABLET BY MOUTH EVERY MORNING Start: 03-09-2024 Wellbutrin XL Refills(s) 0 Start Date: 03/09/24 Status: Ordered Start: 10-07-2023 End: 06-22-2024 take 1 tablet by mouth once daily in the morning Bupropion Hcl (Wellbutrin Xl) 150 mg tablet extended release 24 hr Discontinued 1 TAB PO Daily October 07, 2023 12:00am June 22, 2024 1:58pm FreeTextSi tablet in the morning Orally Once [...] Once a day for 90 days Active sulfamethoxazole 800 mg / trimethoprim 160 mg oral tablet (1 source) Dihydrofolate Reductase Inhibitor Antibacterial, Sulfonamide Antimicrobial Start: 08-08-2024 End: 08-25-2024 take 1 tablet by mouth twice daily Sulfamethoxazole-Trimethoprim 800-160 mg tablet Discontinued 1 TAB PO Twice daily August 08, 2024 12:00am August 25, 2024 9:37am Problems Active Problems Problem Classification Problem Date Documented Da te Episodic/Chronic Abdominal pain (4 sources) Epigastric pain; Translations: [Epigastric pain] 10-08-2023 Episodic Administrative/social admission (2 sources) Patient encounter status; Translations: [Person consulting for explanation of examination or test findings] 09-13-2024 Episodic Coronary atherosclerosis and other heart disease (6 sources) Coronary arteriosclerosis; Translations: [Atherosclerotic heart disease of [place] coronary artery without angina pectoris] Onset: 11-06-2023 03-09-2024 Chronic Disorders of lipid metabolism (4 sources) Hyperlipidemia; Translations: [Hyperlipidemia, unspecified] Onset: 11-22-2024 03-09-2024 Chronic Diverticulosis and diverticulitis (1 source) Diverticular disease 03-09-2024 Chronic Essential hypertension (2 sources) Essential (primary) hypertension; Translations: [Essential (primary) hypertension] Onset: 11-23-2024 Chronic Genitourinary symptoms and ill-defined conditions (4 sources) Urinary tract infectious disease; Translations: [Unspecified symptoms and signs involving the genitourinary system] Onset: 08-08-2024 08-08-2024 Episodic Headache; including migraine (5 sources) Chronic tension-type headache; Translations: [Chronic tension-type [...] and female climacteric states] Chronic Mood disorders (5 sources) Major depression, single episode; Translations: [Major depressive disorder, single episode, unspecified] 10-07-2023 Chronic Nonspecific chest pain (4 sources) Chest wall pain; Translations: [Other chest pain] 10-08-2023 Episodic Osteoarthritis (4 sources) Localized, primary osteoarthritis of the pelvic region and thigh; Translations: [Unilateral primary osteoarthritis, right hip] 10-07-2023 Chronic Osteoporosis (2 sources) Postmenopausal osteoporosis; 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-related osteoporosis without current pathological fracture] 07-04-2024 Chronic Other aftercare (1 source) Other care home (current) drug therapy; Translations: [[facility] CORRECTION CURRENT DRUG THERAPY] Onset: 07-17-2022 Episodic Other bone disease and musculoskeletal deformities (1 source) Other specified disorders of bone density and structure, unspecified site; Translations: [[facility] D/O BONE DEN STRUCT UNS SITE] Onset: 06-15-2022 Episodic Other bone disease and musculoskeletal deformities (7 sources) Osteopenia; Translations: [Other specified disorders of bone density and structure, unspecified site] 10-07-2023 Episodic Other connective tissue disease (1 source) Trochanteric bursitis of right hip; Translations: [Trochanteric bursitis, right hip] Episodic Other lower respiratory disease (3 sources) Dyspnea on exertion; Translations: [Other forms of dyspnea] 10-08-2023 Episodic Other lower respiratory disease (1 source) Other forms of dyspnea; Translations: [Other respiratory abnormalities] 10-08-2023 Episodic Other non-traumatic joint disorders (1 source) Pain in right hip joint; Translations: [Pain in right hip] Episodic Other non-traumatic joint disorders (1 source) Hip pain; Translations: [Pain in left hip] 08-25-2024 Episodic Other non-traumatic joint disorders (1 source) Pain in left hip; Translations: [Pain in joint, pelvic region and thigh] 08-25-2024 Episodic Other nutritional; endocrine; and metabolic disorders (1 source) Body mass index 30+ - obesity 04-12-2024 Chronic Other nutritional; endocrine; and metabolic disorders (1 source) Obesity caused by energy imbalance 03-09-2024 Chronic Residual codes; unclassified (1 source) Family history of malignant neoplasm of other organs or systems; Translations: [FAM HX MALIG NEOPLASM OT ORGN/SYS] Onset: 06-15-2022 Episodic Residual codes; unclassified (4 sources) Asymptomatic menopausal state; Translations: [ASYMPTOMATIC MENOPAUSAL STATE] Onset: 06-10-2022 Episodic Residual codes; unclassified (4 sources) Postmenopausal state; Translations: [Asymptomatic menopausal state] 10-07-2023 Episodic Spondylosis; intervertebral disc disorders; other back problems (5 sources) Lumbar radiculopathy; Translations: [Radiculopathy, lumbar region] 10-07-2023 Episodic Thyroid disorders (6 sources) Hypothyroidism, unspecified; Translations: [Hypothyroidism] Onset: 07-17-2022 10-07-2023 Chronic Unclassified (2 sources) COUGH, UNSPECIFIED; Translations: [COUGH, UNSPECIFIED] Onset: 07-17-2022 Unclassified (3 sources) CONTACT W/AND (SUSP) EXPOS COVID-19; Translations: [CONTACT W/AND (SUSP) EXPOS COVID-19] Onset: 07-17-2022 Unclassified (1 source) Patient encounter status 04-12-2024 Past or Other Problems Problem Classification Problem Date Documented Da te Episodic/Chronic Other screening for suspected conditions (not mental disorders or infectious disease) (16 sources) Encounter for screening for malignant neoplasm of cervix; Translations: [Encounter for screening mammogram for malignant neoplasm of breast] Onset: 06-11-2022 Episodic Unclassified (1 source) COUGH, UNSPECIFIED; Translations: [COUGH, UNSPECIFIED] Onset: 07-14-2022 Unclassified (1 source) CONTACT W/AND (SUSP) EXPOS COVID-19; Translations: [CONTACT W/AND (SUSP) EXPOS COVID-19] Onset: 07-14-2022 Results Test Name Value Interpretation Reference Range Facility Office Visiton 11-23-2024 Follow-up visit [id number] Mackenzie Patel 1955 F Date Provider Department Center 11/23/2024 [id number], TOMY CARD [facility] Family History Problem Relation Age of Onset Coronary artery disease Mother Other Mother Heart attack Father 90 Family Status - Relation Status Age at Mother Father Sister Alive Brother Alive Level of Service:24996 MO OFFICE/OUTPATIENT ESTABLISHED LOW MDM 20 MIN Normal [facility] Laboratory - Chemistry and C hemistry - challengeon 08-08-2024 Bilirubin Ql (U) Negative [facility] Glucose (U) [Mass/Vol] Negative [facility] Ketones Ql (U) Negative [facility] pH (U) 5 [pH] [facility] Specific gravity (U) [Rel density] 1.025 [facility] Urobilinogen (U) [Mass/Vol] 0.2 mg/dL [facility] Laboratory - Specimen inform ationon 08-08-2024 Appearance (U) clear [facility] Color (U) micheal [facility] Laboratory - Urinalysison Leukocyte esterase Test strip Ql (U) Negative [facility] Nitrite Ql (U) Negative [facility] Protein Ql (U) Negative [facility] No Panel Informationon 08-08 Urine Occult Blood Negative [facility] Urine Cultureon 08-08-2024 Bacteria identified Cx Nom (U) 20,000 colonies/ml mixed bacterial skin contaminants 2 Days PERFORMED BY: [place] [address] PATHOLOGIST INSURANCE SALES PRODUCER RADHA MATOS M.D. Normal [facility] Comment on above: Performed By: #### C UU #### [address] Urine cultureOrdered By: Natividad De Oliveira on 08-08-2024 Bacteria identified Cx Nom (U) Urine culture [facility] No Panel Informationon 07-04 Reference Lab Test Patient Age Note . [facility] Comment on above: TESTS RESULT FLAG UN ITS REF RANGE LAB Clinician Provided Cytology Information Source.............Vagina No. of containers..01 ThinPrep VialAge Algo ACOG Angie... Note 01 <21 or >65 or no age provided --- FLAG LEGEND: L-Low Normal,H-High Normal,LL-Alert Low,HH-Alert High <-Panic Low,>-Panic High,A-Abnormal,AA-Critical Abnormal ---Performed at:01 =G [facility] [place] [address] [place] [address] Sara Ruiz MD, Thin Prep Pap Screen Note . [facility] Comment on above: TESTS RESULT FLAG UN ITS REF RANGE LAB DI AGNOSIS: 02 NEGATIVE FOR INTRAEPITHELIAL LESION OR MALIGNANCY.Specimen adequacy: 02 Satisfactory for evaluation. Endocervical and/or squamous metaplastic cells (endocervical component) are present.Performed by: 02 Marty Alaniz, Speech Lang Path Therapist (ASC). 02Note: Note 02 The Pap smear is a screening test designed to aid in the detection of premalignant and malignant conditions of the uterine cervix. It is not a diagnostic procedure and should not be used as the sole means of detecting cervical cancer. Both false-positive and false-negative reports do occur.Test Methodology: Note 02 This liquid based ThinPrep(R) pap test was screened with the use of an image guided system. -- FLAG LEGEND: L-Low Normal,H-High Normal,LL-Alert Low,HH-Alert High <-Panic Low,>-Panic High,A-Abnormal,AA-Critical Abnormal ---Performed at:02 WB [facility] [place] [address], [place] [address] Sara Ruiz MD, Qqwzgpbfo at: =G - [facility] [id number] [place], [place] [id number] Director: Sara Ruiz MD, Phone: [phone] at: - [facility] [id number] [place], [place] [id number] Director: Sara Ruiz MD, Phone: [phone] Office Visiton 05-27-2024 Follow-up visit [id number] Mackenzie Patel 1955 F Date Provider Department Center 05/27/2024 [id number]-DWAYNE RICHMOND CARD [facility] Family History Problem Relation Age of Onset Coronary artery disease Mother Other Mother Heart attack Father 90 Family Status - Relation Status Age at Mother Father Level of Service:53457 MO OFFICE/OUTPATIENT ESTABLISHED MOD MDM 30 MIN Normal [facility] Reminderson 05-05-2024 Reminders Reminders From: Luann Huerta LPN To: GSN - Clinical; Sent: 05/05/2024 09:35:27 EDT Show up: 04/03/2034 07:00:00 EDT Subject: colonoscopy recall Due Date/Time: 05/04/2034 07:00:00 EDT Reminder/Recall Patient due for screening colonoscopy 05/04/2034. Normal [facility] Ambulatory Visit Summaryon 0 04-12-2024 Ambulatory Visit [...] for choosing us for your care. Chris [facility] Office Visiton 01-01-2024 Follow-up visit [id number] Mackenzie Patel 1955 F Date Provider Department Center 01/01/2024 [id number] RICHMOND Family History Problem Relation Age of Onset Coronary artery disease Mother Other Mother Heart attack Father 90 Family Status - Relation Status Age at Mother Father Level of Service:47059 MO OFFICE/OUTPATIENT ESTABLISHED LOW MDM 20 MIN Normal [facility] Letter (Out)on 12-10-2023 Letter (Out) [id number] Mackenzie Patel 1955 F Date Provider Department Center 12/10/2023 None-None [facility] Family History Problem Relation Age of Onset Coronary artery disease Mother Other Mother Heart attack Father 90 Family Status - Relation Status Age at Mother Father Normal [facility] HPon 11-26-2023 HP - Attestation signed [...] understands these risks and wishes to proceed. Normal [facility] NURSNOTEon 11-26-2023 NURSNOTE RN educated pt on d/ c instructions. RN encouraged pt to voice any questions or concerns. Pt verbalizes no questions or concerns at this time. Pt was wheeled off of unit with all of belongings. Normal [facility] Cytology Cervical or vaginal smear or scraping studyon 07-02-2023 [facility]18 SARS-CoV-2 (COVID-19) RNA LARA+probe Ql (Unsp spec) Not detected Normal NOT DETECTED [facility] Comment on above: Result Comment: [...] for this test is supported by the Washer Off of Health and Human Service's declaration that [...] longer be used). Performed By: #### C [facility] #### [facility] [address] [place] [address] Dr. Heather Aguirre INFLUENZA A AND B AGon 07-14 INFLUENZA A AG Positive Abnormal NEGATIVE SEE COMMENT [facility] Comment on above: Performed By: #### I NFLUAB #### [facility] [address] [address] [address] Heather Aguirre INFLUENZA B AG Negative Normal NEGATIVE SEE COMMENT [facility] Comment on above: Performed By: #### I NFLUAB #### [facility] [address] [address] [address] Heather Aguirre INTERNAL CONTROLS Within Normal Limits Normal Wi thin Normal Limits [facility] Comment on above: Performed By: #### I NFLUAB #### [facility] [address] [address] [address] Heather Aguirre XR CHEST 2 Von [...] by: KATHIE HOPKINS Date: 2022-07-14 21:21 Normal [facility] PAP ACOG PANEL 2: 30 to 65on 07-09-2022 . . Normal [facility] Comment on above: Result Comment: Perf ormed at: WB Performed By: #### [id number] #### [facility] [address] [place] [address] Dr. Heather Aguirre Age Gdln ACOG Testing 30-65 Normal [facility] Comment on above: Performed By: #### 4 [id number] #### [facility] [address] [place] [address] Dr. Heather Aguirre DIAGNOSIS: Comment Normal [facility] Comment on above: Result Comment: NEGA TIVE FOR INTRAEPITHELIAL LESION OR MALIGNANCY. CELLULAR CHANGES ASSOCIATED WITH ATROPHY ARE PRESENT. Performed at: WB Performed By: #### 4 [id number] #### [facility] [address] [place] [address] Dr. Heather Aguirre HPV Aptima Negative Normal Negative [facility] Comment on above: Result Comment: This nucleic acid amplification test detects fourteen high-risk HPV types (16,18,31,33,35,39,45,51,52,56,58,59,66,68) without differentiation. Performed at: =G Performed By: #### 4 [id number] #### [facility] [address] [place] [address] Dr. Heather Aguirre HPV Genotype Reflex Comment Normal [facility] Comment on above: Result Comment: Crit eria not met, HPV Genotype not performed. Performed at: WB Performed By: #### 4 [id number] #### [facility] [address] [place] [address] Dr. Heather Aguirre Methodology: CTIM Normal [facility] Comment on above: Result Comment: The Thin Prep(R) Hosiery Mender was unable to read this specimen. Therefore a manual review was performed. Performed at: WB Performed By: #### 4 [id number] #### [facility] [address] [place] [address] Dr. Heather Aguirre Note: Comment Normal [facility] Comment on above: Result Comment: The Pap smear is a screening test designed to aid in the detection of premalignant and malignant conditions of the uterine cervix. It is not a diagnostic procedure and should not be used as the sole means of detecting cervical cancer. Both false-positive and false-negative reports do occur. . Performed at: WB Performed By: #### 4 [id number] #### [facility] [address] [place] [address] Dr. Heather Aguirre Performed by: Comment Normal [facility] Comment on above: Result Comment: Supriya Amador, Speech Lang Path Therapist (ASCP) Performed at: WB Performed By: #### 4 [id number] #### [facility] [address] [place] [address] Dr. Heather Aguirre Specimen adequacy: Comment Normal [facility] Comment on above: Result Comment: Sati sfactory for evaluation. Endocervical component may not be distinguished in cases of atrophy. Performed at: WB Performed By: #### 4 [id number] #### [facility] [address] [place] [address] Dr. Heather Aguirre MG MAMM SCREEN 3D YOU CADon 06-11-2022 MG MAMM SCREEN 3D YOU CAD Patient: MACKENZIE PATEL Exam Date: 06/11/2022 : 1955 Gender:F Ordering : DR JERI RUSSO . Admission #: [id number] Family : Order #: [id number] CLICK HERE TO VIEW EXAM RADIOLOGY REPORT [...] skin cancer at age 65. LOCATION: [facility] BREAST COMPOSITION: Scattered areas fibroglandular [...] Olvera MD on 06/11/2022 at 08:04 Normal [facility] XR DEXA BONE DENSITYon 06-10 XR [...] by: KATHIE OLVERA Date: 2022-06-10 12:16 Normal [facility] CBC AUTO DIFFon 02-12-2022 BASO # 0.1 103/ul Normal 0.0-0.1 [facility] Comment on above: Performed By: #### L IPID, TSH, CMP #### [facility] [address] [place] [address] Dr. Heather Aguirre Basophils/100 WBC (Bld) 0.8 % Normal 0.2-2.0 [facility] Comment on above: Performed By: #### L IPID, TSH, CMP #### [facility] [address] [place] [address] Dr. Heather Aguirre EO # 0.3 103/ul Normal 0.0-0.7 [facility] Comment on above: Performed By: #### L IPID, TSH, CMP #### [facility] [address] [place] [address] Dr. Heather Aguirre Eosinophils/100 WBC (Bld) 2.9 % Normal 0.9-7.0 [facility] Comment on above: Performed By: #### L IPID, TSH, CMP #### [facility] [address] [place] [address] Dr. Heather Aguirre Erythrocyte distribution width (RBC) [Ratio] 13.2 % Normal 11.0-15.0 [facility] Comment on above: Performed By: #### L IPID, TSH, CMP #### [facility] [address] [place] [address] Dr. Heather Aguirre Hematocrit (Bld) [Volume fraction] 37.6 % Normal 36.0-48.0 [facility] Comment on above: Performed By: #### L IPID, TSH, CMP #### [facility] [address] [place] [address] Dr. Heather Aguirre Hemoglobin (Bld) [Mass/Vol] 12.1 g/dL Normal 12.0-16.0 [facility] Comment on above: Performed By: #### L IPID, TSH, CMP #### [facility] [address] [place] [address] Dr. Heather Aguirre IG # 0.03 10e3/ul Normal 0.00-0.03 [facility] Comment on above: Performed By: #### L IPID, TSH, CMP #### [facility] [address] [address] [address] Heather Aguirre IG % 0.3 % Normal 0.0-0.5 [facility] Comment on above: Performed By: #### L IPID, TSH, CMP #### [facility] [address] [address] [address] Heather Aguirre LYMPH # 2.9 103/ul Normal 1.2-3.8 [facility] Comment on above: Performed By: #### L IPID, TSH, CMP #### [facility] [address] [place] [address] Dr. Heather Aguirre Lymphocytes/100 WBC (Bld) 33.6 % Normal 20.5-60.0 [facility] Comment on above: Performed By: #### L IPID, TSH, CMP #### [facility] [address] [place] [address] Dr. Heather Aguirre MANUAL DIFF REQ NO Normal [facility] Comment on above: Performed By: #### L IPID, TSH, CMP #### [facility] [address] [place] [address] Dr. Heather Aguirre MCH (RBC) [Entitic mass] 30.0 pg Normal 26.7-34.0 [facility] Comment on above: Performed By: #### L IPID, TSH, CMP #### [facility] [address] [place] [address] Dr. Heather Aguirre MCHC (RBC) [Mass/Vol] 32.2 g/dL Normal 29.9-35.2 [facility] Comment on above: Performed By: #### L IPID, TSH, CMP #### [facility] [address] [address] [address] Heather Aguirre MCV (RBC) [Entitic vol] 93.1 fL Normal 81.0-99.0 [facility] Comment on above: Performed By: #### L IPID, TSH, CMP #### [facility] [address] [place] [address] Dr. Heather Aguirre MONO # 0.6 103/ul Normal 0.3-0.8 [facility] Comment on above: Performed By: #### L IPID, TSH, CMP #### [facility] [address] [place] [address] Dr. Heather Aguirre Monocytes/100 WBC (Bld) 7.1 % Normal 1.7-12.0 [facility] Comment on above: Performed By: #### L IPID, TSH, CMP #### [facility] [address] [place] [address] Dr. Heather Aguirre NEUT # 4.8 103/ul Normal 1.4-6.5 [facility] Comment on above: Performed By: #### L IPID, TSH, CMP #### [facility] [address] [place] [address] Dr. Heather Aguirre Neutrophils/100 WBC (Bld) 55.3 % Normal 43.0-75.0 [facility] Comment on above: Performed By: #### L IPID, TSH, CMP #### [facility] [address] [place] [address] Dr. Heather Aguirre Platelet mean volume (Bld) [Entitic vol] 10.2 fL Normal 9.5-13.5 [facility] Comment on above: Performed By: #### L IPID, TSH, CMP #### [facility] [address] [place] [address] Dr. Heather Aguirre PLT 329 103/ul Normal 150-450 [facility] Comment on above: Performed By: #### L IPID, TSH, CMP #### [facility] [address] [place] [address] Dr. Heather Aguirre RBC 4.04 106/ul Critically low 4.20-5.40 [facility] Comment on above: Performed By: #### L IPID, TSH, CMP #### [facility] [address] [place] [address] Dr. Heather Aguirre WBC 8.7 103/ul Normal 4.0-11.0 [facility] Comment on above: Performed By: #### L IPID, TSH, CMP #### [facility] [address] [address] [address] Heather Aguirre GLYCOHEMOGLOBIN A1Con 2021 ADA RECOMMENDATION SEE BELOW Normal [facility] Comment on above: Result Comment: ADA RECOMMENDED LIMIT 4.0 - 6.0 ADA THERAPEUTIC TARGET < 7.0 ACTION SUGGESTED > 7.0 Performed By: #### A 1C #### [facility] [address] [place] [address] Dr. Heather Aguirre Glucose [Mass/Vol] 108 mg/dL Normal [facility] Comment on above: Performed By: #### A 1C #### [facility] [address] [place] [address] Dr. Heather Aguirre HbA1c (Bld) [Mass fraction] 5.4 % Normal 4.5-6.2 [facility] Comment on above: Performed By: #### A 1C #### [facility] [address] [place] [address] Dr. Heather Aguirre LIPID PROFILEon 02-12-2022 CHOL-HDL RATIO NORM SEE BELOW Normal [facility] Comment on above: Result Comment: 3.3 - 4.4 LOW RISK 4.4 - 7.1 AVERAGE RISK 7.1 - 11.0 MODERATE RISK >11.0 HIGH RISK Performed By: #### L IPID, TSH, CMP #### [facility] [address] [place] [address] Dr. Heather Aguirre Cholesterol [Mass/Vol] 215 mg/dL Critically high <=200 [facility] Comment on above: Performed By: #### L IPID, TSH, CMP #### [facility] [address] [place] [address] Dr. Heather Aguirre Cholesterol in HDL [Mass/Vol] 59 mg/dL Normal 40-60 [facility] Comment on above: Performed By: #### L IPID, TSH, CMP #### [facility] [address] [place] [address] Dr. Heather Aguirre Cholesterol in LDL [Mass/Vol] 133.0 mg/dL Normal [facility] Comment on above: Performed By: #### L IPID, TSH, CMP #### [facility] [address] [place] [address] Dr. Heather Aguirre Cholesterol.total/Ch olesterol in HDL [Mass ratio] 3.6 {ratio} Normal [facility] Comment on above: Performed By: #### L IPID, TSH, CMP #### [facility] [address] [place] [address] Dr. Heather Aguirre HDL NORMAL > or = 60 mg/dl - LO W CARDIOVASCULAR RISK <40 mg/dl - HIGH CARDIOVASCULAR RISK Normal [facility] Comment on above: Performed By: #### L IPID, TSH, CMP #### [facility] [address] [place] [address] Dr. Heather Aguirre LDL CALC NORMAL SEE BELOW Normal [facility] Comment on above: Result Comment: <100 mg/dl OPTIMAL 100 - 129 mg/dl NEAR OR ABOVE OPTIMAL 130 - 159 mg/dl BORDERLINE HIGH 160 - 189 mg/dl HIGH >190 mg/dl VERY HIGH Performed By: #### L IPID, TSH, CMP #### [facility] [address] [place] [address] Dr. Heather Aguirre Triglyceride [Mass/Vol] 115 mg/dL Normal <=150 [facility] Comment on above: Performed By: #### L IPID, TSH, CMP #### [facility] [address] [place] [address] Dr. Heather Aguirre VLDL CALC 23.0 mg/dL Normal [facility] Comment on above: Performed By: #### L IPID, TSH, CMP #### [facility] [address] [place] [address] Dr. Heather Aguirre PROF 14(COMP METB)on 022 Albumin [Mass/Vol] 3.5 g/dL Normal 3.4-5.0 [facility] Comment on above: Performed By: #### L IPID, TSH, CMP #### [facility] [address] [place] [address] Dr. Heather Aguirre Albumin/Globulin [Mass ratio] 1.1 {ratio} Normal [facility] Comment on above: Performed By: #### L IPID, TSH, CMP #### [facility] [address] [address] [address] Heather Aguirre ALP [Catalytic activity/Vol] 56 U/L Normal 46-116 [facility] Comment on above: Performed By: #### L IPID, TSH, CMP #### [facility] [address] [address] [address] Heather Aguirre ALT [Catalytic activity/Vol] 25 U/L Normal 14-59 [facility] Comment on above: Performed By: #### L IPID, TSH, CMP #### [facility] [address] [address] [address] Heather Aguirre Anion gap [Moles/Vol] 1 mmol/L Normal [facility] Comment on above: Performed By: #### L IPID, TSH, CMP #### [facility] [address] [place] [address] Dr. Heather Aguirre AST [Catalytic activity/Vol] 10 U/L Critically low 15-37 [facility] Comment on above: Performed By: #### L IPID, TSH, CMP #### [facility] [address] [place] [address] Dr. Heather Aguirre Bilirubin [Mass/Vol] 0.5 mg/dL Normal 0.2-1.0 [facility] Comment on above: Performed By: #### L IPID, TSH, CMP #### [facility] [address] [place] [address] Dr. Heather Aguirre Calcium [Mass/Vol] 8.5 mg/dL Normal 8.5-10.1 [facility] Comment on above: Performed By: #### L IPID, TSH, CMP #### [facility] [address] [place] [address] Dr. Heather Aguirre Chloride [Moles/Vol] 102 mmol/L Normal 98-107 [facility] Comment on above: Performed By: #### L IPID, TSH, CMP #### [facility] [address] [address] [address] Heather Aguirre CO2 [Moles/Vol] 30.0 mmol/L Normal 21.0-32.0 [facility] Comment on above: Performed By: #### L IPID, TSH, CMP #### [facility] [address] [address] [address] Heather Aguirre Creatinine [Mass/Vol] 1.07 mg/dL Critically high 0.55-1.02 [facility] Comment on above: Performed By: #### L IPID, TSH, CMP #### [facility] [address] [address] [address] Heather Aguirre EGFR-AF ZIMBABWEAN >60 Normal >=60 [facility] Comment on above: Performed By: #### L IPID, TSH, CMP #### [facility] [address] [address] [address] Heather Aguirre EGFR-NON AF ZIMBABWEAN 52 mL/min/1.73m2 Critically low >=60 [facility] Comment on above: Performed By: #### L IPID, TSH, CMP #### [facility] [address] [address] [address] Heather Aguirre Globulin (S) [Mass/Vol] 3.2 g/dL Normal [facility] Comment on above: Performed By: #### L IPID, TSH, CMP #### [facility] [address] [address] [address] Heather Aguirre Glucose [Mass/Vol] 96 mg/dL Normal 74-106 [facility] Comment on above: Performed By: #### L IPID, TSH, CMP #### [facility] [address] [address] [address] Heather Aguirre Potassium [Moles/Vol] 4.0 mmol/L Normal 3.5-5.1 [facility] Comment on above: Performed By: #### L IPID, TSH, CMP #### [facility] [address] [address] [address] Heather Aguirre Protein [Mass/Vol] 6.7 g/dL Normal 6.4-8.2 [facility] Comment on above: Performed By: #### L IPID, TSH, CMP #### [facility] [address] [address] [address] Heather Aguirre Sodium [Moles/Vol] 127 mmol/L Critically low 136-145 [facility] Comment on above: Performed By: #### L IPID, TSH, CMP #### [facility] [address] [address] [address] Heather Aguirre Urea nitrogen [Mass/Vol] 20.0 mg/dL Critically high 7.0-18.0 [facility] Comment on above: Performed By: #### L IPID, TSH, CMP #### [facility] [address] [address] [address] Heather Aguirre Urea nitrogen/Creatinine [Mass ratio] 18.7 mg/mg Normal [facility] Comment on above: Performed By: #### L IPID, TSH, CMP #### [facility] [address] [address] [address] Heather Aguirre TSHon 02-12-2022 TSH 1.693 uIU/mL Normal 0.358-3.740 [facility] Comment on above: Performed By: #### L IPID, TSH, CMP #### [facility] [address] [place] [address] Dr. Heather Aguirre Vital Signs Date Time Vital Sign Value Performing Clinician Facility 09-13-2024 12:10-0500 Body mass index (BMI) [Ratio] 36.72 kg/m2 [employer] Work Phone: [facility] 09-13-2024 12:10-0500 Body weight 85.28 kg [employer] Work Phone: [facility] 09-13-2024 12:10-0500 Diastolic blood pressure 80 mm[Hg] [email or web address] [email or web address] Work Phone: [facility] 09-13-2024 12:10-0500 Systolic blood pressure 130 mm[Hg] Jeri Rafaela DO Work Phone: [facility] 08-25-2024 09:30-0500 Body height 152.4 cm PHYSICIAN [facility] 08-25-2024 09:30-0500 Body mass index (BMI) [Ratio] 36.5 kg/m2 PHYSICIAN [facility] 08-25-2024 09:30-0500 Body temperature 98.6 [degF] PHYSICIAN NO [facility] 08-25-2024 09:30-0500 Body weight 84.82 kg PHYSICIAN NO [facility] 08-25-2024 09:30-0500 Diastolic blood pressure 74 mm[Hg] PHYSICIAN NO [facility] 08-25-2024 09:30-0500 Heart rate 67 /min PHYSICIAN NO [facility] 08-25-2024 09:30-0500 SaO2% (BldA) [Mass fraction] 99 % PHYSICIAN NO [facility] 08-25-2024 09:30-0500 Systolic blood pressure 110 mm[Hg] PHYSICIAN NO [facility] 07-04-2024 09:18-0500 Body mass index (BMI) [Ratio] 36.72 kg/m2 [employer] Work Phone: [facility] 07-04-2024 09:18-0500 Body weight 85.28 kg Jeri Rafaela DO Work Phone: [facility] 07-04-2024 09:18-0500 Diastolic blood pressure 78 mm[Hg] Jeri Rafaela [employer] Work Phone: [facility] 07-04-2024 09:18-0500 Systolic blood pressure 124 mm[Hg] Jeri Rafaela [employer] Work Phone: [facility] 04-12-2024 14:19-0400 Blood Pressure Location Price ARAUZL [facility] 04-12-2024 14:19-0400 Diastolic blood pressure 82 mm[Hg] Price ARAUZL [facility] 04-12-2024 14:19-0400 Heart rate 76 /min Price AVILA [facility] 04-12-2024 14:19-0400 Respiratory rate 16 /min Price AVILA [facility] 04-12-2024 14:19-0400 Systolic blood pressure 118 mm[Hg] Price ARAUZChandu Robin [facility] 03-07-2024 08:31-0400 Body height 152.4 cm [facility] 03-07-2024 08:31-0400 Body mass index (BMI) [Ratio] 36.1 kg/m2 [facility] 03-07-2024 08:31-0400 Body weight 83.91 kg [facility] 03-07-2024 08:31-0400 Diastolic blood pressure 101 mm[Hg] [facility] 03-07-2024 08:31-0400 Heart rate 69 /min [facility] 03-07-2024 08:31-0400 Systolic blood pressure 159 mm[Hg] [facility] 10-08-2023 10:14-0500 Body height 152.4 cm [facility] 10-08-2023 10:14-0500 Body mass index (BMI) [Ratio] 35.8 kg/m2 [facility] 10-08-2023 10:14-0500 Body weight 83.12 kg [facility] 10-08-2023 10:14-0500 Diastolic blood pressure 80 mm[Hg] [facility] 10-08-2023 10:14-0500 Heart rate 83 /min [facility] 10-08-2023 10:14-0500 Systolic blood pressure 132 mm[Hg] [facility] 02-26-2023 08:30-0400 Body height 152.4 cm Tanvi De Oliveira Other [email or web address] Other 02-26-2023 08:30-0400 Body mass index (BMI) [Ratio] 35.93 kg/m2 Tanvi De Oliveira Other [email or web address] Other 02-26-2023 08:30-0400 Body weight 83.46 kg Tanvi De Oliveira Other [email or web address] Other 02-26-2023 08:30-0400 Diastolic blood pressure 84 mm[Hg] Tanvi De Oliveira Other [facility] [employer] Other 02-26-2023 08:30-0400 Systolic blood pressure 145 mm[Hg] Tanvi De Oliveira Other [facility] [employer] Other Encounters Encounter Date Encounter Type Care Provider Facility Start: 11-23-2024 End: 11-23-2024 ambulatory [facility] Start: 09-13-2024 End: 09-13-2024 Bamboo flowsheet Jeri Rafaela DO Work Phone: [facility] Start: 09-13-2024 End: 09-13-2024 Bamboo flowsheet Jeri Rafaela DO Work Phone: [facility] Start: 09-13-2024 End: 09-13-2024 Office outpatient visit 15 minutes Jeri Rafaela DO Work Phone: [facility] Comment on above: Encounter to discuss test results; Osteopenia of neck of right femur Start: 09-13-2024 End: 09-13-2024 ambulatory JERI RAFAELA Not Available Start: 08-25-2024 End: 08-25-2024 ambulatory PHYSICIAN NO [facility] Work Phone: Start: 08-25-2024 End: 08-25-2024 Patient encounter procedure PHYSICIAN NO [facility] Work Phone: Start: 08-08-2024 End: 08-08-2024 ambulatory Tanvi De Oliveira Facility:[facility] Start: 08-08-2024 End: 08-08-2024 Departed Referred PHYSICIAN NO [facility] [place] Work Phone: Start: 08-08-2024 End: 08-08-2024 Patient encounter procedure PHYSICIAN NO [facility] Work Phone: Start: 07-04-2024 End: 07-04-2024 Bamboo flowsheet Jeri Rafaela DO Work Phone: [facility] Start: 07-04-2024 End: 07-04-2024 Bamboo flowsheet Jeri Rafaela DO Work Phone: [facility] Start: 07-04-2024 End: 07-04-2024 Patient encounter procedure Jeri Rafaela DO Work Phone: [facility] Start: 07-04-2024 End: 07-04-2024 Periodic preventive med est patient 65yrs& older Jeri Rafaela DO Work Phone: [facility] Comment on above: Well woman exam with routine gynecological exam; Breast cancer screening by mammogram; Osteoporosis, post-menopausal (CMS/HCC) Start: 07-04-2024 Non-patient / [facility]-visit [facility]ICIAN [facility] Work Phone: Start: 07-04-2024 End: 07-04-2024 ambulatory JERI TANNERO Not Available Start: 05-27-2024 End: 05-27-2024 ambulatory [facility] Start: 05-04-2024 End: 05-04-2024 ambulatory Price AVILA Facility:[id number] Start: 04-12-2024 End: 04-12-2024 ambulatory Price AVILA Facility:[facility] [place] Start: 04-12-2024 End: 04-12-2024 Patient encounter procedure Price AVILA [facility] Start: 03-08-2024 ambulatory Price AVILA Facility:[facility] [place] Start: 03-07-[address] [facility] Start: 03-07-2024 End: 03-07-2024 ambulatory [facility] Work Phone: Start: 03-07-2024 End: 03-07-2024 Encounter for general adult medical examination without abnormal findings [facility] Start: 03-07-2024 End: 03-07-2024 Patient encounter procedure [facility] Physician [facility] Work Phone: Start: 01-01-2024 End: 01-01-2024 ambulatory [facility] Start: 11-26-2023 End: 11-26-2023 ambulatory [facility] Start: 10-08-2023 End: 10-08-2023 ambulatory [facility] Work Phone: Start: 10-08-2023 End: 10-08-2023 Patient encounter procedure [facility] Physician [facility] Work Phone: Start: 02-26-2023 End: 02-26-2023 ambulatory Tanvi De Oliveira Other [email or web address] Other Start: 02-26-2023 Encounter for genera l adult medical examination without abnormal findings Tanvi De Oliveira [facility] Start: 02-26-2023 Periodic preventive med est patient 65yrs& older Tanvi De Oliveira [facility] Start: 07-14-2022 End: 07-15-[address] TANVI DE OLIVEIRA Facility:[facility] Start: 07-01-2022 End: 07-01-[address] JERI RUSSO Facility:[facility] Start: 06-11-2022 End: 06-12-[address] TANVI DE OLIVEIRA Facility:[facility] Start: 06-10-2022 End: 06-11-[address] JERI RUSSO Facility:[facility] Start: 02-14-2022 Encounter for genera l adult medical examination without abnormal findings DR TANVI DE OLIVEIRA [facility] Start: 02-12-2022 End: 02-13-[address] TANVI DE OLIVEIRA Facility:[facility] Start: 02-12-2022 End: 02-13-2022 Encounter for general adult medical examination without abnormal findings DR TANVI DE OLIVEIRA Facility:[facility] Procedures Date Procedure Procedure Detail Performing Clinician Start: 08-08-2024 Urine culture PHYSICIAN NO FAMILY Start: 07-04-2024 Mammography Jeri urban DO Work Phone: Start: 07-02-2023 Cytp cerv/vag auto t hin layer prep mnl screen Jeri Tannero DO Work Phone: Start: 12-09-2013 Colonoscopy Jeri Tanner o DO Work Phone: Start: 12-09-2013 Colonoscopy [...] procedure 07/10/2025 8:30 AM EST Office Visit [facility] [address] [place] [address] Jeri Russo, DO [address] [place], [place] [address] [facility] Start: 07-04-2025 Screening for malign ant neoplasm of breast Mammogram [facility] Start: 09-13-2024 End: 09-13-2024 Patient encounter procedure 09/13/2024 11:40 AM EST Office Visit [facility] [address] [place] [address] Jeri Russo, DO [address], [place] [id number] Arrived [facility] Comment on above: Arrived Start: 07-04-2024 End: 07-04-2025 DXA Skeletal system Views for bone density DEXA bone density Imaging Routine Osteoporosis, post-menopausal (CMS/HCC) Expected: 07/04/2024 (Approximate), Expires: 07/04/2025 [facility] Work Phone: Comment on above: Expected: 07/04/2024 (Approximate), Expires: 07/04/2025 Start: 12-10-2023 Screening for malign ant neoplasm of colon [facility] Start: 2022 Pneumococcal Vaccine : 65+ Years (1 of 1 - PCV) Pneumococcal Vaccine: 65+ Years (1 of 1 - PCV) [facility] Start: 1955 Screening for malign ant neoplasm of colon [facility] Comprehensive metabo lic 2000 panel - Serum or Plasma [facility] EKG 12 channel panel [facility] THIN PREP TIS PAP AN D HR HPV DNA THIN PREP TIS PAP AND HR HPV DNA Pathology and Cytology Routine Well woman exam with routine gynecological exam Ordered: 07/04/2024 [facility] Comment on above: Ordered: 07/04/2024 XR Hip - left 2 Views [facility] Immunizations Immunization Date Immunization Notes Care Provider Fa cility 06-07-2021 SARS-CoV-2 (COVID-19 ) mRNA-1273 vaccine Price AUSTIN [facility] 09-19-2020 SARS-CoV-2 (COVID-19 ) mRNA-1273 vaccine Price NILL [facility] 08-23-2020 SARS-CoV-2 (COVID-19 ) mRNA-1273 vaccine Price NILL [facility] Payers Date Payer Category Payer Self-pay 2022 [facility] [id number] 2022 [employer] [id number] 2019 Unknown [id number] 1957 Unknown [id number] [id number]. 593 1957 Unknown [id number] [id number]. 593 1957 Unknown [id number] [id number]. 593 1957 Unknown [id number] 2.16840.1.418320.3.579.2. 593 1957 Unknown [id number] [id number]. 593 1957 Unknown [id number] [id number]. 593 1957 Unknown [id number] [id number]. 727 1957 Unknown [id number] [id number]. 727 1957 Unknown [id number] [id number]. 1259 1957 Unknown [id number] [id number]. 1259 Medicare Medicare-OP No Part B [id number] Unknown [id number]. 531 Social History Date Type Detail Facility Start: 07-04-2024 Sex Assigned At F [facility] Start: 06-19-2023 End: 10-06-2023 Tobacco smoking status NHIS Ex-smoker (finding) [facility] Start: 1955 Sex Assigned At Female F [facility] Tobacco smoking status Never [facility] History of tobacco use Current smoker [facility] History of tobacco use Cigarette Smoker [facility] Start: 07-04-2024 End: 09-13-2024 Alcoholic beverage intake Ex-drinker (finding) [facility] Start: 07-04-2024 History of Social function [facility] Start: 06-19-2023 Alcohol Comment Ocasional alcohol us e [facility] Start: 1955 Sex assigned at Not on file [place] [facility] Start: 06-27-2023 Gender identity Identifies as female gender (finding) [facility] Start: 08-25-2024 Sex Female (finding) [facility] Functional Status Date Assessment Result Facility 04-12-2024 Functional Status N/A [facility] Clinical Notes 02-26-2023 to 11-23-2024 Marce Slade, RADHA - 09/13/2024 11:40 AM EST Note Date & Type Note Facility 11-23-2024 Note [facility] Clinic Note Chief Complaint: Patient here for 6 month follow. Patient states she doing well and has no cardiac complaints at this time. Patient denies chest pain, abnormal bleeding, leg swelling. HPI: Mackenzie Patel is a 69 y.o. female with a remote history of tobacco abuse who [...] very pleased with how she is doing. Review of Systems Constitutional: Negative. All other systems reviewed and are negative. Cardiology ROS: GENERAL: Denies fever, chills, night sweats, weight loss. HEENT: Denies changes in vision, photophobia, changes in hearing, epistaxis, oral bleeding. CARDIOVASCULAR: Denies chest pain, exertional dyspnea, orthopnea/PND, lower extremity edema, palpitations, lightheadedness/dizziness. RESPIRATORY: Denies SOB, coughing, wheezing GI: Denies [...] She reports that she quit smoking about 35 years ago. Her smoking use included cigarettes. She has never used smokeless tobacco. She reports current alcohol use. No history on file for drug use. Family History Family History Problem Relation Name Age of Onset Coronary artery disease Mother Other (CABG) Mother Heart attack Father 90 Allergies Kiwi, Fish oil, and Shellfish derived Medications Current Outpatient Medications: cefdinir (Omnicef) 300 mg capsule, Take 1 capsule by mouth Twice daily at 6am and 6pm., Disp: , Rfl: alendronate (Fosamax) 70 mg tablet, Take 70 mg by mouth., Disp: , Rfl: amLODIPine (Norvasc) 5 mg tablet, Take 1 tablet (5 mg) by mouth in the morning., Disp: 90 tablet, Rfl: 3 aspirin 81 mg EC tablet, Take 81 mg by mouth in the morning., Disp: , Rfl: buPROPion XL (Wellbutrin XL) 150 mg 24 hr tablet, Take 150 mg by mouth in the morning., Disp: , Rfl: carvedilol (Coreg) 6.25 mg tablet, TAKE 1 TABLET BY MOUTH WITH BREAKFAST AND EVENING MEAL, Disp: 180 tablet, Rfl: 3 isosorbide mononitrate ER (Imdur) 30 mg 24 hr tablet, Take 1 tablet (30 mg) by mouth in the morning. Do not crush or chew., Disp: 90 tablet, Rfl: 3 levothyroxine (Synthroid, Levoxyl) 100 mcg tablet, TAKE ONE TABLET BY MOUTH EVERY MORNING ON an EMPTY stomach ONCE DAILY, Disp: , Rfl: omeprazole (PriLOSEC) [address] capsule, Take by mouth in the morning., Disp: , Rfl: rosuvastatin (Crestor) 20 mg tablet, TAKE 1 TABLET BY MOUTH EVERY DAY IN THE MORNING, Disp: 90 tablet, Rfl: 3 Last Recorded Vitals BP 130/88 (BP Location: Right arm, Patient Position: Sitting) Pulse 69 Ht 1.524 m (5') Wt 85.7 kg (189 lb) SpO2 96% BMI 36.91 kg/m??? Physical Examination: GENERAL: alert and oriented x3, well developed, in no acute distress. HEAD: atraumatic, normocephalic. EYES: PATRICK, EOMI. NECK: trachea midline, no JVD present, no carotid bruits present. CARDIAC: S1, S2 present. RRR. No murmur, rubs, or gallops. RESPIRATORY: CTAB, no increased effort of breathing, no rales, rhonchi, or wheezing. ABDOMEN: soft, nontender, nondistended. EXTREMITIES: no lower extremity edema, peripheral pulses are 2+ bilaterally. No rash/skin discoloration present. NEURO: strength/sensation equal and symmetric in bilateral upper and lower extremities. PSYCH: appropriate mood, affect, and judgement. Assessment: Non obstructive CAD Chest pain, resolved Dyspnea on exertion Hypertension, controlled Previous tobacco abuse Plan: Continue optimal medical therapy for coronary artery disease including aspirin, moderate intensity statin, and a beta-sp Continue current medical therapy She is to report any new or worsening symptoms -Follow-up in cardiology clinic in 6 months or sooner should problems arise Tomy Lemus MD, MPH, FACC, [facility], [facility] Interventional Cardiology Pager Email: [email or web address] 09-13-2024 History of Present illness Narrative Reason for Appointment: Patient ID: Mackenzie Patel is a 68 y.o. female who presents for Discuss Dexa scan results Patient presents today for Consult appointment. and Follow up appointment to discuss results. MEDICATIONS Current Outpatient Medications Medication Instructions alendronate (Fosamax) 70 MG tablet TAKE 1 TAB BY MOUTH ONCE A WEEK.TAKE IN MORNING WITH FULL GLASS OF WATER ON EMPTY STOMACH.DO NOT TAKE ANYTHING ELSE BY MOUTH OR LIE DOWN FOR NEXT 30 MINUTES. cycloSPORINE (Restasis) 0.05 % ophthalmic emulsion 1 [...] SYSTEMS Review of Systems: Review of Systems Constitutional: Negative. HENT: Negative. Eyes: Negative. Respiratory: Negative. Cardiovascular: Negative. Gastrointestinal: Negative. Genitourinary: Negative. Musculoskeletal: Negative. Skin: Negative. Neurological: Negative. All other systems reviewed and are negative. Hematological: Negative. Endocrine: Negative. Allergic/Immunologic: Negative. OBJECTIVE Objective: Physical Exam Constitutional: Appearance: Normal appearance. She is well-developed. Cardiovascular: Rate and Rhythm: Normal rate and regular rhythm. Pulmonary: Effort: Pulmonary effort is normal. Breath sounds: Normal breath sounds. Abdominal: General: Bowel sounds are normal. There [...] nursing note reviewed. Exam conducted with a fuse spooler present. Vitals: Estimated body mass index is 36.72 kg/m as calculated from the following: Height as of 07/02/23: 5'. Weight as of this encounter: 188 lb. BP: 130/80 No LMP recorded. Patient has had a hysterectomy. ASSESSMENT & PLAN ICD-10-CM 1. Encounter to discuss test results Z71.2 2. Osteopenia of neck of right femur M85.851 Pt presents to discuss dexa scan results. Pt is osteopenic- right femoral neck worsened. Pt taking fosamax currently- will start prolia injections twice a year. Pt voiced understanding. Documented by Marce Slade LPN on behalf of: Jeri Russo DO documented in this encounter [facility] 08-08-2024 Evaluation note Diagnosis Onset Date Resolution Dysuria acute August 08, 2024 9:48am Left hip pain acute August 9:24am [facility] Work Phone: 1(432) 345-125911-18-2024 History of Present illness Narrative* Trudy Clarke LPN - 07/04/2024 9:00 AM EST Reason for Appointment: Patient ID: Mackenzie Patel [...] nursing note reviewed. Exam conducted with a fuse spooler present. Vitals: Estimated body mass index is [...] CANCELED: Bilateral screening mammogram 3. Osteoporosis, post-menopausal ([facility]) M81.0 DEXA bone density Annual: Patient presents [...] of: Jeri Russo DO documented in this encounterUniversity [facility] [id number] [facility] Note HPI: Mackenzie Patel is [...] as needed Dwayne Richmond MD Interventional Cardiology [facility]08-27-2024 NoteGeneral Surgery Office/Clinic Note Chief Complaint consultation for colonoscopy HPI Staff 68 year old female presents on consultation from Dr. De Oliveira for screening colonoscopy. Denies abdominal or rectal pain. No rectal bleeding or change in bowel habits. Denies nausea or vomiting. No unexplained weight loss. Last colonoscopy completed 11/2013 with diverticulosis and internal hemorrhoids.No known family history of colon cancer. History [...] swallowing difficulties, no hearing loss, no ear infection(s),no nose bleeds. Cardiovascular: normal blood pressure, no [...] disease: Mother and Br (more content not included)...[facility] CenterComment on above:Result Comment: Electronically Signed By: AUSTIN RUBALCAVA, Price Molina\Date and Time Signed: 04/12/24 14:47 [id number] [facility] Note HPI: Mackenzie Patel is [...] as needed Dwayne Richmond MD Interventional Cardiology [facility]04-11-2024 NotePatient: Mackenzie Patel Procedure Information Date/Time: 11/26/23 1030 Procedure: Coronary angiography (Left) Location: [facility] ORTHOPED[facility] RADIOLOGIC TECHNOLOGIST 3 / [facility] (Cath) Providers: Dwayne Richmond [...] products. Plan discussed with attending. [facility]* Encounter Date Diagnosis Assessment Notes Treatment Notes Treatment Clinical Notes Feb, Well adult exam (ICD-10 - [...] colonscopy in 2013 - repeat next year. [email or web address] Other Evaluation + Plan note No data available for this section [facility] Evaluation note* Diagnosis Onset Date Resolution Status Dyspnea on exertion acute Epigastric abdominal pain ac artie Left-sided chest wall pain a cute [facility] Work Phone: Evaluation note* Diagnosis Onset Date Resolution Status Well adult exam acute [facility] Work Phone: Evaluation note* Diagnosis Well woman exam with routine gynecological exam Routine gynecological examination Breast cancer screening by mammogram Osteoporosis, post-menopausal (CMS/HCC) Senile osteoporosis [facility] Diagnosis Encounter to discuss test results Other specified counseling Osteopenia of neck of right femur [facility] this [facility] [...] Dr. Mejia Hospitalization History SEE SURGICAL HX [email or web address] Other Hospital Discharge instructions No data available for this section [facility] [email or web address] Progress note No data available for this section [facility] [email or web address] Summary Purpose Family History No Family History [...] Wellness Reason for Visit Well adult exam Chief Complaint Admit Date UA, frequency, pain August 08, 2024 9:48am R30.0 August 08, 2024 10:00am Sinus Infection August 25, 2024 9: 24am Reason for Visit Admit Date Dysuria August 08, 2024 9:48am Left hip pain August 25, 2024 9: 24am Additional Source Comments INFORMATION SOURCE (unrecogn ized section and content) DATE CREATED AUTHOR 07/17/2022 [facility] DATE CREATED AUTHOR AUTHOR'S ORGANIZ ATION 05/12/2024 [facility] DATE CREATED AUTHOR AUTHOR'S ORGANIZ ATION 08/14/[address] [facility] DATE CREATED AUTHOR AUTHOR'S ORGANIZ ATION 09/14/2024 [facility] EPIC DATE CREATED AUTHOR AUTHOR'S ORGANIZ ATION 11/24/2024 [facility] REASON FOR VISIT (unrecogniz ed section and content) Reason Comments Gynecologic Exam Reason Comments Discuss Dexa scan results Care Teams (unrecognized sec tion and content) [...] March 07, 2024 End: March 07, 2024 Wood Pole Treater Relationship Specialty Start Date End Date Tanvi De Oliveira MD [address] [place] [address] PCP - General Family Medicine 07/02/23 Wood Pole Treater Relationship Specialty Start Date End Date Tanvi De Oliveira MD [address] [place] [address] PCP - General Family Medicine 07/02/23 Team Status: Active Member Role Status Dates PHYSICIAN NO FAMILY Primary Care Provider Active Team Status: Active Member Role Status Dates Tanvi De Oliveira MD Primary Care Provider Active Start: July 04, 2024 Jeri Russo DO Attending Provider Active Start : July 04, 2024 Team Status: Inactive Member Role Status Dates Tanvi De Oliveira MD Primary Care Provide r, Attending Provider Active Start: August 08, 2024 End: August 08, 2024 Team Status: Inactive Member Role Status Dates Tanvi De Oliveira MD Attending Provider Active St art: August 08, 2024 End: August 08, 2024 PHYSICIAN NO FAMILY Primary Care Provider Active Start: August 08, 2024 End: August 08, 2024 Team Status: Inactive Member Role Status Dates PHYSICIAN NO FAMILY Primary Care Provider Active Start: August 25, 2024 End: August 25, 2024 Tanvi De Oliveira MD Attending Provider Active St art: August 25, 2024 End: August 25, 2024 Wood Pole Treater Relationship Specialty Start Date End Date Tanvi De Oliveira MD [address] [place] [phone] PCP - General Family Medicine 07/02/23 Goals [...] BE BASED ON THE PRIMARY CLINICAL RECORDS. [email or web address] [facility]. provides no warranty or guarantee of the accuracy or completeness of information in this document.
[2025-02-15 07:33] LABS: Hematocrit 38.1 % (36.0-48.0); Hemoglobin 12.6 g/dL (12.0-16.0); Immature Granulocytes Abs Auto 0.02 10^3/uL (0.00-0.03); Immature Granulocytes Pct Auto 0.3 % (0.0-0.5); Lymphocytes Absolute Auto 2.8 10^3/uL (1.2-3.8); Mean Corpuscular HGB Conc 33.1 g/dL (29.9-35.2); Mean Corpuscular Hemoglobin 29.5 pg (26.7-34.0); Mean Corpuscular Volume 89.2 fL (81.0-99.0); Platelet Count 281 10^3/uL (150-450); Red Blood Count 4.27 10^6/uL (4.20-5.40); White Blood Count 8.0 10^3/uL (4.0-11.0)
[2025-02-15 08:24] LABS: Alanine Aminotransferase 25 U/L (14-59); Albumin Globulin Ratio 1.1; Albumin Level 3.4 g/dL (3.4-5.0); Alkaline Phosphatase 62 U/L (46-116); Anion Gap 10.3; Aspartate Amino Transferase 23 U/L (15-37); Blood Urea Nitrogen 19.0 mg/dL (7.0-18.0); Calcium 8.9 mg/dL (8.5-10.1); Carbon Dioxide 30.4 mmol/L (21.0-32.0); Chloride 108 mmol/L (98-107); Cholesterol 148 mg/dL (<=200); Estimated GFR (African America >60 (>=60 mL/min/1.73m^2); Estimated GFR (Non-African Ame >60 (>=60 mL/min/1.73m^2); Globulin 3.1 g/dL; Glucose 102 mg/dL (74-106); HDL Cholesterol 72 mg/dL (40-60); Potassium 3.7 mmol/L (3.5-5.1); Sodium 145 mmol/L (136-145); TSH W/ REFLEX FT4 1.502 uIU/mL (0.358-3.740); Total Protein 6.5 g/dL (6.4-8.2); Triglycerides 102 mg/dL (<=150); VLDL CHOLESTEROL 20.4 mg/dL
== END 2025-02-15 07:07 | disposition home or self-care (01) ==
LOC: LAB 07:06
DX: Z00.00 Encounter for general adult medical examination without abnormal findings (principal)
CPT/HCPCS: 36415; 80053; 80061; 83036; 84443; 85025

== ENCOUNTER 2025-07-10 19:58 | Outpatient (REF) | payer MEDICARE, SELFPAY ==
--- OUTSIDE RECORDS SUMMARY | 2025-07-10 08:30 | XMS_ITS | Encounter Summary ---
Author Organization [facility] Address [address] [place] [place] [address] Care Team Providers Care Mechanical Engineering Intern Name Role Phone Tanvi Rocha MD Primary Care Provider [phone] Reason for Visit * ReasonCommentsGynecologic Exam Encounter Details DateTypeDepartmentCare Team (Latest Contact Info)Smxjkzeyzqv04/24/2025 8:30 AM ESTOffice Visit [facility] [address] [place] [phone] Jermaine Russo DO [address] [place] [phone] Well woman exam with routine gynecological exam; Encounter for screening mammogram for malignant neoplasm of breast Social History Tobacco UseTypesPacks/DayYears UsedDateSmoking Tobacco: FormerCigarettes Smokeless Tobacco: Never Tobacco Cessation:Counseling Given: Not Answered Alcohol UseStandard Drinks/WeekCommentsNot Currently0 (1 standard drink = 0.6 oz pure alcohol)Ocasional alcohol useCommentsNoSex and Gender Information ValueDate RecordedSex Assigned at BirthNot on fileLegal EnlLhikhm96/15/2023 7:47 PM EDTGender WbqsohrpYrjexe82/11/2023 9:07 AM ESTSexual OrientationNot on file documented as of this encounter Last Filed Vital Signs Vital SignReadingTime TakenCommentsBlood Sdmzaowj275/7207/10/2025 8:49 AM EST Pulse--Temperature--Respiratory Rate--Oxygen Saturation--Inhaled Oxygen Concentration--Ofkbxl54.4 kg (186 lb)07/10/2025 8:49 AM ESTHeight--Body Mass [...] nursing note reviewed. Exam conducted with a edging machine feeder present. Vitals: Estimated body mass index is [...] DateEnd Date Tanvi Rocha MD [address] [place] [phone] PCP - GeneralFamily Okydaxkk92/16/23documented as of this encounter
--- OUTSIDE RECORDS SUMMARY | 2025-07-10 20:02 | XMS_ITS | Clinical Summary ---
Author Organization [facility] Address [address] [address] Care Team Providers Care Fish Cutting Machine Operator Name Role Phone Tanvi Rocha MD Primary Care Provider [phone] Allergies Active AllergyReactionsCriticalityNoted DateCommentsFish QmsAjzdduy02/14/2023 KiwiAnaphylaxis,VidkfychNwfh49/14/2023Shellfish Zsbvxug5710/23/2023 Medications MedicationSigDispense QuantityRefillsLast FilledStart DateEnd DateStatus alendronate (Fosamax) 70 mg tablet Take 70 mg by mouth.07/02/2023ctive buPROPion XL (Wellbutrin XL) 150 mg 24 hr tablet Take 150 mg by mouth in the morning.04/17/2023ctive levothyroxine (Synthroid, Levoxyl) 100 mcg tablet TAKE ONE TABLET BY MOUTH EVERY MORNING ON an EMPTY stomach ONCE DAILY04/29/2023 Active omeprazole (PriLOSEC) [address] capsule Take by mouth in the morning.10/08/2023ctive aspirin 81 mg EC tablet Take 81 mg by mouth in the morning.Active carvedilol (Coreg) 6.25 mg tablet Indications:Essential hypertensionTAKE 1 TABLET BY MOUTH WITH BREAKFAST AND EVENING MEAL 180 tablet tive rosuvastatin (Crestor) 20 mg tablet Indications:Hyperlipidemia, unspecified hyperlipidemia typeTAKE 1 TABLET BY MOUTH EVERY DAY IN THE MORNING 90 tablet tive cefdinir (Omnicef) 300 mg capsule Take 1 capsule by mouth Twice daily at 6am and 6pm.08/25/2024tive isosorbide mononitrate ER (Imdur) 30 mg 24 hr tablet Indications:Angina pectoris, unstable (CMS/HCC),Abnormal stress testTake 1 tablet (30 mg) by mouth in the morning. Do not crush or chew. 90 tablet ctive amLODIPine (Norvasc) 5 mg tablet Indications:Essential hypertensionTAKE 1 TABLET BY MOUTH EVERY DAY IN THE MORNING 90 tablet 5Active Active Problems ProblemNoted DateDiagnosed DateBMI 36.0-36.9,adult11/22/2024AD (coronary artery disease)11/22/20246179Gtzpthzjtzvxgr71/08/6841Zfchshtalfosgo54/08/2025Obesity due to excess fqhraigb02/08/2025Screening for malignant neoplasm of colon11/22/2024 Osteoporosis, post-qjjinugasn23/10/2025hronic tension-type headache, not gszlwdyrrvz88epression, majoryspnea on zxrvtmrn37Epigastric abdominal pain Kostzdkuqtaiwb49Left-sided chest wall pain Lumbar radiculopathy, rightOsteoarthritis of right hip Osteopeniaost-/17/2024 01/01/2024ngina pectoris, xqifqdwm61/22/2024bnormal stress test11/06/2023 Encounters DateTypeDepartmentCare ChpqVvntgrzeyfk09/10/2025[facility] [address] [place] [address] Dwayne Richmond MD Essential hypertensionfrom Last 3 Months Family History Medical HistoryRelationNameCommentsHeart attackFatherCABGMotherCoronary artery diseaseMotherRelationNameStatusCommentsBrotherAliveFatherDeceasedMotherDeceased SisterAlive Social History Tobacco UseTypesPacks/DayYears UsedDateSmoking Tobacco: FormerCigarettesQuit: 1990Smokeless Tobacco: Never Tobacco Cessation:Counseling Given: Not Answered Alcohol UseStandard Drinks/WeekCommentsYes0 (1 standard drink = 0.6 oz pure alcohol)occasionalUT Safety & EnvironmentAnswerDate RecordedFear of Current or Ex-PartnerNot on file10/16/2023Emotionally AbusedNot on file10/16/2023hysically AbusedNot on file10/16/2023Sexually AbusedNot on 10/16/2023hysically or Sexually AbusedNot on 10/16/2023CommentsNoSex and Gender Information ValueDate RecordedSex Assigned at BirthNot on fileLegal PqoCgszir51/01/2024 9:52 AM ESTGender IdentityNot on fileSexual OrientationNot on file Last Filed Vital Signs Vital SignReadingTime TakenCommentsBlood Dmtcorvv057/8804 10:33 AM EDT Qfkqi2568 10:33 AM EDTTemperature--Respiratory Hlek3894 5:00 PM EDTOxygen Epudscnopd36%11/23/2024 10:33 AM EDTInhaled Oxygen Concentration-- Yhjbpk60.7 kg (189 lb)11/23/2024 10:33 AM NMBRwugde576.4 cm (5')11/23/2024 10:33 AM EDTBody Mass Index36.9111/23/2024 10:33 AM EDT Plan of Treatment Health MaintenanceDue DateLast DoneCommentsCT Jagcwartevah12/08/1958FIT-DNA 1957FIT1957FOBT1957 6106Gwydtbpujmkjs81/08/1958Depression Screening 1969Pneumococcal Vaccine: 50+ Years (1 of 2 - PCV)1976Adult Tetanus 10/23/19794536Wforlfjva80/08/1998Zoster Vaccines (1 of 2)10/23/2007Fall Risk Awqaevtab38/08/3312Umafjfzeshd77/25/202404/Colorectal Cancer Screening 4COVID-19 Vaccine ( season), 09/19/2020, 08/23/2020Influenza Vaccine (#1)51, 05/25/2017, 05/17/2016HIB VaccinesAged OutNo longer eligible based on patient's age to complete this topic HPV VaccinesAged OutNo longer eligible based on patient's age to complete this topicIPV VaccinesAged OutNo longer eligible based on patient's age to complete this topicMeningococcal B VaccineAged OutNo longer eligible based on patient's age to complete this topicMeningococcal VaccineAged OutNo longer eligible based on patient's age to complete this topicRotavirus VaccinesAged OutNo longer eligible based on patient's age to complete this topic Insurance Care Teams Team MemberRelationshipSpecialtyStart DateEnd Date Tanvi Rocha MD [facility]10/22/23
--- OUTSIDE RECORDS SUMMARY | 2025-07-10 20:02 | XMS_ITS | Encounter Summary ---
Author Organization [facility] Address [address] [facility] [place] [address] Care Team Providers Care Manager Park Name Role Phone Tanvi Rocha MD Primary Care Provider [phone] Encounter Details DateTypeDepartmentCare Team (Latest Contact Info)Swmmwiapero86/23/2025Travel Social History Tobacco UseTypesPacks/DayYears UsedDateSmoking Tobacco: FormerCigarettesAlcohol UseStandard Drinks/WeekCommentsNot Currently0 (1 standard drink = 0.6 oz pure alcohol)Ocasional alcohol useCommentsNoSex and Gender InformationValue Date RecordedSex Assigned at BirthNot on fileLegal BxwZnhhbu99/15/2023 7:47 PM EDTGender GpultkciHfmwvf07/11/2023 9:07 AM ESTSexual OrientationNot on file documented as of this encounter Plan of Treatment Not on file documented as of this encounter Visit Diagnoses Not on filedocumented in this encounter Care Teams Team MemberRelationshipSpecialtyStart DateEnd Date Tanvi Rocha MD [address] [place] [address] PCP - GeneralFamily Usawvnkx85/16/23documented as of this encounter
--- OUTSIDE RECORDS SUMMARY | 2025-07-10 20:02 | XMS_ITS | CCD ---
Author Organization [facility] CliniSyks Care Team Providers Care Medicare Sales Executive Name Role Phone DR TANVI DE OLIVEIRA Primary Care Unavailable RAFAELA, DR WILCOX Admitting Unavailable RAFAELA, DR WILCOX Attending Unavailable WEST, DR KATHIE Gaona Consulting Unavailable RAFAELA, DR WILCOX Consulting Unavailable RAFAELA, DR WILCOX Admitting Unavailable RAFAELA, DR WILCOX Attending Unavailable DE OLIVEIRA, DR TANVI Perez Primary Care Unavailable WEST, DR KATHIE Gaona Consulting Unavailable RAFAELA, DR WILCOX Consulting Unavailable RAFAELA, DR WILCOX Admitting Unavailable RAFAELA, DR WILCOX Attending Unavailable ALVINO, DR TANVI Perez Primary Care Unavailable RAFAELA, DR WILCOX Consulting Unavailable ALVINO, DR TANVI [...] Unavailable TANVI DE OLIVEIRA Primary Care Physician Price AVILA Attending Unavailable TANVI DE OLIVEIRA Referring Unavailable Price AVILA Attending Unavailable Tanvi De Oliveira MD Primary Care Provider [phone] Tanvi De Oliveira Attending Unavailable Tanvi De Oliveira Admitting Unavailable NO FAMILY, PHYSICIAN Primary Care Unavailable Tanvi De Oliveira MD Attending Provider [phone] NO FAMILY, PHYSICIAN Primary Care Provider Unava ilable JERI RUSSO Attending Unavailable JERI RUSSO Attending Unavailable DWAYNE RICHMOND Attending Unavailable TOMY LEMUS Attending Unavailable DWAYNE RICHMOND Admitting Unavailable DWAYNE RICHMOND Attending Unavailable DWAYNE RICHMOND Referring Unavailable DWAYNE RICHMOND Attending Unavailable Tanvi De Oliveira MD Primary Care Provider Tanvi De Oliveira MD Attending Provider [phone] Tanvi De Oliveira MD Primary Care Provider [phone] Allergies Allergy ClassificationReported Allergen(s)Allergy TypeDate of OnsetReaction(s) Facility (3 sources)Shellfish; Translations: [shellfish]Drug allergy (disorder)12-23-2013 Eruption of skin (disorder)[facility] Repository (2 sources)kiwi; Translations: [KIWI]Drug allergy (disorder)20-36-8004[facility] Repository (1 source)No Known Medication Allergies; Translations: [No Known Medication Allergies]Propensity to adverse reactions (disorder)[facility] Repository (9 sources)Fish Oils; Translations: [FISH OIL]Drug Edptdlw68-74-2200PzznmzgTKKP Healthcare Work Phone: (8 sources)Kiwi fruitPropensity to adverse ldcqvkyrm72-56-9832Yumdetgsdzi, SwellingNOMS Healthcare (7 sources)ShellfishAllergy to qgjqpxagh76-14-4946AxjuGFGH Healthcare (6 sources)Shellfish-Derived ProductsDrug Skaqllvdfih94-43-4040Xcnif, Itching, Rash, Shortness of breathNOMS Healthcare (1 source)Shellfish; Translations: [SHELLFISH DERIVED]Propensity to adverse reactions to drug (disorder)59-83-2735BchlnxnlytK[facility] Rep[facility] (2 sources)Shellfish Protein-Containing Drug ProductsDrug Ugzjeohaqcx73-43-9165 Hives, Itching, Rash, Shortness of breathNOMS HealthcareNEGATED: Highlighted row has been ruled out! (1 source)Drug allergySelect [facility] Medications Current Medications MedicationDrug Class(es)DatesSig (Normalized)Sig (Original)amLODIPine 5 mg oral tablet (1 source)Dihydropyridine Calcium Channel BlockerStart: 73-81-4491fryw 1 tablet by mouth once dailyAmlodipine 5 mg tablet Active 5 MG PO Daily March 15, 2025 12:00am Complies with drug therapyaspirin 81 mg delayed release oral tablet (6 sources)Platelet Aggregation Inhibitor, Nonsteroidal Anti-inflammatory Drug Start: 03-07-2024 End: 90-49-3154bafb 1 tablet by mouth once dailyAspirin (Adult Aspirin Regimen) 81 mg tablet,delayed release (DR/EC) Active 81 MG PO Daily February 14, 2025 1:13pm Complies with drug therapycarvedilol 6.25 mg oral tablet (3 sources)alpha-Adrenergic Sp, beta-Adrenergic BlockerStart: 03-07-2024 take 1 tablet by mouth twice daily at mealtimeCarvedilol (Coreg) 6.25 mg tablet Active 6.25 MG PO Twice daily March 07, 2024 12:00am must administer with a meal/food Complies with drug therapyRestasis (11 sources)Calcineurin Inhibitor ImmunosuppressantStart: 59-21-2016lybe 1 drop(s) into the eye(s) every twelve hoursRestasis 1 drop(s), Eye-Both, q12hr, Refill(s) 0 Start Date: 03/09/24 Status: OrderedStart: 78-59-7051vmjg 1 drop(s) into the eye(s) every twelve hoursCyclosporine (Restasis) 0.05 % dropperette Active 1 DROPS EYE-BOTH Every 12 hours October 07, 2023 1:00am Complies with drug therapytake 1 drop(s) into the eye(s) every twelve hourscycloSPORINE (Restasis) 0.05 % ophthalmic emulsion Administer 1 drop into both eyes every 12 (twelve) hours. Activetake 1 drop(s) into the eye(s) twice dailyRestasis 0.05 % 1 drop into affected eye Ophthalmic Twice a day ActiveCyclosporine (Restasis) 0.05 % dropperette (3 sources)Start: 86-62-5459cguy 1 drop(s) into the eye(s) every twelve hours Cyclosporine (Restasis) 0.05 % dropperette Active 1 DROPS EYE-BOTH Every 12 hours October 07, 2023 1:00amStart: 35-47-9678jpop 1 drop(s) into the eye(s) every twelve hoursCyclosporine (Restasis) 0.05 % dropperette Active 1 DROPS EYE- BOTH Every 12 hours October 07, 2023 12:00amisosorbide dinitrate 30 mg oral tablet (1 source)Nitrate VasodilatorStart: 79-66-4856hioq 1 tablet by mouth twice daily Isosorbide Dinitrate 30 mg tablet Active 30 MG PO Twice daily March 15, 2025 12:00am allow nitrate-free interval of 12-14 hrs per 24-hr period Complies with drug therapylevothyroxine sodium 0.1 mg oral tablet (19 sources)l-ThyroxineStart: 08-23-2024 End: 33-84-8824ltgj 1 tablet by mouth once dailyStart: 39-26-0370kuyx 1 tablet by mouth once dailylevothyroxine 100 mcg (0.1 mg) Tab 100 mcg = 1 tab(s), Oral, Daily, Refills(s) 0 Start Date: 03/09/24 Status: OrderedStart: 10-07-2023 End: 33-88-1062edex 1 tablet by mouth once dailyLevothyroxine 100 mcg tablet Discontinued 100 MCG PO Daily March 29, 2024 9:51am August 1:11pmtake 1 tablet by mouth once daily in the morningLevothyroxine Sodium 100 MCG 1 tablet in the morning on an empty stomach Orally Once a day for 90 days Activeomeprazole 40 mg delayed release oral capsule (17 sources)Proton Pump InhibitorStart: 14-11-3674axmu 1 capsule by mouth once dailyomeprazole 20 mg Cap-DR 20 mg = 1 cap(s), Oral, Daily, Refills(s) 0 Start Date: 03/09/24 Status: OrderedStart: 02-02-2024 End: 19-66-5807vbxv 1 capsule by mouth once dailyOmeprazole 40 mg capsule,delayed release(DR/EC) Active 0 .ROUTE .COMPLEX February 03, 2025 12:56pmTAKE 1 CAPSULE BY MOUTH EVERY DAY Complies with drug therapyStart: 10-08-2023 End: 15-66-6812ebhh 1 capsule by mouth once dailyOmeprazole 40 mg capsule,delayed release(DR/EC) Discontinued 40 MG PO Daily November 03, 2023 3:39pm February 02, 2024 2:18pmrosuvastatin calcium 20 mg oral tablet (5 sources)HMG-CoA Reductase InhibitorStart: 36-48-8758flch 1 tablet by mouth once dailyRosuvastatin 20 mg tablet Active 20 MG PO Daily March 07, 2024 12:00am Complies with drug therapyStart: 03-07-2024 End: 58-83-9551mdib 1 tablet by mouth once dailyRosuvastatin 5 mg tablet Discontinued 5 MG PO Daily March 07, 2024 12:00am August 25, 2024 10:68sz702 ml zoledronic acid 0.05 mg/ml injection (1 source)BisphosphonateStart: 75-76-7154Abpawpdvyt Ekxt-Zogahfmc-Kuaub (Reclast) 5 mg/100 mL piggyback Active EACH IV March 15, 2025 12:00am Complies with drug therapy Completed/Discontinued Medications MedicationDrug Class(es)DatesSig (Normalized)Sig (Original)alendronic acid 70 mg oral tablet (15 sources)BisphosphonateStart: 10-07-2023 End: 68-35-7237psle 1 tablet by mouth once dailyAlendronate 70 mg tablet Discontinued 1 TAB PO Daily October 07, 2023 1:00am March 15, 2025 9:04am FreeTextSi tablet 30 minutes before the first food, beverage or medicine of the day with plain water Orally; Note: Source Status: Taking; Provider: Alvino Tinajero ( )Start: 28-64-4103yndj 1 tablet by mouth every week in the morningalendronate (Fosamax) 70 MG tablet Indications: Other osteoporosis, unspecified pathological fracture presence (CMS/HCC) Take 1 tablet (70 mg) by mouth 1 (one) time per week. Take in the morning witha full glass of water, on an empty stomach, and do not take anything else by mouth or lie down for the next 30 min. 12 tablet 3 07/02/2023 Active End: 23-61-9916vhatydigmsv (Fosamax) 70 MG tablet Take 70 mg by mouth every 7 (seven) days. 07/04/2024 Discontinued (Therapy completed)take 1 tablet by mouth once dailyFosamax 70 MG 1 tablet 30 minutes before the first food, beverage or medicine of the day with plainwater Orally Psavoa45 hr buPROPion hydrochloride 150 mg extended release oral tablet (11 sources)AminoketoneStart: 06-22-2024 End: 29-24-2650almh 1 tablet by mouth once daily in the morningBupropion Hcl 150 mg tablet extended release 24 hr Discontinued 0 .ROUTE .COMPLEX June 22, 2024 2:58pm August 25, 2024 10:36am TAKE 1 TABLET BY MOUTH EVERY MORNINGStart: 06-22-2024 End: 48-34-0092vudb 1 tablet by mouth once daily in the morningBupropion Hcl 150 mg tablet extended release 24 hr Discontinued 0 .ROUTE .COMPLEX June 22, 2024 1:58pm August 25, 2024 9:36am TAKE 1 TABLET BY MOUTH EVERY MORNINGStart: 97-79-7024Ejbsubmkrz XL Refills(s) 0 Start Date: 03/09/24 Status: OrderedStart: 10-07-2023 End: 40-75-7234ecxq 1 tablet by mouth once daily in the morningBupropion Hcl (Wellbutrin Xl) 150 mg tablet extended release 24 hr Discontinued 1 TAB PO Daily October 07, 2023 1:00am June 22, 2024 2:58pm FreeTextSi tablet in the morning Orally Once a day; Note: Source Status: Taking; Refills: 3; Qty: 90 Tablet; Provider: Alvino Perez End: 49-12-2862spgh 1 tablet by mouth every twenty-four hours in the morning buPROPion XL (Wellbutrin XL) 150 MG 24 hr tablet Take 150 mg by mouth in the morning. 07/04/2024 Discontinued (Therapy completed)take 1 tablet by mouth every twenty-four hoursWellbutrin XL 150 MG 1 tablet in the morning Orally Once a day for 90 days Activecefdinir 300 mg oral capsule (2 sources)Cephalosporin AntibacterialStart: 08-25-2024 End: 19-85-0376czbg 1 capsule by mouth twice dailyCefdinir 300 mg capsule Discontinued 300 MG PO Twice daily August 25, 2024 1:00am March 15, 2025 9:04amsulfamethoxazole 800 mg / trimethoprim 160 mg oral tablet (2 sources)Dihydrofolate Reductase Inhibitor Antibacterial, Sulfonamide AntimicrobialStart: 08-08-2024 End: 51-61-2497exsq 1 tablet by mouth twice dailySulfamethoxazole-Trimethoprim 800-160 mg tablet Discontinued 1 TAB PO Twice daily July 1:00am August 25, 2024 10:37am Problems Active Problems Problem ClassificationProblemDateDocumented DateEpisodic/ChronicAbdominal pain (5 sources)Epigastric pain; Translations: [Epigastric pain]83-43-5601Njarsbgb Administrative/social admission (2 sources)Patient encounter status; Translations: [Person consulting for explanation of examination or test findings]11-13-3542CmtefwgzRkhftiud atherosclerosis and other heart disease (7 sources)Coronary arteriosclerosis; Translations: [Atherosclerotic heart disease of [place] coronary artery without angina pectoris]Onset: 11-06-2023 23-96-3945CzgdtqcRzsaxdroz of lipid metabolism (5 sources)Hyperlipidemia; Translations: [Hyperlipidemia, unspecified]Onset: 400702-19-0248KtrmrgmBzhdbjaxratnrs and diverticulitis (1 source)Diverticular lhjzcii21-14-7241SasjqwbVygoirtgq hypertension (2 sources)Essential (primary) hypertension; Translations: [Essential (primary) hypertension]Onset: 31-14-6792LkzamspMwivlmrganpvi symptoms and ill-defined conditions (5 sources)Urinary tract infectious disease; Translations: [Unspecified symptoms and signs involving the genitourinary system]Onset: EpisodicHeadache; including migraine (6 sources)Chronic tension-type headache; Translations: [Chronic tension-type headache, not intractable]23-00-0401AbpnpxgMkspjnyfmzedw and screening for infectious disease (1 source)Encounter for screening for human papillomavirus (HPV); Translations: [ENC SCREENING HUMAN PAPILLOMAVIRUS]Onset: 20-91-7683FrodymnhBknrlrqbc (1 source)Influenza due to other identified influenza virus with other respiratory manifestations; Translations: [FLU D/T OTH ID FLU VIR OTH RSP MANF] Onset: 52-22-2962XnpxgcliJgtipoyluk disorders (1 source)Vaginal dryness; Translations: [Menopausal and female climacteric states]ChronicMood disorders (6 sources)Major depression, single episode; Translations: [Major depressive disorder, single episode, unspecified]45-15-8717ZorsefmAklzbfpaddm chest pain (5 sources)Chest wall pain; Translations: [Other chest pain]93-36-1276Dpldizvk Osteoarthritis (5 sources)Localized, primary osteoarthritis of the pelvic region and thigh; Translations: [Unilateral primaryosteoarthritis, right hip]64-78-0863Okxudwv Osteoporosis (4 sources)Postmenopausal osteoporosis; 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-related osteoporosis without current pathological fracture]Onset: 325338-36-1424JnuibapOkyvr aftercare (1 source)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; Translations: [OT PRISON CURRENT DRUG THERAPY]Onset: 45-90-2685RfltderxCtqcj bone disease and musculoskeletal deformities (1 source)Other specified disorders of bone density and structure, unspecified site; Translations: [OT D/O BONE DEN STRUCT UNS SITE]Onset: 05-88-0161Vcexdjxp Other connective tissue disease (1 source)Trochanteric bursitis of right hip; Translations: [Trochanteric bursitis, right hip]EpisodicOther lower respiratory disease (4 sources)Dyspnea on exertion; Translations: [Other forms of dyspnea]10-08-2023 EpisodicOther lower respiratory disease (1 source)Other forms of dyspnea; Translations: [Other respiratory abnormalities]72-14-6684AuspkcjcQhqjp non-traumatic joint disorders (1 source)Pain in right hip joint; Translations: [Pain in right hip]Episodic Other non-traumatic joint disorders (2 sources)Hip pain; Translations: [Pain in left hip]03-58-7037PfxiqieqFuajk non-traumatic joint disorders (1 source)Pain in left hip; Translations: [Pain in joint, pelvic region and thigh]18-88-6431BqjszhwgIykme nutritional; endocrine; and metabolic disorders (1 source)Body mass index 30+ - owgrmqz61-12-9883ZinewttHusnn nutritional; endocrine; and metabolic disorders (1 source)Obesity caused by energy aypftvnnm61-32-9669AxflqjzLbnfx screening for suspected conditions (not mental disorders or infectious disease) (18 sources)Encounter for screening for malignant neoplasm of cervix; Translations: [Encounter for screening mammogram for malignant neoplasm of breast]Onset: 88-32-3332KwriybxvCgixm upper respiratory infections (1 source)Acute maxillary sinusitis; Translations: [Acute maxillary sinusitis, unspecified]26-96-3231EgirfykbArxssyyx codes; unclassified (1 source)Family history of malignant neoplasm of other organs or systems; Translations: [FAM HX MALIG NEOPLASM OT ORGN/SYS]Onset: 47-62-4174Epdblmxh Residual codes; unclassified (4 sources)Asymptomatic menopausal state; Translations: [ASYMPTOMATIC MENOPAUSAL STATE]Onset: 39-57-8516NjcmjozeUmzbfnqy codes; unclassified (5 sources)Postmenopausal state; Translations: [Asymptomatic menopausal state] 17-02-8086XzghykyrSncgxoaxlov; intervertebral disc disorders; other back problems (6 sources)Lumbar radiculopathy; Translations: [Radiculopathy, lumbar region] 16-89-8827LfusgtmiOnimahl disorders (7 sources)Hypothyroidism, unspecified; Translations: [Hypothyroidism]Onset: 627832-75-6755WclrsyyQatvkrjplqhn (2 sources)COUGH, UNSPECIFIED; Translations: [COUGH, UNSPECIFIED]Onset: 57-57-1501Dycdybbyfzcx (3 sources)CONTACT W/AND (SUSP) EXPOS COVID-19; Translations: [CONTACT W/AND (SUSP) EXPOS COVID-19]Onset: 09-93-4265Epycdzmlrygs (1 source)Patient encounter -17-0882 Past or Other Problems Problem ClassificationProblemDateDocumented DateEpisodic/ChronicOther bone disease and musculoskeletal deformities (10 sources)Osteopenia; Translations: [Other specified disorders of bone density and structure, unspecified site]Onset: 059142-05-4594IgvfdzrwBllpfoogokeb (1 source)COUGH, UNSPECIFIED; Translations: [COUGH, UNSPECIFIED]Onset: 02-92-4353Zwcoyzjjlvck (1 source)CONTACT W/AND (SUSP) EXPOS COVID-19; Translations: [CONTACT W/AND (SUSP) EXPOS COVID-19]Onset: 07-14-2022 Results Test NameValueInterpretationReference RangeFacilityOffice Visiton 11-23-2024 Follow-up [id number] Mackenzie Ptael 1955 F Date Provider Department Center 11/23/2024 Rohith-TOMY LEMUS CARD [facility] Family History Problem Relation Age of Onset Coronary artery disease Mother Other Mother Heart attack Father 90 Family Status - Relation Status Age at Mother Father Sister Alive Brother Alive Level of Service:47658 [place] OFFICE/OUTPATIENT ESTABLISHED LOW [facility] and Chemistry - challengeon 87-92-4530Nfubhnkys Ql (U)NegativeSub[facility] Glucose (U) [Mass/Vol]NegativeSuburban Community Hospital & Brentwood HospitalKetones Ql (U) [facility] CenterpH (U)5 [pH][facility] Hospitalpecific gravity (U) [Rel density]1.025[facility] Urobilinogen (U) [Mass/Vol]0.2 mg/dLSuburban Community Hospital & Brentwood HospitalLaboratory - Specimen informationon 82-95-9821Jkdueliczw (U)clearSuburban Community Hospital & Brentwood HospitalColor (U)amberSuburban Community Hospital & Brentwood HospitalLaboratory - Urinalysison 90-57-8806Ytyglocgr esterase Test strip Ql (U)[facility] CenterNitrite Ql (U)[facility] CenterProtein Ql (U) [facility] CenterNo Panel Informationon 37-89-5540Lnjzn Occult BloodNegativeSuburban Community Hospital & Brentwood HospitalUrine Cultureon 08-08-2024 Bacteria identified Cx Nom (U)20,000 colonies/ml mixed bacterial skin contaminants 2 Days PERFORMED BY: [place] [address] PATHOLOGIST HELICOPTER SPECIALIST RADHA MATOS M.D.NormalThe [facility] Physician GroupComment on above: Performed By: #### CUU #### [address] StreetUrine cultureOrdered By: Tanvi De Oliveira on 08-08-2024 Bacteria identified Cx Nom (U)Urine cultureSuburban Community Hospital & Brentwood HospitalXR DEXA AXIAL SKELETONon 58-32-0915QefM[place], [place] [address] XRay Report Signed Patient: MACKENZIE PATEL MR#: [id number] : 1955 Acct:[id number] Age/Sex: 68 / F ADM Date: 08/08/24 Loc: RAD Attending Dr: Jeri Russo D.O. Ordering Physician: Jeri Russo D.O. Date of Service: 08/08/24 Procedure(s): XR DEXA axial skeleton Accession Number(s): [id number] cc: Tanvi De Oliveira M.D.; Jeri Russo D.O. [address] [address] Patient Name: MACKENZIE PATEL MRN: [employer]:[id number] date: 1955 Sex: F Assigned Patient [facility] Current Patient Location: RAD Accession/Order Number: [id number] Exam Date: 08/08/2024 08:05 Report Date: 08/08/2024 22:59 At the request of: JERI RUSSO Procedure: XR DEXA axial skeleton EXAMINATION: XR DEXA axial skeleton HISTORY: Osteoporosis COMPARISON: DEXA bone densitometry 10/18/2009 spine, 06/10/2022 femurs TECHNIQUE: Dual-energy X-ray absorptiometry (DXA) was performed. FINDINGS: SPINE ANALYSIS: Average bone mineral density is 1.097 g/cm2. T-score (standard deviation relative to young adult mean): -0.7 . +10.4% change since prior study. HIP ANALYSIS: Lowest bone mineral density is within the right femoral neck, 0.737 g/cm2. T-score (standard deviation relative to young adult mean): -2.2 . -6.0% change since prior study. XR/XR DEXA axial skeleton IMPRESSION: World Health Organization Classification: Osteopenia - Moderate Fracture Risk FRAX: Cannot be calculated. Pharmacologic treatment recommendations * No uniform recommendation applies to all patients. Management plans must be individualized. * Consider initiating pharmacologic treatment in postmenopausal women and men >= 50 years of age who have the following: Primary fracture prevention: * T-score <= - 2.5 at the femoral neck, total hip, lumbar spine, 33% radius (some uncertainty with existing data) by DXA. * Low bone mass (osteopenia: T-score between - 1.0 and - 2.5) at the femoral neck or total hip by DXA with a 10-year hip fracture risk >= 3% or a 10-year major osteoporosis-related fracture risk >= 20% (i.e., clinical vertebral, hip, forearm, or proximal humerus) based on the US-adapted FRAXregistered model. Secondary fracture prevention: * Fracture of the hip or vertebra regardless of BMD [4, 5]. * Fracture of proximal humerus, pelvis, or distal forearm in persons with low bone mass (osteopenia: T-score between - 1.0 and - 2.5). The decision to treat should be individualized in persons with a fracture of the proximal humerus, pelvis, or distal forearm who do not have osteopenia or low BMD [12, 13]. Kim MS, Jie SL, Max KL, Safia EM, Asmita KG, AJ, Hunter ES. The clinician's guide to prevention and treatment of osteoporosis. Osteoporos Int. 2021;3310):3930-5164. doi: 10.1007/j27149-074-89681-z. Epub 2021Dec 12. Erratum in: Osteoporos Int. 2021Mar 13;: PMID: 74649694; PMCID: [id number]. Electronically authenticated by: ZAID WOLFE Date: 08/08/2024 22:59 Dictated By: Zaid Wolfe M.D. Signed By: 08/08/247 DD/ 58 TD/TT: Cloth Cutting Machine Operator:TBHRadiology, Radiologist, - 08/08/2024 [place] [address] XRay Report Signed Patient: MACKENZIE PATEL MR#: [id number] : 1955 Acct:[id number] Age/Sex: 68 / F ADM Date: 08/08/24 Loc: RAD Attending Dr: Jeri Russo D.O. Ordering Physician: Jeri Russo D.O. Date of Service: 08/08/24 Procedure(s): XR DEXA axial skeleton Accession Number(s): [id number] cc: Tanvi De Oliveira M.D.; Jeri Russo D.O. [facility] [place] [id number] Patient Name: MACKENZIE PATEL MRN: [id number] date: 1955 Sex: F Assigned Patient Location: [facility] Current Patient Location: [facility] Accession/Order Number: [id number] Exam Date: 08/08/2024 08:05 Report Date: 08/08/2024 22:59 At the request of: JERI RUSSO Procedure: XR DEXA axial skeleton EXAMINATION: XR DEXA axial skeleton HISTORY: Osteoporosis COMPARISON: DEXA bone densitometry 10/18/2009 spine, 06/10/2022 femurs TECHNIQUE: Dual-energy X-ray absorptiometry (DXA) was performed. FINDINGS: SPINE ANALYSIS: Average bone mineral density is 1.097 g/cm2. T-score (standard deviation relative to young adult mean): -0.7 . +10.4% change since prior study. HIP ANALYSIS: Lowest bone mineral density is within the right femoral neck, 0.737 g/cm2. T-score (standard deviation relative to young adult mean): -2.2 . -6.0% change since prior study. XR/XR DEXA axial skeleton IMPRESSION: World Health Organization Classification: Osteopenia - Moderate Fracture Risk FRAX: Cannot be calculated. Pharmacologic treatment recommendations * No uniform recommendation applies to all patients. Management plans must be individualized. * Consider initiating pharmacologic treatment in postmenopausal women and men >= 50 years of age who have the following: Primary fracture prevention: * T-score <= - 2.5 at the femoral neck, total hip, lumbar spine, 33% radius (some uncertainty with existing data) by DXA. * Low bone mass (osteopenia: T-score between - 1.0 and - 2.5) at the femoral neck or total hip by DXA with a 10-year hip fracture risk >= 3% or a 10-year major osteoporosis-related fracture risk >= 20% (i.e., clinical vertebral, hip, forearm, or proximal humerus) based on the US-adapted FRAXregistered model. Secondary fracture prevention: * Fracture of the hip or vertebra regardless of BMD [4, 5]. * Fracture of proximal humerus, pelvis, or distal forearm in persons with low bone mass (osteopenia: T-score between - 1.0 and - 2.5). The decision to treat should be individualized in persons with a fracture of the proximal humerus, pelvis, or distal forearm who do not have osteopenia or low BMD [12, 13]. Kim MS, Jie SL, Max KL, Safia EM, Asmita KG, AJ, Hunter ES. The clinician's guide to prevention and treatment of osteoporosis. Osteoporos Int. 2021;33(10):9667-6475. doi: 10.1007/p85589-546-43980-n. Epub 2021Dec 12. Erratum in: Osteoporos Int. 2021Mar 13;: PMID: 63252924; PMCID: [id number]. Electronically authenticated by: ZAID WOLFE Date: 08/08/2024 22:59 Dictated By: Zaid Wolfe M.D. Signed By: 08/08/242301 DD/ 58 TD/TT: Cloth Cutting Machine Operator: [facility] HealthcareRadiology Study observation (narrative)[facility] SystemXR DEXA AXIAL SKELETONOrdered By: Radiologist Radiology on [id number] Work Phone: IGP,APTIMA HPV,AGE GDLNon [id number] GDLN ACOG TESTINGNote.[facility] HealthcareComment on above:TESTS RESULT FLAG UNITS REF RANGE LAB Clinician Provided Cytology Information Source.............Vagina No. of containers..01 ThinPrep Vial Age Algo ACOG Angie... Note 01 <21 or >65 or no age provided FLAG LEGEND: L-Low Normal,H-High Normal,LL-Alert Low,HH-Alert High <-Panic Low,>-Panic High,A-Abnormal,AA-Critical Abnormal Performed at: 01 =G [facility] [place] [address] [facility], [place] [address] Sara Ruiz MD, PAP IG (IMAGE GUIDED)Note.NOMS HealthcareComment on above:TESTS RESULT FLAG UNITS REF RANGE LAB DIAGNOSIS: 02 NEGATIVE FOR INTRAEPITHELIAL LESION OR MALIGNANCY. Specimen adequacy: 02 Satisfactory for evaluation. Endocervical and/or squamous metaplastic cells (endocervical component) are present. Performed by: Nicholas Alaniz, Wireless Sales Representative (ASC) . 02 Note: Note 02 The Pap smear is a screening test designed to aid in the detection of premalignant and malignant conditions of the uterine cervix. It is not a diagnostic procedure and should not be used as the sole means of detecting cervical cancer. Both false-positive and false-negative reports do occur. Test Methodology: Note 02 This liquid based ThinPrep(R) pap test was screened with the use of an image guided system. FLAG LEGEND: L-Low Normal,H-High Normal,LL-Alert Low,HH-Alert High <-Panic Low,>-Panic High,A-Abnormal,AA-Critical Abnormal Performed at: 02 WB [facility] [address] [place] [address] Sara Ruiz MD, Performed at: =G - [facility] [address], [place] [id number] Warp Picker: Sara Ruiz MD, Phone: [phone] Performed at: - [facility] [id number] Warp Picker: Sara Ruiz MD, Phone: [phone] [facility] TOMOSYNTHESIS SCREENING BIon 07-87-6272[place] [address] Mammography Report Signed Patient: MACKENZIE PATEL MR#: [id number] : 1955 Acct:[id number] Age/Sex: 68 / F ADM Date: 07/04/24 Loc: MAMMO Attending Dr: Jeri Russo D.O. Ordering Physician: Jeri Russo D.O. Results: Date of Service: 07/04/24 Follow Up: Procedure(s): MM tomosynthesis screening BI Accession Number(s): [id number] cc: Tanvi De Oliveira M.D.; Jeri Russo D.O. Patient Name: MACKENZIE PATEL MR#: [id number] : 1955 Exam Date: 07/04/2024 Ordering Doctor: DR Jeri Russo . RADIOLOGY REPORT PROCEDURE: MM TOMOSYNTHESIS SCREENING BI COMPARISON: MM TOMOSYNTHESIS SCREENING BI, 06/17/2023. MG MAMM SCREEN 3D YOU CAD, 06/11/2022. MG MAMM SCREEN 3D YOU CAD, 05/17/2021. MG MAMM YOU SCRN W CAD DIG, 07/04/2013. INDICATIONS: Screening Calculator Name NCI Breast Cancer Risk Assessment Tool 5 Year Breast Cancer Risk 1.20% Lifetime Breast Cancer Risk 4.40% Personal Breast Cancer No Personal Ovarian Cancer No Treatments None Family Cancers Niece with larynx cancer at age 70; Grandfather-maternal with skin cancer at age 63. LOCATION: [facility] BREAST COMPOSITION: There are scattered areas of fibroglandular density. FINDINGS: DIAGNOSTIC CATEGORY 1--NEGATIVE. NO CHANGE FROM COMPARISON ASSESSMENT. RIGHT BREAST: No significant suspicious finding. No significant change has occurred. LEFT BREAST: No significant suspicious finding. No significant change has occurred. RECOMMENDATIONS: ROUTINE MAMMOGRAM AND CLINICAL EVALUATION IN 12 MONTHS. PLEASE NOTE: A NORMAL MAMMOGRAM DOES NOT EXCLUDE THE POSSIBILITY OF BREAST CANCER. A CLINICALLY SUSPICIOUS PALPABLE LUMP SHOULD BE BIOPSIED. Dictated by: Zaid Wolfe M.D. on 07/04/2024 at 12:09 Approved by: Zaid Wolfe M.D. on 07/04/2024 at 12:46 Dictated By: Zaid Wolfe M.D. Signed By: 07/04/24 1247 DD/ 1246 TD/TT: Cloth Cutting Machine Operator:TBHRadiology, Radiologist, MD - 07/04/2024 [place] [address] Mammography Report Signed Patient: MACKENZIE PATEL MR#: [id number] : 1955 Acct:[id number] Age/Sex: 68 / F ADM Date: 07/04/24 Loc: MAMMO Attending Dr: Jeri Russo D.O. Ordering Physician: Jeri Russo D.O. Results: Date of Service: 07/04/24 Follow Up: Procedure(s): MM tomosynthesis screening BI Accession Number(s): [id number] cc: Tanvi De Oliveira M.D.; Jeri Russo D.O. Patient Name: MACKENZIE PATEL MR#: [id number] : 1955 Exam Date: 07/04/2024 Ordering Doctor: DR Jeri Russo . RADIOLOGY REPORT PROCEDURE: MM TOMOSYNTHESIS SCREENING BI COMPARISON: MM TOMOSYNTHESIS SCREENING BI, 06/17/2023. MG MAMM SCREEN 3D YOU CAD, 06/11/2022. MG MAMM SCREEN 3D YOU CAD, 05/17/2021. MG MAMM YOU SCRN W CAD DIG, 07/04/2013. INDICATIONS: Screening Calculator Name NCI Breast Cancer Risk Assessment Tool 5 Year Breast Cancer Risk 1.20% Lifetime Breast Cancer Risk 4.40% Personal Breast Cancer No Personal Ovarian Cancer No Treatments None Family Cancers Niece with larynx cancer at age 70; Grandfather-maternal with skin cancer at age 63. LOCATION: [facility] BREAST COMPOSITION: There are scattered areas of fibroglandular density. FINDINGS: DIAGNOSTIC CATEGORY 1--NEGATIVE. NO CHANGE FROM COMPARISON ASSESSMENT. RIGHT BREAST: No significant suspicious finding. No significant change has occurred. LEFT BREAST: No significant suspicious finding. No significant change has occurred. RECOMMENDATIONS: ROUTINE MAMMOGRAM AND CLINICAL EVALUATION IN 12 MONTHS. PLEASE NOTE: A NORMAL MAMMOGRAM DOES NOT EXCLUDE THE POSSIBILITY OF BREAST CANCER. A CLINICALLY SUSPICIOUS PALPABLE LUMP SHOULD BE BIOPSIED. Dictated by: Zaid Wolfe M.D. on 07/04/2024 at 12:09 Approved by: Zaid Wolfe M.D. on 07/04/2024 at 12:46 Dictated By: Zaid Wolfe M.D. Signed By: 07/04/24 1247 DD/ 1246 TD/TT: Cloth Cutting Machine Operator: [facility] SystemRadiology Study observation (narrative)[facility] TOMOSYNTHESIS SCREENING BIOrdered By: Radiologist Radiology on [id number] Work Phone: No Panel Informationon 00-74-8796Rengwdmlh Lab Test Patient AgeNote.[facility] Brentwood HospitalComment on above:TESTS RESULT FLAG UNITS REF RANGE LAB Clinician Provided Cytology Information Source.............Vagina No. of containers..01 ThinPrep VialAge Algo ACOG Angie... Note 01 <21 or >65 or no age provided FLAG LEGEND: L-Low Normal,H-High Normal,LL-Alert Low,HH-Alert High <-Panic Low,>- Panic High,A-Abnormal,AA-Critical Abnormal Performed at:01 =[facility] [address] [facility] [place] [address] Sara Ruiz MD, Igzp Prep Pap ScreenNote.[facility] & Brentwood HospitalComment on above:TESTS RESULT FLAG UNITS REF RANGE LAB DIAGNOSIS: 02 NEGATIVE FOR INTRAEPITHELIAL LESION OR MALIGNANCY.Specimen adequacy: 02 Satisfactory forevaluation. Endocervical and/or squamous metaplastic cells (endocervical component) are present.Performed by: Nicholas Alaniz Wireless Sales Representative (ASCP). 02Note: Note 02 The Pap smear is [...] the use of an image guided system. FLAG LEGEND: L-Low Normal,H-High Normal,LL-Alert Low,HH-Alert High <-Panic Low,>-Panic High,A-Abnormal,AA-Critical Abnormal Performed at:02 WB [facility] [address] [place] [address] Sara Ruiz MD, Ainzgdgti at: =G - [facility] [address] [place], [place] [id number] Director: Sara Ruiz MD, Phone: [phone] at: WB - [address] [id number] Director: Sara Ruiz MD, Phone: [phone] Office Visiton 35-85-3541Jborix-up [id number] Mackenzie Patel 1955 F Date Provider Department Center 05/27/2024 3848-DWAYNE RICHMOND CARD [facility] Family History Problem Relation Age of Onset Coronary artery disease Mother Other Mother Heart attack Father 90 Family Status - Relation Status Age at Mother Father Level of Service:26970 [place] OFFICE/OUTPATIENT ESTABLISHED MOD MDM 30 [facility] 10-26-6052UtahgojtrMkjabzdxd From: Luann Huerta LPN To: N - Clinical; Sent: 05/05/2024 09:35:27 EDT Show up: 04/03/2034 07:00:00 EDT Subject: colonoscopy recall Due Date/Time: 05/04/2034 07:00:00 EDT Reminder/Recall Patient due for screening colonoscopy 05/04/2034.[facility] HospitalAmbulatory Visit Summaryon 09-87-9947Hwkevivgpu Visit SummaryAmbulatory Visit Summary MACKENZIE PATEL :1955 Visit Date:04/12/2024 [...] Total abdominal hysterectomy and bilateral salpingo-oophorectomy, Tonsillectomy. Discharge Vitals Heart Rate (Peripheral) 76 [...] you for choosing us for your care. [facility] HospitalOffice Visiton 53-87-5136Dheskx- up [id number] Mackenzie Patel 1955 Provider Department Center 01/01/2024 3848-DWAYNE RICHMOND JEY [facility] Family History Problem Relation Age of Onset Coronary artery disease Mother Other Mother Heart attack Father 90 Family Status - Relation Status Age at Mother Father Level of Service:[address]802 [place] OFFICE/OUTPATIENT ESTABLISHED LOW [facility] HospitalLetter (Out)on 84-53-3649Hbrvkb (Out) [id number] Mackenzie Patel 1955 Provider Department Center 12/10/2023 None-None [facility] Family History Problem Relation Age of Onset Coronary artery disease Mother Other Mother Heart attack Father 90 Family Status - Relation Status Age at Mother FatherNormalUniFulton County Health CenterHPon [id number] Attestation signed by Dwayne Richmond MD at [...] Patient understands these risks and wishes to proceed.[facility] CenterNURSNOTEon 69-24-7278ANNOGYCCRR educated pt on d/c instructions. RN encouraged pt to voice any questions or concerns. Pt verbalizes no questions or concerns at this time. Pt was wheeled off of unit with all of belongings.[facility] Cytology Cervical or vaginal smear or scraping studyon 36-22-2926[facility] Covid-19 PCR (CVDTB)on 82-01-5823OGWX-CoV-2 (COVID-19) RNA LARA+probe Ql (Unsp spec)Not detectedNormalNOT DETECTEDThe [facility] HospitalComment on above:Result Comment: When diagnostic testing is negative, the [...] for this test is supported by the [place] of Health and Human Service's declaration that circumstances exist to justify the emergency use of in vitro diagnostics for the detection and/or diagnosis of the virus that causes COVID-19. This EUA will remain in effect for the duration of the COVID-19 declaration justifying emergency of IVDs, unless it is terminated or revoked by the FDA (after which the test may no longer be used).Performed By: #### CVDTBH #### [facility] [address] [place] [address] Dr. Heather Lopez AND [facility] 16-33-8319KWHSNIFJZ A AGPositiveAbnormal NEGATIVE SEE COMMENTThe [facility] HospitalComment on above:Performed By: #### INFLUAB #### [facility] [address] [place] [address] Dr. Heather Maher AGNegativeNormalNEGATIVE SEE COMMENTThe [facility] HospitalComment on above:Performed By: #### INFLUAB #### [facility] [address] [place] [address] Dr. Heather AguirreINTERNAL CONTROLSWithin Normal LimitsNormalWithin Normal Limits [facility] HospitalComment on above:Performed By: #### INFLUAB #### [facility] [address] [place] [address] Dr. Heather AguirreXR CHEST 2 Von 59-82-5193JA CHEST 2 VEXAM: XR CHEST 2 V HISTORY: Chills, fever and bodyaches COMPARISON: None. TECHNIQUE: PA and lateral chest x-rays FINDINGS: The lung parenchyma is free of consolidation or infiltrate. No pneumothorax or pleural effusion. The cardiac, mediastinal and hilar contours are normal. The visualized osseous structures exhibit no gross abnormality. IMPRESSION: No acute cardiopulmonary abnormality. Electronically authenticated by: KATHIE HOPKINS Date: 2022-07-14 21:21[facility] ACOG PANEL 2: 30 to 65on 07-09-2022..NormalThe [facility] HospitalComment on above:Result Comment: Performed at: WBPerformed By: #### [id number] #### [facility] [address] [place] [address] Dr. Heather AguirreAge Gdln ACOG Aqmuobd07-49NqipdkRopSt. Mary's Medical CenterComment on above:Performed By: #### [id number] #### [facility] [address] [place] [address] Dr. Heather AguirreDIAGNOSIS:CommentMemorial Health SystemComment on above: Result Comment: NEGATIVE FOR INTRAEPITHELIAL LESION OR MALIGNANCY. CELLULAR CHANGES ASSOCIATED WITH ATROPHY ARE PRESENT. Performed at: WBPerformed By: #### [id number] #### [facility] [address] [place] [address] Dr. Heather Titus AptimaNegativeNormalNegativeKettering Health Behavioral Medical Center on above:Result Comment: This nucleic acid amplification test detects fourteen high-risk HPV types (16,18,31,33,35,39,45,51,52,56,58,59,66,68) without differentiation. Performed at: =GPerformed By: #### [id number] #### [facility] [address] [place] [address] Dr. Heather Titus Genotype ReflexComCleveland Clinic Marymount Hospital on above:Result Comment: Criteria not met, HPV Genotype not performed. Performed at: WBPerformed By: #### [id number] #### [place] [address] Dr[address] Heather AguirreMethodology:CTIMNoLancaster Municipal Hospital on above: Result Comment: The Thin Prep(R) Sack Keeper was unable to read this specimen. Therefore a manual review was performed. Performed at: WBPerformed By: #### [id number] #### [place] [address] [address] Heather AguirreNote:CommentUniversity Hospitals Parma Medical Center on above:Result Comment: The Pap smear is a screening test designed to aid in the detection of premalignant and malignant conditions of the uterine cervix. It is not a diagnostic procedure and should not be used as the sole means of detecting cervical cancer. Both false-positive and false-negative reports do occur. . Performed at: WBPerformed By: #### [id number] #### [facility] [address] [place] [address] Dr. Heather AguirrePerformed by:CommentUniversity Hospitals Parma Medical Center on above: Result Comment: Supriya Amador, Wireless Sales Representative (ASCP) Performed at: WBPerformed By: #### [id number] #### [place] [address] [place], [place] [address] Dr. Hetaher AguirreSpecimen adequacy:CommentMemorial Health SystemComment on above:Result Comment: Satisfactory for evaluation. Endocervical component may not be distinguished in cases of atrophy. Performed at: WBPerformed By: #### [id number] #### [facility] [address] [place], [place] [address] Dr. Heather AguirreMG MAMM SCREEN 3D YOU CADon 72-39-2554RE MAMM SCREEN 3D YOU CAD Patient: MACKENZIE PATEL Exam Date: 06/11/2022 : 1955 Gender:F Ordering : DR JERI RUSSO . Admission #: [id number] Family : Order #: [id number] CLICK HERE TO VIEW EXAM RADIOLOGY REPORT [...] skin cancer at age 65. LOCATION: [facility] BREAST COMPOSITION: Scattered areas fibroglandular density. [...] by: Kathie Olvera MD on 06/11/2022 at 08:04[facility]orial Health SystemXR DEXA BONE DENSITYon 23-69-0737PD DEXA BONE DENSITYEXAMINATION: XR DEXA BONE DENSITY, 06/10/2022 7:59 AM EDT HISTORY: [...] Electronically authenticated by: KATHIE OLVERA Date: 2022-06-10 12:16NormToledo Hospital AUTO DIFFon 84-53-9443WMVB #0.1 103/ulNormal0.0-0.1[facility] HospitalComment on above:Performed By: #### LIPID, TSH, CMP #### [facility] [address] [place] [address] Dr. Heather AguirreBasophils/100 WBC (Bld)0.8 %Normal0.2-2.0[facility] Comment on above:Performed By: #### LIPID, TSH, CMP #### [facility] [address] [place] [address] Dr. Heather Ramos #0.3 103/ulNormal0.0-0.7The [facility] HospitalComment on above: Performed By: #### LIPID, TSH, CMP #### [facility] [address] [place] [address] Dr. Heather Mckeonosinophils/100 WBC (Bld)2.9 %Normal0.9-7.0[facility] Comment on above:Performed By: #### LIPID, TSH, CMP #### [facility] [address] [place] [address] Dr. Heather Mckeonrythrocyte distribution width (RBC) [Ratio]13.2 %Yytkns89.0-15.0 [facility] HospitalComment on above:Performed By: #### LIPID, TSH, CMP #### [facility] [address] [place] [address] Dr. Heather AguirreHematocrit (Bld) [Volume fraction]37.6 %Emtzwf00.0-48.0The [facility] HospitalComment on above:Performed By: #### LIPID, TSH, CMP #### [facility] [address] [place] [address] Dr. Heather AguirreHemoglobin (Bld) [Mass/Vol]12.1 g/gVUmunih60.0-16.0The [facility]auga Medical Centerment on above:Performed By: #### LIPID, TSH, CMP #### [facility] [address] [place] [address] Dr. Heather Albarran #0.03 10e3/ulNormal0.00-0.03The [facility] HospitalComment on above:Performed By: #### LIPID, TSH, CMP #### [facility] [address] [place] [address] Dr. Heather Albarran %0.3 %Normal0.0-0.5The [facility] HospitalComment on above: Performed By: #### LIPID, TSH, CMP #### [facility] [address] [place] [address] Dr. Heather Candelario #2.9 103/ulNormal1.2-3.8The [facility] HospitalComment on above:Performed By: #### LIPID, TSH, CMP #### [facility] [address] [place] [address] Dr. Heather Carranzahocytes/100 WBC (Bld)33.6 %Hvwhqi34.5-60.0The [facility] on above:Performed By: #### LIPID, TSH, CMP #### [facility] [address] [place] [address] Dr. Heather CoronaUAL DIFF REQNONormalThe [facility] HospitalComment on above: Performed By: #### LIPID, TSH, CMP #### [facility] [address] [place] [address] Dr. Heather Tsai (RBC) [Entitic mass]30.0 hrBhpsod21.7-34.0The [facility] HospitalComment on above:Performed By: #### LIPID, TSH, CMP #### [facility] [address] [place] [address] Dr. Heather Arndt (RBC) [Mass/Vol]32.2 g/mGFiiddx74.9-35.2The [facility] HospitalComment on above:Performed By: #### LIPID, TSH, CMP #### [facility] [address] [place] [address] Dr. Heather ArndtV (RBC) [Entitic vol]93.1 oQUzdpxm99.0-99.0The [facility] HospitalComment on above:Performed By: #### LIPID, TSH, CMP #### [facility] [address] [place] [address] Dr. Heather Xiong #0.6 103/ulNormal0.3-0.8The [facility] HospitalComment on above:Performed By: #### LIPID, TSH, CMP #### [facility] [address] [place] [address] Dr. Heather Alfonsoocytes/100 WBC (Bld)7.1 %Normal1.7-12.0[facility] Comment on above:Performed By: #### LIPID, TSH, CMP #### [facility] [address] [place] [address] Dr. Heather Jo #4.8 103/ulNormal1.4-6.5The [facility] Medical Centerment on above:Performed By: #### LIPID, TSH, CMP #### [facility] [address] [place] [address] Dr. Heather Dickensutrophils/100 WBC (Bld)55.3 %Fyiuwu97.0-75.0The [facility] Medical Centerment on above:Performed By: #### LIPID, TSH, CMP #### [facility] [address] [place] [address] Dr. Heather Bhattilet mean volume (Bld) [Entitic vol]10.2 fLNormal9.5-13.5The [facility] Medical Centerment on above:Performed By: #### LIPID, TSH, CMP #### [facility] [address] [place] [address] Dr. Heather AguirrePLT329 103/poWeityq639-861Afx [facility] HospitalComment on above: Performed By: #### LIPID, TSH, CMP #### [facility] [address] [place] [address] [address] Heather AguirreRBC4.04 106/ulCritically low4.20-5.40The [facility] on above:Performed By: #### LIPID, TSH, CMP #### [facility] [address] [place] [address] [address] Heather AguirreWBC8.7 103/ulNormal4.0-11.0The [facility] on above: Performed By: #### LIPID, TSH, CMP #### [facility] [address] [place] [address] [address] Heather AguirreGLYCOHEMOGLOBIN A1Con 95-91-2545BFT RECOMMENDATIONSEE BELOWAvita Health System Bucyrus HospitalComascension river district hospital on above:Result Comment: ADA RECOMMENDED LIMIT 4.0 - 6.0 ADA THERAPEUTIC TARGET < 7.0 ACTION SUGGESTED > 7.0Performed By: #### A1C #### [facility] [address] [place] [address] Dr. Heather AguirreGlucose [Mass/Vol]108 mg/dLNoLancaster Municipal Hospital on above:Performed By: #### A1C #### [facility] [address] [place] [address] Dr. Heather AguirreHbA1c (Bld) [Mass fraction]5.4 %Normal4.5-6.2[facility] on above:Performed By: #### A1C #### [facility] [address] [place] [address] Dr. Heather AguirreLIPID PROFILEon 67-83-4422OQNJ-HDL RATIO NORMSEE [facility] on above:Result Comment: 3.3 - 4.4 LOW RISK 4.4 - 7.1 AVERAGE RISK 7.1 - 11.0 MODERATE RISK >11.0 HIGH RISKPerformed By: #### LIPID, TSH, CMP #### [facility] [address] [place] [address] Dr. Heather AguirreCholesterol [Mass/Vol]215 mg/dLCritically high<=200The [facility]ervais HospitalComment on above:Performed By: #### LIPID, TSH, CMP #### [facility] [address] [place] [address] [address] Heather Stallingsesterol in HDL [Mass/Vol]59 mg/nGHrrcbd78-60Ock [facility] HospitalComascension river district hospital on above:Performed By: #### LIPID, TSH, CMP #### [facility] [address] [place] [address] [address] Heather Stallingsesterol in LDL [Mass/Vol]133.0 mg/dLNoSt. Mary's Medical CenterComment on above:Performed By: #### LIPID, TSH, CMP #### [facility] [address] [place] [address] [address] Heather José.total/Cholesterol in HDL [Mass ratio]3.6 {ratio} NormalOhiohealth Hardin Memorial HospitalComment on above:Performed By: #### LIPID, TSH, CMP #### [facility] [address] [place] [address] [address] Heather Quiroga NORMAL> or = 60 mg/dl - LOW CARDIOVASCULAR RISK <40 mg/dl - HIGH CARDIOVASCULAR RISKMemorial Health SystemComment on above:Performed By: #### LIPID, TSH, CMP #### [facility] [address] [place] [address] [address] Heather Christensen CALC NORMALSEE BELOWMemorial Health SystemComment on above:Result Comment: <100 mg/dl OPTIMAL 100 - 129 mg/dl NEAR OR ABOVE OPTIMAL 130 - 159 mg/dl BORDERLINE HIGH 160 - 189 mg/dl HIGH >190 mg/dl VERY HIGH Performed By: #### LIPID, TSH, CMP #### [facility] [address] [place] [address] [address] Heather AguirreTriglyceride [Mass/Vol]115 mg/dLNormal<=150The [facility] Comment on above:Performed By: #### LIPID, TSH, CMP #### [facility] [address] [place] [address] Dr. Heather PintoLDL CALC23.0 mg/dLNoSt. Mary's Medical CenterComment on above: Performed By: #### LIPID, TSH, CMP #### [facility] [address] [place] [address] [address] Heather Kim 14(COMP METB)on 20-35-4800Urygixg [Mass/Vol]3.5 g/dLNormal 3.4-5.0The [facility] HospitalComment on above:Performed By: #### LIPID, TSH, CMP #### [facility] [address] [place] [address] Dr. Heather AguirreAlbumin/Globulin [Mass ratio]1.1 {ratio}NormalThe [facility] HospitalComment on above:Performed By: #### LIPID, TSH, CMP #### [facility] [address] [place] [address] Dr. Heather Joaquin [Catalytic activity/Vol]56 U/HNnhtes96-944Qsu [facility] HospitalComment on above:Performed By: #### LIPID, TSH, CMP #### [facility] [address] [place] [address] Dr. Heather Ferguson [Catalytic activity/Vol]25 U/EQfebde70-77Ecy [facility] HospitalComment on above:Performed By: #### LIPID, TSH, CMP #### [facility] [address] [place] [address] Dr. Heather Solano gap [Moles/Vol]1 mmol/LNormalThe [facility] HospitalComment on above:Performed By: #### LIPID, TSH, CMP #### [facility] [address] [place] [address] Dr. Heather Allison [Catalytic activity/Vol]10 U/LCritically apb23-62Run [facility] HospitalComment on above:Performed By: #### LIPID, TSH, CMP #### [facility] [address] [place] [address] Dr. Heather Coronairubin [Mass/Vol]0.5 mg/dLNormal0.2-1.0[facility] Comment on above:Performed By: #### LIPID, TSH, CMP #### [facility] [address] [place] [address] Dr. Yilan ChangCalcium [Mass/Vol]8.5 mg/dLNormal8.5-10.1[facility] Comment on above:Performed By: #### LIPID, TSH, CMP #### [facility] [address] [place] [address] Dr. Heather AguirreChloride [Moles/Vol]102 mmol/DFoazrn01-121Zei [facility] Comment on above:Performed By: #### LIPID, TSH, CMP #### [facility] [address] [place] [address] Dr. Heather AguirreCO2 [Moles/Vol]30.0 mmol/GZomtla66.0-32.0[facility] Comment on above:Performed By: #### LIPID, TSH, CMP #### [facility] [address] [place] [address] Dr. Heather AguirreCreatinine [Mass/Vol]1.07 mg/dLCritically high0.55-1.02[facility] HospitalComment on above:Performed By: #### LIPID, TSH, CMP #### [facility] [address] [place] [address] Dr. Heather MckeonGFR-AF CANADIAN>60Normal>=60The [facility] HospitalComment on above:Performed By: #### LIPID, TSH, CMP #### [facility] [address] [place] [address] Dr. Heather MckeonGFR-NON AF NQDWJSPS31 mL/min/1.98b9Stsxithdvg low>=60The [facility] HospitalComment on above:Performed By: #### LIPID, TSH, CMP #### [facility] [address] [place] [address] Dr. Heather AguirreGlobulin (S) [Mass/Vol]3.2 g/dLNormalThe [facility] HospitalComment on above:Performed By: #### LIPID, TSH, CMP #### [facility] [address] [place] [address] Dr. Heather AguirreGlucose [Mass/Vol]96 mg/cZIpwvyo81-387Auv [facility] Comment on above:Performed By: #### LIPID, TSH, CMP #### [facility] [address] [address] [address] Heather AguirrePotassium [Moles/Vol]4.0 mmol/LNormal3.5-5.1[facility] Comment on above:Performed By: #### LIPID, TSH, CMP #### [facility] [address] [place] [address] Dr. Heather AguirreProtein [Mass/Vol]6.7 g/dLNormal6.4-8.2[facility] Comment on above:Performed By: #### LIPID, TSH, CMP #### [facility] [address] [place] [address] Dr. Heather AguirreSodium [Moles/Vol]127 mmol/LCritically lwm597-662Wmn [facility] HospitalComment on above:Performed By: #### LIPID, TSH, CMP #### [facility] [address] [place] [address] Dr. Heather AguirreUrea nitrogen [Mass/Vol]20.0 mg/dLCritically high7.0-18.0The [facility] HospitalComment on above:Performed By: #### LIPID, TSH, CMP #### [facility] [address] [place] [address] Dr. Heather Martinez nitrogen/Creatinine [Mass ratio]18.7 mg/mgNormalThe [facility] HospitalComment on above:Performed By: #### LIPID, TSH, CMP #### [facility] [address] [place] [address] Dr. Heather Gomez 56-53-0148UGJ3.693 uIU/mLNormal0.358-3.740The [facility] HospitalComment on above:Performed By: #### LIPID, TSH, CMP #### [facility] [address] [place] [address] Dr. Heather Aguirre Vital Signs Date TimeVital SignValuePerforming FtmhlnxuxJemwsfzw35-27-2625 08:59-0400Body kmroxb856.4 cmTanvi De Oliveira MD Work Phone: [facility]07-30-2025 08:59-0400 Body mass index (BMI) [Ratio]36.5 kg/x9UikemaTanvi De Oliveira MD Work Phone: [phone]07-30-2025 08:59-0400 Body npbhte29.87 kgTanvi De Oliveira MD Work Phone: [phone]07-30-2025 08:59-0400 Diastolic blood zwdbsonh03 mm[Hg]Tanvi De Oliveira MD Work Phone: [phone]07-30-2025 08:59-0400 Heart rate75 /minTanvi De Oliveira MD Work Phone: [phone]07-30-2025 08:59-0400 Systolic blood wtwllukr359 mm[Hg]Tanvi De Oliveira MD Work Phone: [phone]01-28-2025 12:10-0500 Body mass index (BMI) [Ratio]36.72 kg/y7Eegtn Rafaela DO Work Phone: [phone]-[facility] SystemXbyccpalnb49-07-9942 12:10-0500Body oakpxm90.28 kgCorey Rafaela DO Work Phone: [phone]-[facility] SystemKbnaifkozr67-96-0663 12:10-0500Diastolic blood mm[Hg]Jeri Rafaela DO Work Phone: [facility] SystemKebeajztjt71-67-6312 12:10-0500Systolic blood wzsvtgee889 mm[Hg]Jeri Rafaela DO Work Phone: [phone] [place], [place] [address]Clppcfjuop55-12-1435 09:30-0500Body occxot586.4 cmPHYSICIAN [facility]01-09-2025 09:30-0500Body mass index (BMI) [Ratio]36.5 kg/a5CMUPTUVVW [facility]01-09-2025 09:30-0500Body vrinvgtroga84.6 [degF]PHYSICIAN [facility]01-09-2025 09:30-0500Body pbesrd56.82 kg PHYSICIAN NO [facility]01-09-2025 09:30-0500 Diastolic blood gkvfxkin54 mm[Hg]PHYSICIAN NO [facility]01-09-2025 09:30-0500Heart rate67 /minPHYSICIAN NO [facility]01-09-2025 09:30-8644HdG8% (BldA) [Mass fraction]99 % PHYSICIAN NO [facility]01-09-2025 09:30-0500 Systolic blood qucuhfur909 mm[Hg]PHYSICIAN NO [facility]11-18-2024 09:18-0500Body mass index (BMI) [Ratio]36.72 kg/q7Mdajg Rafaela DO Work Phone: [facility] SystemHuuesyrcau93-74-4904 09:18-0500Body fbzdau05.28 kgCorey Rafaela DO Work Phone: [facility] SystemGgxuvssmvm47-46-0512 09:18-0500Diastolic blood mm[Hg]Jeri Rafaela DO Work Phone: [facility] SystemHqnqwxrlks89-81-3244 09:18-0500Systolic blood cywikldh305 mm[Hg]Jeri Rafaela WhoisEDI Work Phone: [facility] SystemFwpcmroesa52-03-3613 14:19-0400Blood Pressure LocationMichael NILL [phone]-AqrwdSelect [facility]08-27-2024 14:19-0400Diastolic blood yajebiqm43 mm[Hg]Price NILL [phone]-CgmvqSelect [facility]08-27-2024 14:19-0400Heart rate76 /minMichael NILL [phone]-JfogdSelect [facility]08-27-2024 14:19-0400Respiratory rate16 /minMichael NILL [phone]-EnnlcSelect [facility]08-27-2024 14:19-0400Systolic blood kwbqlxyp479 mm[Hg]Price NILL [phone]-[facility] Gxgvmhis07-59-2471 08:31-0400Body seyioi708.4 cm[facility]07-22-2024 08:31-0400Body mass index (BMI) [Ratio]36.1 kg/d7JorrzclluSuburban Community Hospital & [facility]07-22-2024 08:31-0400Body optudn28.91 [facility] 03-07-2024 08:31-0400Diastolic blood kwbkeuig497 mm[Hg][facility]07-22-2024 08:31-0400Heart rate69 /[facility]07-22-2024 08:31-0400Systolic blood mm[Hg][facility]02-22-2024 10:14-0500Body bfjxde902.4 cmSub[facility]02-22-2024 10:14-0500Body mass index (BMI) [Ratio]35.8 kg/c9ZnogohmgiSuburban [facility] Hospital & [facility]02-22-2024 10:14-0500Body .12 [facility]02-22-2024 10:14-0500Diastolic blood ujjlwdmg46 mm[Hg] [facility]02-22-2024 10:14-0500Heart rate83 /[facility]02-22-2024 10:14-0500Systolic blood pwbhtarh592 mm[Hg] [facility]07-13-2023 08:30-0400Body oslsjr368.4 cmNatividadlinda Alvino Other [employer] Other 07-13-2023 08:30-0400Body mass index (BMI) [Ratio] 35.93 kg/v4Zmbfjp Alvino Other [employer] Other 07-13-2023 08:30-0400Body dpttvy86.46 kgNatividadlinda Alvino Other [employer] Other 07-13-2023 08:30-0400Diastolic blood wgkriido06 mm[Hg] Tanvi De Oliveira Other [facility] Other 07-13-2023 08:30-0400Systolic blood aqgpridu511 mm[Hg] Tanvi De Oliveira Other [facility] Other Encounters Encounter DateEncounter TypeCare ProviderFacilityStart: 03-15-2025 End: 76-28-8020uvtdedkqlyUmyhzb E Braun MD Work Phone: [facility] Work Phone: Start: 03-15-2025 End: 95-98-3185Eeuiqbz encounter procedureTanvi De Oliveira MD-[facility] Work Phone: Start: 11-23-2024 End: 73-00-8283qgyeeoeztdEVQN [facility] Hospitaltart: 09-13-2024 End: 72-71-0404Qktyin flowsheetCorey Rafaela DO Work Phone: noms BCP OBStart: 09-13-2024 End: 79-92-6015Yvigfq flowsheetCorey Rfaaela DO Work Phone: [facility] BCP OBStart: 09-13-2024 End: 07-06-1441Djhfpq outpatient visit 15 minutesCorey Rafaela DO Work Phone: noms [facility] OBComment on above:Encounter to discuss test results; Osteopenia of neck of right femurStart: 09-13-2024 End: 93-69-4366sqpodslmvqOQXSI FAZIONot AvailableStart: 08-25-2024 End: 61-37-2631jubrjznpmmUCMDEARBF NO [facility] Work Phone: Start: 08-25-2024 End: 37-02-2199Ejjxgyv encounter procedurePHYSICIAN NO [facility] Work Phone: Start: 08-08-2024 End: 54-53-1155Idctudcvm Result EncounterCorey Rafaela DO Work Phone: noms External Department UnsolicitedStart: 08-08-2024 End: 66-14-7718Rwkuvsmdv Result EncounterCorey Rafaela DO Work Phone: noms External Department UnsolicitedStart: 08-08-2024 End: 86-59-3141cyjidqinxiEndgdc E BraunFacility:[facility] Hospitaltart: 08-08-2024 End: 82-29-2212Gumtrigz ReferredPHYSICIAN NO [facility] [place] Work Phone: Start: 08-08-2024 End: 08-15-8448Azcghim encounter procedurePHYSICIAN NO [facility] Work Phone: Start: 07-04-2024 End: 53-73-9805Cobkax flowsheetCorey Rafaela DO Work Phone: [facility] BCP OBStart: 07-04-2024 End: 91-96-6721Harvok flowsheetCorey Rafaela DO Work Phone: n[facility] BCP OBStart: 07-04-2024 End: 85-80-6216Wvxnmnvnw Result EncounterCorey Rafaela DO Work Phone: noms External Department UnsolicitedStart: 07-04-2024 End: 09-67-0380Zeurfxc encounter procedureCorey Rafaela DO Work Phone: noms HealthcareStart: 07-04-2024 End: 28-61-2478Bojjtgty preventive med est patient 65yrs& olderCorey Rafaela DO Work Phone: noms [facility] OBComment on above:Well woman exam with routine gynecological exam; Breast cancer screening by mammogram; Osteoporosis, post-menopausal (CMS/HCC)Start: 78-02-9365Ajh-patient / Non-visit PHYSICIAN NO [facility] Work Phone: Start: 07-04-2024 End: 78-16-6307iywnsjtbywLJLZY Adia AvailableStart: 05-27-2024 End: 00-70-3738hkerlxegttEXKMTYH [facility] Start: 05-04-2024 End: 00-82-8122yzckbbohmrJftzohe R NILLFacility:CD:[id number]: 04-12-2024 End: 31-02-6597itovttqggeFqaiidh R NILLFacility:[facility] HospitalevueStart: 04-12-2024 End: 22-95-3713Dxyrfno encounter procedureMichael R NILL [phone]-[facility] Start: 08-69-8062zqfuncdblwEvxocvi NILLFacility:Centervilletart: 95-77-9462Heelocfu examinationSub[facility] Start: 03-07-2024 End: 31-59-6238ondeadpyftPvaheisapSelect [facility] Work Phone: Start: 03-07-2024 End: 28-59-7812Hhuwddxjw for general adult medical examination without abnormal findingsSelect Medical OhioHealth Rehabilitation Hospitaltart: 03-07-2024 End: 12-46-4840Smxwkuh encounter procedureNov[facility] Work Phone: Start: 01-01-2024 End: 65-56-5917pibkiirzeqBBEBOOFChillicothe Hospital Start: 11-26-2023 End: 82-82-5497oxcbbnlxehTNCUAHMChillicothe Hospital Start: 10-08-2023 End: 50-90-5219vfdagouezrNaeqwwjftSelect [facility] Work Phone: Start: 10-08-2023 End: 93-88-4029Ymxfqpc encounter procedureNovant Health [facility] Work Phone: Start: 02-26-2023 End: 30-07-4575sflekfnwdrZptuyo Braun Other [facility] Other Start: 67-18-9137Oxipeaacb for general adult medical examination without abnormal findingsMarcia AlvinoAultman Orrville Hospital ClinicStart: 76-81-4092Pkndcgnp preventive med est patient 65yrs& olderMarcia [facility] ClinicStart: 07-14-2022 End: 77-93-9348yhxfkfdrvbGX TANVI DE OLIVEIRAFacility:J4Rcztp: 07-01-2022 End: 04-78-4903wirmuvyrfiBX JERI FAZIOFacility:B5Ygxfu: 06-11-2022 End: 10-29-6673vrotwqbyxfHU TANVI DE OLIVEIRAFacility:B9Dfftk: 06-10-2022 End: 58-76-2599lusskpbtraJE JERI FAZIOFacility:P7Fjgwm: 09-96-7607Zqkjpcjal for general adult medical examination without abnormal findingsDR TANVI Ruiz [facility] Campustart: 02-12-2022 End: 06-36-5076nyxnymeaabAI TANVI DE OLIVEIRAFacility:Y5Cqirw: 02-12-2022 End: 13-14-9161Oagpduuly for general adult medical examination without abnormal findingsDR TANVI DE OLIVEIRAFacility:H1 Procedures DateProcedureProcedure DetailPerforming ClinicianStart: 47-56-1767ER DEXA AXIAL SKELETONCorey Rafaela DO Work Phone: Start: 95-69-2586Mrekn culturePHYSICIAN NO FAMILY Start: 63-15-9784BD TOMOSYNTHESIS SCREENING BICorey Rafaela DO Work Phone: Start: 03-39-7504KWM,APTIMA HPV,AGE GDLNCorey Rafaela DO Work Phone: Start: 05-74-2849FwosmfwwsmkRrsta Rafaela DO Work Phone: Start: 46-71-7301Ssud cerv/vag auto thin layer prep mnl screenCorey Rafaela DO Work Phone: Start: 42-41-5299ZztxwraxpbvAvqin Rafaela DO Work Phone: Start: 33-95-1585PkajnmhpvgxZtkbijd NILL AppendectomyMichael NILL Cardiac catheterizationMichael NILL CholecystectomyMichael NILL Decompression of median nerveMichael NILL Extraction of cataractMichael NILL Repair of right inguinal herniaMichael NILL TonsillectomyMichael NILL Total abdominal hysterectomy with bilateral salpingo-oophorectomyMichael NILL Plan of Treatment DateCare ActivityDetailAuthorStart: 07-10-2025 End: 24-25-0508Vfandct encounter procedureNOCHILDREN'S [facility] OBStart: 34-20-6921Yrwzvpuqq for malignant neoplasm of breastMammogramMO[facility] REG[facility] HealthcareStart: 04-17-2025 Influenza vaccinationInfluenza Vaccine (#1)[facility] HealthcareStart: 09-13-2024 End: 09-28-4083Ycxfenv encounter rarwrnkqk08/28/2025 11:40 AM EST Office Visit [facility] [address] [place] [phone] Jeri Russo, DO [address] [place] [address] ArrivedNOCHILDREN'S HOSPITAL [facility] OBComment on above:ArrivedStart: 07-04-2024 End: 89-04-3987RBT Skeletal system Views for bone densityDEXA bone density Imaging Routine Osteoporosis, post-menopausal (CMS/HCC) Expected: 07/04/2024 (Approximate), Expires: 07/04/2025[facility] Work Phone: comment on above:Expected: 07/04/2024 (Approximate), Expires: 07/04/2025Start: 32-45-3628Fdnplcwjj for malignant neoplasm of colon [facility] HealthcareStart: 88-43-4181Yddwkesincjf Vaccine: 65+ Years (1 of 1 - PCV) Pneumococcal Vaccine: 65+ Years (1 of 1 - PCV)[facility] HealthcareStart: 10-23-2007 Pneumococcal Vaccine: 65+ Years (1 of 1 - PCV)Pneumococcal Vaccine: 65+ Years (1 of 1 - PCV)[facility] HealthcareStart: 15-26-4270Iqmxmgluw for malignant neoplasm of colonNOOK HealthcareComprehensive metabolic 2000 panel - Serum or Plasma [facility] HospitalEKG 12 channel panelSuburban Community Hospital & Brentwood HospitalTHIN PREP TIS PAP AND HR HPV DNATHIN PREP TIS PAP AND HR HPV DNA Pathology and Cytology Routine Well woman exam with routine gynecological exam Ordered: 07/04/2024[facility] SystemComment on above:Ordered: 07/04/2024XR Hip - left 2 [facility] Immunizations Immunization DateImmunizationNotesCare BzqvvxihYknlxdgs36-91-2662hoxgsxtdu virus vaccine, unspecified formulationCorey Rafaela DO Work Phone: [facility] SystemQducvjjkau06-01-5209SPEP-KcS-4 (COVID-19) mRNA- 1273 vaccineMichael NILL [phone]-IgnpbSelect Medical [facility]02-03-2021 SARS-CoV-2 (COVID-19) mRNA-1273 vaccineMichael NILL [phone]-LqhorSelect Medical Specialty Hospital [facility]01-07-2021 SARS-CoV-2 (COVID-19) mRNA-1273 vaccineMichael NILL [phone]-AheaaSelect Medical [facility] Payers DatePayer CategoryPayerPolicy [id number] [facility] Member Subscriber Plan / Payer (Effective 2022-Present) Name: Mackenzie Patel Member ID: [id number] Relation to Subscriber: Self Name: Mackenzie Patel Subscriber ID: [id number] Payer ID: Not on file Type: Not on file Address: [facility] [address] [place] [id number] [facility] [id number] 2..5.35363[id number] [id number] 2..1.392445.3.579.2.74538-43-1835Irmleqc8182523 2.0.1.172093.3.579.2.66430-82-3658Sfjtjty7241088 2..1.411668.3.579.2.27114-70-9806Befqjxl9430650 2..1.848504.3.579.2.43308-16-6415Sbxhmms6603031 2..1.687913.3.579.2.53503-59-0718Qqvsfha9182272 2.0.1.517553.3.579.[id number] 2..1.385335.3.579.2.00007-23-3123Pdksnfd28682727 2..1.049112.3.579.2.77160-24-1374Hgokoru5004922 2.0.1.308857.3.579.2.225318-72-7830Qmbtxvq1713446 2.0.1.616566.3.579.2.1259MedicareMedicare-OP No Part [id number] 2.16.840.1.051584.3.579.2.531 Social History DateTypeDetailFacilityStart: 86-94-6367Pei [facility]igned At [facility] Centertart: 06-19-2023 End: 29-84-8012Ejrmwaj smoking status NHISEx-smoker (finding)[facility] Hospitaltart: 76-42-0461Igp Assigned At [facility] Northtart: 12-04-0246Zoyhxgl smoking statusNeverOhiohealth Southeastern Medical CenterueHistory of tobacco useCurrent smokerNOMS HealthcareHistory of tobacco useCigarette SmokerNOOK HealthcareStart: 07-04-2024 End: 51-61-8092Ycfkeonuk beverage intakeEx-drinker (finding)[facility] Start: 34-30-9236Eblmnyw of Social functionNOMS HealthcareStart: 06-19-2023 Alcohol CommentOcasional alcohol useNOMS HealthcareStart: 76-67-0988Sqo assigned at birthNot on fileMOAB REGIONAL HOSPITAL HealthcareStart: 82-45-5496Phpgso identityIdentifies as female gender (finding)[facility] HealthcareStart: 44-14-2810WwyLnlsrl (finding) [facility] Functional Status UmmaDznxquuhdxPllqfdErueemma85-92-7616Dseslbtyzy StatusN/AFarcadioWest Los [facility] Clinical Notes 02-26-2023 to 11-23-2024 Note Date & GgkvXbvlLpbtatzz70-79-6389 NoteBEL[facility]UE [facility] Note Chief Complaint: Patient [...] problems arise Tomy Lemus MD, MPH, FACC, [facility], [facility] Interventional Cardiology Pager Email: [email or web address]01-28-2025 History of Present illness Narrative* Marce Slade, SURVEILLANCE INVESTIGATOR - 09/13/2024 11:40 AM EST Reason for Appointment: Patient ID: [...] TUNNEL RELEASE Right 02/02/2017 Dr. Taylor CHOLECYSTECTOMY 2000 COLONOSCOPY 2014 HERNIA REPAIR 1971 TONSILLECTOMY 196 [...] nursing note reviewed. Exam conducted with a human resources project coordinator present. Vitals: Estimated body mass index is [...] of: Jeri Russo DO documented in this encounterSaint Luke's Health SystemUnbvmnqgka56-34-3527 Evaluation note* Diagnosis Onset Date Resolution Status Admit Date Dysuria acuteDecember 2023 9:48amLeft hip painacuteJanuary 2024 9:24am [facility] Work Phone: [phone] History of Present illness Narrative* Trudy Clarke, RADHA - 07/04/2024 9:00 AM EST Reason for [...] 1999 COLONOSCOPY 2013 HERNIA REPAIR 1971 TONSILLECTOMY 196 TOTAL ABDOMINAL [...] nursing note reviewed. Exam conducted with a human resources project coordinator present. Vitals: Estimated body mass index is [...] CANCELED: Bilateral screening mammogram 3. Osteoporosis, post-menopausal ([facility]) M81.0 DEXA bone density Annual: Patient presents [...] of: Jeri Russo DO documented in [place] encounter[place] [address]Dwzathpqrv48-60-1156 NoteBellevue [facility]iology [facility] Note HPI: Mackenzie Patel [...] as needed Dwayne Richmond MD Interventional Cardiology [facility]08-27-2024 NoteGeneral Surgery Office/Clinic Note Chief Complaint consultation [...] disease: Mother and Br (more content not included)...[facility] HospitalComment on above:Result Comment: Electronically Signed By: AUSTIN RUBALCAVA, Price Rogers\.debby\Date and Time Signed: 04/12/24 14:47 PTF84-42-4937 NoteBellevue Cardiology Clinic Note HPI: Mackenzie Patel [...] as needed Dwayne Richmond MD Interventional Cardiology [facility]04-11-2024 NotePatient: Mackenzie Patel Procedure Information Date/Time: 11/26/23 1030 Procedure: Coronary angiography (Left) Location: [facility] TIME LOCK EXPERT 3 / [facility] (Cath) Providers: Dwayne Richmond MD [...] products. Plan discussed with attending. Additional [facility]sK[facility]07-13-20[facility] Evaluation note* Encounter Date Diagnosis Assessment Notes Treatment Notes Treatment Clinical Notes Feb, Well adult exam (ICD-10 - Z00.00 ) We have discussed the necessity of following [...] vaccinations that apply. All questions answered and p atient is sent home pleased, without concerns. Normal colonscopy in 2013 - repeat next year. [employer] Other Evaluation + Plan note No data available for this section [facility] Evaluation note* Diagnosis Onset Date Resolution Status Dyspnea on exertion acuteEpigastric abdominal painacuteLeft-sided chest wall painacute [facility] Work Phone: Evaluation note* Diagnosis Onset Date Resolution Status Well adult exam [facility] Work Phone: Evaluation note* Diagnosis Well woman exam with routine gynecological exam Routine gynecological examination Breast cancer screening by mammogram Osteoporosis, post-menopausal (CMS/HCC) Senile osteoporosis documented in this encounter [facility] HealthcareEvaluation note* Diagnosis Encounter to discuss test results Other specified counseling Osteopenia of neck of right femur documented in this encounter [facility] HealthcareEvaluation noteNo assessment information availableC[facility] Clinic Mercy [facility] Work Phone: History general Narrative - Reported* Type Description Date Medical History Post-menopausal Medical HistoryHypothyroidismMedical HistoryChronic tension-type headache, not intractableMedical HistoryTrochanteric bursitis of right hipMedical History Osteoarthritis of right hipMedical HistoryOsteopenia, unspecified location Medical HistoryLumbar radiculopathy, rightMedical HistoryVaginal dryness, menopausalMedical HistoryRight hip painMedical HistoryDepression, majorMedical HistoryUTI symptomsSurgical QsrrgwkCPATGZYRMKEKQBO3112Jwkfmysj History HYSTERECTOMY, TOTAL07/1998Surgical HistoryTAH WITH BSO AND WLUHRGGGQICL19/1998 Surgical [id number] HistoryHERNIA [id number] HistoryENDOMETRIOSIS R CARPEL XCHBQE38/2017Surgical CaiyiilEYAIOVBNJ88/2018 Surgical Historycolonoscopy - 2014 - normal Dr. MejiaHospitalization HistorySEE SURGICAL GillBus Other Hospital Discharge instructions No data available for this section [facility] Progress note No data available for this section [facility] Reason for referral (narrative)No reason for referral information [facility] Work Phone: Summary Purpose Family History Relationship Condition Age at Onset Recorded Date/T joaquin brother Hypertension Unknown Heart diseaseUnknownfatherDiabetes mellitusUnknownHypertensionUnknownNot SpecifiedHypertensionUnknownFamily history of mental disorderUnknownsister HypertensionUnknownFamily history of thyroid diseaseUnknown Relationship Condition Age at Onset Recorded Date/T joaquin brother Hypertension Unknown Heart diseaseUnknownfatherDiabetes mellitusUnknownHypertensionUnknownmother HypertensionUnknownFamily history of mental disorderUnknownsisterHypertension UnknownFamily history of thyroid diseaseUnknown Advance Directives Advance Directive Response Recorded Date/ [...] hip pain August 25, 2024 9: 24am Chief Complaint Admit Date Wellness March 15, 2025 8:56 am Additional Source Comments INFORMATION SOURCE (unrecogn ized section and content) DATE CREATED AUTHOR 07/17/2022 [facility] DATE CREATED AUTHOR AUTHOR'S ORGANIZ ATION 05/12/2024 [facility] DATE CREATED AUTHOR AUTHOR'S ORGANIZ ATION 08/14/2024 [facility] DATE CREATED AUTHOR AUTHOR'S ORGANIZ ATION 09/14/2024 [facility] DATE CREATED AUTHOR AUTHOR'S ORGANIZ ATION 11/24/2024 [facility] REASON FOR VISIT (unrecogniz ed section and content) ReasonCommentsGynecologic ExamReasonCommentsDiscuss Dexa scan results Care Teams (unrecognized sec [...] Start: March 07, 2024 End: March 07, 2024Team MemberRelationshipSpecialtyStart DateEnd Date Tanvi De Oliveira MD [address] [place] [facility] [place] [address] PCP - [facility]07/02/23Team MemberRelationshipSpecialtyStart Date End Date Tanvi De Oliveira MD [address] [place] [facility] [place] [address] PCP - [facility]07/02/23 Team Status: Active Member Role Status Dates PHYSICIAN NO FAMILY Primary Care Provider Active Team Status: Active Member Role Status Dates Tanvi De Oliveira MD Primary Care Provider Active Start: July 04, 2024 Jeri Russo DOAttmarium ProviderActiveStart: July 04, 2024 Team Status: Inactive Member Role Status Dates Tanvi De Oliveira MD Primary Care Provide r, Attending Provider Active Start: August 08, 2024 End: August 08, 2024 Team Status: Inactive Member Role Status Dates Tanvi De Oliveira MD Attending Provider Active St art: August 08, 2024 End: August 08HYSICIAN NO FAMILYPrimary Care ProviderActiveStart: August 08, 2024 End: August 08, 2024 Team Status: Inactive Member Role Status Dates PHYSICIAN NO FAMILY Primary Care Provider Active Start: August 25, 2024 End: August 25, 2024Jarad Cancino ProviderActiveStart: August 25, 2024 End: August 25, 2024Team MemberRelationshipSpecialtyStart DateEnd Date Tanvi De Oliveira MD [address] [place] [facility] [place] [address] PCP - [facility]07/02/23 Team Status: Inactive Member Role Status Dates Tanvi De Oliveira MD Primary Care Provider Active Start: March 15, 2025 End: March 15, 2025Jarad Cancino ProviderActiveStart: March 15, 2025 End: March 15, 2025Team MemberRelationshipSpecialtyStart DateEnd Date Tanvi De Oliveira MD [facility]07/02/23Te MemberRelationshipSpecialtyStart Date End Date Tanvi De Oliveira MD PCP - [facility]07/02/23 Goals (unrecognized section and content) Goals may [...] BE BASED ON THE PRIMARY CLINICAL RECORDS. [facility]. provides no warranty or guarantee of the accuracy or completeness of information in this document.
--- OUTSIDE RECORDS SUMMARY | 2025-07-10 20:02 | XMS_ITS | Clinical Summary ---
Author Organization [facility] Address [address] [place] [address] Care Team Providers Care Supervisor Epoxy Fabrication Name Role Phone Tanvi Rocha MD Primary Care Provider [phone] Allergies Active AllergyReactionsCriticalityNoted DateCommentsFish TtlEarhifb02/14/2023 Kiwi ExtractAnaphylaxis,WlcohxntHlsr32/14/2023Shellfish WctqwagBqqmNxb29/18/2024 Shellfish Protein-Containing Drug ProductsHives,Itching,Rash,Shortness of breath High06/30/2023 Medications MedicationSigDispense QuantityRefillsLast FilledStart DateEnd DateStatus levothyroxine (Synthroid, Levoxyl) 100 MCG tablet Take 100 mcg by mouth in the morning. Take before meals.Active cycloSPORINE (Restasis) 0.05 % ophthalmic emulsion Administer 1 drop into both eyes every 12 (twelve) hours.Active alendronate (Fosamax) 70 MG tablet Indications:Other osteoporosis, unspecified pathological fracture presenceTAKE 1 TAB BY MOUTH ONCE A WEEK.TAKE IN MORNING WITH FULL GLASS OF WATER ON EMPTY STOMACH.DO NOT TAKE ANYTHING ELSE BY MOUTH OR LIE DOWN FOR NEXT 30 MINUTES. 12 tablet 5Active Active Problems ProblemNoted DateDiagnosed DateOsteoporosis, post-ebpmnduvdb78/10/2025Osteopenia of neck of right femur10/24/2024 Encounters DateTypeDepartmentCare NumeRensldiqbsg39/24/2025 8:30 AM ESTOffice Visit [facility] [place] [facility] [address] [place] [address] [place] [address] Jermaine Russo, DO Well woman exam with routine gynecological exam; Encounter for screening mammogram for malignant neoplasm of reyiyu7707/10/2025 [place] flowsheet [facility] [address] [facility] [facility] [facility] [place] [address] RafaelaJermaine rico, 07/09/2025Travelfrom Last 3 Months Family History Medical HistoryRelationNameCommentsDiabetesDaughterDiabetesFatherCarl Hussell HypertensionFatherCarl HussellCancerMaternal GrandfatherGilbert SmithDiabetes Maternal GrandmotherBeatrice SmithHypertensionMaternal GrandmotherBeatrice Shi Alzheimer's diseaseMotherEileene HessickDementiaMotherEileene HessickHeart diseaseMotherEileene HessickHypertensionMotherEileene HessickThyroid disease MotherEileene HessickHeart diseaseSiblingHypertensionSiblingThyroid disease Sister 1Shelly MartinezThyroid diseaseSister 2Robin GoodThyroid diseaseSister 3 Eduin GoodRelationNameStatusCommentsDaughterAliveFatherCarl HussellAliveMaternal GrandfatherGilbert SmithMaternal GrandmotherBeatrice SmithMotherEileene Hessick AliveSiblingSister 1Shelly MartinezSister 2Robin GoodAliveSister 3Robin Good AliveSonAlivex3 Social History Tobacco UseTypesPacks/DayYears UsedDateSmoking Tobacco: FormerCigarettes Smokeless Tobacco: Never Tobacco Cessation:Counseling Given: Not Answered Alcohol UseStandard Drinks/WeekCommentsNot Currently0 (1 standard drink = 0.6 oz pure alcohol)Ocasional alcohol useCommentsNoSex and Gender Information ValueDate RecordedSex Assigned at BirthNot on fileLegal VoqZkqwhm73/15/2023 7:47 PM EDTGender IfscelspEofpal41/11/2023 9:07 AM ESTSexual OrientationNot on file Last Filed Vital Signs Vital SignReadingTime TakenCommentsBlood Lcsgxixh764/7207/10/2025 8:49 AM EST Pulse--Temperature--Respiratory Rate--Oxygen Saturation--Inhaled Oxygen Concentration--Thntub93.4 kg (186 lb)07/10/2025 8:49 AM PPSVgjeky768.4 cm (5') 07/02/2023 9:05 AM ESTBody Mass Index36.33109/01/2022 9:05 AM EST Plan of Treatment Not on file Insurance * Guarantor: Mackenzie AustinAccount TypeRelation to PatientDate of BirthPhoneBilling AddressPersonal/QbobkbOdni20/08/1956 [facility] [address] Care Teams Team MemberRelationshipSpecialtyStart DateEnd Tanvi Rocha MD [address] [place] [address] PCP - GeneralFamily Atopbxyp50/16/23
--- OUTSIDE RECORDS SUMMARY | 2025-07-10 20:02 | XMS_ITS | Encounter Summary ---
Author Organization [facility] Address [address] [facility] [place] [address] Care Team Providers Care Rock Dust Sprayer Name Role Phone Tanvi Rocha MD Primary Care Provider [phone] Encounter Details DateTypeDepartmentCare Team (Latest Contact Info)Ltiuxymlesl81/24/2025amboo flowsheet [facility] [address] [facility] [place] [address] Jermaine Russo DO [address] [facility] [address] [place], [facility] Social History Tobacco UseTypesPacks/DayYears UsedDateSmoking Tobacco: FormerCigarettes Smokeless Tobacco: NeverAlcohol UseStandard Drinks/WeekCommentsNot Currently0 (1 standard drink = 0.6 oz pure alcohol)Ocasional alcohol useCommentsNoSex and Gender InformationValueDate RecordedSex Assigned at BirthNot on fileLegal SkrXlxtgs66/15/2023 7:47 PM EDTGender IkgbsrwsTefspe19/11/2023 9:07 AM ESTSexual OrientationNot on filedocumented as of this encounter Plan of Treatment Not on file documented as of this encounter Visit Diagnoses Not on filedocumented in this encounter Care Teams Team MemberRelationshipSpecialtyStart DateEnd Date Tanvi Rocha MD [address] [place] [address] PCP - GeneralFamily Tjjontgb41/16/23documented as of this encounter
== END 2025-07-10 19:59 | disposition home or self-care (01) ==
LOC: LAB 19:58
PROVIDERS: Visit Provider Obstetrics & Gynecology
DX: Z01.419 Encounter for gynecological examination (general) (routine) without abnormal findings (principal)
CPT/HCPCS: 88175

== ENCOUNTER 2025-07-19 08:22 | Outpatient (OUT) | payer MEDICARE, SELFPAY ==
--- OUTSIDE RECORDS SUMMARY | 2025-07-10 08:30 | XMS_ITS | Encounter Summary ---
Author Organization [facility] Address [address] [place] [address] Care Team Providers Care Motor Grader Operator Name Role Phone Tanvi Rocha MD Primary Care Provider [phone] Reason for Visit * ReasonCommentsGynecologic Exam Encounter Details DateTypeDepartmentCare Team (Latest Contact Info)Snoimjstezw59/24/2025 8:30 AM ESTOffice Visit [facility] [address] [phone] Jermaine Russo DO [address] [place] [phone] Well woman exam with routine gynecological exam; Encounter for screening mammogram for malignant neoplasm of breast Social History Tobacco UseTypesPacks/DayYears UsedDateSmoking Tobacco: FormerCigarettes Smokeless Tobacco: Never Tobacco Cessation:Counseling Given: Not Answered Alcohol UseStandard Drinks/WeekCommentsNot Currently0 (1 standard drink = 0.6 oz pure alcohol)Ocasional alcohol useCommentsNoSex and Gender Information ValueDate RecordedSex Assigned at BirthNot on fileLegal ElyDnrfku24/15/2023 7:47 PM EDTGender JijalnosQitrvp66/11/2023 9:07 AM ESTSexual OrientationNot on file documented as of this encounter Last Filed Vital Signs Vital SignReadingTime TakenCommentsBlood Uworicwy231/7207/10/2025 8:49 AM EST Pulse--Temperature--Respiratory Rate--Oxygen Saturation--Inhaled Oxygen Concentration--Kdumfe12.4 kg (186 lb)07/10/2025 8:49 AM ESTHeight--Body Mass Index36.3311 9:05 AM ESTdocumented in this encounter Progress Notes * Ifeoma Calderon NP - 07/10/2025 8:30 AM EST Reason for Appointment: Patient ID: Mackenzie Austin is a 69 y.o. female who presents for Gynecologic Exam Patient presents today for Annual Exam. MEDICATIONS Current Outpatient Medications Medication Instructions ??? alendronate (Fosamax) 70 MG tablet TAKE 1 TAB BY MOUTH ONCE A WEEK.TAKE IN MORNING WITH FULL GLASS OF WATER ON EMPTY STOMACH.DO NOT TAKE ANYTHING ELSE BY MOUTH OR LIE DOWN FOR NEXT 30 MINUTES. ??? cycloSPORINE (Restasis) 0.05 % ophthalmic emulsion 1 drop, Both Eyes, Every 12 hours ??? levothyroxine (SYNTHROID, LEVOXYL) 100 mcg, Oral, Daily before breakfast ALLERGIES Allergies Allergen Reactions ??? Kiwi Extract Anaphylaxis and Swelling ??? Shellfish Protein-Containing Drug Products Hives, Itching, Rash and Shortness of breath ??? Fish Oil Unknown ??? Shellfish Allergy Rash PROBLEMS Active Ambulatory Problems Diagnosis Date Noted ??? Osteoporosis, post-menopausal 10/24/2024 ??? Osteopenia of neck of right femur 10/24/2024 Resolved Ambulatory Problems Diagnosis Date Noted ??? No Resolved Ambulatory Problems Past Medical History: Diagnosis Date ??? BMI 34.0-34.9,adult ??? Chronic tension-type headache, not intractable ??? Depression screening ??? Depression, major ??? Hip pain, right ??? Hypothyroidism ??? Lumbar radiculopathy, right ??? Osteoarthritis of right hip ??? Osteopenia, unspecified location ??? Postmenopausal ??? Trochanteric bursitis of right hip ??? UTI symptoms ??? Vaginal dryness, menopausal ??? Well woman exam HISTORY PAST MEDICAL HISTORY SOCIAL HISTORY Past Medical History: Diagnosis Date ??? BMI 34.0-34.9,adult ??? Chronic tension-type headache, not intractable ??? Depression screening ??? Depression, major ??? Hip pain, right ??? Hypothyroidism ??? Lumbar radiculopathy, right ??? Osteoarthritis of right hip ??? Osteopenia, unspecified location ??? Postmenopausal ??? Trochanteric bursitis of right hip ??? UTI symptoms ??? Vaginal dryness, menopausal ??? Well woman exam Social History Tobacco Use ??? Smoking status: Former Current packs/day: 0.00 Types: Cigarettes ??? Smokeless tobacco: Never Substance Use Topics ??? Alcohol use: Not Currently Comment: Ocasional alcohol use ??? Drug use: Never FAMILY HISTORY Family History Problem Relation Name Age of Onset ??? Hypertension Mother Hyacinth Hood ??? Dementia Mother Hyacinth Hood ??? Heart disease Mother Hyacinth Hood ??? Alzheimer's disease Mother Hyacinth Hood ??? Thyroid disease Mother Hyacinth Hood ??? Diabetes Father Ron Colby ??? Hypertension Father Ron Colby ??? Thyroid disease Sister Gauri Gonzalez ??? Hypertension Maternal Grandmother Melyssa Shi ??? Diabetes Maternal Grandmother Melyssa Shi ??? Cancer Maternal Grandfather Aakash Shi ??? Heart disease Sibling ??? Hypertension Sibling ??? Diabetes Daughter ??? Thyroid disease Sister Eduin Pa ??? Thyroid disease Sister Eduin Pa SURGICAL HISTORY Past Surgical History: Procedure Laterality Date ??? CARPAL TUNNEL RELEASE Right 02/02/2017 Dr. Taylor ??? CHOLECYSTECTOMY 1999 ??? COLONOSCOPY 2013 ??? HERNIA REPAIR 1970 ??? TONSILLECTOMY 1961 ??? TOTAL ABDOMINAL HYSTERECTOMY 08/03/1998 REVIEW OF SYSTEMS Review of Systems: Review of Systems Constitutional: Negative. HENT: Negative. Eyes: Negative. Respiratory: Negative. Cardiovascular: Negative. Gastrointestinal: Negative. Genitourinary: Negative. Musculoskeletal: Negative. Skin: Negative. Neurological: Negative. All other systems reviewed and are negative. Hematological: Negative. Endocrine: Negative. Allergic/Immunologic: Negative. OBJECTIVE Objective: Physical Exam Constitutional: Appearance: Normal appearance. She is well-developed. Genitourinary: Vulva normal. Breasts: Breasts are soft. Right: Normal. Left: [...] nursing note reviewed. Exam conducted with a milk vendor present. Vitals: Estimated body mass index is 36.33 kg/m?? as calculated from the following: Height as of 07/02/23: 5'. Weight as of this encounter: 186 lb. BP: 116/72 No LMP recorded. Patient has had a hysterectomy. Assessment/Plan ICD-10-CM 1. Well woman exam with routine gynecological exam Z01.419 THIN PREP TIS PAP AND HR HPV DNA CANCELED: THIN PREP TIS PAP AND HR HPV DNA 2. Encounter for screening mammogram for malignant neoplasm of breast Z12.31 Bilateral screening mammogram Bilateral screening mammogram Assessment/Plan Annual Exam: Patient presents today for an annual exam. Patient states she is doing well and has no complaints. Pap was obtained without difficulty. Orders Placed This Encounter Procedures ??? Bilateral screening mammogram Follow Up: Will need to schedule for Prolia injection every 6 months. Patient is to return in one year for annual unless needed otherwise. Documented by Ifeoma Calderon NP on behalf of: Jermaine Russo DO documented in this encounter Plan of Treatment NameTypePriorityAssociated DiagnosesOrder ScheduleBilateral screening mammogram ImagingRoutine Encounter for screening mammogram for malignant neoplasm of breast Expected: 07/10/2025, Expires: 09/09/2026THIN PREP TIS PAP AND HR HPV DNA Pathology and CytologyRoutine Well woman exam with routine gynecological exam Ordered: 07/10/2025documented as of this encounter Visit Diagnoses Diagnosis Well woman exam with routine gynecological exam Routine gynecological examination Encounter for screening mammogram for malignant neoplasm of breast documented in this encounter Care Teams Team MemberRelationshipSpecialtyStart DateEnd Date Tanvi Rocha MD [address] [place] [phone] PCP - GeneralFamily Nvujmszb50/16/23documented as of this encounter
--- OUTSIDE RECORDS SUMMARY | 2025-07-19 08:25 | XMS_ITS | Encounter Summary ---
Author Organization [facility] Address [address] [facility] [place] [address] Care Team Providers Care Scientologist Name Role Phone Tanvi Rocha MD Primary Care Provider Encounter Details DateTypeDepartmentCare Team (Latest Contact Info)Kamdlueamls51/24/2025linisync Result Encounter [facility] External Department Unsolicited Jermaine Russo, DO [address] [facility] [place] [address] Social History Tobacco UseTypesPacks/DayYears UsedDateSmoking Tobacco: FormerCigarettes Smokeless Tobacco: NeverAlcohol UseStandard Drinks/WeekCommentsNot Currently0 (1 standard drink = 0.6 oz pure alcohol)Ocasional alcohol useCommentsNoSex and Gender InformationValueDate RecordedSex Assigned at BirthNot on fileLegal ScdGsltlz28/15/2023 7:47 PM EDTGender YzclnfixSoackh33/11/2023 9:07 AM ESTSexual OrientationNot on filedocumented as of this encounter Plan of Treatment Not on file documented as of this encounter Procedures Procedure NamePriorityDate/TimeAssociated DiagnosisCommentsIGP,APTIMA HPV,AGE EBBLNczpdto16/24/2025 9:00 AM EST documented in this encounter Results * IGP,APTIMA HPV,AGE GDLN (07/10/2025 9:00 AM EST)ComponentValueRef RangeTest MethodAnalysis TimePerformed AtPathologist SignatureAGE GDLN ACOG TESTINGNote. TBHComment: ?? TESTS ? RESULT ??FLAG ??UNITS ?REF RANGE ??LAB ?? Clinician Provided Cytology Information ?? Source.............Vagina ?? No. of containers..01 ThinPrep Vial Age Algo ACOG Angie... ??Note ?01 <21 or >65 or no age provided ?FLAG LEGEND: ?L-Low Normal,H-High Normal,LL-Alert Low,HH-Alert High <-Panic Low,>-Panic High,A-Abnormal,AA-Critical Abnormal Performed at: 01 =G ?[facility] [place] ?? [address] [place], [place] ??[address] ?? Sara Ruiz MD, PAP IG (IMAGE GUIDED)Note.TBHComment: ?? TESTS ? RESULT ??FLAG ??UNITS ?REF RANGE ??LAB DIAGNOSIS: ?02 ?? NEGATIVE FOR INTRAEPITHELIAL LESION OR MALIGNANCY. ?? THIS SPECIMEN WAS RESCREENED PART OF OUR ONCOLOGY PHARMACIST PROGRAM. Specimen adequacy: ?02 ?? Satisfactory for evaluation. ??Endocervical component may not be ?? distinguished in cases of atrophy. Performed by: ? 02 ?? Jeannine Mcadams Paving And Surfacing Labourer (ASCP) QC reviewed by: ? 02 ?? Angel Luis Barber Paving And Surfacing Labourer (ASCP) . ? 02 Note: ? Note ?02 ?? The Pap smear is a screening test designed to aid in the ?? detection of premalignant and malignant conditions of the ?? uterine cervix. ??It is not a diagnostic procedure and ?? should not be used as the sole means of detecting cervical ?? cancer. ??Both false-positive and false-negative reports do ?? occur. Test Methodology: ? Note ?02 ?? This liquid based ThinPrep(R) pap test was interpreted ?? using the [employer](R) Genius(TM) Cervical Algorithm whole ?? slide imaging system. ?FLAG LEGEND: ?L-Low Normal,H-High Normal,LL-Alert Low,HH-Alert High <-Panic Low,>-Panic High,A-Abnormal,AA-Critical Abnormal Performed at: 02 WB ?[facility] [place] ?? [address] [place], [place] ??[address] ?? Sara Ruiz MD, Performed at: ??=G - [facility] [address] ??[id number] Manager Urology: Sara Ruiz MD, Phone: ??[phone] Performed at: ??WB - [facility] [address] ??[id number] Manager Urology: Sara Ruiz MD, Phone: ??[phone] Specimen (Source)Anatomical Location / LateralityCollection Method / Volume Collection TimeReceived Time07/10/2025 9:00 AM EST07/10/2025 9:03 PM EST Narrative [facility] - 07/16/2025 1:08 PM EST SPATULA-ALONE VAGINA Authorizing ProviderResult TypeResult StatusCorey Rafaela DOLAB BLOOD ORDERABLES Final ResultPerforming OrganizationAddressCity/State/ZIP CodePhone Number [facility] documented in this encounter Visit Diagnoses Not on filedocumented in this encounter Care Teams Team MemberRelationshipSpecialtyStart DateEnd Date Tanvi Rocha MD [address] [place] [address] PCP - GeneralFamily Ejgennom04/16/23documented as of this encounter
--- OUTSIDE RECORDS SUMMARY | 2025-07-19 08:25 | XMS_ITS | Clinical Summary ---
Author Organization [facility] Address [address] [place] [address] Care Team Providers Care Seamer Name Role Phone Tanvi Rocha MD Primary Care Provider [phone] Allergies Active AllergyReactionsCriticalityNoted DateCommentsFish HfvFyiutnb90/14/2023 Kiwi ExtractAnaphylaxis,EuljabfrJjju46/14/2023Shellfish AndnihiTvbiOrs40/18/2024 Shellfish Protein-Containing Drug ProductsHives,Itching,Rash,Shortness of breath High06/30/2023 [...] tablet 5Active Active Problems ProblemNoted DateDiagnosed DateOsteoporosis, post-tcqorfivnx77/10/2025Osteopenia of neck of right femur10/24/2024 Encounters DateTypeDepartmentCare PdboFxhhualjtjl10/26/2025bstract [facility] [address] [place] [address] [place] [address] Ifeoma Calderon NP 07/12/2025Telephone [facility] [address] [facility] [place] [phone] Ifeoma Calderon NP 07/12/2025bstract [facility] [address] [facility] [place] [address] Jermaine Russo, 07/10/2025 8:30 AM ESTOffice Visit [facility] [address] [facility] [place] [phone] Jermaine Russo, DO Well woman exam with routine gynecological exam; Encounter for screening mammogram for malignant neoplasm of aopmcj7807/10/2025 Clinisync Result Encounter [facility] External Department Unsolicited Jermaine Russo, 07/10/2025amboo flowsheet [facility] [address] [facility] [place] [address] Jermaine Russo, DO 07/09/2025Travelfrom Last 3 Months Family History Medical [...] ValueDate RecordedSex Assigned at BirthNot on fileLegal KfuOjcxet32/15/2023 7:47 PM EDTGender FhplbmyhVtjinv14/11/2023 9:07 AM ESTSexual OrientationNot on file Last Filed Vital Signs Vital SignReadingTime TakenCommentsBlood Gdaryhfr103/7207/10/2025 8:49 AM EST Pulse--Temperature--Respiratory Rate--Oxygen Saturation--Inhaled Oxygen Concentration--Surnhw40.4 kg (186 lb)07/10/2025 8:49 AM LZPYguhnp549.4 cm (5') 07/02/2023 9:05 AM ESTBody Mass Index36.33109/01/2022 9:05 AM EST Plan of Treatment Not on file Procedures Procedure NamePriorityDate/TimeAssociated DiagnosisCommentsIGP,APTIMA HPV,AGE YYUMNapjqki77/24/2025 9:00 AM EST from Last 3 Months Results * IGP,APTIMA HPV,AGE GDLN (07/10/2025 9:00 [...] at: 01 =G ?[facility] [place] ?? [address] [place] ??[address] ?? Sara Ruiz MD, PAP IG (IMAGE GUIDED)Note.TBHComment: ?? TESTS ? RESULT ??FLAG ??UNITS ?REF RANGE ??LAB DIAGNOSIS: ?02 ?? NEGATIVE FOR INTRAEPITHELIAL LESION OR MALIGNANCY. ?? THIS SPECIMEN WAS RESCREENED PART OF OUR CIVIL STRUCTURAL ENGINEER PROGRAM. Specimen adequacy: ?02 ?? Satisfactory for evaluation. ??Endocervical component may not be ?? distinguished in cases of atrophy. Performed by: ? 02 ?? Jeannine Mcadams, Game Designer/Creative Director ([facility]) QC reviewed by: ? 02 ?? Angel Luis Barber, Game Designer/Creative Director ([facility]) . ? 02 Note: ? Note ?02 [...] pap test was interpreted ?? using the [employer]oka(R) Genius(TM) Cervical Algorithm whole ?? slide imaging system. ?FLAG LEGEND: ?L-Low Normal,H-High Normal,LL-Alert Low,HH-Alert High <-Panic Low,>-Panic High,A-Abnormal,AA-Critical Abnormal Performed at: 02 WB ?[facility] [place] ?? [address] [facility] [place] [place] ??[address] ?? Sara Ruiz MD, Performed at: ??=G - [facility] [place] [address] [facility] [place] ??[id number] Regional Economist: Sara Ruiz MD, Phone: ??[phone] Performed at: ??WB - [facility] [address] [facility] [place] [place] ??[id number] Regional Economist: Sara Ruiz MD, Phone: ??[phone] Specimen (Source)Anatomical Location / LateralityCollection Method / Volume Collection TimeReceived Time07/10/2025 9:00 AM EST07/10/2025 9:03 PM EST Narrative [facility] - 07/16/2025 1:08 PM EST SPATULA-ALONE VAGINA Authorizing ProviderResult TypeResult StatusCorey Rafaela DOLAB BLOOD ORDERABLES Final ResultPerforming OrganizationAddressCity/State/ZIP CodePhone Number [facility] from Last 3 Months Insurance Care Teams Team MemberRelationshipSpecialtyStart DateEnd Date Tanvi Rocha MD [address] [place] [address] [facility] Bhtjuobz04/16/23
--- OUTSIDE RECORDS SUMMARY | 2025-07-19 08:25 | XMS_ITS | Encounter Summary ---
Author Organization [facility] Address [address] [facility] [place] [address] Care Team Providers Care Water Pollution Scientist Name Role Phone Tanvi Rocha MD Primary Care Provider [phone] Encounter Details DateTypeDepartmentCare Team (Latest Contact Info)Mizyvvvonye61/26/2025bstract [facility] [address] [facility] [place] [address] Ifeoma Calderon, SALES INSPECTOR [address] [facility] [place] [address] Social History Tobacco UseTypesPacks/DayYears UsedDateSmoking Tobacco: FormerCigarettes Smokeless Tobacco: NeverAlcohol UseStandard Drinks/WeekCommentsNot Currently0 (1 standard drink = 0.6 oz pure alcohol)Ocasional alcohol useCommentsNoSex and Gender InformationValueDate RecordedSex Assigned at BirthNot on fileLegal CuoRtpiom41/15/2023 7:47 PM EDTGender XjygzgjxFbayhe49/11/2023 9:07 AM ESTSexual OrientationNot on filedocumented as of this encounter Plan of Treatment Not on file documented as of this encounter Visit Diagnoses Not on filedocumented in this encounter Care Teams Team MemberRelationshipSpecialtyStart DateEnd Date Tanvi Rocha MD [address] [place] [address] PCP - GeneralFamily Idpxvjcw74/16/23documented as of this encounter
--- OUTSIDE RECORDS SUMMARY | 2025-07-19 08:25 | XMS_ITS | Encounter Summary ---
Author Organization [facility] Address [address] [facility] [place] [address] Care Team Providers Care Principal Statistical Programmer Name Role Phone Tanvi Rocha MD Primary Care Provider [phone] Encounter Details DateTypeDepartmentCare Team (Latest Contact Info)Lfowqkoeigf45/24/2025amboo flowsheet [facility] [address] [facility] [place] [address] Jermaine Russo DO [address] [facility] [address] [place], [facility] Social History Tobacco UseTypesPacks/DayYears UsedDateSmoking Tobacco: FormerCigarettes Smokeless Tobacco: NeverAlcohol UseStandard Drinks/WeekCommentsNot Currently0 (1 standard drink = 0.6 oz pure alcohol)Ocasional alcohol useCommentsNoSex and Gender InformationValueDate RecordedSex Assigned at BirthNot on fileLegal VemYrnvhw27/15/2023 7:47 PM EDTGender GrwwhynlGocfbn53/11/2023 9:07 AM ESTSexual OrientationNot on filedocumented as of this encounter Plan of Treatment Not on file documented as of this encounter Visit Diagnoses Not on filedocumented in this encounter Care Teams Team MemberRelationshipSpecialtyStart DateEnd Date Tanvi Rocha MD [address] [place] [phone] PCP - GeneralFamily Xeiqhmnf92/16/23documented as of this encounter
--- OUTSIDE RECORDS SUMMARY | 2025-07-19 08:25 | XMS_ITS | Encounter Summary ---
Author Organization [facility] Address [address] [facility] [place] [address] Care Team Providers Care Fixed Route Operator Name Role Phone Tanvi Rocha MD Primary Care Provider [phone] Encounter Details DateTypeDepartmentCare Team (Latest Contact Info)Kwlvwgguozh09/23/2025Travel Social History Tobacco UseTypesPacks/DayYears UsedDateSmoking Tobacco: FormerCigarettesAlcohol UseStandard Drinks/WeekCommentsNot Currently0 (1 standard drink = 0.6 oz pure alcohol)Ocasional alcohol useCommentsNoSex and Gender InformationValue Date RecordedSex Assigned at BirthNot on fileLegal NhsQulhdz31/15/2023 7:47 PM EDTGender PbuxwbeqGnggfu93/11/2023 9:07 AM ESTSexual OrientationNot on file documented as of this encounter Plan of Treatment Not on file documented as of this encounter Visit Diagnoses Not on filedocumented in this encounter Care Teams Team MemberRelationshipSpecialtyStart DateEnd Date Tanvi Rocha MD [address] [place] [address] PCP - GeneralFamily Yhxshnsr73/16/23documented as of this encounter
--- OUTSIDE RECORDS SUMMARY | 2025-07-19 08:25 | XMS_ITS | Encounter Summary ---
Author Organization [facility] Address [address] [place] [address] Care Team Providers Care Electric Gas Appliances Demonstrator Name Role Phone Tanvi Rocha MD Primary Care Provider Encounter Details DateTypeDepartmentCare Team (Latest Contact Info)Nzbdpjgigod07/26/2025bstract [facility] [address] [facility] [place] [address] Jermaine Russo DO [address] [facility] [address] [place], [facility] Social History Tobacco UseTypesPacks/DayYears UsedDateSmoking Tobacco: FormerCigarettes Smokeless Tobacco: NeverAlcohol UseStandard Drinks/WeekCommentsNot Currently0 (1 standard drink = 0.6 oz pure alcohol)Ocasional alcohol useCommentsNoSex and Gender InformationValueDate RecordedSex Assigned at BirthNot on fileLegal KlfBnnwad26/15/2023 7:47 PM EDTGender VfvwncifJjabau54/11/2023 9:07 AM ESTSexual OrientationNot on filedocumented as of this encounter Plan of Treatment Not on file documented as of this encounter Visit Diagnoses Not on filedocumented in this encounter Care Teams Team MemberRelationshipSpecialtyStart DateEnd Date Tanvi Rocha MD [address] [place] [address] PCP - GeneralFamily Ctbpsvjs23/16/23documented as of this encounter
--- OUTSIDE RECORDS SUMMARY | 2025-07-19 08:25 | XMS_ITS | Clinical Summary ---
Author Organization [facility] Address [address] [place] [address] Care Team Providers Care Back Order Clerk Name Role Phone Tanvi Rocha MD Primary Care Provider [phone] Allergies Active AllergyReactionsCriticalityNoted DateCommentsFish KyzHgrtulw03/14/2023 KiwiAnaphylaxis,YotlgbpiTwnr44/14/2023Shellfish Stqhbxa7610/23/2023 Medications MedicationSigDispense QuantityRefillsLast FilledStart DateEnd DateStatus alendronate [...] Problems ProblemNoted DateDiagnosed DateBMI 36.0-36.9,adult11/22/2024AD (coronary artery disease)11/22/20248354Vlfturcqiqgckd62/08/4869Flhvzhxtldlsbj69/08/2025Obesity due to excess jsicjegu91/08/2025Screening for malignant neoplasm of colon11/22/2024 Osteoporosis, post-bezbwebwms77/10/2025hronic tension-type headache, not icjuxkpuvxj91epression, majoryspnea on cmausziy48Epigastric abdominal pain Eqlzkzjirncplz72Left-sided chest wall pain Lumbar radiculopathy, rightOsteoarthritis of right hip Osteopeniaost-kguauoypdf88/17/2024 01/01/2024ngina pectoris, iquzcukm14/22/2024bnormal stress test11/06/2023 Encounters DateTypeDepartmentCare GajkRxqtmkiacls93/10/2025[facility] [address] [place] [address] Dwayne Richmond MD Essential hypertensionfrom [...] ValueDate RecordedSex Assigned at BirthNot on fileLegal AlzGkfnlr19/01/2024 9:52 AM ESTGender IdentityNot on fileSexual OrientationNot on file Last Filed Vital Signs Vital SignReadingTime TakenCommentsBlood Zlkxbdgk947/8804 10:33 AM EDT Hniyf4284 10:33 AM EDTTemperature--Respiratory Ckxj6629 5:00 PM EDTOxygen Tjwqjxlgsr98%11/23/2024 10:33 AM EDTInhaled Oxygen Concentration-- Ckxkco66.7 kg (189 lb)11/23/2024 10:33 AM FALYgstjz735.4 cm (5')11/23/2024 10:33 AM EDTBody Mass Index36.9111/23/2024 10:33 AM EDT Plan of Treatment Health MaintenanceDue DateLast DoneCommentsCT Zevcyyszztgm22/08/1958FIT-DNA 1957FIT1957FOBT1957 6759Cfrzncjfvloga28/08/1958Depression Screening 1969Pneumococcal Vaccine: 50+ Years (1 of 2 - PCV)1976Adult Tetanus 10/23/19791365Aerbmonxz84/08/1998Zoster Vaccines (1 of 2)10/23/2007Fall Risk Eqxqvruyy52/08/4807Xwtgpjnpbys45/25/202404/Colorectal Cancer Screening 4COVID-19 Vaccine ( season), 09/19/2020, [...] Team MemberRelationshipSpecialtyStart DateEnd Date Tanvi Rocha MD [facility]10/22/23
--- OUTSIDE RECORDS SUMMARY | 2025-07-19 08:25 | XMS_ITS | Encounter Summary ---
Author Organization [facility] Address [address] [place] [address] Care Team Providers Care Steel Hanger Name Role Phone Tanvi Rocha MD Primary Care Provider [phone] Encounter Details DateTypeDepartmentCare Team (Latest Contact Info)Oiswsqkbnfb58/26/2025Telephone [facility] [address] [place] [address] Ifeoma Calderon, [employer] PROF[employer] [address] [place] [address] Social History Tobacco UseTypesPacks/DayYears UsedDateSmoking Tobacco: FormerCigarettes Smokeless Tobacco: NeverAlcohol UseStandard Drinks/WeekCommentsNot Currently0 (1 standard drink = 0.6 oz pure alcohol)Ocasional alcohol useCommentsNoSex and Gender InformationValueDate RecordedSex Assigned at BirthNot on fileLegal AwhIlixes54/15/2023 7:47 PM EDTGender FunuhrwlRzojpt35/11/2023 9:07 AM ESTSexual OrientationNot on filedocumented as of this encounter Miscellaneous Notes * Telephone Encounter - Alexandria Suárez LPN - 07/12/2025 4:40 PM EST Patient should be getting Reclast and new order sent to [facility] for this and to call and schedule patient. * Telephone Encounter - Alexandria Suárez LPN - 07/12/2025 10:55 AM EST Shahana, this is Shira at the [facility] scheduling department. I just received an order for patient I think that is a mistake she needs it to be Reclast due in October. Can you please double check. Looking into patient check do see that patient has been on Reclast previously will verify with provider on medication. documented in this encounter Plan of Treatment Not on file documented as of this encounter Visit Diagnoses Not on filedocumented in this encounter Care Teams Team MemberRelationshipSpecialtyStart DateEnd Date Tanvi Rocha MD [address] [place] [phone] PCP - GeneralFamily Ekmgfvtq44/16/23documented as of this encounter
--- OUTSIDE RECORDS SUMMARY | 2025-07-19 08:26 | XMS_ITS | CCD ---
Author Organization [facility] Care Team Providers Care Roll Forming Machine Set Up Mechanic Name Role Phone DR TANVI DE OLIVEIRA [...] Unavailable TANVI DE OLIVEIRA Primary Care Physician [phone] Price AVILA Attending Unavailable TANVI DE OLIVEIRA Referring Unavailable Price AVILA Attending Unavailable Tanvi De Oliveira MD Primary Care Provider Tanvi De Oliveira Attending Unavailable Tanvi De Oliveira Admitting Unavailable NO FAMILY, PHYSICIAN Primary Care Unavailable Tanvi De Oliveira MD Attending Provider NO FAMILY, PHYSICIAN Primary Care Provider Unava ilable JERI RUSSO Attending Unavailable JERI RUSSO Attending Unavailable DWAYNE RICHMOND Attending Unavailable TOMY LEMUS Attending Unavailable DWAYNE RICHMOND Admitting Unavailable DWAYNE RICHMOND Attending Unavailable DWAYNE RICHMOND Referring Unavailable DWAYNE RICHMOND Attending Unavailable Tanvi De Oliveira MD Primary Care Provider Tanvi De Oliveira MD Attending Provider Tanvi De Oliveira MD Primary Care Provider Allergies Allergy ClassificationReported Allergen(s)Allergy TypeDate of OnsetReaction(s) Facility (3 sources)Shellfish; Translations: [shellfish]Drug allergy (disorder)12-23-2013 Eruption of skin (disorder)[facility] Repository (2 sources)kiwi; Translations: [KIWI]Drug allergy (disorder)19-01-1777Aee [facility] Repository (1 source)No Known Medication Allergies; Translations: [No Known Medication Allergies]Propensity to adverse reactions (disorder)[facility] Repository (9 sources)Fish Oils; Translations: [FISH OIL]Drug Bzaavhu61-08-0391LxiymbxGWAB Healthcare Work Phone: (8 sources)Kiwi fruitPropensity to adverse ghlbztrdi32-51-3536Pftkitrolor, SwellingNOMS Healthcare (7 sources)ShellfishAllergy to esvsetnks89-93-2402ZlqdRWLR Healthcare (6 sources)Shellfish-Derived ProductsDrug Zzqsihboaxr26-10-6053Faphe, Itching, Rash, Shortness of breathNOMS Healthcare (1 source)Shellfish; Translations: [SHELLFISH DERIVED]Propensity to adverse reactions to drug (disorder)86-71-7199SnpnhrgorrC[facility] (2 sources)Shellfish Protein-Containing Drug ProductsDrug Aadwftfjkpj01-12-4691 Hives, Itching, Rash, Shortness of breathNOMS HealthcareNEGATED: Highlighted row has been ruled out! (1 source)Drug allergyGeorgetown Behavioral Hospital Medications Current Medications MedicationDrug Class(es)DatesSig (Normalized)Sig (Original)amLODIPine 5 mg oral tablet (1 source)Dihydropyridine Calcium Channel BlockerStart: 41-65-4330xfst 1 tablet by mouth once dailyAmlodipine 5 mg tablet Active 5 MG PO Daily March 15, 2025 12:00am Complies with drug therapyaspirin 81 mg delayed release oral tablet (6 sources)Platelet Aggregation Inhibitor, Nonsteroidal Anti-inflammatory Drug Start: 03-07-2024 End: 50-94-2728akiu 1 tablet by mouth once dailyAspirin (Adult [...] with drug therapyRestasis (11 sources)Calcineurin Inhibitor ImmunosuppressantStart: 50-03-5761gqvk 1 drop(s) into the eye(s) every twelve hoursRestasis 1 drop(s), Eye-Both, q12hr, Refill(s) 0 Start Date: 03/09/24 Status: OrderedStart: 26-44-5960sepu 1 drop(s) into the eye(s) every twelve [...] ActiveCyclosporine (Restasis) 0.05 % dropperette (3 sources)Start: 99-27-9131bjbs 1 drop(s) into the eye(s) every twelve hours Cyclosporine (Restasis) 0.05 % dropperette Active 1 DROPS EYE-BOTH Every 12 hours October 07, 2023 1:00amStart: 69-86-3338yaou 1 drop(s) into the eye(s) every twelve hoursCyclosporine (Restasis) 0.05 % dropperette Active 1 DROPS EYE- BOTH Every 12 hours October 07, 2023 12:00amisosorbide dinitrate 30 mg oral tablet (1 source)Nitrate VasodilatorStart: 35-12-2856iayt 1 tablet by mouth twice daily Isosorbide Dinitrate 30 mg tablet Active 30 MG PO Twice daily March 15, 2025 12:00am allow nitrate-free interval of 12-14 hrs per 24-hr period Complies with drug therapylevothyroxine sodium 0.1 mg oral tablet (19 sources)l-ThyroxineStart: 08-23-2024 End: 71-97-4822bqim 1 tablet by mouth once dailyStart: 66-45-9335xilf 1 tablet by mouth once dailylevothyroxine 100 mcg (0.1 mg) Tab 100 mcg = 1 tab(s), Oral, Daily, Refills(s) 0 Start Date: 03/09/24 Status: OrderedStart: 10-07-2023 End: 45-66-6232xggb 1 tablet by mouth once dailyLevothyroxine 100 mcg tablet Discontinued 100 MCG PO Daily March 29, 2024 9:51am August 1:11pmtake 1 tablet by mouth once daily in the morningLevothyroxine Sodium 100 MCG 1 tablet in the morning on an empty stomach Orally Once a day for 90 days Activeomeprazole 40 mg delayed release oral capsule (17 sources)Proton Pump InhibitorStart: 77-42-7951ebin 1 capsule by mouth once dailyomeprazole 20 mg Cap-DR 20 mg = 1 cap(s), Oral, Daily, Refills(s) 0 Start Date: 03/09/24 Status: OrderedStart: 02-02-2024 End: 52-94-1306plau 1 capsule by mouth once dailyOmeprazole 40 mg capsule,delayed release(DR/EC) Active 0 .ROUTE .COMPLEX February 03, 2025 12:56pmTAKE 1 CAPSULE BY MOUTH EVERY DAY Complies with drug therapyStart: 10-08-2023 End: 91-61-8925ekrc 1 capsule by mouth once dailyOmeprazole 40 mg capsule,delayed release(DR/EC) Discontinued 40 MG PO Daily November 03, 2023 3:39pm February 02, 2024 2:18pmrosuvastatin calcium 20 mg oral tablet (5 sources)HMG-CoA Reductase InhibitorStart: 95-41-8505rtun 1 tablet by mouth once dailyRosuvastatin 20 mg tablet Active 20 MG PO Daily March 07, 2024 12:00am Complies with drug therapyStart: 03-07-2024 End: 74-15-1281vjuj 1 tablet by mouth once dailyRosuvastatin 5 mg tablet Discontinued 5 MG PO Daily March 07, 2024 12:00am August 25, 2024 10:62hp081 ml zoledronic acid 0.05 mg/ml injection (1 source)BisphosphonateStart: 24-92-1630Ccpfzwicgf Khdj-Lwfdqphk-Iujgk (Reclast) 5 mg/100 mL piggyback Active EACH IV March 15, 2025 12:00am Complies with drug therapy Completed/Discontinued Medications MedicationDrug Class(es)DatesSig (Normalized)Sig (Original)alendronic acid 70 mg oral tablet (15 sources)BisphosphonateStart: 10-07-2023 End: 81-60-7264kiuy 1 tablet by mouth once dailyAlendronate 70 mg tablet Discontinued 1 TAB PO Daily October 07, 2023 1:00am March 15, 2025 9:04am FreeTextSi tablet 30 minutes before the first food, beverage or medicine of the day with plain water Orally; Note: Source Status: Taking; Provider: Alvino Tinajero ( )Start: 10-39-2295mljj 1 tablet by mouth every week in [...] min. 12 tablet 3 07/02/2023 Active End: 59-94-9138rarldzzruwe (Fosamax) 70 MG tablet Take 70 mg by mouth every 7 (seven) days. 07/04/2024 Discontinued (Therapy completed)take 1 tablet by mouth once dailyFosamax 70 MG 1 tablet 30 minutes before the first food, beverage or medicine of the day with plainwater Orally Jighyj90 hr buPROPion hydrochloride 150 mg extended release oral tablet (11 sources)AminoketoneStart: 06-22-2024 End: 25-77-4160uens 1 tablet by mouth once daily in the morningBupropion Hcl 150 mg tablet extended release 24 hr Discontinued 0 .ROUTE .COMPLEX June 22, 2024 2:58pm August 25, 2024 10:36am TAKE 1 TABLET BY MOUTH EVERY MORNINGStart: 06-22-2024 End: 60-05-8474bjmj 1 tablet by mouth once daily in the morningBupropion Hcl 150 mg tablet extended release 24 hr Discontinued 0 .ROUTE .COMPLEX June 22, 2024 1:58pm August 25, 2024 9:36am TAKE 1 TABLET BY MOUTH EVERY MORNINGStart: 11-16-3257Ddculakuvq XL Refills(s) 0 Start Date: 03/09/24 Status: OrderedStart: 10-07-2023 End: 10-36-5770gzik 1 tablet by mouth once daily in the morningBupropion Hcl (Wellbutrin Xl) 150 mg tablet extended release 24 hr Discontinued 1 TAB PO Daily October 07, 2023 1:00am June 22, 2024 2:58pm FreeTextSi tablet in the morning Orally Once a day; Note: Source Status: Taking; Refills: 3; Qty: 90 Tablet; Provider: Alvino Perez End: 33-21-7326wlno 1 tablet by mouth every twenty-four hours in the morning buPROPion XL (Wellbutrin XL) 150 MG 24 hr tablet Take 150 mg by mouth in the morning. 07/04/2024 Discontinued (Therapy completed)take 1 tablet by mouth every twenty-four hoursWellbutrin XL 150 MG 1 tablet in the morning Orally Once a day for 90 days Activecefdinir 300 mg oral capsule (2 sources)Cephalosporin AntibacterialStart: 08-25-2024 End: 82-94-9103hvzg 1 capsule by mouth twice dailyCefdinir 300 mg capsule Discontinued 300 MG PO Twice daily August 25, 2024 1:00am March 15, 2025 9:04amsulfamethoxazole 800 mg / trimethoprim 160 mg oral tablet (2 sources)Dihydrofolate Reductase Inhibitor Antibacterial, Sulfonamide AntimicrobialStart: 08-08-2024 End: 04-24-6107vmay 1 tablet by mouth twice dailySulfamethoxazole-Trimethoprim 800-160 mg tablet Discontinued 1 TAB PO Twice daily July 1:00am August 25, 2024 10:37am Problems Active Problems Problem ClassificationProblemDateDocumented DateEpisodic/ChronicAbdominal pain (5 sources)Epigastric pain; Translations: [Epigastric pain]94-31-3899Cshwirxr Administrative/social admission (2 sources)Patient encounter status; Translations: [Person consulting for explanation of examination or test findings]73-39-5852XcheogudKhorfzuk atherosclerosis and other heart disease (7 sources)Coronary arteriosclerosis; Translations: [Atherosclerotic heart disease of [place] coronary artery without angina pectoris]Onset: 11-06-2023 33-34-4370CgmgqdmLwbyrxcwa of lipid metabolism (5 sources)Hyperlipidemia; Translations: [Hyperlipidemia, unspecified]Onset: 173530-59-8750HfthofdCqjjtixkirecle and diverticulitis (1 source)Diverticular jjofivz28-13-9727OqbtwozVhfegsjdm hypertension (2 sources)Essential (primary) hypertension; Translations: [Essential (primary) hypertension]Onset: 18-45-6248RcvrdynGjrhqpmrvgamh symptoms and ill-defined conditions (5 sources)Urinary tract infectious disease; Translations: [Unspecified symptoms and signs involving the genitourinary system]Onset: EpisodicHeadache; including migraine (6 sources)Chronic tension-type headache; Translations: [Chronic tension-type headache, not intractable]74-92-0773KjltnppZaidfzrkeshrl and screening for infectious disease (1 source)Encounter for screening for human papillomavirus (HPV); Translations: [ENC SCREENING HUMAN PAPILLOMAVIRUS]Onset: 12-56-2782PqklekatKdivxjlug (1 source)Influenza due to other identified influenza virus with other respiratory manifestations; Translations: [FLU D/T OTH ID FLU VIR OTH RSP MANF] Onset: 18-72-9834FeqhwaibCnyuhwijal disorders (1 source)Vaginal dryness; Translations: [Menopausal and female climacteric states]ChronicMood disorders (6 sources)Major depression, single episode; Translations: [Major depressive disorder, single episode, unspecified]65-26-0405OsablnsVymmbpabcwo chest pain (5 sources)Chest wall pain; Translations: [Other chest pain]48-16-7578Bmpqxhsf Osteoarthritis (5 sources)Localized, primary osteoarthritis of the pelvic region and thigh; Translations: [Unilateral primaryosteoarthritis, right hip]17-90-0351Jtrmfqk Osteoporosis (4 sources)Postmenopausal osteoporosis; 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-related osteoporosis without current pathological fracture]Onset: 260070-09-3395AvnxrodOqcex aftercare (1 source)Other skilled nursing (current) drug therapy; Translations: [OT SYSTEMATIC THEOLOGY PROFESSOR CURRENT DRUG THERAPY]Onset: 92-94-3164IygielhrYdvsz bone disease and musculoskeletal deformities (1 source)Other specified disorders of bone density and structure, unspecified site; Translations: [OT D/O BONE DEN STRUCT UNS SITE]Onset: 89-26-4575Oeujbeei Other connective tissue disease (1 source)Trochanteric bursitis of right hip; Translations: [Trochanteric bursitis, right hip]EpisodicOther lower respiratory disease (4 sources)Dyspnea on exertion; Translations: [Other forms of dyspnea]10-08-2023 EpisodicOther lower respiratory disease (1 source)Other forms of dyspnea; Translations: [Other respiratory abnormalities]19-68-4951AyfqqfbxJwauo non-traumatic joint disorders (1 source)Pain in right hip joint; Translations: [Pain in right hip]Episodic Other non-traumatic joint disorders (2 sources)Hip pain; Translations: [Pain in left hip]55-92-3906RetgdgukIzhug non-traumatic joint disorders (1 source)Pain in left hip; Translations: [Pain in joint, pelvic region and thigh]97-94-4289TdejbfqmYevhk nutritional; endocrine; and metabolic disorders (1 source)Body mass index 30+ - hjkasur59-26-5814AllhwytDhphz nutritional; endocrine; and metabolic disorders (1 source)Obesity caused by energy yfxunvelc02-83-8375UpwsmogYurtk screening for suspected conditions (not mental disorders or infectious disease) (18 sources)Encounter for screening for malignant neoplasm of cervix; Translations: [Encounter for screening mammogram for malignant neoplasm of breast]Onset: 50-59-1058QtbzswbdVjrhr upper respiratory infections (1 source)Acute maxillary sinusitis; Translations: [Acute maxillary sinusitis, unspecified]05-49-8336NmuvixesHcfmlqvw codes; unclassified (1 source)Family history of malignant neoplasm of other organs or systems; Translations: [FAM HX MALIG NEOPLASM OT ORGN/SYS]Onset: 36-69-9396Xvtxbfsc Residual codes; unclassified (4 sources)Asymptomatic menopausal state; Translations: [ASYMPTOMATIC MENOPAUSAL STATE]Onset: 04-82-6293FibwwstwDwqxbvst codes; unclassified (5 sources)Postmenopausal state; Translations: [Asymptomatic menopausal state] 33-23-5662ZiejzaunMzpryipegib; intervertebral disc disorders; other back problems (6 sources)Lumbar radiculopathy; Translations: [Radiculopathy, lumbar region] 90-42-3053TuvtljcvQsghmuz disorders (7 sources)Hypothyroidism, unspecified; Translations: [Hypothyroidism]Onset: 182439-44-8001KyquiiqOzoaekxwludt (2 sources)COUGH, UNSPECIFIED; Translations: [COUGH, UNSPECIFIED]Onset: 78-75-8755Pptnawikdevs (3 sources)CONTACT W/AND (SUSP) EXPOS COVID-19; Translations: [CONTACT W/AND (SUSP) EXPOS COVID-19]Onset: 47-65-7957Hvctfeiudhrt (1 source)Patient encounter loldes93-13-8707 Past or Other Problems Problem ClassificationProblemDateDocumented DateEpisodic/ChronicOther bone disease and musculoskeletal deformities (10 sources)Osteopenia; Translations: [Other specified disorders of bone density and structure, unspecified site]Onset: 938270-59-4620LarsmlrdGtzcpsuqjhet (1 source)COUGH, UNSPECIFIED; Translations: [COUGH, UNSPECIFIED]Onset: 16-04-4301Bmcwaxmzpzil (1 source)CONTACT W/AND (SUSP) EXPOS COVID-19; Translations: [CONTACT W/AND (SUSP) EXPOS COVID-19]Onset: 07-14-2022 Results Test NameValueInterpretationReference RangeFacilityOffice Visiton 11-23-2024 Follow-up [id number] Mackenzie Patel 1955 F Date Provider Department Center 11/23/2024 Rohith-TOMY LEMUS CARD [facility] Family History Problem Relation Age of Onset Coronary artery disease Mother Other Mother Heart attack Father 90 Family Status - Relation Status Age at Mother Father Sister Alive Brother Alive Level of Service:38675 NC OFFICE/OUTPATIENT ESTABLISHED LOW MDM [facility] Chemistry and Chemistry - challengeon 04-91-1554Pkztictnt Ql (U)NegativeAvita Health [facility] Hospital Glucose (U) [Mass/Vol]NegativeAvita Health System Ontario HospitalKetones Ql (U) [facility] CenterpH (U)5 [pH][facility]itt[facility] Hospitalpecific gravity (U) [Rel density]1.025[facility] Urobilinogen (U) [Mass/Vol]0.2 mg/dLAvita Health System Ontario HospitalLaboratory - Specimen informationon 68-88-4660Qwegmvhfsw (U)clearAvita Health System Ontario HospitalColor (U)amberAvita Health System Ontario HospitalLaboratory - Urinalysison 11-44-0751Smpmjtffi esterase Test strip Ql (U)[facility] Medical CenterNitrite Ql (U)[facility] Medical CenterProtein Ql (U) [facility] CenterNo Panel Informationon 75-80-9303Bbegw Occult BloodNegativeAvita Health System Ontario HospitalUrine Cultureon 08-08-2024 Bacteria identified Cx Nom (U)20,000 colonies/ml mixed bacterial skin contaminants 2 Days PERFORMED BY: [place] [address] PATHOLOGIST FACILITY SERVICE ASSOCIATE RADHA MATOS M.D.NormalThe Unc Health Southeastern Physician GroupComment on above: Performed By: #### CUU #### [address] StreetUrine cultureOrdered By: Tanvi De Oliveira on 08-08-2024 Bacteria identified Cx Nom (U)Urine cultureAvita Health System Ontario HospitalXR DEXA AXIAL SKELETONon 96-76-3392[place]qCook[place] [address] XRay Report Signed Patient: MACKENZIE PATEL MR#: [id number] : 1955 Acct:[id number] Age/Sex: 68 / F ADM Date: 08/08/24 Loc: RAD Attending Dr: Jeri Russo D.O. Ordering Physician: Jeri Russo D.O. Date of Service: 08/08/24 Procedure(s): XR DEXA axial skeleton Accession Number(s): [id number] cc: Tanvi De Oliveira M.D.; Jeri Russo D.O. [address] [address] Patient Name: MACKENZIE PATEL MRN: [facility]:[id number] date: 1955 Sex: F Assigned Patient Location: [facility] Current Patient Location: RAD Accession/Order Number: [id number] Exam Date: 08/08/2024 08:05 Report Date: 08/08/2024 [...] prevention and treatment of osteoporosis. Osteoporos Int. 2021;3310):5181-5462. doi: 10.1007/v18483-324-05073-q. Epub 2021Dec 12. Erratum in: Osteoporos Int. 2021Mar 13;: PMID: 85226052; PMCID: [id number]. Electronically authenticated by: ZAID WOLFE Date: 08/08/2024 22:59 Dictated By: Zaid Wolfe M.D. Signed By: 08/08/248 DD/ 58 TD/TT: Marine Propulsion Technician:TBHRadiology, Radiologist, - 08/08/2024 [place] [address] XRay Report Signed Patient: MACKENZIE PTAEL MR#: [id number] : 1955 Acct:[id number] Age/Sex: 68 / F ADM Date: 08/08/24 Loc: RAD Attending Dr: Jeri Russo D.O. Ordering Physician: Jeri Russo D.O. Date of Service: 08/08/24 Procedure(s): XR DEXA axial skeleton Accession Number(s): [id number] cc: Tanvi De Oliveira M.D.; Jeri Russo D.O. [facility] [place] [id number] Patient Name: MACKENZIE PATEL MRN: [id number] date: 1955 Sex: F Assigned Patient Location: [facility] Current Patient Location: [facility] Accession/Order Number: [id number] Exam Date: 08/08/2024 08:05 Report Date: 08/08/2024 [...] prevention and treatment of osteoporosis. Osteoporos Int. 2021;33(10):9283-5411. doi: 10.1007/f30588-802-83509-e. Epub 2021Dec 12. Erratum in: Osteoporos Int. 2021Mar 13;: PMID: 68592593; PMCID: [id number]. Electronically authenticated by: ZAID WOLFE Date: 08/08/2024 22:59 Dictated By: Zaid Wolfe M.D. Signed By: 08/08/242301 DD/ 58 TD/TT: Marine Propulsion Technician: [facility] HealthcareRadiology Study observation (narrative)[facility] HospitalXR DEXA AXIAL SKELETONOrdered By: Radiologist Radiology on 26-44-7632ZCOU Healthcare Work Phone: IGP,APTIMA HPV,AGE GDLNon 26-82-2581LMW GDLN ACOG TESTINGNote.[facility] HealthcareComment on above:TESTS RESULT FLAG UNITS REF RANGE LAB Clinician Provided Cytology Information Source.............Vagina No. of containers..01 ThinPrep Vial Age Algo ACOG Angie... Note 01 <21 or >65 or no age provided FLAG LEGEND: L-Low Normal,H-High Normal,LL-Alert Low,HH-Alert High <-Panic Low,>-Panic High,A-Abnormal,AA-Critical Abnormal Performed at: 01 =G [facility] [address] [facility] [address] Sara Ruiz MD, PAP IG (IMAGE GUIDED)Note.NOMS HealthcareComment on above:TESTS RESULT FLAG UNITS REF RANGE LAB DIAGNOSIS: 02 NEGATIVE FOR INTRAEPITHELIAL LESION OR MALIGNANCY. Specimen adequacy: 02 Satisfactory for evaluation. Endocervical and/or squamous metaplastic cells (endocervical component) are present. Performed by: Nicholas Alaniz, C Engineer (ASC) . 02 Note: Note 02 The [...] High,A-Abnormal,AA-Critical Abnormal Performed at: 02 WB [facility] [address] [place] [address] Sara Ruiz MD, Performed at: =G - [facility] [address], [place] [id number] Project Manager/Design Manager: Sara Ruiz MD, Phone: [phone] Performed at: - [facility] [id number] Project Manager/Design Manager: Sara Ruiz MD, Phone: [phone] [facility]ALTUN[facility] TOMOSYNTHESIS SCREENING BIon 23-22-2720HntCook[place] [address] Mammography Report Signed Patient: MACKENZIE PATEL MR#: [id number] : 1955 Acct:[id number] Age/Sex: 68 / F ADM Date: 07/04/24 Loc: MAMMO Attending Dr: Jeri Russo D.O. Ordering Physician: Jeri Russo D.O. Results: Date of Service: 07/04/24 Follow Up: Procedure(s): MM tomosynthesis screening BI Accession Number(s): [id number] cc: Tanvi De Oliveira M.D.; Jeri Russo D.O. Patient Name: MACKENZIE PATEL MR#: [id number] : 1955 Exam Date: 07/04/2024 Ordering Doctor: [...] skin cancer at age 65. LOCATION: [facility] BREAST COMPOSITION: There are scattered areas [...] Signed By: 07/04/24 1247 DD/ 1246 TD/TT: Marine Propulsion Technician:TBHRadiology, Radiologist, MD - 07/04/2024 [place] [address] Mammography Report Signed Patient: MACKENZIE PATEL MR#: [id number] : 1955 Acct:[id number] Age/Sex: 68 / F ADM Date: 07/04/24 Loc: MAMMO Attending Dr: Jeri Russo D.O. Ordering Physician: Jeri Russo D.O. Results: Date of Service: 07/04/24 Follow Up: Procedure(s): MM tomosynthesis screening BI Accession Number(s): [id number] cc: Tanvi De Oliveira M.D.; Jeri Russo D.O. Patient Name: MACKENZIE PATEL MR#: [id number] : 1955 Exam Date: 07/04/2024 Ordering Doctor: [...] skin cancer at age 65. LOCATION: [facility] BREAST COMPOSITION: There are scattered areas [...] Signed By: 07/04/24 1247 DD/ 1246 TD/TT: Marine Propulsion Technician: [facility] HospitalRadiology Study observation (narrative)[facility] TOMOSYNTHESIS SCREENING BIOrdered By: Radiologist Radiology on 84-95-9867OFDJ Healthcare Work Phone: No Panel Informationon 86-66-9696Yaljrylcr Lab Test Patient AgeNote.[facility] HospitalComment on above:TESTS RESULT FLAG UNITS REF RANGE LAB Clinician Provided Cytology Information Source.............Vagina No. of containers..01 ThinPrep VialAge Algo ACOG Angie... Note 01 <21 or >65 or no age provided FLAG LEGEND: L-Low Normal,H-High Normal,LL-Alert Low,HH-Alert High <-Panic Low,>- Panic High,A-Abnormal,AA-Critical Abnormal Performed at:01 =[facility] [address] [place] [address] Sara Ruiz MD, Ibav Prep Pap ScreenNote.[facility] HospitalComment on above:TESTS RESULT FLAG UNITS REF RANGE LAB DIAGNOSIS: 02 NEGATIVE FOR INTRAEPITHELIAL LESION OR MALIGNANCY.Specimen adequacy: 02 Satisfactory forevaluation. Endocervical and/or squamous metaplastic cells (endocervical component) are present.Performed by: Nicholas Alaniz C Engineer (ASCP). 02Note: Note 02 The Pap smear [...] Abnormal Performed at:02 WB [facility] [address] [place] [address] Sara Ruiz MD, Fmwmrwsgl at: =G - [facility] [address] [place], [place] [id number] Director: Sara Ruiz MD, Phone: [phone] at: WB - [address] [id number] Director: Sara Ruiz MD, Phone: [phone] Office Visiton 96-78-4338Qnyhfs-up [id number] Mackenzie Patel 1955 F Date Provider Department Center 05/27/2024 3848-DWAYNE RICHMOND CARD [facility] Family History Problem Relation Age of Onset Coronary artery disease Mother Other Mother Heart attack Father 90 Family Status - Relation Status Age at Mother Father Level of Service:09649 NC OFFICE/OUTPATIENT ESTABLISHED MOD MDM 30 [facility] 47-29-0910ZowhbuxisCrpfhvzri From: Luann Huerta LPN To: N - Clinical; Sent: 05/05/2024 09:35:27 EDT Show up: 04/03/2034 07:00:00 EDT Subject: colonoscopy recall Due Date/Time: 05/04/2034 07:00:00 EDT Reminder/Recall Patient due for screening colonoscopy 05/04/2034.[facility] HospitalAmbulatory Visit Summaryon 72-34-7344Whprubhoyv Visit SummaryAmbulatory Visit Summary MACKENZIE PATEL :1955 [...] you for choosing us for your care. [facility] HospitalOffice Visiton 51-89-2739Ebdejy- up [id number] Mackenzie Patel 1955 Provider Department Center 01/01/2024 3848-DWAYNE RICHMOND JEY [facility] Family History Problem Relation Age of Onset Coronary artery disease Mother Other Mother Heart attack Father 90 Family Status - Relation Status Age at Mother Father Level of Service:29775 [place] OFFICE/OUTPATIENT ESTABLISHED LOW [facility] 20 [facility] SystemLetter (Out)on 40-04-3907Dkclyo (Out) [id number] Mackenzie Patel 1955 Provider Department Center 12/10/2023 None-None Eating [facility] Family History Problem Relation Age of Onset Coronary artery disease Mother Other Mother Heart attack Father 90 Family Status - Relation Status Age at Mother FatherNormalUniCorey HospitalHPon [id number] Attestation signed by Dwayne Richmond MD at [...] Patient understands these risks and wishes to proceed.[facility] HospitalNURSNOTEon [id number] educated pt on d/c instructions. RN encouraged pt to voice any questions or concerns. Pt verbalizes no questions or concerns at this time. Pt was wheeled off of unit with all of belongings.[facility] Cytology Cervical or vaginal smear or scraping studyon [id number] Covid-19 PCR (CVDTB)on [id number]-CoV-2 (COVID-19) RNA LARA+probe Ql (Unsp spec)Not detectedNormalNOT DETECTEDThe [facility] HospitalComment on above:Result Comment: When diagnostic testing [...] for this test is supported by the [place] of Health and Human Service's declaration that [...] longer be used).Performed By: #### CVDTBH #### [facility] [address] [place] [address] Dr. Heather Lopez AND [facility] [id number] A AGPositiveAbnormal NEGATIVE SEE COMMENTThe [facility] HospitalComment on above:Performed By: #### INFLUAB #### [facility] [address] [place] [address] Dr. Heather Maher AGNegativeNormalNEGATIVE SEE COMMENTThe [facility] HospitalComment on above:Performed By: #### INFLUAB #### [facility] [address] [place] [address] Dr. Heather AguirreINTERNAL CONTROLSWithin Normal LimitsNormalWithin Normal Limits The [facility] HospitalComment on above:Performed By: #### INFLUAB #### [facility] [address] [place] [address] Dr. Heather AguirreXR CHEST 2 Von [id number] CHEST 2 VEXAM: XR CHEST 2 V HISTORY: Chills, fever and bodyaches COMPARISON: None. TECHNIQUE: PA and lateral chest x-rays FINDINGS: The lung parenchyma is free of consolidation or infiltrate. No pneumothorax or pleural effusion. The cardiac, mediastinal and hilar contours are normal. The visualized osseous structures exhibit no gross abnormality. IMPRESSION: No acute cardiopulmonary abnormality. Electronically authenticated by: KATHIE HOPKINS Date: 2022-07-14 21:21[facility] ACOG PANEL 2: 30 to 65on 07-09-2022..NormalThe [facility] HospitalComment on above:Result Comment: Performed at: WBPerformed By: #### [id number] #### [facility] [address] [place] [address] Dr. Heather AguirreAge Gdln ACOG Fiknrph23-05NivreaZtjKettering Health Greene MemorialComment on above:Performed By: #### [id number] #### [facility] [address] [place] [address] Dr. Heather AguirreDIAGNOSIS:CommentWilson HealthComment on above: Result Comment: NEGATIVE FOR INTRAEPITHELIAL LESION OR MALIGNANCY. CELLULAR CHANGES ASSOCIATED WITH ATROPHY ARE PRESENT. Performed at: WBPerformed By: #### [id number] #### [facility] [address] [place] [address] Dr. Heather Titus AptimaNegativeNormalNegativeCleveland Clinic Union Hospital on above:Result Comment: This nucleic acid amplification test detects fourteen high-risk HPV types (16,18,31,33,35,39,45,51,52,56,58,59,66,68) without differentiation. Performed at: =GPerformed By: #### [id number] #### [facility] [address] [place] [address] Dr. Heather Titus Genotype ReflexComMadison Health on above:Result Comment: Criteria not met, HPV Genotype not performed. Performed at: WBPerformed By: #### [id number] #### [place] [address] [address] Heather AguirreMethodology:CTIMNoWexner Medical Center on above: Result Comment: The [employer] Attendant was unable to read this specimen. Therefore a manual review was performed. Performed at: WBPerformed By: #### [id number] #### [place] [address] Dr[address] Heather AguirreNote:CommentUniversity Hospitals Portage Medical Center on above:Result Comment: The Pap smear is a screening test designed to aid in the detection of premalignant and malignant conditions of the uterine cervix. It is not a diagnostic procedure and should not be used as the sole means of detecting cervical cancer. Both false-positive and false-negative reports do occur. . Performed at: WBPerformed By: #### [id number] #### [facility] [address] [place] [address] Dr. Heather AguirrePerformed by:CommentUniversity Hospitals Portage Medical Center on above: Result Comment: Supriya Amador, C Engineer (ASCP) Performed at: WBPerformed By: #### [id number] #### [place] [address] [place], [place] [address] Dr. Heather AguirreSpecimen adequacy:CommentWilson HealthComment on above:Result Comment: Satisfactory for evaluation. Endocervical component may not be distinguished in cases of atrophy. Performed at: WBPerformed By: #### [id number] #### [facility] [address] [place], [place] [address] Dr. Heather AguirreMG MAMM SCREEN 3D YOU CADon 61-45-3076MH MAMM SCREEN 3D YOU CAD Patient: MACKENZIE PATEL Exam Date: 06/11/2022 : 1955 Gender:F Ordering : DR JERI RUSSO . Admission #: [id number] Family : Order #: [id number] CLICK HERE TO VIEW EXAM RADIOLOGY REPORT [...] skin cancer at age 65. LOCATION: [facility] BREAST COMPOSITION: Scattered areas fibroglandular [...] by: Kathie Olvera MD on 06/11/2022 at 08:04Wilson HealthXR DEXA BONE DENSITYon [id number] DEXA BONE DENSITYEXAMINATION: XR DEXA BONE DENSITY, [...] Electronically authenticated by: KATHIE OLVERA Date: 2022-06-10 12:16NormSam[facility]itan [facility] AUTO DIFFon [id number] #0.1 103/ulNormal0.0-0.1[facility]leness HospitalComment on above:Performed By: #### LIPID, TSH, CMP #### [facility] [address] [place] [address] Dr. Heather AguirreBasophils/100 WBC (Bld)0.8 %Normal0.2-2.0[facility] Comment on above:Performed By: #### LIPID, TSH, CMP #### [facility] [address] [place] [address] Dr. Heather Ramos #0.3 103/ulNormal0.0-0.7The [facility] HospitalComment on above: Performed By: #### LIPID, TSH, CMP #### [facility] [address] [place] [address] Dr. Heather Mckeonosinophils/100 WBC (Bld)2.9 %Normal0.9-7.0[facility] Comment on above:Performed By: #### LIPID, TSH, CMP #### [facility] [address] [place] [address] Dr. Heather Mckeonrythrocyte distribution width (RBC) [Ratio]13.2 %Ngrjyr20.0-15.0 [facility]leness HospitalComment on above:Performed By: #### LIPID, TSH, CMP #### [facility] [address] [place] [address] Dr. Heather AguirreHematocrit (Bld) [Volume fraction]37.6 %Emutdv36.0-48.0The [facility] HospitalComment on above:Performed By: #### LIPID, TSH, CMP #### [facility] [address] [place] [address] Dr. Heather AguirreHemoglobin (Bld) [Mass/Vol]12.1 g/zAZehfqv80.0-16.0The [facility] Hospitalment on above:Performed By: #### LIPID, TSH, CMP #### [facility] [address] [place] [address] Dr. Heather Albarran #0.03 10e3/ulNormal0.00-0.03The [facility] HospitalComment on above:Performed By: #### LIPID, TSH, CMP #### [facility] [address] [place] [address] Dr. Heather Albarran %0.3 %Normal0.0-0.5The [facility] HospitalComment on above: Performed By: #### LIPID, TSH, CMP #### [facility] [address] [place] [address] Dr. Heather Candelario #2.9 103/ulNormal1.2-3.8The [facility] HospitalComment on above:Performed By: #### LIPID, TSH, CMP #### [facility] [address] [place] [address] Dr. Heather Carranzahocytes/100 WBC (Bld)33.6 %Ojtjph29.5-60.0The [facility] on above:Performed By: #### LIPID, TSH, CMP #### [facility] [address] [place] [address] Dr. Heather CoronaUAL DIFF REQNONormalThe [facility] HospitalComment on above: Performed By: #### LIPID, TSH, CMP #### [facility] [address] [place] [address] Dr. Heather Tsai (RBC) [Entitic mass]30.0 zmHzkgok92.7-34.0The [facility] HospitalComment on above:Performed By: #### LIPID, TSH, CMP #### [facility] [address] [place] [address] Dr. Heather Arndt (RBC) [Mass/Vol]32.2 g/nMTotodt02.9-35.2The [facility] HospitalComment on above:Performed By: #### LIPID, TSH, CMP #### [facility] [address] [place] [address] Dr. Heather ArndtV (RBC) [Entitic vol]93.1 xVRdvjan40.0-99.0The [facility] HospitalComment on above:Performed By: #### LIPID, TSH, CMP #### [facility] [address] [place] [address] Dr. Heather Xiong #0.6 103/ulNormal0.3-0.8The [facility] HospitalComment on above:Performed By: #### LIPID, TSH, CMP #### [facility] [address] [place] [address] Dr. Heather Alfonsoocytes/100 WBC (Bld)7.1 %Normal1.7-12.0The [facility] Comment on above:Performed By: #### LIPID, TSH, CMP #### [facility] [address] [place] [address] Dr. Heather Jo #4.8 103/ulNormal1.4-6.5The [facility] Hospitalment on above:Performed By: #### LIPID, TSH, CMP #### [facility] [address] [place] [address] Dr. Heather Dickensutrophils/100 WBC (Bld)55.3 %Xbtbjh62.0-75.0The [facility] Hospitalment on above:Performed By: #### LIPID, TSH, CMP #### [facility] [address] [place] [address] Dr. Heather Bhattilet mean volume (Bld) [Entitic vol]10.2 fLNormal9.5-13.5The [facility] Hospitalment on above:Performed By: #### LIPID, TSH, CMP #### [facility] [address] [place] [address] Dr. Heather AguirrePLT329 103/hnGohhsj576-161Cek [facility] HospitalComment on above: Performed By: #### LIPID, TSH, CMP #### [facility] [address] [place] [address] [address] Heather AguirreRBC4.04 106/ulCritically low4.20-5.40The [facility] on above:Performed By: #### LIPID, TSH, CMP #### [facility] [address] [place] [address] [address] Heather AguirreWBC8.7 103/ulNormal4.0-11.0The [facility] on above: Performed By: #### LIPID, TSH, CMP #### [facility] [address] [place] [address] [address] Heather AguirreGLYCOHEMOGLOBIN A1Con 06-87-9218QDF RECOMMENDATIONSEE BELOWOhiohealth Marion General HospitalComtrinity health ann [facility] on above:Result Comment: ADA RECOMMENDED LIMIT 4.0 - 6.0 ADA THERAPEUTIC TARGET < 7.0 ACTION SUGGESTED > 7.0Performed By: #### A1C #### [facility] [address] [place] [address] Dr. Heather AguirreGlucose [Mass/Vol]108 mg/dLNoWexner Medical Center on above:Performed By: #### A1C #### [facility] [address] [place] [address] Dr. Heather AguirreHbA1c (Bld) [Mass fraction]5.4 %Normal4.5-6.2[facility] on above:Performed By: #### A1C #### [facility] [address] [place] [address] Dr. Heather AguirreLIPID PROFILEon [id number]-HDL RATIO NORMSEE [facility] on above:Result Comment: 3.3 - 4.4 LOW RISK 4.4 - 7.1 AVERAGE RISK 7.1 - 11.0 MODERATE RISK >11.0 HIGH RISKPerformed By: #### LIPID, TSH, CMP #### [facility] [address] [place] [address] Dr. Heather AguirreCholesterol [Mass/Vol]215 mg/dLCritically high<=200The [facility]humi HospitalComment on above:Performed By: #### LIPID, TSH, CMP #### [facility] [address] [place] [address] [address] Heather Stallingsesterol in HDL [Mass/Vol]59 mg/wWJfreir71-69Ltw [facility] HospitalComtrinity health [facility] on above:Performed By: #### LIPID, TSH, CMP #### [facility] [address] [place] [address] [address] Heather Stallingsesterol in LDL [Mass/Vol]133.0 mg/dLNoKettering Health Greene MemorialComment on above:Performed By: #### LIPID, TSH, CMP #### [facility] [address] [place] [address] [address] Heather José.total/Cholesterol in HDL [Mass ratio]3.6 {ratio} NormalOhiohealth O'Bleness HospitalComment on above:Performed By: #### LIPID, TSH, CMP #### [facility] [address] [place] [address] [address] Heather Quiroga NORMAL> or = 60 mg/dl - LOW CARDIOVASCULAR RISK <40 mg/dl - HIGH CARDIOVASCULAR RISKWilson HealthComment on above:Performed By: #### LIPID, TSH, CMP #### [facility] [address] [place] [address] [address] Heather Christensen CALC NORMALSEE BELOWWilson HealthComment on above:Result Comment: <100 mg/dl OPTIMAL 100 - 129 mg/dl NEAR OR ABOVE OPTIMAL 130 - 159 mg/dl BORDERLINE HIGH 160 - 189 mg/dl HIGH >190 mg/dl VERY HIGH Performed By: #### LIPID, TSH, CMP #### [facility] [address] [place] [address] [address] Heather AguirreTriglyceride [Mass/Vol]115 mg/dLNormal<=150The [facility] Comment on above:Performed By: #### LIPID, TSH, CMP #### [facility] [address] [place] [address] Dr. Heather PintoLDL CALC23.0 mg/dLNoKettering Health Greene MemorialComment on above: Performed By: #### LIPID, TSH, CMP #### [facility] [address] [place] [address] [address] Heather Kim 14(COMP METB)on 25-41-4630Eqqugtl [Mass/Vol]3.5 g/dLNormal 3.4-5.0The [facility] HospitalComment on above:Performed By: #### LIPID, TSH, CMP #### [facility] [address] [place] [address] Dr. Heather AguirreAlbumin/Globulin [Mass ratio]1.1 {ratio}NormalThe [facility] HospitalComment on above:Performed By: #### LIPID, TSH, CMP #### [facility] [address] [place] [address] Dr. Heather Joaquin [Catalytic activity/Vol]56 U/YYmznda05-171Zhi [facility] HospitalComment on above:Performed By: #### LIPID, TSH, CMP #### [facility] [address] [place] [address] Dr. Heather Ferguson [Catalytic activity/Vol]25 U/RJolcjl86-33Rlx [facility] HospitalComment on above:Performed By: #### LIPID, TSH, CMP #### [facility] [address] [place] [address] Dr. Heather Solano gap [Moles/Vol]1 mmol/LNormalThe [facility] HospitalComment on above:Performed By: #### LIPID, TSH, CMP #### [facility] [address] [place] [address] Dr. Heather Allison [Catalytic activity/Vol]10 U/LCritically yvq37-91Mmp [facility] HospitalComment on above:Performed By: #### LIPID, TSH, CMP #### [facility] [address] [place] [address] Dr. Heather Coronairubin [Mass/Vol]0.5 mg/dLNormal0.2-1.0The [facility] Comment on above:Performed By: #### LIPID, TSH, CMP #### [facility] [address] [place] [address] Dr. Yilan ChangCalcium [Mass/Vol]8.5 mg/dLNormal8.5-10.1The [facility] Comment on above:Performed By: #### LIPID, TSH, CMP #### [facility] [address] [place] [address] Dr. Heather AguirreChloride [Moles/Vol]102 mmol/FMauhov50-021Qyw [facility] Comment on above:Performed By: #### LIPID, TSH, CMP #### [facility] [address] [place] [address] Dr. Heather AguirreCO2 [Moles/Vol]30.0 mmol/PTcihpe93.0-32.0[facility] Comment on above:Performed By: #### LIPID, TSH, CMP #### [facility] [address] [place] [address] Dr. Heather AguirreCreatinine [Mass/Vol]1.07 mg/dLCritically high0.55-1.02[facility]leness HospitalComment on above:Performed By: #### LIPID, TSH, CMP #### [facility] [address] [place] [address] Dr. Heather MckeonGFR-AF FINNISH>60Normal>=60The [facility] HospitalComment on above:Performed By: #### LIPID, TSH, CMP #### [facility] [address] [place] [address] Dr. Heather MckeonGFR-NON AF DLMKOBRN17 mL/min/1.77z8Ttpgvsageg low>=60The [facility] HospitalComment on above:Performed By: #### LIPID, TSH, CMP #### [facility] [address] [place] [address] Dr. Heather AguirreGlobulin (S) [Mass/Vol]3.2 g/dLNormalThe [facility] HospitalComment on above:Performed By: #### LIPID, TSH, CMP #### [facility] [address] [place] [address] Dr. Heather AguirreGlucose [Mass/Vol]96 mg/qEWadnkc96-200Srx [facility] Comment on above:Performed By: #### LIPID, TSH, CMP #### [facility] [address] [place] [address] [address] Heather AguirrePotassium [Moles/Vol]4.0 mmol/LNormal3.5-5.1The [facility] Comment on above:Performed By: #### LIPID, TSH, CMP #### [facility] [address] [place] [address] Dr. Heather AguirreProtein [Mass/Vol]6.7 g/dLNormal6.4-8.2The [facility] Comment on above:Performed By: #### LIPID, TSH, CMP #### [facility] [address] [place] [address] Dr. Heather AguirreSodium [Moles/Vol]127 mmol/LCritically dgg184-651Rgy [facility] HospitalComment on above:Performed By: #### LIPID, TSH, CMP #### [facility] [address] [place] [address] Dr. Heather AguirreUrea nitrogen [Mass/Vol]20.0 mg/dLCritically high7.0-18.0The [facility] HospitalComment on above:Performed By: #### LIPID, TSH, CMP #### [facility] [address] [place] [address] Dr. Heather Martinez nitrogen/Creatinine [Mass ratio]18.7 mg/mgNormalThe [facility] HospitalComment on above:Performed By: #### LIPID, TSH, CMP #### [facility] [address] [place] [address] Dr. Heather Gomez 96-75-2381JEO4.693 uIU/mLNormal0.358-3.740The [facility] HospitalComment on above:Performed By: #### LIPID, TSH, CMP #### [facility] [address] [place] [address] Dr. Heather Aguirre Vital Signs Date TimeVital SignValuePerforming FuzgnhsplRjzbukva41-47-9381 08:59-0400Body .4 cmTanvi De Oliveira MD Work Phone: [facility]07-30-2025 08:59-0400 Body mass index (BMI) [Ratio]36.5 kg/f2WxfsijTanvi De Oliveira MD Work Phone: [phone]07-30-2025 08:59-0400 Body kuheve01.87 kgTanvi De Oliveira MD Work Phone: [phone]07-30-2025 08:59-0400 Diastolic blood zfprlivn55 mm[Hg]Tanvi De Oliveira MD Work Phone: [phone]07-30-2025 08:59-0400 Heart rate75 /minTanvi De Oliveira MD Work Phone: [phone]07-30-2025 08:59-0400 Systolic blood zcztokck128 mm[Hg]Tanvi De Oliveira MD Work Phone: [phone]01-28-2025 12:10-0500 Body mass index (BMI) [Ratio]36.72 kg/l5Likpz Rafaela DO Work Phone: [phone]-[facility] HospitalFxxxgkqgvq10-67-7686 12:10-0500Body mjytbq60.28 kgCorey Rafaela DO Work Phone: [phone]-[facility] HospitalUwsugsouzx73-88-8195 12:10-0500Diastolic blood jvqgqifk41 mm[Hg]Jeri Rafaela DO Work Phone: [facility] HospitalFlpvzzvhof41-54-7839 12:10-0500Systolic blood pgvshyej140 mm[Hg]Jeri Rafaela DO Work Phone: [phone] [place], [place] [address]Pjnozugsks80-33-8891 09:30-0500Body acosgd063.4 cmPHYSICIAN [facility]01-09-2025 09:30-0500Body mass index (BMI) [Ratio]36.5 kg/v9ONDMMSJCP [facility]01-09-2025 09:30-0500Body ubbjvzyqhdn36.6 [degF]PHYSICIAN [facility]01-09-2025 09:30-0500Body xycyxk71.82 kg PHYSICIAN NO [facility]01-09-2025 09:30-0500 Diastolic blood nqpyxvnt35 mm[Hg]PHYSICIAN NO [facility]01-09-2025 09:30-0500Heart rate67 /minPHYSICIAN NO [facility]01-09-2025 09:30-5155RuM5% (BldA) [Mass fraction]99 % PHYSICIAN NO [facility]01-09-2025 09:30-0500 Systolic blood yugutwvf681 mm[Hg]PHYSICIAN NO [facility]11-18-2024 09:18-0500Body mass index (BMI) [Ratio]36.72 kg/g3Khada Rafaela DO Work Phone: [facility] HospitalIkbiyytpfs00-55-4831 09:18-0500Body ngdnut15.28 kgCorey Rafaela DO Work Phone: [facility] HospitalLkajnsnbgj76-45-3273 09:18-0500Diastolic blood xxvaqsvx68 mm[Hg]Jeri Rafaela DO Work Phone: [facility] HospitalXlolcybivk14-17-7183 09:18-0500Systolic blood yiobyxac800 mm[Hg]Jeri Rafaela [employer] Work Phone: [facility] HospitalFcprrmbolz15-02-5982 14:19-0400Blood Pressure LocationMichael NILL [phone]-IfxweGeorgetown Behavioral Hospital08-27-2024 14:19-0400Diastolic blood qtqpnuio70 mm[Hg]Price NILL [phone]-QwjgeGeorgetown Behavioral Hospital08-27-2024 14:19-0400Heart rate76 /minMichael NILL [phone]-GuhsyGeorgetown Behavioral Hospital08-27-2024 14:19-0400Respiratory rate16 /minMichael NILL [phone]-WxfnrGeorgetown Behavioral Hospital08-27-2024 14:19-0400Systolic blood fiexcspy833 mm[Hg]Price NILL [phone]-Rseon General Surgery Hhrwgell96-93-3276 08:31-0400Body liuita076.4 cmAv[facility]07-22-2024 08:31-0400Body mass index (BMI) [Ratio]36.1 kg/l3GixvytuiaAvita Health System [facility] Hospital07-22-2024 08:31-0400Body .91 [facility] 03-07-2024 08:31-0400Diastolic blood mm[Hg][facility]07-22-2024 08:31-0400Heart rate69 /[facility]07-22-2024 08:31-0400Systolic blood twiecnlz070 mm[Hg][facility]02-22-2024 10:14-0500Body bksiwl270.4 cmAv[facility]02-22-2024 10:14-0500Body mass index (BMI) [Ratio]35.8 kg/k2DhmhyxkgzAvita Health System [facility]02-22-2024 10:14-0500Body .12 [facility]02-22-2024 10:14-0500Diastolic blood xfvjassb53 mm[Hg] [facility]02-22-2024 10:14-0500Heart rate83 /[facility]02-22-2024 10:14-0500Systolic blood znmorfok313 mm[Hg] [facility]07-13-2023 08:30-0400Body pynkqs758.4 cmNatividadlinda Alvino Other [employer] Other 07-13-2023 08:30-0400Body mass index (BMI) [Ratio] 35.93 kg/o5Ycktkh Alvino Other [employer] Other 07-13-2023 08:30-0400Body ciufwt15.46 kgNatividadlinda Alvino Other [employer] Other 07-13-2023 08:30-0400Diastolic blood aqxjnwam50 mm[Hg] Tanvi De Oliveira Other [employer] Other 07-13-2023 08:30-0400Systolic blood dgxrexxo546 mm[Hg] Tanvi De Oliveira Other [facility] Other Encounters Encounter DateEncounter TypeCare ProviderFacilityStart: 03-15-2025 End: 11-79-5701vhlasraposNuqeon E Braun MD Work Phone: [facility] Work Phone: Start: 03-15-2025 End: 45-43-4006Qxituwo encounter procedureTanvi De Oliveira MD-[facility] Work Phone: Start: 11-23-2024 End: 94-14-4493jjilzlnhpzIDIK [facility]: 09-13-2024 End: 89-37-4899Byojtk flowsheetCorey Rafaela DO Work Phone: noms BCP OBStart: 09-13-2024 End: 07-19-4866Gykjhu flowsheetCorey Rafaela DO Work Phone: [facility] OBStart: 09-13-2024 End: 88-77-4882Tofogu outpatient visit 15 minutesCorey Rafaela DO Work Phone: [facility] OBComment on above:Encounter to discuss test results; Osteopenia of neck of right femurStart: 09-13-2024 End: 26-85-5685cbakzuspsjGDLZE FAZIONot AvailableStart: 08-25-2024 End: 45-43-5475kofbndemifDILOUNLPR NO [facility] Work Phone: Start: 08-25-2024 End: 70-93-0627Fejysga encounter procedurePHYSICIAN NO [facility] Work Phone: Start: 08-08-2024 End: 06-24-8801Ahtbodjqd Result EncounterCorey Rafaela DO Work Phone: noms External Department UnsolicitedStart: 08-08-2024 End: 48-24-2750Wpvfrlruo Result EncounterCorey Rafaela DO Work Phone: noms External Department UnsolicitedStart: 08-08-2024 End: 08-20-2799qamnsivartTarlwn E BraunFacility:[facility] Hospitaltart: 08-08-2024 End: 76-26-9114Rhuvnaon ReferredPHYSICIAN NO [facility] [place] Work Phone: Start: 08-08-2024 End: 06-41-9588Baijboe encounter procedurePHYSICIAN NO [facility] Work Phone: Start: 07-04-2024 End: 14-51-0773Nfmgug flowsheetCorey Rafaela DO Work Phone: noms BCP OBStart: 07-04-2024 End: 14-55-0959Mbyjqd flowsheetCorey Rafaela DO Work Phone: [facility] BCP OBStart: 07-04-2024 End: 01-50-5757Dcphvnepn Result EncounterCorey Rafaela DO Work Phone: noms External Department UnsolicitedStart: 07-04-2024 End: 08-32-6206Savamou encounter procedureCorey Rafaela DO Work Phone: noms HealthcareStart: 07-04-2024 End: 28-80-8735Dlsmmjpx preventive med est patient 65yrs& olderCorey Rafaela DO Work Phone: noms [facility] OBComment on above:Well woman exam with routine gynecological exam; Breast cancer screening by mammogram; Osteoporosis, post-menopausal (CMS/HCC)Start: 90-14-4896Jhd-patient / Non-visit PHYSICIAN NO [facility] Work Phone: Start: 07-04-2024 End: 37-60-6734gdodmyeuhwJAYIQ Adia AvailableStart: 05-27-2024 End: 53-17-1770aluryvurqjOLLTXWW [facility] Start: 05-04-2024 End: 41-04-6029kfinqhqkcvMyssvjq R NILLFacility:CD:[id number]: 04-12-2024 End: 16-52-2851thgzhukeecVpnrfgh R NILLFacility:[facility] PulaskievueStart: 04-12-2024 End: 46-07-6142Uffnznt encounter procedureMichael R NILL [phone] B[facility]i Start: 08-52-4683axdfqkmjwiOuordhr NILLFacility:[facility] Centertart: 01-63-0945Rujqruwt examinationAvita Health System Ontario Hospital Start: 03-07-2024 End: 31-35-0942vsizgcvhybDlhxswcpnProvidence Hospital Work Phone: Start: 03-07-2024 End: 45-32-2862Jlzkeosnz for general adult medical examination without abnormal findingsWadsworth-Rittman Hospitaltart: 03-07-2024 End: 43-46-1010Jvzyydf encounter [facility] Work Phone: Start: 01-01-2024 End: 84-25-2908gwbtwwaozlCHFLIQZOhioHealth Southeastern Medical Center Start: 11-26-2023 End: 11-01-9103shojxiamkjWQCKLGKOhioHealth Southeastern Medical Center Start: 10-08-2023 End: 72-28-1226uwlzrecqgvUsrbebzplProvidence Hospital Work Phone: Start: 10-08-2023 End: 75-10-5772Chlcwiv encounter procedureUnc Health Sout[facility] Work Phone: Start: 02-26-2023 End: 51-85-4815wucngqpyhcDtrvzw Braun Other [place] Other Start: 54-38-9909Uroizumbd for general adult medical examination without abnormal findingsMarcia AlvinoMercy Health Anderson Hospital ClinicStart: 01-50-2782Xhunbosc preventive med est patient 65yrs& olderMarcia [facility] ClinicStart: 07-14-2022 End: 14-13-9502yvijcvdwrxJA TANVI DE OLIVEIRAFacility:P1Fytvx: 07-01-2022 End: 49-74-0681whmdglpszyFE JERI FAZIOFacility:T7Jtojw: 06-11-2022 End: 94-24-9274ulomhfwkshSF TANVI DE OLIVEIRAFacility:K9Hzmhc: 06-10-2022 End: 25-63-8132xuiambbljoOU JERI FAZIOFacility:Y0Nqaeb: 92-89-6977Tovvntnuk for general adult medical examination without abnormal findingsDR TANVI [facility] Hospitaltart: 02-12-2022 End: 99-35-5623wietqhmchnES TANVI DE OLIVEIRAFacility:X1Xiycn: 02-12-2022 End: 18-91-5768Xvxzfqbiq for general adult medical examination without abnormal findingsDR TANVI DE OLIVEIRAFacility:H1 Procedures DateProcedureProcedure DetailPerforming ClinicianStart: 23-56-2355UZ DEXA AXIAL SKELETONCorey Rafaela DO Work Phone: Start: 57-96-4744Lgrdj culturePHYSICIAN NO FAMILY Start: 52-51-9483MN TOMOSYNTHESIS SCREENING BICorey Rafaela DO Work Phone: Start: 19-03-1173VWR,APTIMA HPV,AGE GDLNCorey Rafaela DO Work Phone: Start: 68-19-0540EnfrtwggtxqYqnfm Rafaela DO Work Phone: Start: 24-27-1187Ttsi cerv/vag auto thin layer prep mnl screenCorey Rafaela DO Work Phone: Start: 79-72-1732UrizybpfbcbHunrn Rafaela DO Work Phone: Start: 37-33-9373SixjcrqlhqdOjfqfdn NILL AppendectomyMichael NILL Cardiac catheterizationMichael NILL CholecystectomyMichael NILL Decompression of median nerveMichael NILL Extraction of cataractMichael NILL Repair of right inguinal herniaMichael NILL TonsillectomyMichael NILL Total abdominal hysterectomy with bilateral salpingo-oophorectomyMichael NILL Plan of Treatment DateCare ActivityDetailAuthorStart: 07-10-2025 End: 02-52-5151Vzgyvwq encounter procedureNOLOS [facility]ES [facility] OBStart: 60-17-5873Izknqskrf for malignant neoplasm of breastMammogramHIGHLAND RIDGE HOSPITAL HealthcareStart: 04-17-2025 Influenza vaccinationInfluenza Vaccine (#1)[facility] HealthcareStart: 09-13-2024 End: 32-62-4009Spgzsnv encounter qaqtfyxsm95/28/2025 11:40 AM EST Office Visit [facility] [address] [place] [phone] Jeri Russo, DO [address] [place] [address] ArrivedNOLOS ANGELES [facility]OP[facility] OBComment on above:ArrivedStart: 07-04-2024 End: 33-83-7660LMW Skeletal system Views for bone densityDEXA bone density Imaging Routine Osteoporosis, post-menopausal (CMS/HCC) Expected: 07/04/2024 (Approximate), Expires: 07/04/2025[facility] Work Phone: comment on above:Expected: 07/04/2024 (Approximate), Expires: 07/04/2025Start: 51-73-9835Ajkbsfrgh for malignant neoplasm of colon [facility] HealthcareStart: 26-44-6002Hxnppoefamlt Vaccine: 65+ Years (1 of 1 - PCV) Pneumococcal Vaccine: 65+ Years (1 of 1 - PCV)[facility] HealthcareStart: 10-23-2007 Pneumococcal Vaccine: 65+ Years (1 of 1 - PCV)Pneumococcal Vaccine: 65+ Years (1 of 1 - PCV)[facility] HealthcareStart: 76-95-8849Uvjxaglxa for malignant neoplasm of colonNOMN HealthcareComprehensive metabolic 2000 panel - Serum or Plasma [facility] HospitalEKG 12 channel panelAvita Health System Ontario HospitalTHIN PREP TIS PAP AND HR HPV DNATHIN PREP TIS PAP AND HR HPV DNA Pathology and Cytology Routine Well woman exam with routine gynecological exam Ordered: 07/04/2024[facility] HospitalComment on above:Ordered: 07/04/2024XR Hip - left 2 ViewsMelbourne Regional Medical Center Immunizations Immunization DateImmunizationNotesCare GgrpqafdGibuztqg52-08-1772kzsvdfzvo virus vaccine, unspecified formulationCorey Rafaela DO Work Phone: [facility] HospitalEvkwbcoyif13-64-3416NEOM-UhD-5 (COVID-19) mRNA- 1273 vaccineMichael NILL [phone]-WnmchGeorgetown Behavioral Hospital02-03-2021 SARS-CoV-2 (COVID-19) mRNA-1273 vaccineMichael NILL [phone]-NcpkaGeorgetown Behavioral Hospital01-07-2021 SARS-CoV-2 (COVID-19) mRNA-1273 vaccineMichael NILL [phone]-YyvfdGeorgetown Behavioral Hospital Payers DatePayer CategoryPayerPolicy [id number] [facility] Member Subscriber Plan / Payer (Effective 2022-Present) Name: Mackenzie Patel Member ID: [id number] Relation to Subscriber: Self Name: Mackenzie Patel Subscriber ID: [id number] Payer ID: Not on file Type: Not on file Address: [facility] [address] [place] [id number] [address] Luke'S [id number] 2..7.71275[id number] [id number] 2..1.618503.3.579.[id number] 2.0.1.720044.3.57[id number] 2..1.664596.3.579.2.025 2000Tjmegkt6325503 2..1.310752.3.579.[id number] 2..1.073529.3.57[id number] 2.0.1.591881.3.579.[id number] 2..1.955647.3.57[id number] 2..1.063527.3.579.[id number] 2.0.1.740193.3.579.2.206207-90-8478Lpmgxsq7611791 2.0.1.374349.3.579.2.1259MedicareMedicare-OP No Part [id number] 2.16.840.1.068319.3.579.2.531 Social History DateTypeDetailFacilityStart: 64-37-3932Qfq [facility]igned At [facility]ertart: 06-19-2023 End: 96-20-7504Dcjbqri smoking status NHISEx-smoker (finding)[facility] Hospitaltart: 07-55-6260Ixy Assigned At [facility]tart: 05-84-8698Sihpygw smoking statusNeverMedina HospitalueHistory of tobacco useCurrent smokerNOMS HealthcareHistory of tobacco useCigarette SmokerNOMN HealthcareStart: 07-04-2024 End: 67-31-5938Jzhqatuhw beverage intakeEx-drinker (finding)[facility] Start: 33-02-3578Ljgphgv of Social functionNOMS HealthcareStart: 06-19-2023 Alcohol CommentOcasional alcohol useNOMS HealthcareStart: 16-13-5297Qyu assigned at birthNot on fileHIGHLAND RIDGE HOSPITAL HealthcareStart: 17-60-2019Dwdhbo identityIdentifies as female gender (finding)[facility] HealthcareStart: 74-10-2031WmeNdhkkg (finding) [facility] Functional Status JksxWcxuhipkcvVuwrqiAzlkyxbj62-29-7355Ljmwnxprsl StatusN/AFarcadioMercy Hospital [facility] Clinical Notes 02-26-2023 to 11-23-2024 Note Date & XttlZlqfYcmdbvkm74-33-8674 [facility] Chief Complaint: [...] problems arise Tomy Lemus MD, MPH, FACC, [facility], [facility] Interventional Cardiology Pager Email: [email or web address] History of Present illness Narrative* Marce Slade, DATA SOLUTIONS ARCHITECT - 09/13/2024 11:40 AM EST Reason for [...] nursing note reviewed. Exam conducted with a senior product development manager present. Vitals: Estimated body mass index is [...] of: Jeri Russo DO documented in this encounterScotland County Memorial HospitalFmzbjbrptt82-73-3523 Evaluation note* Diagnosis Onset Date Resolution Status Admit Date Dysuria acuteDecember 2023 9:48amLeft hip painacuteJanuary 2024 9:24am [facility] Work Phone: [phone] 313-208611-18-2024 History of Present illness Narrative* Trudy Clarke, [...] nursing note reviewed. Exam conducted with a senior product development manager present. Vitals: Estimated body mass index is [...] CANCELED: Bilateral screening mammogram 3. Osteoporosis, post-menopausal ([facility]) M81.0 DEXA bone density Annual: Patient presents [...] of: Jeri Russo DO documented in this encounterRobert Ville [address]Aajuzybcic61-36-1643 NoteBellevue [facility] Note HPI: Mackenzie Patel [...] as needed Dwayne Richmond MD Interventional Cardiology [facility]08-27-2024 NoteGeneral Surgery Office/Clinic Note Chief Complaint [...] disease: Mother and Br (more content not included)...[facility] HospitalComment on above:Result Comment: Electronically Signed By: AUSTIN RUBALCAVA, Price Rogers\.debby\Date and Time Signed: 04/12/24 14:47 OJM05-20-8696 NoteBellevue Cardiology Clinic Note HPI: Mackenzie Patel [...] as needed Dwayne Richmond MD Interventional Cardiology [facility]04-11-2024 NotePatient: Mackenzie Patel Procedure Information Date/Time: 11/26/23 1030 Procedure: Coronary angiography (Left) Location: [facility] / [facility] (Cath) Providers: Dwayne Richmond [...] products. Plan discussed with attending. Additional [facility]sC[facility] Evaluation note* Encounter Date Diagnosis Assessment [...] colonscopy in 2013 - repeat next year. [employer] Other Evaluation + Plan note No data available for this section [facility] Evaluation note* Diagnosis Onset Date Resolution Status Dyspnea on exertion acuteEpigastric abdominal painacuteLeft-sided chest wall painacute [facility] Work Phone: Evaluation note* Diagnosis Onset Date Resolution Status Well adult exam [facility] Work Phone: Evaluation note* Diagnosis Well woman exam with routine gynecological exam Routine gynecological examination Breast cancer screening by mammogram Osteoporosis, post-menopausal (CMS/HCC) Senile osteoporosis documented in this encounter [facility] HealthcareEvaluation note* Diagnosis Encounter to discuss test results Other specified counseling Osteopenia of neck of right femur documented in this encounter [facility] HealthcareEvaluation noteNo assessment information availableLancaster Municipal Hospital Work Phone: History general Narrative - Reported* Type Description Date Medical History Post-menopausal Medical HistoryHypothyroidismMedical HistoryChronic tension-type headache, not intractableMedical HistoryTrochanteric bursitis of right hipMedical History Osteoarthritis of right hipMedical HistoryOsteopenia, unspecified location Medical HistoryLumbar radiculopathy, rightMedical HistoryVaginal dryness, menopausalMedical HistoryRight hip painMedical HistoryDepression, majorMedical HistoryUTI symptomsSurgical TedfwjhPMKGZVKRFWHJHCO9200Gyybdiec History HYSTERECTOMY, TOTAL07/1998Surgical HistoryTAH WITH BSO AND SNAHYBAQUQWB56/1998 Surgical AgkpwzyDMIFWZVWCGFYA4397Dgeeooit HistoryHERNIA GCEBIO9315Kyvxpbno HistoryENDOMETRIOSIS R CARPEL KLMBRP81/2017Surgical QghbnphNKMLTJCIE93/2018 Surgical Historycolonoscopy - 2014 - normal Dr. MejiaHospitalization HistorySEE SURGICAL [employer] Other Hospital Discharge instructions No data available for this section [facility] [place] Progress note No data available for this section [facility] Reason for referral (narrative)No reason for referral information availableLancaster Municipal Hospital Work Phone: Summary Purpose Family History [...] and content) DATE CREATED AUTHOR 07/17/2022 [facility] DATE CREATED AUTHOR AUTHOR'S ORGANIZ ATION 05/12/2024 [facility] DATE CREATED AUTHOR AUTHOR'S ORGANIZ ATION 08/14/2024 [facility] DATE CREATED AUTHOR AUTHOR'S ORGANIZ ATION 09/14/2024 [facility] DATE CREATED AUTHOR AUTHOR'S ORGANIZ ATION 11/24/2024 [facility] REASON FOR VISIT (unrecogniz ed section [...] Date Tanvi De Oliveira MD [address] [place] [address] PCP - [facility]07/02/23Team MemberRelationshipSpecialtyStart Date End Date Tanvi De Oliveira MD [address] [place] [address] PCP - [facility]07/02/23 Team Status: Active Member Role Status [...] Date Tanvi De Oliveira MD [address] [place] [address] PCP - [facility]07/02/23 Team Status: Inactive Member Role Status Dates Tanvi De Oliveira MD Primary Care Provider Active Start: March 15, 2025 End: March 15, 2025Jarad Cancino ProviderActiveStart: March 15, 2025 End: March 15, 2025Team MemberRelationshipSpecialtyStart DateEnd Date Tanvi De Oliveira MD [facility]07/02/23Te MemberRelationshipSpecialtyStart Date End Date Tanvi De Oliveira MD PCP - [facility]07/02/23 Goals (unrecognized section and content) Goals [...] BE BASED ON THE PRIMARY CLINICAL RECORDS. [employer] [facility]. provides no warranty or guarantee of the accuracy or completeness of information in this document.
--- NOTE | 2025-07-19 08:28 | MM_ITS ---
Patient Name: MIRYAM PATEL MR#: [id number] : 1955 Exam Date: 07/19/2025 Ordering Doctor: DR JERI AMAYA . RADIOLOGY REPORT PROCEDURE: MM TOMOSYNTHESIS SCREENING BI COMPARISON: MM TOMOSYNTHESIS SCREENING BI, 07/04/2024. MM TOMOSYNTHESIS SCREENING BI, 06/17/2023. MG MAMM SCREEN 3D YOU CAD, 06/11/2022. MG MAMM YOU SCRN W CAD DIG, 07/04/2013. INDICATIONS: Screening Calculator Name NCI Breast Cancer Risk Assessment Tool 5 Year Breast Cancer Risk 1.20% Lifetime Breast Cancer Risk 4.20% Personal Breast Cancer No Personal Ovarian Cancer No Treatments None Family Cancers Niece with larynx cancer at age ~70; Grandfather-maternal with skin cancer at age 63. LOCATION: [facility] BREAST COMPOSITION: There are scattered areas of fibroglandular density. FINDINGS: RIGHT BREAST: No significant suspicious finding. Benign appearing calcifications are present. LEFT BREAST: No significant suspicious finding. Benign appearing calcifications are present. DIAGNOSTIC CATEGORY 2--BENIGN FINDING. NO CHANGE FROM COMPARISON. RECOMMENDATIONS: ROUTINE MAMMOGRAM AND CLINICAL EVALUATION IN 12 MONTHS. Dictated by: Angelito Marie MD on 07/19/2025 at 11:07 Approved by: Angelito Marie MD on 07/19/2025 at 14:19
== END 2025-07-19 08:23 | disposition home or self-care (01) ==
LOC: MAMMO 08:22
PROVIDERS: Visit Provider Obstetrics & Gynecology
DX: Z12.31 Encounter for screening mammogram for malignant neoplasm of breast (principal); Z80.8 Family history of malignant neoplasm of other organs or systems
CPT/HCPCS: 77063; 77067